=== PATIENT | female | born 1950 | race Caucasian/White ===

== ENCOUNTER → 2017-10-03 09:19 | Outpatient (CLI) | payer MEDICARE, MEDICAID, SELFPAY ==
[2017-10-03 16:25] LABS: Absolute Lymphocyte Count 1.35 X10^3/ul (0.83-4.51); Absolute Neutrophil Count 3.9 X10^3/uL (2.0-7.7); Basophil# 0.01 X10^3/uL; Basophil% 0.2 % (0-1); Eosinophil# 0.02 X10^3/uL; Eosinophils% 0.3 % (0-5); Hematocrit 43.8 % (37-47); Lymphocyte # 1.35 X10^3/ul (4.0); Lymphocyte % 23.4 % (19-41); Mean Corp Hgb Conc 34.2 g/gl (32-36); Mean Corpuscular Hgb 30.4 pg (27.0-32.0); Mean Corpuscular Volume 88.7 fL (81-99); Monocyte# 0.48 X10^3/uL; Monocyte% 8.3 % (0-10); Neutrophil # 3.89 X10^3/uL (2.7-7.7); Neutrophil % 67.6 % (47-70); Platelet Count 199 K/mm3 (150-450); RBC Distribution Width CV 12.3 % (11.6-14.6); RBC Distribution Width SD 39.6 fl (35.1-43.9); Red Blood Count 4.94 M/mm3 (4.2-5.4); White Blood Count 5.8 K/mm3 (4.4-11.0)
[2017-10-03 16:27] LABS: POSITIVE COUNT NO; POSITIVE DIFFERENTIAL NO; POSITIVE MORPHOLOGY NO
[2017-10-03 16:39] LABS: Vitamin D,25 Hydroxy 20.6 ng/mL (29.95-100.01)
[2017-10-03 16:41] LABS: ALB/GLOB Ratio 1.1 RATIO (0.9-2.4); AST(SGOT) 23 U/L (15-37); Alanine Aminotransfer ALT/SGPT 42 U/L (13-56); Albumin, Serum 3.8 g/dL (3.2-5.0); Alkaline Phosphatase 68 U/L (45-117); Anion Gap 6 (5-15); BUN 12 mg/dL (7-18); BUN/Creat Ratio 18.4 RATIO (10-20); Calcium,Total 8.7 mg/dL (8.5-10.1); Chloride 106 mmol/L (98-107); Creatinine, Serum 0.65 mg/dL (0.55-1.02); EST Glomerular Filtration Rate 96 mL/min (>60); Est Glom Filt Rate - Afr Amer 117 mL/min (>60); Globulin 3.5 g/dL (2.2-4.2); Glucose 99 mg/dL (74-106); Potassium 4.2 mmol/L (3.5-5.1); Protein, Total 7.3 g/dL (6.4-8.2); Sodium Level 143 mmol/L (136-145); Thyroid Stim Hormone (TSH) 0.49 uIU/mL (0.358-3.74)
== END ==
PROVIDERS: Family Provider Family Medicine Geriatric Medicine; PCP Family Medicine Geriatric Medicine; Visit Provider Family Medicine Geriatric Medicine
DX: E55.9 Vitamin D deficiency, unspecified (principal); R53.83 Other fatigue
CPT/HCPCS: 36415; 80053; 82306; 84443; 85025

== ENCOUNTER → 2018-04-04 15:39 | Outpatient (CLI) | payer MEDICARE, MEDICAID, SELFPAY ==
[2018-04-04 17:08] LABS: Absolute Lymphocyte Count 1.15 X10^3/ul (0.83-4.51); Absolute Neutrophil Count 4.7 X10^3/uL (2.0-7.7); Basophil# 0.02 X10^3/uL; Basophil% 0.3 % (0-1); Eosinophil# 0.01 X10^3/uL; Eosinophils% 0.2 % (0-5); Hematocrit 47.9 % (37-47); Hemoglobin 16.3 g/dl (12.0-15.0); Lymphocyte # 1.15 X10^3/ul (4.0); Lymphocyte % 17.7 % (19-41); Mean Corpuscular Hgb 30.4 pg (27.0-32.0); Mean Corpuscular Volume 89.4 fL (81-99); Mean Platelet Vol. 10.3 fl (6.2-12.0); Monocyte# 0.61 X10^3/uL; Monocyte% 9.4 % (0-10); Neutrophil # 4.69 X10^3/uL (2.7-7.7); Neutrophil % 72.4 % (47-70); Platelet Count 237 K/mm3 (150-450); RBC Distribution Width CV 12.2 % (11.6-14.6); RBC Distribution Width SD 39.6 fl (35.1-43.9); Red Blood Count 5.36 M/mm3 (4.2-5.4); White Blood Count 6.5 K/mm3 (4.4-11.0)
[2018-04-04 17:20] LABS: Vitamin D,25 Hydroxy 25.2 ng/mL (29.95-100.01)
[2018-04-04 17:21] LABS: POSITIVE COUNT NO; POSITIVE DIFFERENTIAL NO; POSITIVE MORPHOLOGY NO
[2018-04-04 17:23] LABS: ALB/GLOB Ratio 1.1 RATIO (0.9-2.4); AST(SGOT) 19 U/L (15-37); Alanine Aminotransfer ALT/SGPT 26 U/L (13-56); Albumin, Serum 3.9 g/dL (3.2-5.0); Alkaline Phosphatase 72 U/L (45-117); Anion Gap 7 (5-15); BUN 9 mg/dL (7-18); BUN/Creat Ratio 13.8 RATIO (10-20); Calcium,Total 8.7 mg/dL (8.5-10.1); Chloride 106 mmol/L (98-107); Creatinine, Serum 0.65 mg/dL (0.55-1.02); EST Glomerular Filtration Rate 96 mL/min (>60); Est Glom Filt Rate - Afr Amer 116 mL/min (>60); Globulin 3.5 g/dL (2.2-4.2); Glucose 101 mg/dL (74-106); Potassium 3.9 mmol/L (3.5-5.1); Protein, Total 7.4 g/dL (6.4-8.2); Sodium Level 140 mmol/L (136-145); Thyroid Stim Hormone (TSH) 1.29 uIU/mL (0.358-3.74)
== END ==
PROVIDERS: Family Provider Family Medicine Geriatric Medicine; PCP Family Medicine Geriatric Medicine; Visit Provider Family Medicine Geriatric Medicine
DX: E55.9 Vitamin D deficiency, unspecified (principal); R53.83 Other fatigue
CPT/HCPCS: 36415; 80053; 82306; 84443; 85025

== ENCOUNTER → 2018-04-11 15:27 | Outpatient (CLI) | payer MEDICARE, MEDICAID, SELFPAY ==
--- NOTE | 2018-04-11 15:32 | CT_ITS ---
STUDY: LOW DOSE CT LUNG CANCER SCREENING REASON FOR EXAM: Female, 67 years old. Former smoker one pack per day for 50 years, quit 6 months ago. Screening. RADIATION DOSAGE (If Supplied By Facility): CTDIvol = ( 2.01 ) mGy, DLP = ( 74.49 ) mGycm TECHNIQUE: No contrast was administered. Low dose technique was utilized (average mAS-38 and kVp 120). 1.25 mm axial source images with a slice interval of 1.25-mm were reconstructed in lung windows. Coronal and sagittal 2-D MPR Nodule measured using lung windows on PACS and/or independent workstation with automated measurement of minimum and maximum diameter. Nodule measurement reported as average diameter rounded to the nearest whole number. Growth is defined as an increase ins size of greater than 1.5 mm. COMPARISON: 04/06/[address] FINDINGS: Total lung nodules (excluding granulomas): A few very tiny pulmonary nodules are present bilaterally, less than 3 mm. No apparent change compared to prior imaging. No suspicious pulmonary nodules. Emphysema: Generalized pulmonary hyperlucency with mild features of centrilobular emphysema at the apices. Endobronchial lesion: There is a focus of nodular thickening projecting into the lumen of the left lower lobe posterior basal bronchial segment. Series 2 image 160 axials, coronal series 602 image 130. This focus measures approximately 8 mm in length, 3 mm in thickness. This feature was not apparent on prior imaging of 04/06/2017. This could represent an endobronchial lesion, or inspissated material. There is a tiny 3 mm nodular focus within the right lower lobar bronchus, axial series 2 image 142. Another tiny focus is present within the right lower lobe medial basilar segmental division axial image 183. These additional small foci in the right were not apparent on prior imaging. Aorta: Nondilated aorta, minimal arch atherosclerosis. Coronary arteries: Mild coronary cusp secretions are present at the origin of the LAD. None seen within the RCA or circumflex distributions. Heart: No significant cardiomegaly. Pulmonary artery: Nondilated. Mediastinal nodes: Normal esophagus. Lymph node subjacent to the left mainstem bronchus measuring approximately 14 x 8 mm.. Lymph node subjacent to the right mainstem bronchus measuring approximately 11.5 x 8 mm. These are not substantially changed compared to prior imaging. There is no apparent hilar lymphadenopathy. Other chest and abdominal findings: There is evidence of pancreatic atrophy. No acute upper abdominal process is visualized. Body wall soft tissues exhibit no acute process. Supraclavicular soft tissues exhibit no acute process. Osseous structures exhibit no acute process. CT/Low Dose CT Lung Screening IMPRESSION: Tiny pulmonary nodules, less than 3 mm, stable. Tiny endobronchial nodular filling defects as described in detail above in the left lower lobe and right lower lobe, not apparent on prior imaging and requiring further characterization. Bronchoscopy is suggested. ACR Lung RADS Category A4, due to the endobronchial nodules. Suspicious. 5-15% chance of malignancy. Mild features of COPD/emphysema. Minimal coronary atherosclerosis. IMPORTANT NOTES FOR USE: ACR Lung-RADS Version 1.0 Assessment Categories Release Date: August 04, 2013 Category: Coded 0-4 bases on nodule(s) with highest degree of suspicion. Negative screen is defined as categories 1 and 2; a positive screen is defined as categories 3 and 4. Category 3 and 4A nodules that are unchanged on interval CT should be coded as category 2, and individuals returned to screening in 12 months. Category 4X: Category 3 or 4 nodules with additional imaging findings that increase the suspicion of lung cancer, such as spiculation, GGN that doubles in size in 1 year, enlarged lymph notes, etc. Category Modifiers: S (significant finding unrelated to lung cancer) and C (prior history of treated lung cancer) may be added to the 0-4 Lung-RADS Electronically Signed: Crispin Abreu MD at 18:12 EST Tel , Service support ,
== END ==
PROVIDERS: Family Provider Family Medicine Geriatric Medicine; PCP Family Medicine Geriatric Medicine; Referring Provider Family Medicine Geriatric Medicine; Visit Provider Family Medicine Geriatric Medicine
DX: Z87.891 Personal history of nicotine dependence (principal); F17.200 Nicotine dependence, unspecified, uncomplicated; Z12.2 Encounter for screening for malignant neoplasm of respiratory organs
CPT/HCPCS: G0297

== ENCOUNTER → 2018-06-24 14:36 | Outpatient (CLI) | payer MEDICARE, SELFPAY ==
[2018-05-28 12:38] VITALS: BMI 18.1
--- NOTE | 2018-06-24 14:39 | CT_ITS ---
STUDY: CT CHEST WITH CONTRAST REASON FOR EXAM: Female, 67 years old. Follow-up lung nodule RADIATION DOSAGE (If Supplied By Facility): CTDIvol = ( 8.75 ) mGy, DLP = ( 172.44 ) mGycm TECHNIQUE: Transaxial 2.5 mm imaging was performed following intravenous administration of Isovue 300 100 IV. Multiplanar coronal and sagittal images were reformatted. Individualized dose optimization techniques were used for this CT. COMPARISON: CT lower dose lung screening 04/11/2018. 04/06/2017. FINDINGS: There is stable opacification in the left lower lobe posterior basal bronchial segment axial images 75-80 series 4. Previously seen small endobronchial nodular density in the right proximal inferior bronchus previously image 142 series 2 has increased in size with increased luminal opacification best seen currently image 69 series 4. There is some vague lucency which may be in inspissated mucus. The previously seen small nodular endoluminal luminal density in the right lower lobe medial basilar segment axial image 182 and 183 series 2 has resolved Minimal bilateral centrilobular emphysema without dominant bulla formation. Stable 1 cm pulmonary cyst right lower lobe. Exam point to 7 cm nodule in the left lower lobe image 94 series 4 present on previous exam. Minimal scarring in the apices. Minor pleural thickening of the inferior left major fissure. Normal heart and pericardium. Normal mediastinum. Normal hilar regions. Normal enhanced pulmonary arteries. Normal aorta arch and descending thoracic aorta. Age-appropriate osseous structures. There is demineralization of osseous structures. Stable loss of vertebral body height along the superior endplate T12 and inferior endplate L2. Atherosclerosis of the upper abdominal aorta. CT/Chest WITH Contrast IMPRESSION: Mild centrilobular emphysema. No significant pulmonary nodules or masses. Stable tiny pulmonary nodules less than 3 mm. Endobronchial filling defect as outlined above one of which has resolved in the interim, one of which is stable, one of which has increased in size and decreased in density. The later one is in the right proximal inferior bronchus. Heterogeneous attenuation suggestive off inspissated mucus. Attention on follow-up examination is recommended. Consider bronchoscopy. Other nonacute findings as outlined above. Electronically Signed: Gretta Bermudez MD at 7:52 EDT , Service support ,
[2018-06-24 15:11] LABS: CREATININE FINGERSTICK 0.8 mg/dL (0.55-1.02)
== END ==
PROVIDERS: Family Provider Family Medicine Geriatric Medicine; PCP Family Medicine Geriatric Medicine; Referring Provider Internal Medicine Critical Care Medicine; Visit Provider Internal Medicine Critical Care Medicine
DX: R93.89 Abnormal findings on diagnostic imaging of other specified body structures (principal)
CPT/HCPCS: 71260; Q9967

== ENCOUNTER → 2018-06-26 15:05 | Outpatient (CLI) | payer MEDICARE, MEDICAID, SELFPAY ==
[2018-06-26 14:28] VITALS: BMI 17.9
[2018-06-26 15:22] LABS: Platelet Count 180 K/mm3 (150-450)
[2018-06-26 15:27] LABS: Prothrombin Time (Protime)PT. 13.1 SECONDS (11.7-14.9)
[2018-06-26 15:28] LABS: Partial Thromboplast Time 30.2 Seconds (24.1-36.2)
== END ==
PROVIDERS: Family Provider Family Medicine Geriatric Medicine; PCP Family Medicine Geriatric Medicine; Visit Provider Nurse Practitioner Acute Care
DX: Z98.890 Other specified postprocedural states (principal); R91.8 Other nonspecific abnormal finding of lung field; I48.91 Unspecified atrial fibrillation
CPT/HCPCS: 36415; 85049; 85610; 85730

== ENCOUNTER 2018-07-12 11:33 | Day surgery (SDC) | payer MEDICARE, SELFPAY ==
[2018-06-26 14:28] VITALS: BMI 17.9
[2018-07-12] VITALS (10 sets, daily range): BP systolic 108–149; BP diastolic 54–83; PULSE 63–81; RESP 16–20; TEMP 36.4–37.1; O2SAT 4–100; BMI 17.7
--- NOTE | 2018-07-12 | FLU_PTH ---
PATIENT: TRACI MCCONNELL LOC: EN U#:[id number] AGE/SX: 67/F ROOM: RE07/12/[address]: Dr. Jaydon Dan DO : 1950 BED: DIS: 07/12/2018 SPEC #: [id number] RECD: 07/12/18 14:45 STATUS: SRIRAM REHarsh #: [id number] HYACINTH: 07/12/18 00:[address]: Jaydon Dan DEPT: CYTOLOGY RECD BY: Gilles Swanson ENTERED: 07/12/18 14:45 SP TYPE: Fluid OTHR DR: Dr. Matt Hess MD Tissues: Bronchus of left lower lobe Procedures: Special Stain Group II Surgery Specimen Level IV Cytospin Fluid HEADER OPERATION: Bronchoscopy (MOD) PRE-OP DIAGNOSIS: Lung mass TISSUE SUBMITTED: BAL LLL fluid for cytology DIAGNOSIS CYTOLOGY LLL fluid, BAL (cytospin and cell block): Negative for malignant cells. SJ:waylon 07/15/18 COMMENT Correlation with clinical, radiologic findings and appropriate follow up are necessary. CYTOLOGY STUDY Slides are reviewed. CYTOLOGY GROSS Received is 10 ml of white cloudy fluid labeled with the patient's name and and designated per the requisition as BAL LLL. Submitted for cytology preparation including cell block. / 07/12/18 TC:5 CPT: 98859, 83657
--- NOTE | 2018-07-12 13:47 | OP.ENDO_ITS ---
Patient Name: Laya Dick Procedure Date: 07/12/2018 7:07 AM Date of : 1950 Age: 67 Procedure: Bronchoscopy Indications: Abnormal CT scan of chest Providers: Jaydon Dan MD Referring MD: Jaydon Dan MD Medicines: Monitored Anesthesia Care Complications: Bronchospasm and transient hypoxia. Procedure: Pre-Anesthesia Assessment: - [place] Protocol: - Pre-procedure Verification: Prior to the procedure, the patient's identity was verified by full name and date of . The patient's identity was verified on all pertinent medical records, including History and Physical. Also prior to the procedure, a History and Physical was performed, and patient medications, allergies and sensitivities were reviewed. The patient's tolerance of previous anesthesia was reviewed. The risks and benefits of the procedure and the sedation options and risks were discussed with the patient. All questions were answered and informed consent was obtained. - Time-Out: Prior to the start of the procedure, the patient's identification, proposed procedure, accurate signed consent, correctly labeled images and records, and need for prophylactic antibiotics were verified by the physician and the nurse in the procedure room. After I obtained informed consent, the scope was passed under direct vision. Throughout the procedure, the patient's blood pressure, pulse, and oxygen saturations were monitored continuously. The bronchoscope was introduced through the mouth, via the endotracheal tube and advanced to the tracheobronchial tree. Findings: The patient procedure was intially attempted in the endoscopy suite. The patient was medicated with 2 mg of versed and 50 mcg of Fentanyl. A bite block was placed and the bronchosope was introduced. The vocal cords were normal in appearance and abducted appropriately. Upon entering the patient's trachea, she began to experience bronchospasm. The bronchosocpe was withdrawn for a period of time. The patient was transiently hypoxic with saturations in the mid 80's. Attempts to reintroduce the bronchoscope was unsuccessful, as each time the patient began to experience laryngospasm. Therefore, the decision was made to transfer the patient to the OR, where she could be intubated and receive MAC. After receiving induction medications by anesthesia, a #7.5 endotracheal tube was placed. The bronchoscope was then able to be reintroduced into the patient's airway via the ETT. Airway evaluation revealed the following: The endotracheal tube is in good position. The visualized portion of the trachea is of normal caliber. The [place] is sharp. The tracheobronchial tree was examined to at least the first subsegmental level. Bronchial mucosa and anatomy are normal. Thick mucoid secretions were noted throughout the tracheobronchial tree bilaterally. Airway secretions were able to be cleared with suctioning. BAL was performed in the LLL posterior basal segment (B10) of the lung and sent for cell count, bacterial culture, viral smears & culture, and fungal & AFB analysis and cytology. The return was mucoid. Mucous plugs were present in the return fluid. The areas of question on the patient's CT chest appeared to be retained mucoid secretions. No endobronchial lesions were identified on bronchosopic evaluation. Impression: - Abnormal CT scan of chest - The airway examination revealed thick, mucoid secretions B/L - Bronchoalveolar lavage was performed. - No endobronchial lesions were identified. Recommendation: - Await BAL results. - Follow up in clinic as previously scheduled. Procedure Code(s): --- Professional --- 85480, Bronchoscopy, rigid or flexible, including fluoroscopic guidance, when performed; diagnostic, with cell washing, when performed (separate procedure) Diagnosis Code(s): --- Professional --- R93.8, Abnormal findings on diagnostic imaging of other specified body structures CPT copyright 2017 [employer]. All rights reserved. The codes documented in this report are preliminary and upon dry dip worker review may be revised to meet current compliance requirements. DO Jaydon Gee MD 07/12/2018 1:47:10 PM This report has been signed electronically. Number of Addenda: 0 Note Initiated On: 07/12/2018 7:07 AM
[2018-07-12 14:00] LABS: Cytology, Body Fluid / CSF SEE PATHOLOGY REPORT
[2018-07-12 14:56] LABS: Appearance/Body Fluid SL CLDY; Color/Body Fluid COLORLESS; Source- Body Fluid BRONCHIAL LAVAGE
[2018-07-12 15:04] LABS: Red Cell Count/Body Fluid 32 /mm3; White Blood Count/Body Fluid 77 /mm3
[2018-07-12 15:26] LABS: Lymphocytes 50 %; Neutrophil (Segs) 34 %; Other Cell Type/BF 16 %
[2018-07-12 15:27] LABS: Body Fluid QC Type(s) BF1Q
[2018-07-16 12:13] LABS: Pathologist Comment/Body Fluid Reviewed
== END 2018-07-12 15:13 | disposition home or self-care (01) ==
LOC: EN 11:34 → AC 11:35
PROVIDERS: Family Provider Family Medicine Geriatric Medicine; PCP Family Medicine Geriatric Medicine; Referring Provider Internal Medicine Critical Care Medicine; Visit Provider Internal Medicine Critical Care Medicine
PROC: 0BJ08ZZ Inspection of Tracheobronchial Tree, Via Natural or Artificial Opening Endoscopic (ICD-10-PCS; CPT 31622; principal; 2018-07-12 12:15)
DX: J98.01 Acute bronchospasm (principal); R09.02 Hypoxemia; I48.2 Chronic atrial fibrillation; E78.5 Hyperlipidemia, unspecified; F13.20 Sedative, hypnotic or anxiolytic dependence, uncomplicated; E55.9 Vitamin D deficiency, unspecified; F31.9 Bipolar disorder, unspecified; F17.211 Nicotine dependence, cigarettes, in remission; Z79.899 Other long term (current) drug therapy
CPT/HCPCS: 31624; 87070; 87205; 88108; 88305; 88313; 89050; J7120

== ENCOUNTER → 2018-08-27 | Outpatient (CLI) | payer MEDICARE, MEDICAID, SELFPAY ==
[2018-07-19 13:10] VITALS: BMI 17.7
--- NOTE | 2018-08-27 15:23 | RAD_ITS ---
STUDY: X-RAY - ABDOMEN/PELVIS REASON FOR EXAM: Female, 67 years old. Fecal impaction TECHNIQUE: AP supine and upright views of the abdomen and pelvis. COMPARISON: None. FINDINGS: Normal visualized lung bases. There is an unremarkable bowel gas pattern. There is no demonstrated free abdominal air. The visualized liver, spleen and kidneys are grossly normal in size and morphology. Normal soft tissue structures. There is a thoracolumbar dextroscoliosis. RAD/Abd Inc Decub and/or Erect IMPRESSION: The bowel gas pattern is unremarkable. There is actually a paucity of colonic stool. There is a mild thoracolumbar dextroscoliosis. Electronically Signed: Mihai Parsons MD at 16:42 EDT , Service support ,
[2018-08-27 17:35] LABS: Absolute Lymphocyte Count 1.17 X10^3/ul (0.83-4.51); Absolute Neutrophil Count 5.5 X10^3/uL (2.0-7.7); Basophil# 0.02 X10^3/uL; Basophil% 0.3 % (0-1); Eosinophil# 0.03 X10^3/uL; Eosinophils% 0.4 % (0-5); Hematocrit 42.1 % (37-47); Lymphocyte # 1.17 X10^3/ul (4.0); Mean Corp Hgb Conc 33.3 g/gl (32-36); Mean Corpuscular Hgb 29.7 pg (27.0-32.0); Mean Corpuscular Volume 89.4 fL (81-99); Mean Platelet Vol. 10.7 fl (6.2-12.0); Monocyte# 0.64 X10^3/uL; Monocyte% 8.7 % (0-10); Neutrophil # 5.46 X10^3/uL (2.7-7.7); Neutrophil % 74.5 % (47-70); Platelet Count 178 K/mm3 (150-450); RBC Distribution Width CV 12.2 % (11.6-14.6); RBC Distribution Width SD 39.5 fl (35.1-43.9); Red Blood Count 4.71 M/mm3 (4.2-5.4); White Blood Count 7.3 K/mm3 (4.4-11.0)
[2018-08-27 18:00] LABS: POSITIVE COUNT NO; POSITIVE DIFFERENTIAL NO; POSITIVE MORPHOLOGY NO
[2018-08-27 18:06] LABS: Anion Gap 9 (5-15); BUN 9 mg/dL (7-18); BUN/Creat Ratio 12.5 RATIO (10-20); Calcium,Total 8.6 mg/dL (8.5-10.1); Chloride 107 mmol/L (98-107); Creatinine, Serum 0.72 mg/dL (0.55-1.02); EST Glomerular Filtration Rate 85 mL/min (>60); Est Glom Filt Rate - Afr Amer 103 mL/min (>60); Glucose 98 mg/dL (74-106); Potassium 4.1 mmol/L (3.5-5.1); Sodium Level 143 mmol/L (136-145)
== END | disposition home or self-care (01) ==
PROVIDERS: Family Provider Family Medicine Geriatric Medicine; PCP Family Medicine Geriatric Medicine; Referring Provider Family Medicine Geriatric Medicine; Visit Provider Family Medicine Geriatric Medicine
DX: K56.41 Fecal impaction (principal); N39.0 Urinary tract infection, site not specified; R10.9 Unspecified abdominal pain
CPT/HCPCS: 36415; 74019; 80048; 85025; 87086; 87088

== ENCOUNTER → 2018-09-24 | Outpatient (CLI) | payer MEDICARE, SELFPAY ==
[2018-07-19 13:10] VITALS: BMI 17.7
--- NOTE | 2018-09-24 14:16 | RAD_ITS ---
STUDY: X-RAY - ABDOMEN/PELVIS REASON FOR EXAM: Female, 67 years old. Possible fecal impaction. TECHNIQUE: AP supine and upright views of the abdomen and pelvis. COMPARISON: Comparison is made with prior study dated August 27, 2018. FINDINGS: Normal visualized lung bases. There is an abundance of fecal material throughout the colon. There is no demonstrated free abdominal air. The visualized liver, spleen and kidneys are grossly normal in size and morphology. Normal soft tissue structures. Dextroscoliosis. RAD/Abd Inc Decub and/or Erect IMPRESSION: A large amount of fecal material is seen in the colon. Electronically Signed: Wolf Meza, at 14:45 EDT , Service support ,
== END | disposition home or self-care (01) ==
PROVIDERS: Family Provider Family Medicine Geriatric Medicine; PCP Family Medicine Geriatric Medicine; Referring Provider Family Medicine Geriatric Medicine; Visit Provider Family Medicine Geriatric Medicine
DX: K56.41 Fecal impaction (principal)
CPT/HCPCS: 74019

== ENCOUNTER → 2018-10-02 | Outpatient (CLI) | payer MEDICARE, MEDICAID, SELFPAY ==
[2018-07-19 13:10] VITALS: BMI 17.7
[2018-10-02 17:33] LABS: Absolute Lymphocyte Count 0.97 X10^3/ul (0.83-4.51); Absolute Neutrophil Count 4.3 X10^3/uL (2.0-7.7); Basophil# 0.01 X10^3/uL; Basophil% 0.2 % (0-1); Eosinophil# 0.01 X10^3/uL; Eosinophils% 0.2 % (0-5); Hematocrit 42.2 % (37-47); Hemoglobin 14.1 g/dl (12.0-15.0); Lymphocyte # 0.97 X10^3/ul (4.0); Lymphocyte % 16.5 % (19-41); Mean Corp Hgb Conc 33.4 g/gl (32-36); Mean Corpuscular Hgb 29.9 pg (27.0-32.0); Mean Corpuscular Volume 89.4 fL (81-99); Mean Platelet Vol. 10.8 fl (6.2-12.0); Monocyte# 0.58 X10^3/uL; Monocyte% 9.9 % (0-10); Neutrophil # 4.29 X10^3/uL (2.7-7.7); Platelet Count 160 K/mm3 (150-450); RBC Distribution Width CV 12.3 % (11.6-14.6); RBC Distribution Width SD 39.9 fl (35.1-43.9); Red Blood Count 4.72 M/mm3 (4.2-5.4); White Blood Count 5.9 K/mm3 (4.4-11.0)
[2018-10-02 17:38] LABS: POSITIVE COUNT NO; POSITIVE DIFFERENTIAL NO; POSITIVE MORPHOLOGY NO
[2018-10-02 17:52] LABS: ALB/GLOB Ratio 1.1 RATIO (0.9-2.4); AST(SGOT) 12 U/L (15-37); Alanine Aminotransfer ALT/SGPT 25 U/L (13-56); Albumin, Serum 3.5 g/dL (3.2-5.0); Alkaline Phosphatase 62 U/L (45-117); Anion Gap 5 (5-15); BUN 12 mg/dL (7-18); BUN/Creat Ratio 17.7 RATIO (10-20); Calcium,Total 8.8 mg/dL (8.5-10.1); Chloride 107 mmol/L (98-107); Creatinine, Serum 0.68 mg/dL (0.55-1.02); EST Glomerular Filtration Rate 92 mL/min (>60); Est Glom Filt Rate - Afr Amer 111 mL/min (>60); Globulin 3.3 g/dL (2.2-4.2); Glucose 126 mg/dL (74-106); Potassium 3.8 mmol/L (3.5-5.1); Protein, Total 6.8 g/dL (6.4-8.2); Sodium Level 138 mmol/L (136-145); Thyroid Stim Hormone (TSH) 0.48 uIU/mL (0.358-3.74)
[2018-10-02 18:01] LABS: Vitamin D,25 Hydroxy 17.9 ng/mL (29.95-100.01)
== END | disposition home or self-care (01) ==
LOC: POLAB3 13:10
PROVIDERS: Family Provider Family Medicine Geriatric Medicine; PCP Family Medicine Geriatric Medicine; Visit Provider Family Medicine Geriatric Medicine
DX: E55.9 Vitamin D deficiency, unspecified (principal); R53.83 Other fatigue
CPT/HCPCS: 36415; 80053; 82306; 84443; 85025

== ENCOUNTER → 2018-10-15 | Outpatient (CLI) | payer MEDICARE, MEDICAID, SELFPAY ==
[2018-07-19 13:10] VITALS: BMI 17.7
--- NOTE | 2018-10-15 16:40 | RAD_ITS ---
STUDY: X-RAY - ABDOMEN/PELVIS REASON FOR EXAM: Female, 67 years old. Fecal impaction TECHNIQUE: AP supine and upright views of the abdomen and pelvis. COMPARISON: September 24, 2018 FINDINGS: There is trace blunting of the costophrenic angles. There is a nonspecific bowel gas pattern with minimally distended loops of small bowel within the pelvis. There is no significant visualized fecal material within the rectum. There is no demonstrated free abdominal air. The visualized liver, spleen and kidneys are grossly normal in size and morphology. Normal soft tissue structures. There is dextroscoliosis of the lumbar spine. RAD/Abd Inc Decub and/or Erect IMPRESSION: Nonspecific bowel gas pattern. Possible trace effusions. Dextroscoliosis. Electronically Signed: Mary Greer MD at 16:58 EDT Tel , Service support ,
== END | disposition home or self-care (01) ==
LOC: LABSPEC 16:18 → RAD 16:27
PROVIDERS: Family Provider Family Medicine Geriatric Medicine; PCP Family Medicine Geriatric Medicine; Referring Provider Family Medicine Geriatric Medicine; Visit Provider Family Medicine Geriatric Medicine
DX: K56.41 Fecal impaction (principal); N39.0 Urinary tract infection, site not specified
CPT/HCPCS: 74019; 87077; 87086; 87088; 87186

== ENCOUNTER → 2019-01-07 16:23 | Outpatient (CLI) | payer MEDICARE, MEDICAID, SELFPAY ==
[2018-07-19 13:10] VITALS: BMI 17.7
--- NOTE | 2019-01-07 16:30 | RAD_ITS ---
STUDY: X-RAY - UNILATERAL RIBS ( LEFT ) WITH CHEST REASON FOR EXAM: Female, 68 years old. Rib pain TECHNIQUE - RIBS: 2 view(s) of the ribs. TECHNIQUE - CHEST: Frontal view of the chest COMPARISON: CT chest June 24, 2018 FINDINGS - RIBS: There are no displaced rib fractures identified. FINDINGS - CHEST: Right lower lung zone fibrotic change is present. There is no consolidation. There are no pleural effusions. There is no pneumothorax. The heart is normal in size. RAD/Ribs Uni Min 3V w/PA Chest IMPRESSION: RIBS: No displaced rib fracture identified. CHEST: No consolidation. Right lower lung zone fibrotic change. Electronically Signed: Sudeep Valdivia, at 17:18 EDT Tel , Service support ,
== END ==
PROVIDERS: Family Provider Family Medicine Geriatric Medicine; PCP Family Medicine Geriatric Medicine; Referring Provider Family Medicine Geriatric Medicine; Visit Provider Family Medicine Geriatric Medicine
DX: R07.9 Chest pain, unspecified (principal)
CPT/HCPCS: 71101

== ENCOUNTER → 2019-01-27 07:54 | Outpatient (CLI) | payer MEDICARE, MEDICAID, SELFPAY ==
[2018-07-19 13:10] VITALS: BMI 17.7
--- NOTE | 2019-01-27 08:20 | RAD_ITS ---
STUDY: X-RAY - ESOPHAGUS (BARIUM SWALLOW) WITH FLUOROSCOPY REASON FOR EXAM: Female, 68 years old. Dysphagia. Heartburn. TECHNIQUE: 16 view(s) of the esophagus were obtained following swallowing of barium. FLUOROSCOPY TIME (if supplied): (0:24) minutes/seconds COMPARISON: None. FINDINGS: There is no demonstrated esophageal foreign body. There is no demonstrated stricture or mucosal abnormality. Normal gastroesophageal junction, without a demonstrated hiatal hernia. The patient ingested a 12 mm tablet of barium without any difficulty. There is atherosclerotic calcification of the aortic arch with tortuosity of the descending aorta. Normal visualized pulmonary parenchyma. Normal visualized osseous structures of the thorax. RAD/Esophagus Only IMPRESSION: Normal plain film x-ray examination (barium swallow) of the esophagus. Electronically Signed: Wolf Meza, at 14:48 EDT , Service support ,
== END ==
PROVIDERS: Family Provider Family Medicine Geriatric Medicine; PCP Family Medicine Geriatric Medicine; Referring Provider Family Medicine Geriatric Medicine; Visit Provider Family Medicine Geriatric Medicine
DX: R13.10 Dysphagia, unspecified (principal)
CPT/HCPCS: 74220

== ENCOUNTER → 2019-05-29 13:33 | Outpatient (CLI) | payer MEDICARE, MEDICAID, SELFPAY ==
[2018-07-19 13:10] VITALS: BMI 17.7
[2019-05-29 14:29] LABS: Absolute Lymphocyte Count 1.06 X10^3/uL (0.83-4.51); Basophil# 0.04 X10^3/uL; Basophil% 0.6 % (0-1); Eosinophil# 0.05 X10^3/uL; Eosinophils% 0.7 % (0-5); Hematocrit 43.9 % (37-47); Hemoglobin 14.1 g/dL (12.0-15.0); Lymphocyte # 1.06 X10^3/ul (4.0); Lymphocyte % 15.2 % (19-41); Mean Corp Hgb Conc 32.1 g/dL (32-36); Mean Corpuscular Hgb 28.8 pg (27.0-32.0); Mean Corpuscular Volume 89.6 fL (81-99); Mean Platelet Vol. 12.6 fl (6.2-12.0); Monocyte# 0.79 X10^3/uL; Monocyte% 11.3 % (0-10); NRBC Flagged by Analyzer 0 % (0-5); Neutrophil # 5.04 X10^3/uL (2.7-7.7); Neutrophil % 72.1 % (47-70); Platelet Count 106 K/mm3 (150-450); RBC Distribution Width CV 12.3 % (11.6-14.6); RBC Distribution Width SD 40.2 fl (35.1-43.9)
[2019-05-29 14:41] LABS: ALB/GLOB Ratio 0.9 RATIO (0.9-2.4); AST(SGOT) 20 U/L (15-37); Alanine Aminotransfer ALT/SGPT 30 U/L (13-56); Albumin, Serum 3.4 g/dL (3.2-5.0); Alkaline Phosphatase 77 U/L (45-117); Anion Gap 5 (5-15); BUN 10 mg/dL (7-18); BUN/Creat Ratio 12.8 RATIO (10-20); Calcium,Total 8.8 mg/dL (8.5-10.1); Chloride 109 mmol/L (98-107); Creatinine, Serum 0.78 mg/dL (0.55-1.02); EST Glomerular Filtration Rate 78 mL/min (>60); Est Glom Filt Rate - Afr Amer 94 mL/min (>60); Globulin 3.7 g/dL (2.2-4.2); Glucose 114 mg/dL (74-106); Potassium 4.3 mmol/L (3.5-5.1); Protein, Total 7.1 g/dL (6.4-8.2); Sodium Level 142 mmol/L (136-145); Thyroid Stim Hormone (TSH) 0.97 uIU/mL (0.358-3.74)
== END ==
PROVIDERS: PCP Family Medicine Geriatric Medicine; Visit Provider Family Medicine Geriatric Medicine
DX: R53.83 Other fatigue (principal); E55.9 Vitamin D deficiency, unspecified
CPT/HCPCS: 36415; 80053; 82306; 84443; 85025

== ENCOUNTER → 2019-08-14 13:23 | Outpatient (CLI) | payer MEDICARE, MEDICAID, SELFPAY ==
[2018-07-19 13:10] VITALS: BMI 17.7
[2019-08-14 14:10] LABS: Absolute Lymphocyte Count 1.27 X10^3/uL (0.83-4.51); Absolute Neutrophil Count 4.4 X10^3/uL (2.0-7.7); Basophil# 0.02 X10^3/uL; Basophil% 0.3 % (0-1); Eosinophil# 0.06 X10^3/uL; Eosinophils% 0.9 % (0-5); Hematocrit 44.3 % (37-47); Hemoglobin 14.4 g/dL (12.0-15.0); Lymphocyte # 1.27 X10^3/ul (4.0); Lymphocyte % 20.1 % (19-41); Mean Corp Hgb Conc 32.5 g/dL (32-36); Mean Corpuscular Hgb 29.5 pg (27.0-32.0); Mean Corpuscular Volume 90.8 fL (81-99); Mean Platelet Vol. 13.1 fl (6.2-12.0); Monocyte# 0.62 X10^3/uL; Monocyte% 9.8 % (0-10); NRBC Flagged by Analyzer 0 % (0-5); Neutrophil # 4.35 X10^3/uL (2.7-7.7); Neutrophil % 68.7 % (47-70); POSITIVE COUNT YES; Platelet Count 168 K/mm3 (150-450); RBC Distribution Width CV 11.9 % (11.6-14.6); RBC Distribution Width SD 39.5 fl (35.1-43.9); Red Blood Count 4.88 M/mm3 (4.2-5.4); White Blood Count 6.3 K/mm3 (4.4-11.0)
[2019-08-14 14:17] LABS: Differential Indicated SCAN CRITERIA MET
[2019-08-14 14:43] LABS: AST(SGOT) 14 U/L (15-37); Alanine Aminotransfer ALT/SGPT 22 U/L (13-56); Albumin, Serum 3.6 g/dL (3.2-5.0); Alkaline Phosphatase 69 U/L (45-117); Anion Gap 4 (5-15); BUN 11 mg/dL (7-18); BUN/Creat Ratio 16.8 RATIO (10-20); Calcium,Total 8.8 mg/dL (8.5-10.1); Chloride 107 mmol/L (98-107); Creatinine, Serum 0.66 mg/dL (0.55-1.02); EST Glomerular Filtration Rate 95 mL/min (>60); Est Glom Filt Rate - Afr Amer 115 mL/min (>60); Globulin 3.5 g/dL (2.2-4.2); Glucose 101 mg/dL (74-106); Protein, Total 7.1 g/dL (6.4-8.2); Sodium Level 141 mmol/L (136-145); Thyroid Stim Hormone (TSH) 0.67 uIU/mL (0.358-3.74)
[2019-08-14 15:37] LABS: Platelet Estimate ADEQUATE (ADEQ); Red Cell Morphology NORM C+C NORMAL (NORM C&C)
== END ==
PROVIDERS: PCP Family Medicine Geriatric Medicine; Referring Provider Family Medicine Geriatric Medicine; Visit Provider Family Medicine Geriatric Medicine
DX: R53.83 Other fatigue (principal)
CPT/HCPCS: 36415; 80053; 84443; 85025

== ENCOUNTER → 2019-11-27 15:02 | Outpatient (CLI) | payer MEDICARE, MEDICAID, SELFPAY ==
[2018-07-19 13:10] VITALS: BMI 17.7
[2019-11-27 16:54] LABS: Vitamin D,25 Hydroxy 44.8 ng/mL
[2019-11-27 17:02] LABS: AST(SGOT) 17 U/L (15-37); Alanine Aminotransfer ALT/SGPT 28 U/L (13-56); Albumin, Serum 3.5 g/dL (3.2-5.0); Alkaline Phosphatase 66 U/L (45-117); Anion Gap 5 (5-15); BUN 9 mg/dL (7-18); BUN/Creat Ratio 12.4 RATIO (10-20); Calcium,Total 8.5 mg/dL (8.5-10.1); Chloride 107 mmol/L (98-107); Creatinine, Serum 0.72 mg/dL (0.55-1.02); EST Glomerular Filtration Rate 85 mL/min (>60); Est Glom Filt Rate - Afr Amer 103 mL/min (>60); Globulin 3.4 g/dL (2.2-4.2); Glucose 97 mg/dL (74-106); Protein, Total 6.9 g/dL (6.4-8.2); Sodium Level 140 mmol/L (136-145); Thyroid Stim Hormone (TSH) 0.66 uIU/mL (0.358-3.74)
[2019-11-27 17:25] LABS: Absolute Lymphocyte Count 1.39 X10^3/uL (0.83-4.51); Absolute Neutrophil Count 4.3 X10^3/uL (2.0-7.7); Basophil# 0.03 X10^3/uL; Basophil% 0.5 % (0-1); Eosinophil# 0.08 X10^3/uL; Eosinophils% 1.2 % (0-5); Hematocrit 43.8 % (37-47); Hemoglobin 14.4 g/dL (12.0-15.0); Lymphocyte # 1.39 X10^3/ul (4.0); Lymphocyte % 21.3 % (19-41); Mean Corp Hgb Conc 32.9 g/dL (32-36); Mean Corpuscular Hgb 30.1 pg (27.0-32.0); Mean Corpuscular Volume 91.4 fL (81-99); Mean Platelet Vol. 10.6 fl (6.2-12.0); Monocyte# 0.69 X10^3/uL; Monocyte% 10.6 % (0-10); NRBC Flagged by Analyzer 0 % (0-5); Neutrophil # 4.33 X10^3/uL (2.7-7.7); Neutrophil % 66.2 % (47-70); Platelet Count 123 K/mm3 (150-450); RBC Distribution Width CV 11.9 % (11.6-14.6); RBC Distribution Width SD 39.9 fl (35.1-43.9); Red Blood Count 4.79 M/mm3 (4.2-5.4); White Blood Count 6.5 K/mm3 (4.4-11.0)
== END ==
PROVIDERS: PCP Family Medicine Geriatric Medicine; Visit Provider Family Medicine Geriatric Medicine
DX: R53.83 Other fatigue (principal); E55.9 Vitamin D deficiency, unspecified
CPT/HCPCS: 36415; 80053; 82306; 84443; 85025

== ENCOUNTER → 2020-02-18 15:41 | Outpatient (CLI) | payer MEDICARE, MEDICAID, SELFPAY ==
[2018-07-19 13:10] VITALS: BMI 17.7
== END ==
PROVIDERS: PCP Family Medicine Geriatric Medicine; Visit Provider Family Medicine Geriatric Medicine
DX: N39.0 Urinary tract infection, site not specified (principal)
CPT/HCPCS: 87077; 87086; 87088; 87186

== ENCOUNTER → 2020-04-15 | Outpatient (CLI) | payer MEDICARE, MEDICAID, SELFPAY ==
[2018-07-19 13:10] VITALS: BMI 17.7
== END | disposition home or self-care (01) ==
LOC: LABSPEC 11:11
PROVIDERS: PCP Family Medicine Geriatric Medicine; Visit Provider Family Medicine Geriatric Medicine
DX: N39.0 Urinary tract infection, site not specified (principal)
CPT/HCPCS: 87077; 87086; 87088; 87186

== ENCOUNTER → 2020-06-03 13:01 | Outpatient (CLI) | payer MEDICARE, MEDICAID, SELFPAY ==
[2018-07-19 13:10] VITALS: BMI 17.7
[2020-06-03 18:06] LABS: Absolute Lymphocyte Count 1.23 X10^3/uL (0.83-4.51); Absolute Neutrophil Count 6.1 X10^3/uL (2.0-7.7); Basophil# 0.03 X10^3/uL; Basophil% 0.4 % (0-1); Eosinophil# 0.05 X10^3/uL; Eosinophils% 0.6 % (0-5); Hemoglobin 14.3 g/dL (12.0-15.0); Lymphocyte # 1.23 X10^3/ul (4.0); Lymphocyte % 14.8 % (19-41); Mean Corp Hgb Conc 32.5 g/dL (32-36); Mean Corpuscular Hgb 28.9 pg (27.0-32.0); Mean Corpuscular Volume 89.1 fL (81-99); Mean Platelet Vol. 10.7 fl (6.2-12.0); Monocyte# 0.83 X10^3/uL; NRBC Flagged by Analyzer 0 % (0-5); Neutrophil # 6.11 X10^3/uL (2.7-7.7); Neutrophil % 73.7 % (47-70); POSITIVE COUNT YES; RBC Distribution Width CV 11.9 % (11.6-14.6); Red Blood Count 4.94 M/mm3 (4.2-5.4); White Blood Count 8.3 K/mm3 (4.4-11.0)
[2020-06-03 18:13] LABS: Differential Indicated SCAN CRITERIA MET
[2020-06-03 18:16] LABS: Vitamin D,25 Hydroxy 31.6 ng/mL
[2020-06-03 18:27] LABS: AST(SGOT) 14 U/L (15-37); Alanine Aminotransfer ALT/SGPT 26 U/L (13-56); Albumin, Serum 3.4 g/dL (3.2-5.0); Alkaline Phosphatase 67 U/L (45-117); Anion Gap 4 (5-15); BUN 10 mg/dL (7-18); BUN/Creat Ratio 14.6 RATIO (10-20); Calcium,Total 8.8 mg/dL (8.5-10.1); Chloride 108 mmol/L (98-107); Creatinine, Serum 0.69 mg/dL (0.55-1.02); EST Glomerular Filtration Rate 90 mL/min (>60); Est Glom Filt Rate - Afr Amer 109 mL/min (>60); Globulin 3.4 g/dL (2.2-4.2); Glucose 110 mg/dL (74-106); Potassium 4.3 mmol/L (3.5-5.1); Protein, Total 6.8 g/dL (6.4-8.2); Sodium Level 142 mmol/L (136-145); Thyroid Stim Hormone (TSH) 0.66 uIU/mL (0.358-3.74)
[2020-06-03 18:37] LABS: Anisocytosis RARE; Platelet Estimate ADEQUATE (ADEQ); Platelet Morphology CLUMPED; Red Cell Morphology N CHROM NORMAL (NORM C&C)
== END ==
PROVIDERS: PCP Family Medicine Geriatric Medicine; Visit Provider Family Medicine Geriatric Medicine
DX: E55.9 Vitamin D deficiency, unspecified (principal); R53.83 Other fatigue
CPT/HCPCS: 36415; 80053; 82306; 84443; 85025

== ENCOUNTER 2020-07-05 07:20 | Day surgery (SDC) | payer MEDICARE, MEDICAID, SELFPAY ==
[2020-06-08 13:39] VITALS: BMI 18.1
[2020-07-05] VITALS (7 sets, daily range): BP systolic 88–110; BP diastolic 60–69; PULSE 63–71; RESP 16; TEMP 36.1–36.9; O2SAT 96–100; BMI 18.2
--- NOTE | 2020-07-05 | GASB_PTH ---
PATIENT: TRACI MCCONNELL LOC: EN U#:[id number] AGE/SX: 69/F ROOM: RE07/05/[address]: Dr. Clare Carter MD : 1950 BED: DIS: 07/05/2020 SPEC #: [id number] RECD: 07/05/20 11:26 STATUS: SRIRAM ANDREIA #: [id number] HYACINTH: 07/05/20 00:[address]: Clare Carter DEPT: SURGICAL PATHOLOGY RECD BY: Gilles Swanson ENTERED: 07/05/20 11:26 SP TYPE: Gastric Bx OTHR DR: Dr. Matt Hess MD Tissues: A - Gastric mucous membrane B - Gastric mucous membrane C - Cecum, NOS D - Ascending colon Procedures: Special Stain Group II Surgery Specimen Level IV Alcian Blue/PAS (control) HEADER OPERATION: Colonoscopy[place] [place] DIAGNOSIS: GE reflux and constipation TISSUE SUBMITTED: A - Antral biopsy and H. pylori and path, B - GE junction biopsy, C - Cecum polyp, D - Ascending colon polyp MICROSCOPIC DIAGNOSIS A. Gastric antrum, biopsy: Mild chronic gastritis. See comment. B. Gastroesophageal junction, biopsy: Fragment of gastric mucosa with mild chronic inflammation. No evidence of goblet cell metaplasia. Minute fragments of benign squamous mucosa. See comment. C. Cecal polyp, biopsy: Fragments of tubular adenoma/serrated adenoma. D. Ascending colon polyp, biopsy: Tubular adenoma. AM:waylon 07/06/2020 COMMENT A. The results of immunohistochemistry for Helicobacter pylori will be reported separately ([id number]). B. Alcian blue/PAS stain with matched control supports the above diagnosis. MICROSCOPIC DESCRIPTION Slides are reviewed. GROSS DESCRIPTION A - Received in fixative is one container labeled with the patient's name and designated antral biopsy. The specimen consists of one irregular fragment of light [place] soft tissue that measures 0.3 x 0.3 x 0.1 cm. The specimen is totally submitted in one cassette. B - Received in fixative is one container labeled with the patient's name and designated GE junction biopsy. The specimen consists of one irregular fragment of light [place] soft tissue that measures 0.3 x 0.2 x 0.1 cm. The specimen is totally submitted in one cassette. C - Received in fixative is one container labeled with the patient's name and designated cecum polyp. The specimen consists of multiple irregular fragments of light [place] soft tissue that in aggregate measure 2 x 0.5 x 0.1 cm. Multiple fragments of fecal material are also noted. The specimen is totally submitted in one cassette. D - Received in fixative is one container labeled with the patient's name and designated ascending colon polyp. The specimen consists of one irregular fragment of light [place] soft tissue that measures 0.3 x 0.2 x 0.1 cm. The specimen is totally submitted in one cassette. / SJ:rg 07/05/20 TC:5 CPT: 07108 x4, 72256
--- NOTE | 2020-07-05 07:24 | PCM.HP.BLA ---
History and Physical Date of Admission: 07/05/20 Date of Service: 06/08/20 MR#: [id number] Acct: [id number] Name: TRACI MCCONNELL Rep #: [id number] : 1950 Provider: Dr. Clare Carter MD Age/Sex: 69/F Location: 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 Is patient in pain?: No Allergies bee venom protein (honey bee) Allergy (Severe, Verified 06/08/20 13:29) Anaphylaxis thiothixene Adverse Reaction (Unknown, Verified 06/08/20 13:29) Unknown Medications metoprolol tartrate 25 mg tablet 25 mg PO BID 05/27/18 [History Confirmed 06/08/20] pravastatin 40 mg tablet 40 mg PO DAILY 05/27/18 [History Confirmed 06/08/20] sertraline 100 mg tablet 200 mg PO DAILY tab 05/27/18 [History Confirmed 06/08/20] alprazolam 0.5 mg tablet 0.5 mg PO BID 06/08/20 [History Confirmed 06/08/20] pantoprazole 40 mg tablet,delayed release 40 mg PO DAILY 06/08/20 [History Confirmed 06/08/20] risperidone 1 mg tablet 1 mg PO BID 06/08/20 [History Confirmed 06/08/20] [facility] Medical History (Updated 06/08/20 @ 13:39 by Christine Velasquez) Abnormal chest CT (Chronic) HLD (hyperlipidemia) (Chronic) Depression (Chronic) Vitamin D deficiency (Chronic) A-fib (Chronic) Benzodiazepine dependence (Chronic) Bipolar disorder (Chronic) Emphysema lung (Chronic) Lung mass (Chronic) Anxiety (Acute) Constipation (Acute) Fatigue (Acute) Surgical History History of D&C (Resolved) Social History (Updated 06/08/20 @ 14:[address] Clare Carter MD) Smoking Status: Former smoker second hand exposure: No alcohol intake: never substance use type: does not use caffeine: Yes HPI HPI HPI: TRACI MCCONNELL, is a 69 F who presents to the office today for HPI HPI Surgical H&P: Yes HPI: TRACI MCCONNELL, is a 69 F who presents to the office today for constipation/colonoscopy. Patient's last colonoscopy was in [address] Aguila and had random biopsies that time for which were negative no other polyps were seen only some small nonbleeding internal hemorrhoids. Patient denies any family history of colon cancer. Patient states she does have bowel movements daily in the morning 1 or 2 but then throughout the day will feel the urge to go but is unable to go. Patient states her bowel movement morning are normal size. Patient denies any blood in her stool. Patient states she has tried everything for her constipation including Linzess, Senokot--currently she takes MiraLAX and Metamucil prune juice and increase fiber daily. Patient states she has had this issue for about a year. Patient has also been on Protonix for about 6-7 months and was still having reflux symptoms at night so last several days she has started to take it twice daily. Patient has never had an EGD. ROS General General: Yes fatigue and colon cancer; no weight change, appetite, breast cancer or weakness HEENT HEENT: No difficulty swallowing, eye injury, eye surgery, swollen glands or hoarseness Endo Endocrine: No thyroid disease, diabetes mellitus, thyroid cancer, Hair loss, heat intolerance or cold intolerance Skin Skin: No rash or changing moles Breast Breast: No left breast lump, right breast lump, nipple discharge, breast pain, abnormal mammogram, abnormal US or breast enlargement Musc Musculoskeletal: Yes arthritis; no back problems, rheumatoid arthritis, gout or joint pain Cardio Cardiovascular: Yes atrial fibrillation and high blood pressure; no murmur, pacemaker, heart disease, heart attack, heart stent, palpitations, shortness of breat with exertion or chest pain Psych Psychiatric: Yes depression and anxiety; no hearing voices Resp Respiratory: No shortness of breath, Yes sleep apnea, No cough, No COPD, No asthma, No emphysema, No wheezing Gastro Gastrointestinal: Yes abdominal pain, Yes nausea or vomiting, No diarrhea, Yes constipation, No blood in stool, Yes acid reflux, No hemorrhoids, No ulcers, No gallbladder problem, No black,tarry stools Felipe Hematologic: No blood thinners, No blood disorders, No bleeding, No anemia, No blood clots Neuro Neurologic: No system reviewed and no additional complaints, except as docu, No as per HPI, No abnormal walking, No abnormal hearing, No abnormal movements, No abnormal speech, No behavioral changes, No burning sensations, No confusion, No seizure-like activity, No unsteadiness, No dizziness, No localized weakness, No frequent falls, No headache(s), No lack of coordination, No loss of vision, No memory loss, No numbness, No other visual disturbances, No radiating pain, No restless legs, No sensory deficit, No fainting, No tingling, No tremor(s), No weakness, No other Exam Const General: cooperative, comfortable, no acute distress Chest Breast Palpation: No nipple discharge Resp Effort & Inspection: normal respiratory effort Cardio Rate: regular rate Heart Sounds: no murmurs GI Inspection: non-distended Palpation: soft, no guarding, nontender Rectal Exam: deferred Assessment & Plan Problems 1. Constipation K59.00 2. Gastroesophageal reflux disease K21.9 Plan Patient states she is starting to take Protonix about 6-7 months ago more recently and started taking it twice daily as she was having increased reflux symptoms still at night. We will plan an EGD for evaluation. I have discussed the above with the patient. I have offered the patient EGD and colonoscopy for evaluation. I have explained the risks/benefits of the procedure and described the procedure. I have discussed the risks with the patient, including but not limited to: infection, bleeding, perforation of the GI tract requiring emergency surgery, inability to complete the procedure, injury to any internal organs, complications of anesthesia, etc. - the patient understands and agrees to proceed. I have answered all the patient's questions to the patient's satisfaction and the patient has no further questions. The patient has been given instructions for the colon cleansing preparation. 1 day of clears, MiraLAX Dulcolax split prep. Clare Carter M.D. Pager: [phone] [facility] [address] [place] [address], [facility], [address] [place] [address] Office: [phone] Orders Orders: Colonoscopy Today EGD Today Plan Detail Follow Up We will schedule EGD and colonoscopy brachytherapy or 30 June Coding Level of Care Code Off vis,new,level 3 Diagnoses Constipation K59.00 Gastroesophageal reflux disease K21.9 COVID (Procedure Consent) Procedure Criteria Procedure Criteria: Yes Elective The surgeon/proceduralist and patient have discussed in detail the risk of exposure to and/or potential harm posed by the COVID-19 virus with having a surgery/procedure at this time versus the risk of? delaying the surgery/procedure. It is not possible to know either the risk of delaying the surgery or procedure or chance of getting an infection with perfect accuracy, but a joint decision was made between the patient and the surgeon/proceduralist ?to proceed at this time with the scheduled surgery/procedure as indicated on the consent form. 06/08/20 1412 <Electronically signed by Clare Carter MD> Date Clare Carter MD
[2020-07-05] MEDS: Lactated Ringers 1,000 ML 100 ML IV (08:02)
--- NOTE | 2020-07-05 08:15 | IMM_PTH ---
PATIENT: TRACI MCCONNELL LOC: EN U#:[id number] AGE/SX: 69/F ROOM: RE07/05/[address]: Dr. Clare Carter MD : 1950 BED: DIS: 07/05/2020 SPEC #: [id number] RECD: 07/05/20 13:54 STATUS: SRIRAM REQ #: [id number] HYACINTH: 07/05/20 08:[address]: Clare Carter DEPT: IMMUNOHISTOCHEMISTRY RECD BY: Alexa Irvin ENTERED: 07/05/20 13:55 SP TYPE: IMMUNO OTHR DR: Dr. Matt Hess MD Tissues: A - Stomach, NOS Procedures: H Pylori (initial) PHYSICIAN & INSTITUTION [place] [address] SPECIMEN INFORMATION: Tissue Source: A - Antral biopsy Clinical Info: GERD, constipation Specimen Number: [id number] CPT code: 24193 METHODOLOGY: Deparaffinized sections of prefer/formalin-fixed tissue or PAP/DQ stained slides are incubated with monoclonal/polyclonal antibodies/oligonucleotide probes. Localization is made via biotin free immunoperoxidase method. Appropriate controls are performed and reacted as expected. Results on target cell population are indicated in the following table: RESULTS: ANTIBODY / CLONE RESULT Block A H Pylori (polyclonal) negative These tests were developed and their performance characteristics determined by [facility]. They may not have been cleared or approved by the U.S. Food and Drug Administration. The FDA has determined that such clearance or approval is not necessary. INTERPRETATION: A. Antral biopsy: Negative for Helicobacter pylori organisms. AM:waylon 07/06/2020
--- NOTE | 2020-07-05 09:06 | OP.CCLET_ITS ---
07/05/2020 Matt eHss MD [address] [place] [address] Re : Upper GI endoscopy procedure for Laya Dick Dear Dr. Hess This procedure was performed on Sunday, July 05, 2020. My impressions and recommendations are as follows: Impressions : - Z-line irregular, 40 cm from the incisors. Biopsied. - Normal examined duodenum. - Gastritis. Biopsied. Recommendations : - Await pathology results. - Discharge patient to home. - Resume previous diet. - Use sucralfate tablets 1 gram PO QID for 1 month. - Continue present medications. My findings are described in the full procedure note, which is enclosed. If I can be of further assistance, please feel free to contact me at Doctor phone number(s): , Work: . Sincerely, MD Clare Robert MD 07/05/2020 9:06:03 AM This report has been signed electronically.
--- NOTE | 2020-07-05 09:06 | OP.EGD_ITS ---
Patient Name: Laya Dick Procedure Date: 07/05/2020 8:01 AM Date of : 1950 Age: 69 Procedure: Upper GI endoscopy Indications: Suspected gastro-esophageal reflux disease Providers: Clare Carter MD Referring MD: Matt Hess MD Medicines: Monitored Anesthesia Care Patient Profile: This is a 69 year old female. Complications: No immediate complications. Procedure: Pre-Anesthesia Assessment: - Prior to the procedure, a History and Physical was performed, and patient medications and allergies were reviewed. The patient's tolerance of previous anesthesia was also reviewed. The risks and benefits of the procedure and the sedation options and risks were discussed with the patient. All questions were answered, and informed consent was obtained. Prior Anticoagulants: The patient has taken no previous anticoagulant or antiplatelet agents. ASA Grade Assessment: Per anesthesia. After reviewing the risks and benefits, the patient was deemed in satisfactory condition to undergo the procedure. After obtaining informed consent, the endoscope was passed under direct vision. Throughout the procedure, the patient's blood pressure, pulse, and oxygen saturations were monitored continuously. The gastroscope was introduced through the mouth, and advanced to the second part of duodenum. The upper GI endoscopy was accomplished without difficulty. The patient tolerated the procedure well. Scope In: 8:11:20 AM Scope Out: 8:18:33 AM Total Procedure Duration Time 0 hours 7 minutes 13 seconds Findings: The Z-line was irregular and was found 40 cm from the incisors. Biopsies were taken with a cold forceps for histology. The examined duodenum was normal. Moderate inflammation characterized by erythema was found in the gastric antrum. Biopsies were taken with a cold forceps for histology. Biopsies were taken with a cold forceps for Helicobacter pylori cultures. The cardia and gastric fundus were normal on retroflexion. Impression: - Z-line irregular, 40 cm from the incisors. Biopsied. - Normal examined duodenum. - Gastritis. Biopsied. Recommendation: - Await pathology results. - Discharge patient to home. - Resume previous diet. - Use sucralfate tablets 1 gram PO QID for 1 month. - Continue present medications. Procedure Code(s): --- Professional --- 44755, Esophagogastroduodenoscopy, flexible, transoral; with biopsy, single or multiple Diagnosis Code(s): --- Professional --- K22.8, Other specified diseases of esophagus K29.70, Gastritis, unspecified, without bleeding CPT copyright 2017 [employer]. All rights reserved. The codes documented in this report are preliminary and upon consumer analyst review may be revised to meet current compliance requirements. MD Clare Robert MD 07/05/2020 9:06:03 AM This report has been signed electronically. Number of Addenda: 0 Note Initiated On: 07/05/2020 8:01 AM
--- NOTE | 2020-07-05 09:10 | OP.CCLET_ITS ---
07/05/2020 Matt Hess MD [address] [place] [address] Re : Colonoscopy procedure for Laya Dick Dear Dr. Hess This procedure was performed on Sunday, July 05, 2020. My impressions and recommendations are as follows: Impressions : - Two 4 to 11 mm polyps in the ascending colon and in the cecum, removed piecemeal using a hot snare. Resected and retrieved. - Diverticulosis in the sigmoid colon. - Internal hemorrhoids. - The examination was otherwise normal. Recommendations : - Discharge patient to home. - High fiber diet. - Continue present medications. - Await pathology results. - Repeat colonoscopy in 3 years for surveillance based on pathology results. My findings are described in the full procedure note, which is enclosed. If I can be of further assistance, please feel free to contact me at Doctor phone number(s): , Work: . Sincerely, MD Clare Robert MD 07/05/2020 9:10:11 AM This report has been signed electronically.
--- NOTE | 2020-07-05 09:10 | OP.COLON_ITS ---
Patient Name: Laya Dick Procedure Date: 07/05/2020 8:20 AM Date of : 1950 Age: 69 Procedure: Colonoscopy Indications: Screening for colorectal malignant neoplasm Providers: Clare Carter MD Referring MD: Matt Hess MD Medicines: Monitored Anesthesia Care Patient Profile: This is a 69 year old female. This is a 69 year old female. Last Colonoscopy: 2004. Complications: No immediate complications. Procedure: Pre-Anesthesia Assessment: - Prior to the procedure, a History and Physical was performed, and patient medications and allergies were reviewed. The patient's tolerance of previous anesthesia was also reviewed. The risks and benefits of the procedure and the sedation options and risks were discussed with the patient. All questions were answered, and informed consent was obtained. Prior Anticoagulants: The patient has taken no previous anticoagulant or antiplatelet agents. ASA Grade Assessment: Per anesthesia. After reviewing the risks and benefits, the patient was deemed in satisfactory condition to undergo the procedure. After I obtained informed consent, the scope was passed under direct vision. Throughout the procedure, the patient's blood pressure, pulse, and oxygen saturations were monitored continuously. The Colonoscope was introduced through the anus and advanced to the cecum, identified by the appendiceal orifice, ileocecal valve and palpation. The colonoscopy was technically difficult and complex due to a tortuous colon. Successful completion of the procedure was aided by applying abdominal pressure. Scope In: 8:21:47 AM Scope Withdrawal Time 0 hours 31 minutes 55 seconds Scope Out: 8:58:11 AM Total Procedure Duration Time 0 hours 36 minutes 24 seconds Findings: Two semi-pedunculated polyps were found in the ascending colon and cecum. The polyps were 4 to 11 mm in size. These polyps were removed with a piecemeal technique using a hot snare--for the cecal polyp--ascending was removed with one attempt. Resection and retrieval were complete. A single small-mouthed diverticulum was found in the sigmoid colon. Internal hemorrhoids were found during retroflexion. The hemorrhoids were Grade I (internal hemorrhoids that do not prolapse). The exam was otherwise without abnormality. Impression: - Two 4 to 11 mm polyps in the ascending colon and in the cecum, removed piecemeal using a hot snare. Resected and retrieved. - Diverticulosis in the sigmoid colon. - Internal hemorrhoids. - The examination was otherwise normal. Recommendation: - Discharge patient to home. - High fiber diet. - Continue present medications. - Await pathology results. - Repeat colonoscopy in 3 years for surveillance based on pathology results. Procedure Code(s): --- Professional --- 58178, PT, Colonoscopy, flexible; with removal of tumor(s), polyp(s), or other lesion(s) by snare technique Diagnosis Code(s): --- Professional --- Z12.11, Encounter for screening for malignant neoplasm of colon D12.2, Benign neoplasm of ascending colon D12.0, Benign neoplasm of cecum K64.0, First degree hemorrhoids K57.30, Diverticulosis of large intestine without perforation or abscess without bleeding CPT copyright 2017 [employer]. All rights reserved. The codes documented in this report are preliminary and upon pattern grader supervisor review may be revised to meet current compliance requirements. MD Clare Robert MD 07/05/2020 9:10:11 AM This report has been signed electronically. Number of Addenda: 0 Note Initiated On: 07/05/2020 8:20 AM
== END 2020-07-05 10:02 | disposition home or self-care (01) ==
LOC: EN 07:21 → AC 07:21
PROVIDERS: PCP Family Medicine Geriatric Medicine; Referring Provider Family Medicine Geriatric Medicine; Visit Provider Surgery
PROC: 0DJD8ZZ Inspection of Lower Intestinal Tract, Via Natural or Artificial Opening Endoscopic (ICD-10-PCS; CPT 45378; principal; 2020-07-05 08:10)
DX: Z12.11 Encounter for screening for malignant neoplasm of colon (principal); K29.50 Unspecified chronic gastritis without bleeding; K21.9 Gastro-esophageal reflux disease without esophagitis; D12.0 Benign neoplasm of cecum; D12.2 Benign neoplasm of ascending colon; K64.0 First degree hemorrhoids; K57.30 Diverticulosis of large intestine without perforation or abscess without bleeding; Z20.828 Contact with and (suspected) exposure to other viral communicable diseases; E78.5 Hyperlipidemia, unspecified; I48.91 Unspecified atrial fibrillation; F31.9 Bipolar disorder, unspecified; E78.00 Pure hypercholesterolemia, unspecified; Z78.0 Asymptomatic menopausal state; Z79.899 Other long term (current) drug therapy; Z87.891 Personal history of nicotine dependence
CPT/HCPCS: 43239; 45385; 87426; 88305; 88313; 88342; C9803; J7120; J1610; J2405

== ENCOUNTER → 2020-10-04 14:53 | Outpatient (CLI) | payer MEDICARE, MEDICAID, SELFPAY ==
[2020-07-05 07:50] VITALS: BMI 18.2
--- NOTE | 2020-10-04 17:05 | RAD_ITS ---
STUDY: X-RAY CHEST REASON FOR EXAM: Female, 69 years old. COUGH TECHNIQUE: PA and lateral views of the chest. COMPARISON: 01/07/2019 FINDINGS: The lungs are clear and expanded. Moderate left pleural effusion and small right pleural effusion. Normal size heart. Normal mediastinum and aiyana. Normal visualized pulmonary arteries. Normal visualized aortic arch and descending thoracic aorta. There is a dextroscoliosis of the thoracic spine. Normal visualized ribs, clavicles, and shoulders. There is no demonstrated abnormality of the visualized soft tissue structures of the upper abdomen. RAD/Chest PA and Lateral IMPRESSION: Moderate left pleural effusion and small right pleural effusion with bibasilar atelectasis per Electronically Signed: Crispin Gaviria MD at 8:44 EDT Tel , Service support ,
[2020-10-04 18:22] LABS: Absolute Lymphocyte Count 0.96 X10^3/uL (0.83-4.51); Absolute Neutrophil Count 13.1 X10^3/uL (2.0-7.7); Basophil# 0.05 X10^3/uL; Basophil% 0.3 % (0-1); Eosinophil# 0.02 X10^3/uL; Eosinophils% 0.1 % (0-5); Hematocrit 37.4 % (37-47); Hemoglobin 11.8 g/dL (12.0-15.0); Lymphocyte # 0.96 X10^3/ul (0.83-4.51); Lymphocyte % 6.1 % (19-41); Mean Corp Hgb Conc 31.6 g/dL (32-36); Mean Corpuscular Volume 88.8 fL (81-99); Mean Platelet Vol. 11.6 fl (6.2-12.0); Monocyte# 1.44 X10^3/uL; Monocyte% 9.2 % (0-10); NRBC Flagged by Analyzer 0 % (0-5); Neutrophil # 13.07 X10^3/uL (2.7-7.7); Neutrophil % 83.7 % (47-70); Platelet Count 123 K/mm3 (150-450); RBC Distribution Width SD 38.8 fl (35.1-43.9); Red Blood Count 4.21 M/mm3 (4.2-5.4); White Blood Count 15.6 K/mm3 (4.4-11.0)
[2020-10-04 18:34] LABS: Anion Gap 7 (5-15); BUN 18 mg/dL (7-18); BUN/Creat Ratio 19.6 RATIO (10-20); Calcium,Total 8.7 mg/dL (8.5-10.1); Chloride 104 mmol/L (98-107); Creatinine, Serum 0.92 mg/dL (0.55-1.02); EST Glomerular Filtration Rate 64 mL/min (>60); Est Glom Filt Rate - Afr Amer 78 mL/min (>60); Glucose 121 mg/dL (74-106); Potassium 3.6 mmol/L (3.5-5.1); Sodium Level 138 mmol/L (136-145)
== END ==
LOC: POLAB3 14:55 → RAD 16:55
PROVIDERS: PCP Family Medicine Geriatric Medicine; Referring Provider Family Medicine Geriatric Medicine; Visit Provider Family Medicine Geriatric Medicine
DX: J18.9 Pneumonia, unspecified organism (principal)
CPT/HCPCS: 36415; 71046; 80048; 85025

== ENCOUNTER → 2020-10-05 09:07 | Outpatient (CLI) | payer MEDICARE, MEDICAID, SELFPAY ==
[2020-07-05 07:50] VITALS: BMI 18.2
== END ==
PROVIDERS: PCP Family Medicine Geriatric Medicine; Referring Provider Family Medicine Geriatric Medicine; Visit Provider Family Medicine Geriatric Medicine
DX: R06.89 Other abnormalities of breathing (principal)
CPT/HCPCS: 87426; C9803

== ENCOUNTER → 2020-10-12 13:09 | Outpatient (CLI) | payer MEDICARE, MEDICAID, SELFPAY ==
[2020-07-05 07:50] VITALS: BMI 18.2
--- NOTE | 2020-10-12 13:12 | RAD_ITS ---
STUDY: X-RAY CHEST REASON FOR EXAM: Female, 69 years old. PNEUMONIA TECHNIQUE: PA and lateral views of the chest. COMPARISON: 10/04/2020 FINDINGS: Alveolar opacity in the lower left lung silhouettes left heart border consistent with lingular pneumonia. Tiny bilateral pleural effusions. Normal size heart. Normal mediastinum and aiyana. Normal visualized pulmonary arteries. Normal visualized aortic arch and descending thoracic aorta. There is a dextroscoliosis of the thoracic spine. Normal visualized ribs, clavicles, and shoulders. There is no demonstrated abnormality of the visualized soft tissue structures of the upper abdomen. RAD/Chest PA and Lateral IMPRESSION: Lingular pneumonia with tiny bilateral pleural effusions. The left pleural effusion is improved when compared with prior study. Electronically Signed: Crispin Gaviria MD at 9:26 EDT Tel , Service support ,
== END ==
PROVIDERS: PCP Family Medicine Geriatric Medicine; Referring Provider Family Medicine Geriatric Medicine; Visit Provider Family Medicine Geriatric Medicine
DX: J18.9 Pneumonia, unspecified organism (principal)
CPT/HCPCS: 71046

== ENCOUNTER → 2020-11-29 13:04 | Outpatient (CLI) | payer MEDICARE, MEDICAID, SELFPAY ==
[2020-11-29 17:10] LABS: Absolute Lymphocyte Count 1.17 X10^3/uL (0.83-4.51); Absolute Neutrophil Count 5.2 X10^3/uL (2.0-7.7); Basophil# 0.03 X10^3/uL; Basophil% 0.4 % (0-1); Eosinophil# 0.07 X10^3/uL; Hematocrit 42.8 % (37-47); Hemoglobin 13.9 g/dL (12.0-15.0); Lymphocyte # 1.17 X10^3/ul (0.83-4.51); Lymphocyte % 16.3 % (19-41); Mean Corp Hgb Conc 32.5 g/dL (32-36); Mean Corpuscular Hgb 28.6 pg (27.0-32.0); Mean Corpuscular Volume 88.1 fL (81-99); Mean Platelet Vol. 11.5 fl (6.2-12.0); Monocyte# 0.72 X10^3/uL; NRBC Flagged by Analyzer 0 % (0-5); Neutrophil # 5.16 X10^3/uL (2.7-7.7); Neutrophil % 71.9 % (47-70); Platelet Count 150 K/mm3 (150-450); RBC Distribution Width CV 13.5 % (11.6-14.6); RBC Distribution Width SD 43.5 fl (35.1-43.9); Red Blood Count 4.86 M/mm3 (4.2-5.4); White Blood Count 7.2 K/mm3 (4.4-11.0)
[2020-11-29 17:18] LABS: Vitamin D,25 Hydroxy 45.4 ng/mL
[2020-11-29 17:37] LABS: ALB/GLOB Ratio 0.9 RATIO (0.9-2.4); AST(SGOT) 16 U/L (15-37); Alanine Aminotransfer ALT/SGPT 23 U/L (13-56); Albumin, Serum 3.3 g/dL (3.2-5.0); Alkaline Phosphatase 64 U/L (45-117); Anion Gap 3 (5-15); BUN 11 mg/dL (7-18); BUN/Creat Ratio 16.9 RATIO (10-20); Calcium,Total 8.7 mg/dL (8.5-10.1); Chloride 107 mmol/L (98-107); Creatinine, Serum 0.65 mg/dL (0.55-1.02); EST Glomerular Filtration Rate 95 mL/min (>60); Est Glom Filt Rate - Afr Amer 116 mL/min (>60); Globulin 3.5 g/dL (2.2-4.2); Glucose 92 mg/dL (74-106); Potassium 4.1 mmol/L (3.5-5.1); Protein, Total 6.8 g/dL (6.4-8.2); Sodium Level 139 mmol/L (136-145); Thyroid Stim Hormone (TSH) 0.48 uIU/mL (0.358-3.74)
== END ==
PROVIDERS: PCP Family Medicine Geriatric Medicine; Visit Provider Family Medicine Geriatric Medicine
DX: E55.9 Vitamin D deficiency, unspecified (principal); R53.83 Other fatigue
CPT/HCPCS: 36415; 80053; 82306; 84443; 85025

== ENCOUNTER → 2021-01-04 13:35 | Outpatient (CLI) | payer MEDICARE, MEDICAID, SELFPAY ==
--- NOTE | 2021-01-04 13:37 | RAD_ITS ---
STUDY: X-RAY - LUMBOSACRAL SPINE REASON FOR EXAM: Female, 70 years old. LOW BACK PAIN TECHNIQUE: 6 radiographic view(s) of the lumbosacral spine were obtained. COMPARISON: 12/17/2013, 10/15/2018 FINDINGS: Normal lumbar lordosis. There is a dextroscoliosis of the lumbar spine centered on L2-3. There is normal alignment of the vertebrae. No spondylolisthesis in flexion or extension. L3 inferior endplate fracture with compression deformity is new compared to 12/17/2013, and probably present on 10/15/2018 There is diffuse demineralization with multi-level endplate spondylosis. Normal disc space heights. Normal bilateral sacral ala, sacroiliac joints, and visualized sacrum. There is atherosclerotic calcification of the abdominal aorta without a demonstrated aneurysm. RAD/L/S Spine w Bend Min 6 Vw IMPRESSION: Degenerative changes detailed above, including L3 inferior endplate fracture which is probably old. Electronically Signed: Anand Brown MD at 3:07 EDT Tel , Service support ,
== END ==
PROVIDERS: PCP Family Medicine Geriatric Medicine; Referring Provider Family Medicine Geriatric Medicine; Visit Provider Family Medicine Geriatric Medicine
DX: M54.5 Low back pain (principal)
CPT/HCPCS: 72114

== ENCOUNTER 2021-01-07 11:53 | Emergency (ER) | payer MEDICARE, MEDICAID, SELFPAY ==
[2021-01-07 12:18] VITALS: BP 115/68; PULSE 82; RESP 24; TEMP 36; O2SAT 96; BMI 17.7
--- NOTE | 2021-01-07 13:47 | EDS_ITS ---
HPI History of Present Illness Chief Complaint: Back Informant: patient Onset/Context/Timing Onset: Weeks Context: Gradual Onset Timing: Continuous Quality: Sharp Location: Lumbar and Left Leg Current Severity: Moderate Maximum Severity: Moderate Worsened by: improves with Movement Relieved by: Nothing Associated Symptoms Associated Symptoms: Radiation to Left Leg; Negative for Numbness, Tingling, Fever, Abdominal Pain, Dysuria, Unable to Ambulate, Unable to Transfer and Urinary Retention Narrative Narrative: Similar female history of back problems but no prior back surgery. States 1 to 2 weeks ago gradual onset of lumbar back pain that radiated into her left buttock and left hip but now goes down her left knee. Tried she states has been using a heating pad without any relief. She denies any bowel or bladder incontinence. She denies this. She denies any type of fall or trauma. No fever. Prior similar symptoms: Yes Recent Illness/Hospitalization: No [facility] Medical History A-fib Abnormal chest CT Anxiety Benzodiazepine dependence Bipolar disorder Constipation Depression Emphysema lung Fatigue HLD (hyperlipidemia) Lung mass Vitamin D deficiency Home Medications metoprolol tartrate 25 mg tablet 25 mg PO BID 05/27/18 [History Last Taken 07/05/20 06:00] pravastatin 40 mg tablet 40 mg PO DAILY 05/27/18 [History Last Taken Unknown] sertraline 100 mg tablet 200 mg PO DAILY tab 05/27/18 [History Last Taken 07/05/20 06:00] alprazolam 0.5 mg tablet 0.5 mg PO BID 06/08/20 [History Last Taken Unknown] pantoprazole 40 mg tablet,delayed release 40 mg PO DAILY 06/08/20 [History Last Taken 07/05/20 06:00] risperidone 1 mg tablet 1 mg PO BID 06/08/20 [History Last Taken 07/05/20 06:00] multivitamin with minerals 1 each PO DAILY 06/29/20 [History Last Taken Unknown] sucralfate 1 gm PO 4X/DAY #120 tab 07/05/20 [Rx Last Taken Unknown] hydrocodone-acetaminophen 1 tab PO Q4H PRN 5 Days #14 tab 01/07/21 [Rx Last Taken Unknown] Allergy/AdvReac Type Severity Reaction Status Date / Time bee venom protein (honey bee) Allergy Severe Anaphylaxis Verified 01/07/21 12:21 thiothixene AdvReac Unknown Unknown Verified 01/07/21 12:21 Surgical History History of D&C Social History Smoking Status: Current every day smoker tobacco type: cigarettes second hand exposure: No alcohol intake: never substance use type: does not use caffeine: Yes ROS ROS ED ROS Narrative Denies recent illness. Review of Systems ROS Unobtainable: Denies due to encephalopathy Constitutional Constitutional ED: Denies chills or fever(s) Eyes Eyes: Denies change in vision ENT ENT ED: Denies ear pain or sore throat Cardiovascular Cardiovascular: Denies chest pain Respiratory/Chest Respiratory/Chest: Denies dyspnea or sputum Gastrointestinal Gastrointestinal: Denies abdominal pain, diarrhea, nausea or vomiting Genitourinary Genitourinary ED: Denies dysuria or hematuria Musculoskeletal Musculoskeletal: Reports back pain; Denies myalgias Integumentary Denies rash Neurologic Neurologic: Denies headache(s) Psychiatric Psychiatric: Denies depression Endocrine Endocrinology: Denies polyuria Hematologic/Lymphatic Hematologic/Lymphatic: Denies easy bruising Allergic/Immunologic Allergic/Immunologic ED: Denies urticaria EXAM Physical Exam Narrative Exam Narrative: 7-year-old female sitting upright in a chair at home. Vital signs are stable afebrile. H EENT exam unremarkable. Neck nontender no lymphadenopathy. Lungs clear to auscultation. Heart regular rhythm no murmur. Abdomen soft nontender nondistended normal bowel sounds no peritoneal signs. No pulsatile mass. Moving all 4 extremities. Neurovascularly intact. Dorsi plantarflexion intact. Equal symmetrical pulp grinder. Spine nontender. Mild left SI joint tenderness. Positive straight leg raise on the left. No cauda equina. No saddle anesthesia. Neurologic exam unremarkable. Const Vital Signs: 01/07/21 12:18 Temperature 96.8 F L Temperature Source Temporal Pulse Rate 82 Respiratory Rate 24 H Blood Pressure 115/68 Blood Pressure Mean 83 Pulse Ox 96 Oxygen Delivery Method Room Air Positive well nourished and well developed; Negative for obese, cachectic, contractures or unkempt General Appearance ED: well developed and NAD; Negative for unkempt, cachectic, contractures or pallor Nutritional Appearance: Negative for cachectic or obese HEENT Reports moist mucous membranes; Denies dry mucous membranes Negative for trauma or tenderness Mouth ED: No dry mucous membranes Mouth: No dry mucous membranes Eyes PERRL and EOMs intact bilaterally Neck no lymphadenopathy, supple and no JVD General: Negative for tenderness Resp normal respiratory effort and clear to auscultation bilaterally Effort and Inspection: Negative for pain with movement or other Auscultation: Negative for rales, rhonchi or wheezes Cardio regular rate, regular rhythm, S1 normal heart sound, S2 normal heart sound and no murmurs Palpation: Negative for palpable S3 GI normal to inspection, nondistended, normoactive bowel sounds, soft to palpation, non-tender, non-distended and no masses Inspection: Negative for abdominal distention Auscultation: Negative for hyperactive bowel sounds Palpation: Negative for tender, guarding or rebound tenderness present Back/Spine normal to inspection and no thoracic nor lumbar tenderness General Back: Negative for CVA tenderness or scar(s) Cervical Spine: Negative for cervical spine tenderness and Negative for paracervical muscle tenderness Lumbar Spine / Lower Back: straight leg raise positive - left Extremity normal to inspection General Extremety ED: Negative for edema or tenderness General Extremity: Negative for edema Psych mental status grossly normal Appearance: Negative for unkempt Attitude: No agitated Mood & Affect: Negative for depressed or tearful Skin no rashes or lesions noted and no wounds General Skin Exam: Negative for jaundice or pallor MDM MDM MDM Narrative Medical decision making narrative: 7-year-old female with low back pain for 2 weeks now radiating to her left leg. Neurologically intact. Exam is consistent with sciatica. She will be treated with 2 [place] here. Discharged home on [place] and follow-up with her primary care physician. Limited Motrin for inflammation. Discharge Plan Triage Chief Complaint: Back ED Provider: Devin Mejia Dx/Rx/DC Orders Clinical Impression: Acute left-sided back pain with sciatica Instructions: ED Sciatica Prescriptions: New hydrocodone-acetaminophen 5-325 mg tablet 1 tab PO Q4H PRN (Reason: pain) 5 Days Qty: 14 RF: 0 No Action sertraline [Zoloft] 100 mg tablet 200 mg PO DAILY RF: 0 metoprolol tartrate 25 mg tablet 25 mg PO BID RF: 0 pravastatin 40 mg tablet 40 mg PO DAILY RF: 0 risperidone [Risperdal] 1 mg tablet 1 mg PO BID RF: 0 alprazolam 0.5 mg tablet 0.5 mg PO BID RF: 0 pantoprazole 40 mg tablet,delayed release (DR/EC) 40 mg PO DAILY RF: 0 multivitamin with minerals 1 EACH tablet 1 each PO DAILY RF: 0 sucralfate 1 GM tablet 1 gm PO 4X/DAY Qty: 120 RF: 0 Primary Care Provider: Matt Hess Chi Referrals: Matt Hess Chi, MD [Primary Care Provider] - 3-5 Days if not improving Activity Restrictions/Additional Instructions: [place] for more severe pain. Limited Motrin 2 pills twice a day to decrease inflammation help with pain. Ice to your left lower back. Follow-up if not improving. Return if incontinence of bowel or bladder or leg weakness. Disposition Disposition: Home, Self Care
[2021-01-07] MEDS: HYDROcodone Bitartrate/Apap 5/325 Tablet PO (14:02)
[2021-01-07 14:15] VITALS: BP 129/65; PULSE 85; RESP 16; O2SAT 97
== END 2021-01-07 14:16 | disposition home or self-care (01) ==
PROVIDERS: Emergency Provider Emergency Medicine; PCP Family Medicine Geriatric Medicine
DX: M54.42 Lumbago with sciatica, left side (principal); E78.5 Hyperlipidemia, unspecified; F31.9 Bipolar disorder, unspecified; F41.9 Anxiety disorder, unspecified; I48.91 Unspecified atrial fibrillation; Z79.899 Other long term (current) drug therapy; F17.210 Nicotine dependence, cigarettes, uncomplicated
CPT/HCPCS: 99284

== ENCOUNTER 2021-01-10 18:25 | Observation (INO) | payer MEDICARE, MEDICAID, SELFPAY ==
[2021-01-10 18:26] VITALS: BP 115/61; PULSE 64; RESP 18; TEMP 37.4; O2SAT 96; BMI 17.7
[2021-01-10 19:43] VITALS: RESP 18
--- NOTE | 2021-01-10 21:05 | CT_ITS ---
INDICATION: flank pain EXAMINATION: CT Abdomen And Pelvis W/O Contrast Injection TECHNIQUE: Helically acquired images were obtained of the abdomen and pelvis without the use of IV contrast. A radiation dose optimization technique was used for this scan. Oral contrast: None. COMPARISON: None FINDINGS: Evaluation of the solid organs and vascular structures is limited without intravenous contrast. Visualized lung bases: Unremarkable Liver: Unremarkable Gallbladder: Unremarkable Spleen: Unremarkable Pancreas: Unremarkable Adrenal Glands: Unremarkable Kidneys: Unremarkable Vasculature: Moderate aortoiliac atherosclerotic disease. GI Tract: Scattered diverticula throughout the colon without evidence of inflammation. Lymphadenopathy: None Peritoneum: No ascites. Bladder: Unremarkable Reproductive organs: Calcified uterine fibroid. Bones/Soft tissues: Mild scattered degenerative changes of the visualized spine. Chronic compression deformities of T12 and L2. CT/Abdomen/Pelvis without Cont IMPRESSION: No acute abnormalities in the abdomen or pelvis. Chronic compression deformities of T12 and L2. Electronically Signed: Dario Taveras MD at 22:29 EDT Tel , Service support ,
[2021-01-10] MEDS: Morphine 4 MG/ML Syringe IV (21:29)
[2021-01-10] MEDS: Ketorolac 15 MG/ML Vial IV (21:29)
[2021-01-10 21:36] LABS: Absolute Lymphocyte Count 0.88 X10^3/uL (0.83-4.51); Absolute Neutrophil Count 6.9 X10^3/uL (2.0-7.7); Basophil# 0.01 X10^3/uL; Basophil% 0.1 % (0-1); Eosinophil# 0.01 X10^3/uL; Eosinophils% 0.1 % (0-5); Hemoglobin 13.4 g/dL (12.0-15.0); Lymphocyte # 0.88 X10^3/ul (0.83-4.51); Lymphocyte % 10.1 % (19-41); Mean Corp Hgb Conc 33.5 g/dL (32-36); Mean Corpuscular Hgb 29.2 pg (27.0-32.0); Mean Corpuscular Volume 87.1 fL (81-99); Mean Platelet Vol. 12.3 fl (6.2-12.0); Monocyte# 0.85 X10^3/uL; Monocyte% 9.8 % (0-10); NRBC Flagged by Analyzer 0 % (0-5); Neutrophil # 6.87 X10^3/uL (2.7-7.7); Neutrophil % 79.3 % (47-70); Platelet Count 157 K/mm3 (150-450); RBC Distribution Width CV 12.7 % (11.6-14.6); RBC Distribution Width SD 40.2 fl (35.1-43.9); Red Blood Count 4.59 M/mm3 (4.2-5.4); White Blood Count 8.7 K/mm3 (4.4-11.0)
[2021-01-10 21:41] LABS: Anion Gap 6 (5-15); BUN 23 mg/dL (7-18); Calcium,Total 8.7 mg/dL (8.5-10.1); Chloride 106 mmol/L (98-107); EST Glomerular Filtration Rate 104 mL/min (>60); Est Glom Filt Rate - Afr Amer 126 mL/min (>60); Estimated Creatinine Clearance 41.23 ml/min; Glucose 110 mg/dL (74-106); Potassium 3.9 mmol/L (3.5-5.1); Sodium Level 140 mmol/L (136-145)
--- NOTE | 2021-01-10 21:59 | EDS_ITS ---
HPI History of Present Illness Chief Complaint: Back Informant: patient Narrative Narrative: Patient presents with progressive back pain over the past 2 weeks. Reports radicular pain down both legs however mostly left side. No loss of bowel or bladder control. Saw her PCP 6 days ago initially placed on naproxen. She returned 2 days later states placed on tramadol. She states outpatient x- rays were obtained. She came to the ED the following day on Sunday was given [place]. She states pain is not improving. She states has a pending physical therapy set up along with pending MRI orders awaiting insurance approval. She had similar symptoms years ago has seen Dr. Newman with injection that helped her symptoms. She states she tried make an appointment today however not able to get in until the . Prior similar symptoms: Yes PFSH PFSH Medical History A-fib Abnormal chest CT Anxiety Benzodiazepine dependence Bipolar disorder Constipation Depression Emphysema lung Fatigue HLD (hyperlipidemia) Lung mass Vitamin D deficiency Home Medications metoprolol tartrate 25 mg tablet 25 mg PO BID 05/27/18 [History Last Taken 01/10/21] pravastatin 40 mg tablet 40 mg PO QHS 05/27/18 [History Last Taken 01/09/21] sertraline 100 mg tablet 200 mg PO DAILY tab 05/27/18 [History Last Taken 01/10/21] alprazolam 0.5 mg tablet 0.5 mg PO BID 06/08/20 [History Last Taken 01/10/21] pantoprazole 40 mg tablet,delayed release 40 mg PO DAILY 06/08/20 [History Last Taken 01/09/21] risperidone 1 mg tablet 1 mg PO BID 06/08/20 [History Last Taken 01/10/21] multivitamin with minerals 1 each PO DAILY 06/29/20 [History Last Taken 01/09/21] hydrocodone-acetaminophen 1 tab PO Q4H PRN 5 Days #14 tab 01/07/21 [Rx Last Taken 01/10/21] gabapentin 300 mg PO QHS 01/11/21 [History Last Taken 01/10/21] Allergy/AdvReac Type Severity Reaction Status Date / Time bee venom protein (honey bee) Allergy Severe Anaphylaxis Verified 01/10/21 18:26 thiothixene AdvReac Unknown Unknown Verified 01/10/21 18:26 Surgical History History of D&C Social History Smoking Status: Current every day smoker tobacco type: cigarettes second hand exposure: No alcohol intake: never substance use type: does not use caffeine: Yes ROS ROS ED Constitutional Constitutional ED: Denies chills, fever(s) or sweats Eyes Eyes: Denies change in vision ENT ENT ED: Denies dysphagia or sore throat Cardiovascular Cardiovascular: Denies chest pain, leg edema, palpitations or racing heartbeat Respiratory/Chest Respiratory/Chest: Denies cough, dyspnea or dyspnea on exertion Gastrointestinal Gastrointestinal: Denies abdominal pain, diarrhea, nausea or vomiting Genitourinary Genitourinary ED: Denies dysuria, hematuria or urinary frequency Musculoskeletal Musculoskeletal: Reports back pain; Denies extremity pain or neck pain Integumentary Denies rash or wounds Neurologic Neurologic: Denies headache(s), paresthesias or weakness EXAM Physical Exam Const Vital Signs: 01/10/21 18:26 01/10/21 19:43 01/10/21 23:27 Temperature 99.3 F H 97.9 F Temperature Source Temporal Temporal Pulse Rate 64 85 Respiratory Rate 18 18 18 Blood Pressure 115/61 131/67 H Blood Pressure Mean 79 88 Pulse Ox 96 96 Oxygen Delivery Method Room Air Room Air Positive well nourished and well developed Constitutional Narrative: Uncomfortable laying on her side. General Appearance ED: well developed HEENT Reports moist mucous membranes normocephalic and atraumatic Eyes PERRL, EOMs intact bilaterally and conjunctivae normal General Eye ED: Yes normal appearance of both eyes Neck no lymphadenopathy and supple General: Negative for tenderness Chest Wall Chest: Negative for tenderness Resp normal respiratory effort and normal air movement Effort and Inspection: symmetric chest movement; Negative for respiratory distress Cardio regular rate, regular rhythm and no murmurs Peripheral Pulses: pulses 2+ throughout GI normal to inspection, nondistended, normoactive bowel sounds and non-tender Palpation: Negative for guarding or rebound tenderness present Back/Spine no CVA tenderness and no thoracic nor lumbar tenderness Back/Spine Narrative: Unable to reelicit pain, straight leg test negative, 2+ patellar reflex bilaterally. Pulses were intact distally. Extremity normal to inspection General Extremety ED: Negative for edema or tenderness General Extremity: Negative for edema Neuro oriented x3 and no sensory deficits noted Sensorium / Orientation: awake and alert Skin no rashes or lesions noted and no wounds MDM MDM MDM Narrative Medical decision making narrative: Patient presenting with persistent back pain. Work-up was initiated. Labs are stable. CT scan flank was obtained no intra- abdominal process. Noted chronic compression deformities of T12 and L2. She was given morphine, Toradol reporting there is no improvement of symptoms. She is having sciatica symptoms. There is no cauda equina symptoms. Patient is able to ambulate however with pain. This is patient's fourth healthcare visit in the past week. Due to intractable symptoms, discussed with hospitalist for admission. Lab Data Attestation: I reviewed the patient's lab results. Labs: Laboratory Results - last 24 hr 01/10/21 01/10/21 21:15 21:15 WBC 8.7 RBC 4.59 Hgb 13.4 Hct 40.0 MCV 87.1 MCH 29.2 MCHC 33.5 RDW Std Deviation 40.2 RDW Coeff of Jen 12.7 Plt Count 157 MPV 12.3 H Immature Gran % (Auto) 0.600 Neut % (Auto) 79.3 H Lymph % (Auto) 10.1 L [place] % (Auto) 9.8 Eos % (Auto) 0.1 Baso % (Auto) 0.1 Absolute Neuts (auto) 6.9 Absolute Lymphs (auto) 0.88 Nucleated RBC % 0 Sodium 140 Potassium 3.9 Chloride 106 Carbon Dioxide 28.0 Anion Gap 6 BUN 23 H Creatinine 0.60 Estim Creat Clear Calc 41.23 Est GFR (MDRD) Af Amer 126 Est GFR (MDRD) Non-Af 104 BUN/Creatinine Ratio 38.0 H Glucose 110 H Calcium 8.7 Radiography Diagnostic Testing: Radiology Impression Abdomen/Pelvis CT 01/10/21 21:05 IMPRESSION: No acute abnormalities in the abdomen or pelvis. Chronic compression deformities of T12 and L2. Electronically Signed: Dario Taveras MD at 22:29 EDT Tel , Service support , Discharge Plan Dx/Rx/DC Orders Clinical Impression: Intractable back pain Disposition Disposition: Acute Care Hospital [facility] Discharge Date/Time: 01/11/21 00:46
--- NOTE | 2021-01-10 23:19 | HP.PCM_ITS ---
HPI - General HPI Narrative TRACI MCCONNELL, is a 70 F who presents to the emergency room with acute lumbar pain. Onset of this pain began 3 weeks ago but became excruciating earlier today. The pain radiates down her left leg to her feet and down her right leg to her knee. The pain is 10/10 and sharp in nature. She states she was walking her dog about approximately 3 weeks ago when the dog caused her to get twisted suddenly and then she had back pain after that. She was started on an NSAID by her primary care physician and later tramadol was added however that did not help her. An MRI was ordered and is pending as an outpatient for approval. She will be admitted for intractable back pain and imaging studies. The patient denies chest pain shortness of breath fever or chills at this time. [facility] Medical History A-fib Abnormal chest CT Anxiety Benzodiazepine dependence Bipolar disorder Constipation Depression Emphysema lung Fatigue HLD (hyperlipidemia) Lung mass Vitamin D deficiency Home Medications metoprolol tartrate 25 mg tablet 25 mg PO BID 05/27/18 [History Last Taken 07/05/20 06:00] pravastatin 40 mg tablet 40 mg PO DAILY 05/27/18 [History Last Taken Unknown] sertraline 100 mg tablet 200 mg PO DAILY tab 05/27/18 [History Last Taken 07/05/20 06:00] alprazolam 0.5 mg tablet 0.5 mg PO BID 06/08/20 [History Last Taken Unknown] pantoprazole 40 mg tablet,delayed release 40 mg PO DAILY 06/08/20 [History Last Taken 07/05/20 06:00] risperidone 1 mg tablet 1 mg PO BID 06/08/20 [History Last Taken 07/05/20 06:00] multivitamin with minerals 1 each PO DAILY 06/29/20 [History Last Taken Unknown] sucralfate 1 gm PO 4X/DAY #120 tab 07/05/20 [Rx Last Taken Unknown] hydrocodone-acetaminophen 1 tab PO Q4H PRN 5 Days #14 tab 01/07/21 [Rx Last Taken Unknown] Allergy/AdvReac Type Severity Reaction Status Date / Time bee venom protein (honey bee) Allergy Severe Anaphylaxis Verified 01/10/21 18:26 thiothixene AdvReac Unknown Unknown Verified 01/10/21 18:26 Surgical History History of D&C Social History Smoking Status: Current every day smoker tobacco type: cigarettes second hand exposure: No alcohol intake: never substance use type: does not use caffeine: Yes ROS Constitutional Constitutional: Denies chills or fatigue Cardiovascular Cardiovascular: Denies chest pain Respiratory/Chest Respiratory/Chest: Denies shortness of breath at rest Gastrointestinal Gastrointestinal: Denies constipation Genitourinary Genitourinary: Denies dysuria Musculoskeletal Musculoskeletal: Reports back pain, extremity pain, limited range of motion and stiffness Neurologic Neurologic: Denies abnormal speech Psychiatric Psychiatric: Denies anxiety Vital Signs Vital Signs Vital Signs: 01/10/21 18:26 01/10/21 19:43 Temperature 99.3 F H Temperature Source Temporal Pulse Rate 64 Respiratory Rate 18 18 Blood Pressure 115/61 Blood Pressure Mean 79 Pulse Ox 96 Oxygen Delivery Method Room Air Weight Weight: 110 lb Body Mass Index (BMI) 17.7 Physical Exam Const oriented x3 HEENT normocephalic and head/scalp atraumatic Eyes PERRL Neck no JVD Resp normal respiratory effort and clear to auscultation bilaterally Cardio regular rate, regular rhythm, S1 normal heart sound, S2 normal heart sound and no murmurs GI normal to inspection, nondistended, normoactive bowel sounds Extremity no clubbing, cyanosis or edema Extremity Narrative: +SLR, tender lumbar spine L4-5 no deformity Skin General Skin Exam: turgor normal Neuro CN's II-XII intact bilaterally Psych Appearance: appropriate Results Lab / Micro Data Result Diagrams: 01/10/21 21:15 01/10/21 21:15 Labs: Laboratory Results - last 24 hr 01/10/21 21:15: WBC 8.7, RBC 4.59, Hgb 13.4, Hct 40.0, MCV 87.1, MCH 29.2, MCHC 33.5, RDW Std Deviation 40.2, RDW Coeff of Jen 12.7, Plt Count 157, MPV 12.3 H, Immature Gran % (Auto) 0.600, Neut % (Auto) 79.3 H, Lymph % (Auto) 10.1 L, [place] % (Auto) 9.8, Eos % (Auto) 0.1, Baso % (Auto) 0.1, Absolute Neuts (auto) 6.9, Absolute Lymphs (auto) 0.88, Nucleated RBC % 0 01/10/21 21:15: Sodium 140, Potassium 3.9, Chloride 106, Carbon Dioxide 28.0, Anion Gap 6, BUN 23 H, Creatinine 0.60, Estim Creat Clear Calc 41.23, Est GFR (MDRD) Af Amer 126, Est GFR (MDRD) Non-Af 104, BUN/Creatinine Ratio 38.0 H, Glucose 110 H, Calcium 8.7 Radiology Impression Abdomen/Pelvis CT 01/10/21 21:05 IMPRESSION: No acute abnormalities in the abdomen or pelvis. Chronic compression deformities of T12 and L2. Electronically Signed: Dario Taveras MD at 22:29 EDT Tel , Service support , Assessment & Plan Assessment/Plan (1) Acute left-sided back pain with sciatica: (2) Depression: (3) HLD (hyperlipidemia): (4) A-fib: (5) Benzodiazepine dependence: (6) Bipolar disorder: QUALIFIERS: Active/Remission status: remission status unspecified Qualified Code(s): F31.9 - Bipolar disorder, unspecified (7) Emphysema lung: (8) Lung mass: PLAN: 1 intractable back pain with sciatica?admit patient to medical surgical floor, Dilaudid 1 mg IV every 2 to 3 hours, MRI noncontrast lumbar spine in the morning, physical therapy to evaluate and treat, should MRI warrant then will get consult with back surgeon 2. History of depression?continue home medications 3. Hyperlipidemia?continue statin 4. History of atrial fibrillation?rate appears to be regular at this time 5. DVT prophylaxis?low molecular weight heparin Charges/Coding Visit Charges Inpatient E&M: 83675 Init Hosp L2
[2021-01-10 23:27] VITALS: BP 131/67; PULSE 85; RESP 18; TEMP 36.6; O2SAT 96
--- NOTE | 2021-01-10 23:32 | MRI_ITS ---
STUDY: MRI LUMBAR SPINE WITHOUT CONTRAST REASON FOR EXAM: Female, 70 years old. back pain TECHNIQUE: Standardized fat and water weighted pulse sequences were obtained in the sagittal and axial planes. COMPARISON: X-ray 01/04/2021 FINDINGS: T12-L1: Normal endplates. Normal disc height, hydration and morphology. Normal bilateral facet joints. Normal central canal and bilateral lateral recesses. Normal bilateral intervertebral neural foramina. Normal lumbar lordosis. Mild dextroscoliosis centered at L1. Normal conus medullaris that terminates at the T12/L1. Mild loss of height in concavity of the superior endplate of T12 in the inferior endplate of L2 consistent with chronic mild compression fractures. No retropulsion into the spinal canal. L1-2: Normal endplates. Normal disc height, hydration and morphology. Normal bilateral facet joints. Normal central canal and bilateral lateral recesses. Normal bilateral intervertebral neural foramina. L2-3: Mild bilobed disc protrusion produces mild spinal stenosis and mild bilateral neural foraminal stenosis. L3-4: Mild bilobed disc protrusion produces mild spinal stenosis and mild right neural foraminal stenosis. L4-5: Normal endplates. Normal disc height, hydration and morphology. Normal bilateral facet joints. Normal central canal and bilateral lateral recesses. Normal bilateral intervertebral neural foramina. L5-S1: Mild broad disc protrusion produces mild spinal stenosis and mild bilateral neural foraminal stenosis. There is linear hyperintensity of the lateral aspect of the right sacral ala which may represent an insufficiency fracture Normal visualized paraspinous soft tissue structures. MRI/Spine Lumbar (Routine) IMPRESSION: 1. Possible acute right sacral ala insufficiency fracture. 2. Chronic mild compression fractures of T12 and L2 without retropulsion into the spinal canal. 3. Mild dextroscoliosis with mild diffuse degenerative disc disease as described above. Electronically Signed: Crispin Gaviria MD at 12:21 EDT Tel , Service support ,
[2021-01-11] VITALS (11 sets, daily range): BP systolic 113–145; BP diastolic 57–81; PULSE 63–77; RESP 14–18; TEMP 36.5–36.6; O2SAT 94–99; BMI 16.5
[2021-01-11] MEDS: HYDROmorphone 1 MG/ML Syringe IV ×4 (01:09→13:28)
--- NOTE | 2021-01-11 04:20 | PCS.PANDOC ---
PANDEMIC DOCUMENTATION INITIATED: Date: 11/22/2020 Time: 1900 Emergency documentation initiated 01/11/21 0040
[2021-01-11 04:51] LABS: Bacteria 0 SEEN /hpf (None Seen); Color, Urine Yellow (Yellow); Glucose, Dipstick Normal (Normal); Ketone-Dipstick Negative (Negative); Leukocyte Esterase-Dipstick Negative /ul (Negative); Mucous, Urine 0 SEEN /hpf (<or=2+); Nitrite-Dipstick Negative (Negative); Occult Blood-Urine 25 /ul (Negative); Protein-Dipstick Negative (Negative); Squamous Epithelial Cells - UA 0 SEEN /hpf (5-10); Urine Bilirubin Dipstick Negative (Negative); Urine Clarity Sl. Cloudy (Clear); Urine Urobilinogen Normal (Normal); White Blood Cells 0 SEEN /hpf (0-5)
[2021-01-11] MEDS: 0.9% Saline Lock 10 ML Syringe IV ×4 (05:13→20:27)
[2021-01-11 05:28] LABS: Red Blood Cells-Urine 0-5 SEEN /hpf (0-5)
[2021-01-11 05:30] LABS: Calcium Oxalate Crystals Ur 1+ /hpf (<or=2+)
[2021-01-11 05:59] LABS: Anion Gap 6 (5-15); BUN 24 mg/dL (7-18); Calcium,Total 8.7 mg/dL (8.5-10.1); Chloride 106 mmol/L (98-107); Creatinine, Serum 0.62 mg/dL (0.55-1.02); EST Glomerular Filtration Rate 102 mL/min (>60); Est Glom Filt Rate - Afr Amer 123 mL/min (>60); Estimated Creatinine Clearance 38.26 ml/min; Glucose 108 mg/dL (74-106); Potassium 3.9 mmol/L (3.5-5.1); Sodium Level 139 mmol/L (136-145)
--- NOTE | 2021-01-11 07:09 | PCS.PANDOC ---
PANDEMIC DOCUMENTATION INITIATED: Date: 11/22/2020 Time: 190
[2021-01-11] MEDS: Metoprolol Tartrate 25 MG Tablet PO ×2 (08:17→21:45)
[2021-01-11] MEDS: RisperiDONE 1 MG Tablet PO ×2 (08:18→21:43)
[2021-01-11] MEDS: Sertraline 100 MG Tablet 200 MG PO (08:18)
[2021-01-11] MEDS: Enoxaparin 40 MG/0.4 ML Syringe SC (08:18)
[2021-01-11] MEDS: Multivitamins,Ther W-Minerals Tablet 1 TABLET PO (08:19)
[2021-01-11] MEDS: Pantoprazole Sodium 40 MG Tablet PO (08:19)
[2021-01-11] MEDS: ALPRAZolam 0.5 MG Tablet PO ×2 (09:38→21:42)
--- NOTE | 2021-01-11 12:04 | CHAPLAIN ---
Type of Pastoral Visit _x__ Initial Visit ___ Follow-up Visit ___ On-call Visit ___ General Patient Visit ___ Spiritual Assessment ___ Family Conference ___ Bereavement ___ Rapid Response ___ Code Blue ___ Other (describe below) Pastoral Care Referral From _x__ Patient ___ Family ___ Nurse ___ Physician ___ Assignment Agent ___ Jigger Machine Operator ___ Other (describe below) Sacrament/Intervention _x__ Active listening ___ Anointing ___ Restorationism ___ Bereavement ___ Communion ___ Janet exploration ___ ___ Life review _x__ Prayer ___ Reconciliation ___ Sacrament of Sick _x__ Supportive presence ___ Wedding ___ Other (describe below) Pastoral Comments
--- NOTE | 2021-01-11 13:20 | CASEMGMT ---
QUOC CHAVIS Assessment: Face to Face with pt for initial transition planning/care coordination assessment. QUOC CHAVIS introduced self and role at [facility], pt voices understanding and consents to assessment. Pt is A/O x4 and answers all questions appropriately at this time. Pt sitting up in bed in no distress. Care providers, pharmacy, and demographics verified/updated. Admitting Dx: intractable back pain PCP:Deshawn Specialists:Trent for pain mgmt but pt has not seen yet. Preferred Pharmacy: [facility] Insurance: [place] [employer]CR [employer] Prescription Benefit: yes LW/HPOA: Pt denies having a LW/DPOA and denies the need for info regarding AD. LNOK: Leon Dick, brother; Britany Sharp, dtr Living Arrangements: Pt lives alone in a two story house with one step to enter in the back and two steps to enter in the front with a rail. Pt reports being I in ADL's prior to this illness. Pt denies concerns at home. Transportation: Pt states she sold her car. She uses a taxi or transportation through her insurance to get to medical appts. DME/HHC/SNF: Pt has a cane that she uses at all times, bp monitor and pulse ox. Pt denies previous HHC or SNF stays. Pt is retired. She denies use of alcohol, street drugs or illegal drugs. Pt smokes a half of a pack of cigarettes per day. Pt states she received an order from this past for oupt therapy at [facility]. She has not started this but would like to upon dc. She also received a referral for for pain mgmt but she has not yet made an appt for this. Pt states no concerns with going home at time of dc. Pt states no further concerns/needs. CM to follow. Advised pt to ask CM if any further question/concerns/needs arise, voices understanding. Pt Goal: Home with outpt therapy Plan: Home with outpt therapy
--- NOTE | 2021-01-11 13:38 | PN.HOSP_ITS ---
Subjective Subjective Back pain began suddenly with radiation down right leg. Objective Data Objective Data Vital Signs: Vital Signs Temp Pulse Resp BP Pulse Ox 36.5 C L 68 14 113/61 94 01/11/21 08:05 01/11/21 10:49 01/11/21 10:19 01/11/21 10:49 01/11/21 10:49 Oxygen Delivery Method Room Air Weight: 46.3 kg Body Mass Index (BMI) 16.5 Intake & Output: Intake and Output for Last 24 Hours 01/09/21 01/10/21 01/11/21 23:59 23:59 23:59 Intake Total 220 / 220 Output Total 300 / 300 Balance -80 / -80 Medical Nutrition Assessment Dietitian: Malnutrition Criteria Met Start: 01/11/21 12:21 Freq: Status: Active Protocol: Document 01/11/21 12:21 AG (Rec: 01/11/21 12:21 [id number]) Nutrition Malnutrition Evidence of Malnutrition Exists Yes Malnutrition (severe): Acute Illness/Injury Evidenced By Suboptimal Energy Intake ( Severe),Weight Loss (Severe) Clinical Problem Acute Disease or Injury Related Malnutrition Etiology severe, acute malnutrition r/t decreased appetite d/t severe back pain Signs/Symptoms as evidenced by unintentional wt loss of 7.9#/7.2% wt loss x 3 weeks; estimated PO intake meeting <50% of estimated nutritional needs >1 weeks; BMI 16.5 Status Active Problem Recommendation Dietitian Recommendations/Changes continue regular diet; will add 4oz ensure compact 4x/day for additional calories/ protein if consumed. Lab / Micro Data Result Diagrams: 01/10/21 21:15 01/11/21 04:58 Labs: Laboratory Results - last 24 hr 01/10/21 21:15: WBC 8.7, RBC 4.59, Hgb 13.4, Hct 40.0, MCV 87.1, MCH 29.2, MCHC 33.5, RDW Std Deviation 40.2, RDW Coeff of Jen 12.7, Plt Count 157, MPV 12.3 H, Immature Gran % (Auto) 0.600, Neut % (Auto) 79.3 H, Lymph % (Auto) 10.1 L, [place] % (Auto) 9.8, Eos % (Auto) 0.1, Baso % (Auto) 0.1, Absolute Neuts (auto) 6.9, Absolute Lymphs (auto) 0.88, Nucleated RBC % 0 01/10/21 21:15: Sodium 140, Potassium 3.9, Chloride 106, Carbon Dioxide 28.0, Anion Gap 6, BUN 23 H, Creatinine 0.60, Estim Creat Clear Calc 41.23, Est GFR (MDRD) Af Amer 126, Est GFR (MDRD) Non-Af 104, BUN/Creatinine Ratio 38.0 H, Glucose 110 H, Calcium 8.7 01/11/21 04:40: Urine Color Yellow, Urine Clarity Sl. Cloudy, Urine pH 7.0, Ur Specific [place] 1.010, Urine Protein Negative, Urine Glucose (UA) Normal, Urine Ketones Negative, Urine Occult Blood 25 H, Urine Nitrite Negative, Urine Bilirubin Negative, Urine Urobilinogen Normal, Ur Leukocyte Esterase Negative, Urine RBC 0-5 SEEN, Urine WBC 0 SEEN, Ur Squamous Epith Cells 0 SEEN, Calcium Oxalate Crystal 1+, Urine Bacteria 0 SEEN, Urine Mucus 0 SEEN 01/11/21 04:58: Sodium 139, Potassium 3.9, Chloride 106, Carbon Dioxide 27.0, Anion Gap 6, BUN 24 H, Creatinine 0.62, Estim Creat Clear Calc 38.26, Est GFR (MDRD) Af Amer 123, Est GFR (MDRD) Non-Af 102, BUN/Creatinine Ratio 39.0 H, Glucose 108 H, Calcium 8.7 Radiography Diagnostic Testing: Radiology Impression Abdomen/Pelvis CT 01/10/21 21:05 IMPRESSION: No acute abnormalities in the abdomen or pelvis. Chronic compression deformities of T12 and L2. Electronically Signed: Dario Taveras MD at 22:29 EDT Tel , Service support , Lumbar Spine MRI 01/10/21 23:32 IMPRESSION: 1. Possible acute right sacral ala insufficiency fracture. 2. Chronic mild compression fractures of T12 and L2 without retropulsion into the spinal canal. 3. Mild dextroscoliosis with mild diffuse degenerative disc disease as described above. Electronically Signed: Crispin Gaviria MD at 12:21 EDT Tel , Service support , Physical Exam Const alert Constitutional Narrative: uncomfortable. afebrile. HEENT head/scalp atraumatic Head and Scalp: normocephalic Neuro moves all extremities, no focal motor deficits and no sensory deficits noted Sensorium / Orientation: awake and alert Motor Exam: strength 5/5 throughout Psych affect normal Assessment & Plan Assessment/Plan (1) Intractable back pain: PLAN: 1. Intractable back pain * MRI performed * no cord or nerve root compression noted on MRI * does have possible acute right sacral ala insuffiency fxr and chronic mild compression fracture of T12 and L2 * consult pain mgmt to see if she would be candidate for epidural injection * add oxycodone and lidoderm 2. Sacral ala, T12 and L2 fractures * check 25 OH level, replace if less than 50 * pt denies any recent falls (last fall was about 6 months ago) 3. Debility * 2/2 pain * plan is for home with outpt therapy 4. VTE prophylaxis * Enoxaparin Charges/Coding Visit Charges Inpatient E&M: 25104 Subs Hosp L2
[2021-01-11 15:15] LABS: Vitamin D,25 Hydroxy 38.9 ng/mL
[2021-01-11] MEDS: oxyCODONE 5 MG Tablet 10 MG PO (16:55)
[2021-01-11] MEDS: HYDROmorphone 0.5 MG/0.5 ML SYRINGE IV (20:27)
[2021-01-11] MEDS: Pravastatin 40 MG Tablet PO (21:42)
[2021-01-11] MEDS: Sucralfate 1 GM Tablet PO (21:42)
[2021-01-11] MEDS: Gabapentin 300 MG Capsule PO (21:43)
[2021-01-12] VITALS (12 sets, daily range): BP systolic 107–137; BP diastolic 60–84; PULSE 57–75; RESP 16–18; TEMP 36.4–37; O2SAT 96–99; BMI 16.5
[2021-01-12] MEDS: oxyCODONE 5 MG Tablet 10 MG PO (04:18)
--- NOTE | 2021-01-12 06:00 | EKG12_ITS ---
Test Reason : AM Blood Pressure : / mmHG Vent. Rate : 069 BPM Atrial Rate : 069 BPM P-R Int : 098 ms QRS Dur : 082 ms QT Int : 408 ms P-R-T Axes : 029 057 062 degrees QTc Int : 437 ms Sinus rhythm with short PA Otherwise normal ECG When compared with ECG of 14-SEP-2009 05:23, Premature atrial complexes are no longer Present Confirmed by SISSY OLVERA, FLIP ([id number]), restaurant expeditor SRINIVAS ISRAEL ([id number]) on 01/18/2021 10:09:55 AM Referred By: CAROLE Confirmed By:FLIP SHEEHAN MD
[2021-01-12] MEDS: HYDROmorphone 0.5 MG/0.5 ML SYRINGE IV ×3 (06:58→16:01)
[2021-01-12] MEDS: 0.9% Saline Lock 10 ML Syringe IV ×2 (06:58→16:01)
[2021-01-12] MEDS: Lidocaine 5% Patch 1 PATCH TOPICAL (09:18)
[2021-01-12] MEDS: Enoxaparin 40 MG/0.4 ML Syringe SC (09:19)
--- NOTE | 2021-01-12 11:16 | PN.HOSP_ITS ---
Documented by User: Salvador JENKINS 01/12/21 11:32 Subjective Subjective Patient is a 70-year-old female lying in bed, alert and orient x3. Patient is still with significant amount of lower back pain and distress. Patient reports no resolution of symptoms with current pain regimen. Patient is expecting epid ural injection from Dr. Anguiano later on this afternoon, and is hoping that this will resolve some of her pain. Denies chest pain, shortness of breath, palpitations, hemoptysis, sputum production, fever, chills, N/V/D. Objective Data Objective Data Vital Signs: Vital Signs Temp Pulse Resp BP Pulse Ox 98.2 F 64 18 137/82 H 98 01/12/21 08:30 01/12/21 08:30 01/12/21 08:30 01/12/21 08:30 01/12/21 08:30 Oxygen Delivery Method Room Air Weight: 102 lb 1.184 oz Body Mass Index (BMI) 16.5 Intake & Output: Intake and Output for Last 24 Hours 01/10/21 01/11/21 01/12/21 23:59 23:59 23:59 Intake Total 220 / 220 Output Total 300 / 300 Balance -80 / -80 Medical Nutrition Assessment Dietitian: Malnutrition Criteria Met Start: 01/11/21 12:21 Freq: Status: Active Protocol: Document 01/11/21 12:21 (Rec: 01/11/21 12:21 [id number]) Nutrition Malnutrition Evidence of Malnutrition Exists Yes Malnutrition (severe): Acute Illness/Injury Evidenced By Suboptimal Energy Intake ( Severe),Weight Loss (Severe) Clinical Problem Acute Disease or Injury Related Malnutrition Etiology severe, acute malnutrition r/t decreased appetite d/t severe back pain Signs/Symptoms as evidenced by unintentional wt loss of 7.9#/7.2% wt loss x 3 weeks; estimated PO intake meeting <50% of estimated nutritional needs >1 weeks; BMI 16.5 Status Active Problem Recommendation Dietitian Recommendations/Changes continue regular diet; will add 4oz ensure compact 4x/day for additional calories/ protein if consumed. Lab / Micro Data Result Diagrams: 01/10/21 21:15 01/11/21 04:58 Labs: Laboratory Results - last 24 hr 01/11/21 14:10: Vitamin D 25-Hydroxy 38.9 Radiography Diagnostic Testing: Radiology Impression Lumbar Spine MRI 01/10/21 23:32 IMPRESSION: 1. Possible acute right sacral ala insufficiency fracture. 2. Chronic mild compression fractures of T12 and L2 without retropulsion into the spinal canal. 3. Mild dextroscoliosis with mild diffuse degenerative disc disease as described above. Electronically Signed: Crispin Gaviria MD at 12:21 EDT Tel , Service support , Physical Exam Const alert and oriented x3 HEENT head/scalp atraumatic and moist oral mucous membranes Head and Scalp: normocephalic Eyes PERRL, EOMs intact bilaterally and conjunctivae normal Neck no lymphadenopathy, supple and no JVD Resp normal respiratory effort, no retractions, no use of accessory muscles and clear to auscultation bilaterally Cardio regular rate, regular rhythm, no murmurs and no JVD GI normal to inspection, nondistended, normoactive bowel sounds, soft to palpation and non-tender Extremity normal to inspection and no clubbing, cyanosis or edema Skin no rashes or lesions noted, no wounds, skin turgor normal and no jaundice Neuro Neuro Narrative: Patient still with significant amount of lower back pain that is radiating down to both legs. Also endorses not being able to urinate for the past couple days. Psych affect normal Assessment & Plan Assessment/Plan (1) Intractable back pain: PLAN: Day 2 Discharge planning: Current plan is for patient to discharge home, case manag ement following. 1) intractable back pain Patient still with significant amount of back pain and distress, patient reports current pain regimen is not alleviating her symptoms. Patient was assessed by Dr. Anguiano yesterday who is planning to move forward with an epidural spine injection. Lumbar spine MRI demonstrated possible acute right sacral ala fracture, chronic mild compression fractures of T12 and L2 without retropulsion and diffuse degenerative disc disease. Continue as needed oxycodone and hydromorphone. 2) sacral ala, T12 and L2 fractures Vitamin D-25 level 38.9, vitamin D level and calcium within normal limits. No concern for deficiency. 3) debility Current plan is for patient to discharge home with outpatient therapy. DVT prophylaxis - Lovenox Patient seen by Salvador Partida PA-C, under the supervision of Dr. Acevedo. Documented by User: Dr. Noble Acevedo MD 01/12/21 15:03 Subjective Subjective Patient heart rate in 50s. Complain of severe back pain 01/16 at sacrum with radiation to bilateral gluteal and lower extremity up to heal. She has no nausea or vomiting. Denies any tingling numbness. MRI negative for any cord or nerve impingement. Seen by pain management Dr. Anguiano Objective Data Lab / Micro Data Result Diagrams: 01/10/21 21:15 01/11/21 04:58 Physical Exam Narrative General: Alert, Oriented x3, Cooperative in distress due to severe pain HEENT: Atraumatic, PERRLA, EOMI, Normocephalic Oral: No Gingival or Mucosal Lesions/ Ulcerations Neck: Supple, No JVD, Negative Carotid Bruits Lungs: Air entry diminished in bilateral lung bases. No crepitation/rhonchi Cardiovascular: Regular rate, Regular Rhythm, Normal S1, Normal S2, No murmurs Abdomen: Bowel Sounds Present, Soft, Non Tender, Non-Distended : No new bladder symptoms including retention or perineal paresthesia. No renal angle tenderness. No suprapubic tenderness. Extremities: No edema, Capillary Refill Less than 3 Seconds Skin: No rashes, No breakdown Musculoskeletal/spine: Point tenderness present over lower sacrum. Paraspinal muscles tender and tensed. Neurological: Cranial nerves II-XII grossly intact, DTR 2+/4. Mild weakness of lower extremities seems chronic or reactive due to pain. Psych/Mental Status: In distress due to pain. Assessment & Plan Assessment/Plan (1) Intractable back pain: PLAN: This patient was seen in conjunction with GREGORY Bell. I have independently interviewed and examined the patient and reviewed pertinent history, examination findings, laboratory and plan of management. I have reviewed the note and agree with the documented findings with the few additional points. In brief, patient is admitted for severe lower back pain with radiation to both buttocks and shooting pain to the heel. MRI reported possible acute right sacral ala insufficiency fracture. Chronic mild compression fracture of T12 and L2 without retropulsion into the spinal canal. Pain management Dr. Mccollum is consulted and patient is scheduled for repeat analgesia. On pain control. PT and OT ordered. VT prophylaxis Lovenox. I have discussed my assessment with GREGORY Bell and orders have been reviewed. MRI spine 1. Possible acute right sacral ala insufficiency fracture. 2. Chronic mild compression fractures of T12 and L2 without retropulsion into the spinal canal. 3. Mild dextroscoliosis with mild diffuse degenerative disc disease as described above. Charges/Coding Visit Charges Inpatient E&M: 05730 Subs Hosp L2
[2021-01-12] MEDS: Metoprolol Tartrate 25 MG Tablet PO (13:04)
--- NOTE | 2021-01-12 14:25 | RAD_ITS ---
PROCEDURE: PROCEDURE: CAUDAL BLOCK INDICATION: CAUDAL BLOCK EXAMINATION/TECHNIQUE: X-RAY - IR Fluoro Guide Injection Spine Total Fluoroscopic Time: 2.2 seconds Fluoroscopic Images: 1 image Fluoroscopy Dose: 0.36 mGy COMPARISON: CT scan obtained 01/10/2021.. FINDINGS: A single spot fluoroscopic image was obtained intra-operatively demonstrating a needle superimposed over the caudal hiatus with contrast injection. No radiologist was present for the procedure, please refer to operative report for details. RAD/Fluor Guidance for Spine Inj IMPRESSION: Please refer to operative report for details. Electronically Signed: Cody Lopez MD at 8:03 EDT Tel , Service support ,
[2021-01-12] MEDS: Lidocaine 0.5% (50 ml) 50 ML Vial (14:38)
[2021-01-12] MEDS: Triamcinolone Acetonide 40 MG/ML Vial (14:38)
[2021-01-12] MEDS: Sucralfate 1 GM Tablet PO (15:59)
--- NOTE | 2021-01-12 17:30 | NURSING ---
Pt had gotten up and got herself dressed. Pt states she can be in pain at home and just wants to leave. Pt does not appear to be in any discomfort at this time. pt sitting at edge of bed. SL removed and pt signed AMA forms. Dr Acevedo notified of patient leaving and is aware that patient has been able to ambulate now.
--- NOTE | 2021-01-12 18:34 | PCM.DC.SUM ---
Providers Date of Admission: 01/10/21 Primary Care Physician: Dr. Matt Hess MD Consultations 01/11/21 13:37 Consult: Pain Management Routine Consulting Provider: Penny Anguiano Reason for Consult: back pain EMERGENT Consult: No MD Notified: Yes Date Notified: 01/11/21 Time Notified: 16:31 Method of Notification: spoke with office Reason For Visit: INTRACTABLE BACK PAIN Diagnosis Discharge Diagnosis (1) Intractable back pain: Status: Acute Code(s): M54.9 - Dorsalgia, unspecified Medications at Discharge Home Medications metoprolol tartrate 25 mg tablet 25 mg PO BID 05/27/18 pravastatin 40 mg tablet 40 mg PO QHS 05/27/18 sertraline 100 mg tablet 200 mg PO DAILY tab 05/27/18 alprazolam 0.5 mg tablet 0.5 mg PO BID 06/08/20 pantoprazole 40 mg tablet,delayed release 40 mg PO DAILY 06/08/20 risperidone 1 mg tablet 1 mg PO BID 06/08/20 multivitamin with minerals 1 each PO DAILY 06/29/20 hydrocodone-acetaminophen 1 tab PO Q4H PRN 5 Days #14 tab 01/07/21 gabapentin 300 mg PO QHS 01/11/21 Hospital Course Summary of Care Provided Hospital Course: This is a 70-year-old female was admitted for severe lower back pain with radiation to both buttocks and shooting pain to the heel. MRI reported possible acute right sacral ala insufficiency fracture. Chronic mild compression fracture of T12 and L2 without retropulsion into the spinal canal. Pain management Dr. Anguiano was consulted and patient had epidural caudal analgesia with the steroid. Patient signed AMA. PT and OT was ordered. VT prophylaxis Lovenox. Advised to follow-up PCP in 1 week. MRI spine 1. Possible acute right sacral ala insufficiency fracture. 2. Chronic mild compression fractures of T12 and L2 without retropulsion into the spinal canal. 3. Mild dextroscoliosis with mild diffuse degenerative disc disease as described above. Physical Exam Narrative Patient signed AMA on 01/12/2021. Physical exam as per progress note of 01/12. Patient states she cannot take care of herself at home. She had caudal epidural steroid injection by Dr. Anguiano on 01/12. Weight / BMI Weight Weight: 102 lb 1.184 oz Body Mass Index (BMI) 16.5 ABG / Lab / Microbiology Data Result Diagrams: 01/10/21 21:15 01/11/21 04:58 Radiography Diagnostic Testing: Radiology Impression Abdomen/Pelvis CT 01/10/21 21:05 IMPRESSION: No acute abnormalities in the abdomen or pelvis. Chronic compression deformities of T12 and L2. Electronically Signed: Dario Taveras MD at 22:29 EDT Tel , Service support , Lumbar Spine MRI 01/10/21 23:32 IMPRESSION: 1. Possible acute right sacral ala insufficiency fracture. 2. Chronic mild compression fractures of T12 and L2 without retropulsion into the spinal canal. 3. Mild dextroscoliosis with mild diffuse degenerative disc disease as described above. Electronically Signed: Crispin Gaviria MD at 12:21 EDT Tel , Service support , Guidance Fluoroscopy 01/12/21 14:25 IMPRESSION: Please refer to operative report for details. Electronically Signed: Cody Lopez MD at 8:03 EDT Tel , Service support , Meaningful Use Info Meaningful Use Diagnoses (Choose all that apply): None applicable Discharge Plan Admission Admit Date/Time: 01/10/21 23:28 Attending Provider: Noble Acevedo Primary Care Provider: Matt Hess Chi Consulting Providers: Penny Anguiano Discharge Orders/Prescriptions Prescriptions: No Action sertraline [Zoloft] 100 mg tablet 200 mg PO DAILY RF: 0 metoprolol tartrate 25 mg tablet 25 mg PO BID RF: 0 pravastatin 40 mg tablet 40 mg PO QHS RF: 0 risperidone [Risperdal] 1 mg tablet 1 mg PO BID RF: 0 alprazolam 0.5 mg tablet 0.5 mg PO BID RF: 0 pantoprazole 40 mg tablet,delayed release (DR/EC) 40 mg PO DAILY RF: 0 multivitamin with minerals 1 EACH tablet 1 each PO DAILY RF: 0 hydrocodone-acetaminophen 5-325 mg tablet 1 tab PO Q4H PRN (Reason: pain) 5 Days Qty: 14 RF: 0 gabapentin 300 mg capsule 300 mg PO QHS RF: 0 Referrals / Follow Up: Matt Hess Chi, MD [Primary Care Provider] - Disposition Discharge Orders: Discharge Patient (Routine); Ordered 01/12/21 Ordered By: Dr. Noble Acevedo Charges/Coding Visit Charges Inpatient E&M: 23999 Disch Hosp
== END 2021-01-12 17:28 | disposition home or self-care (01) | DRG 542 ==
LOC: ED 21:11 → MS3 01-11 00:13
PROVIDERS: Anesthesiology Pain Medicine; Admitting Provider Family Medicine; Emergency Provider Emergency Medicine; PCP Family Medicine Geriatric Medicine; Visit Provider Internal Medicine
PROC: 3E0S3BZ Introduction of Anesthetic Agent into Epidural Space, Percutaneous Approach (ICD-10-PCS; CPT 62282; principal; 2021-01-12 13:55)
DX: M48.54XA Collapsed vertebra, not elsewhere classified, thoracic region, initial encounter for fracture (principal); M48.56XA Collapsed vertebra, not elsewhere classified, lumbar region, initial encounter for fracture; E43 Unspecified severe protein-calorie malnutrition; J43.9 Emphysema, unspecified; F13.20 Sedative, hypnotic or anxiolytic dependence, uncomplicated; F31.9 Bipolar disorder, unspecified; I48.91 Unspecified atrial fibrillation; M48.48XA Fatigue fracture of vertebra, sacral and sacrococcygeal region, initial encounter for fracture; M51.16 Intervertebral disc disorders with radiculopathy, lumbar region; Z68.1 Body mass index [BMI] 19.9 or less, adult; E78.5 Hyperlipidemia, unspecified; F41.9 Anxiety disorder, unspecified; R53.81 Other malaise; K59.00 Constipation, unspecified; F17.210 Nicotine dependence, cigarettes, uncomplicated; Z79.899 Other long term (current) drug therapy; G89.29 Other chronic pain
CPT/HCPCS: 62323; 01992; 36415; 64483; 72148; 74176; 77003; 80048; 81001; 82306; 85025; 93005; 96372; 96374; 96375; 96376; 97162; 99218; 99284; 99406; A4216; G0378

== ENCOUNTER 2021-01-14 09:24 | Emergency (ER) | payer MEDICARE, SELFPAY ==
[2021-01-14 09:25] VITALS: BP 129/74; PULSE 61; RESP 18; TEMP 36.6; O2SAT 99; BMI 16.4
--- NOTE | 2021-01-14 09:49 | EDS_ITS ---
HPI History of Present Illness Chief Complaint: Back Informant: patient Narrative Narrative: Patient represents with back pain. She states it has been hurting for about 3 weeks. She has been doing a lot of cleaning and lifting around her house for the last 2 or so months. However there was no specific injury. There was no fall or trauma. She did get pulled quickly when walking her dog that seemed to initiate this to some degree but there was no impact or falling trauma. She has pain very low in the back at the lower lumbar and sacral area. It started more on the left but it seems a little bit more prominent on the right. Pain does radiate to both hips and all the way down both legs. She states she gets pain and tingling in both feet but more on the left. This is not new or different at this visit. This has been there for 2 weeks. The distribution is the entire foot. There is no dysuria or frequency. No change in urination. She does have some mild constipation on pain meds but no incontinence. There have been no recent fevers or chills. She denies history of cancer. She has a history of atrial fibrillation but is not on anticoagulation as she has not been in A. fib for a long time. Her pain tends to be worse in the morning. Nothing specifically makes it worse. Pain meds do help but she is out. She does live alone at home. She is trying to live on the first floor of her house. She is having difficulties. [facility] Medical History A-fib Abnormal chest CT Anxiety Benzodiazepine dependence Bipolar disorder Constipation Depression Emphysema lung Fatigue HLD (hyperlipidemia) Lung mass Vitamin D deficiency Home Medications metoprolol tartrate 25 mg tablet 25 mg PO BID 05/27/18 [History Last Taken 01/10/21] pravastatin 40 mg tablet 40 mg PO QHS 05/27/18 [History Last Taken 01/09/21] sertraline 100 mg tablet 200 mg PO DAILY tab 05/27/18 [History Last Taken 01/10/21] alprazolam 0.5 mg tablet 0.5 mg PO BID 06/08/20 [History Last Taken 01/10/21] pantoprazole 40 mg tablet,delayed release 40 mg PO DAILY 06/08/20 [History Last Taken 01/09/21] risperidone 1 mg tablet 1 mg PO BID 06/08/20 [History Last Taken 01/10/21] multivitamin with minerals 1 each PO DAILY 06/29/20 [History Last Taken 01/09/21] hydrocodone-acetaminophen 1 tab PO Q4H PRN 5 Days #14 tab 01/07/21 [Rx Last Taken 01/10/21] gabapentin 300 mg PO QHS 01/11/21 [History Last Taken 01/10/21] hydrocodone-acetaminophen 1 tab PO Q6H PRN 3 Days #12 tab 01/14/21 [Rx Last Jose Carlos en Unknown] Allergy/AdvReac Type Severity Reaction Status Date / Time bee venom protein (honey bee) Allergy Severe Anaphylaxis Verified 01/14/21 09:25 thiothixene AdvReac Unknown Unknown Verified 01/14/21 09:25 Surgical History History of D&C Social History Smoking Status: Current every day smoker tobacco type: cigarettes second hand exposure: No alcohol intake: never substance use type: does not use caffeine: Yes ROS ROS ED Constitutional Constitutional ED: Denies chills, fever(s) or weight loss Eyes Eyes: Denies blurry vision ENT ENT ED: Denies rhinorrhea or sore throat Cardiovascular Cardiovascular: Denies chest pain or palpitations Respiratory/Chest Respiratory/Chest: Denies dyspnea Gastrointestinal Gastrointestinal: Reports constipation; Denies abdominal pain, diarrhea, melena, nausea or vomiting Genitourinary Genitourinary ED: Denies dysuria, hematuria or urinary frequency Musculoskeletal Musculoskeletal: Reports back pain; Denies neck pain Integumentary Denies rash Neurologic Neurologic: Reports paresthesias; Denies headache(s) or weakness Psychiatric Psychiatric: Reports anxiety Endocrine Endocrinology: Denies polydipsia or polyuria Hematologic/Lymphatic Hematologic/Lymphatic: Denies easy bleeding or easy bruising Allergic/Immunologic Allergic/Immunologic ED: Denies urticaria EXAM Physical Exam Const Vital Signs: 01/14/21 09:25 Temperature 97.8 F Temperature Source Oral Pulse Rate 61 Respiratory Rate 18 Blood Pressure 129/74 H Blood Pressure Mean 92 Pulse Ox 99 Oxygen Delivery Method Room Air Positive well nourished and well developed General Appearance ED: well developed HEENT Reports moist mucous membranes Negative for trauma Eyes General Eye ED: Negative for scleral icterus Neck no JVD Resp normal respiratory effort and clear to auscultation bilaterally Cardio regular rate and regular rhythm Cardio Narrative: Patient has a history of atrial fibrillation but sounds to be in a very regular rhythm at this time. GI normal to inspection, nondistended, normoactive bowel sounds, soft to palpation and non-tender Back/Spine normal to inspection Back/Spine Narrative: I see no external changes on her back. Her pain seems to be of the lowest lumbar or mostly sacroiliac area. She does have some sciatic notch tenderness. No swelling. No rashes. Extremity normal to inspection General Extremety ED: Negative for edema or tenderness General Extremity: Negative for edema Neuro oriented x3 Sensorium / Orientation: alert Psych mental status grossly normal Skin no rashes or lesions noted and no wounds MDM MDM MDM Narrative Medical decision making narrative: We did do basic blood work and electrolytes with CBC. CBC is normal. Electrolytes show no marked abnormalities. Urinalysis is negative. I rechecked the patient. She is feeling better but still having a fair amount of pain. But she is much better than this morning when she woke up and when she came in here. We discussed options. She would like to go home. She does have a neighbor and her son that comes over and walks her dog and lets the dog out. She states when she can get up in the morning she is somewhat mobile. She is concerned living at home now because it is tough for her. At this moment she would like to see if we can get the pain a little bit better here. We will then reassess to see if she is okay going home, getting up, moving safely. Patient's recheck. She is much more mobile. She feels better. She would like to go home. I explained that she did get injections the other day. She got excellent relief from these initially but then the pain kind of increase. This is a typical pattern. This normally takes 3 to 5 days to calm down. She has an appointment with her pain management physician who she saw in the hospital. This appointment is on Sunday. I will write for some more hydrocodone because that seemed to help her the best. I think she generally has pain. I do not think she is seeking narcotics. I did do an online prescribing report search. We discussed reasons to return. She feels she has enough help at home and is doing well enough that she can function at this time. Lab Data Attestation: I reviewed the patient's lab results. Labs: Laboratory Results - last 24 hr 01/14/21 01/14/21 01/14/21 09:20 09:20 10:30 WBC 10.5 RBC 5.11 Hgb 15.0 Hct 43.9 MCV 85.9 MCH 29.4 MCHC 34.2 RDW Std Deviation 38.9 RDW Coeff of Jen 12.4 Plt Count 177 MPV 12.6 H Immature Gran % (Auto) 0.900 Neut % (Auto) 80.2 H Lymph % (Auto) 9.2 L [place] % (Auto) 9.5 Eos % (Auto) 0.0 Baso % (Auto) 0.2 Absolute Neuts (auto) 8.5 H Absolute Lymphs (auto) 0.97 Nucleated RBC % 0 Sodium 138 Potassium 4.1 Chloride 106 Carbon Dioxide 24.0 Anion Gap 8 BUN 33 H Creatinine 0.79 Estim Creat Clear Calc 38.10 Est GFR (MDRD) Af Amer 93 Est GFR (MDRD) Non-Af 77 BUN/Creatinine Ratio 41.9 H Glucose 119 H Calcium 9.4 Urine Color Yellow Urine Clarity Sl. Cloudy Urine pH 6.0 Ur Specific [place] 1.015 Urine Protein Negative Urine Glucose (UA) Normal Urine Ketones Negative Urine Occult Blood 10 H Urine Nitrite Negative Urine Bilirubin Negative Urine Urobilinogen Normal Ur Leukocyte Esterase Negative Urine RBC 0-5 SEEN Urine WBC 0 SEEN Ur Squamous Epith Cells 0 SEEN Urine Bacteria 0 SEEN Urine Mucus 0 SEEN Discharge Plan Triage Chief Complaint: Back ED Provider: Jayy Cherry Dx/Rx/DC Orders Clinical Impression: Acute lumbar back pain Instructions: ED Back Sprain/Strain Prescriptions: New hydrocodone-acetaminophen 5-325 mg tablet 1 tab PO Q6H PRN (Reason: pain) 3 Days Qty: 12 RF: 0 No Action sertraline [Zoloft] 100 mg tablet 200 mg PO DAILY RF: 0 metoprolol tartrate 25 mg tablet 25 mg PO BID RF: 0 pravastatin 40 mg tablet 40 mg PO QHS RF: 0 risperidone [Risperdal] 1 mg tablet 1 mg PO BID RF: 0 alprazolam 0.5 mg tablet 0.5 mg PO BID RF: 0 pantoprazole 40 mg tablet,delayed release (DR/EC) 40 mg PO DAILY RF: 0 multivitamin with minerals 1 EACH tablet 1 each PO DAILY RF: 0 hydrocodone-acetaminophen 5-325 mg tablet 1 tab PO Q4H PRN (Reason: pain) 5 Days Qty: 14 RF: 0 gabapentin 300 mg capsule 300 mg PO QHS RF: 0 Primary Care Provider: Matt Hess Chi Referrals: Matt Hess Chi, MD [Primary Care Provider] - As soon as possible Disposition Disposition: Home, Self Care
[2021-01-14 09:54] LABS: Absolute Lymphocyte Count 0.97 X10^3/uL (0.83-4.51); Absolute Neutrophil Count 8.5 X10^3/uL (2.0-7.7); Basophil# 0.02 X10^3/uL; Basophil% 0.2 % (0-1); Hematocrit 43.9 % (37-47); Lymphocyte # 0.97 X10^3/ul (0.83-4.51); Lymphocyte % 9.2 % (19-41); Mean Corp Hgb Conc 34.2 g/dL (32-36); Mean Corpuscular Hgb 29.4 pg (27.0-32.0); Mean Corpuscular Volume 85.9 fL (81-99); Mean Platelet Vol. 12.6 fl (6.2-12.0); Monocyte% 9.5 % (0-10); NRBC Flagged by Analyzer 0 % (0-5); Neutrophil # 8.46 X10^3/uL (2.7-7.7); Neutrophil % 80.2 % (47-70); Platelet Count 177 K/mm3 (150-450); RBC Distribution Width CV 12.4 % (11.6-14.6); RBC Distribution Width SD 38.9 fl (35.1-43.9); Red Blood Count 5.11 M/mm3 (4.2-5.4); White Blood Count 10.5 K/mm3 (4.4-11.0)
[2021-01-14] MEDS: HYDROmorphone 1 MG/ML Syringe 0.5 MG IV (10:01)
[2021-01-14 10:06] LABS: Anion Gap 8 (5-15); BUN 33 mg/dL (7-18); BUN/Creat Ratio 41.9 RATIO (10-20); Calcium,Total 9.4 mg/dL (8.5-10.1); Chloride 106 mmol/L (98-107); Creatinine, Serum 0.79 mg/dL (0.55-1.02); EST Glomerular Filtration Rate 77 mL/min (>60); Est Glom Filt Rate - Afr Amer 93 mL/min (>60); Glucose 119 mg/dL (74-106); Potassium 4.1 mmol/L (3.5-5.1); Sodium Level 138 mmol/L (136-145)
[2021-01-14 10:35] LABS: Bacteria 0 SEEN /hpf (None Seen); Mucous, Urine 0 SEEN /hpf (<or=2+); Squamous Epithelial Cells - UA 0 SEEN /hpf (5-10); White Blood Cells 0 SEEN /hpf (0-5)
[2021-01-14 10:38] LABS: Color, Urine Yellow (Yellow); Glucose, Dipstick Normal (Normal); Ketone-Dipstick Negative (Negative); Leukocyte Esterase-Dipstick Negative /ul (Negative); Nitrite-Dipstick Negative (Negative); Occult Blood-Urine 10 /ul (Negative); Protein-Dipstick Negative (Negative); Specific Gravity, Urine 1.015 (1.002-1.030); Urine Bilirubin Dipstick Negative (Negative); Urine Clarity Sl. Cloudy (Clear); Urine Urobilinogen Normal (Normal)
[2021-01-14 10:45] LABS: Red Blood Cells-Urine 0-5 SEEN /hpf (0-5)
[2021-01-14] MEDS: HYDROmorphone 0.5 MG/0.5 ML SYRINGE IV (11:38)
[2021-01-14 12:37] VITALS: BP 149/84; PULSE 72; RESP 16; O2SAT 97
== END 2021-01-14 12:38 | disposition home or self-care (01) ==
PROVIDERS: Emergency Provider Emergency Medicine; PCP Family Medicine Geriatric Medicine
DX: M54.50 Low back pain, unspecified (principal); R20.2 Paresthesia of skin; K59.00 Constipation, unspecified; E78.5 Hyperlipidemia, unspecified; F31.9 Bipolar disorder, unspecified; F41.9 Anxiety disorder, unspecified; I48.91 Unspecified atrial fibrillation; Z79.899 Other long term (current) drug therapy; F17.210 Nicotine dependence, cigarettes, uncomplicated
CPT/HCPCS: 80048; 81001; 85025; 96374; 96376; 99284; A4216

== ENCOUNTER 2021-01-19 08:02 | Emergency (ER) | payer MEDICARE, SELFPAY ==
[2021-01-19 08:04] VITALS: BP 119/70; PULSE 76; RESP 15; TEMP 36.4; O2SAT 98; BMI 30.7
[2021-01-19] MEDS: oxyCODONE 5 MG Tablet PO (09:34)
--- NOTE | 2021-01-19 09:35 | ED.RN ---
rectal exam performed by dr tan. pt has pressure wounds starting on her right lower buttock from sitting too much. explained to pt how to care for this. dr offered patient the help with getting placed in a facility to help with pain management and care and pt refused.
--- NOTE | 2021-01-19 10:33 | ED.VIS.BACK ---
HPI History of Present Illness Chief Complaint: Back Informant: patient Narrative Narrative: Patient is a 70 year-old female with history of chronic back pain presenting with acute exacerbation of her back pain. States in her lower back and radiates to her hips, knees and feet. This is been going on for some time injection MRI it began this month, has seen her pain management doctor twice and also been to the ER twice. She denies any acute change in her pain. She notes it is just more severe. She was recently prescribed Canby and last had a dose last night. She states she was able to sleep through the night. She denies any bowel or bladder incontinence does report some mild numbness in her perineal region however states is been going on for some time. She also has burning of her feet which is also chronic and unchanged. She denies any new trauma or injury. She notes about a month ago she was cleaning her house and thinks she overdid it which causes flare. She is already been on a course of steroids as well with no relief. She had a caudal block last week as well with no relief. She not take any for pain this morning. [facility] Medical History A-fib Abnormal chest CT Anxiety Benzodiazepine dependence Bipolar disorder Constipation Depression Emphysema lung Fatigue HLD (hyperlipidemia) Lung mass Vitamin D deficiency Home Medications metoprolol tartrate 25 mg tablet 25 mg PO BID 05/27/18 [History Last Taken 01/10/21] pravastatin 40 mg tablet 40 mg PO QHS 05/27/18 [History Last Taken 01/09/21] sertraline 100 mg tablet 200 mg PO DAILY tab 05/27/18 [History Last Taken 01/10/21] alprazolam 0.5 mg tablet 0.5 mg PO BID 06/08/20 [History Last Taken 01/10/21] pantoprazole 40 mg tablet,delayed release 40 mg PO DAILY 06/08/20 [History Last Taken 01/09/21] risperidone 1 mg tablet 1 mg PO BID 06/08/20 [History Last Taken 01/10/21] multivitamin with minerals 1 each PO DAILY 06/29/20 [History Last Taken 01/09/21] hydrocodone-acetaminophen 1 tab PO Q4H PRN 5 Days #14 tab 01/07/21 [Rx Last Taken 01/10/21] gabapentin 300 mg PO QHS 01/11/21 [History Last Taken 01/10/21] hydrocodone-acetaminophen 1 tab PO Q6H PRN 3 Days #12 tab 01/14/21 [Rx Last Taken Unknown] buprenorphine [Butrans] 1 patch TRANSDERMAL Q7D #4 ea 01/19/21 [Rx Last Taken Unknown] Allergy/AdvReac Type Severity Reaction Status Date / Time bee venom protein (honey bee) Allergy Severe Anaphylaxis Verified 01/14/21 09:25 thiothixene AdvReac Unknown Unknown Verified 01/14/21 09:25 Surgical History History of D&C Social History Smoking Status: Current every day smoker tobacco type: cigarettes second hand exposure: No alcohol intake: never substance use type: does not use caffeine: Yes ROS ROS ED Constitutional Constitutional ED: Denies chills, fever(s) or malaise Eyes Eyes: Denies blurry vision or loss of vision ENT ENT ED: Denies rhinorrhea or sore throat Cardiovascular Cardiovascular: Denies chest pain or dizziness Respiratory/Chest Respiratory/Chest: Denies cough or dyspnea Gastrointestinal Gastrointestinal: Denies nausea or vomiting Genitourinary Genitourinary ED: Denies dysuria or hematuria Musculoskeletal Musculoskeletal: Reports arthralgias, back pain and myalgias; Denies neck pain Integumentary Denies rash or wounds Neurologic Neurologic: Denies focal weakness or headache(s) Psychiatric Psychiatric: Denies anxiety or behavioral changes EXAM Physical Exam Const Vital Signs: 01/19/21 08:04 Temperature 97.6 F L Temperature Source Oral Pulse Rate 76 Respiratory Rate 15 Blood Pressure 119/70 Blood Pressure Mean 86 Pulse Ox 98 Oxygen Delivery Method Room Air Positive well developed and cachectic General Appearance ED: well developed and cachectic Nutritional Appearance: cachectic HEENT Reports moist mucous membranes Negative for tenderness Eyes PERRL and EOMs intact bilaterally Neck no lymphadenopathy and supple Resp normal respiratory effort and clear to auscultation bilaterally Cardio regular rate, regular rhythm and no murmurs GI normal to inspection, nondistended, normoactive bowel sounds Inspection: abdominal distention Back/Spine normal to inspection Back/Spine Narrative: No midline tenderness. No step-off sign. Patient points to her lower paraspinal lumbar region as area of her pain. Normal range of motion. Normal rectal tone on exam. Patient is sensation during the exam. Extremity normal to inspection Extremity Narrative: No clonus. Strength and sensation intact, patient has 4 out of 5 strength with plantar dorsiflexion bilaterally. General Extremety ED: Negative for edema or tenderness General Extremity: Negative for edema Neuro oriented x3 and no sensory deficits noted Sensorium / Orientation: alert Skin Skin Narrative: Patient has pressure wound, grade 2 to her right buttocks, 3 cm in diameter MDM MDM MDM Narrative Medical decision making narrative: Patient evaluated for acute exacerbation of her chronic back pain. She is able to get out of bed and ambulate to the bathroom. She was seen a couple days ago for the same complaint. She is requesting Dilaudid however I do not think IV pain medication is beneficial especially as she keeps coming back for more pain medication. She does not want to be placed for pain control/rehab. She is given oxycodone in the ER. She is already on Canby. I did discuss with her pain management doctor, Dr. Anguiano, who recommend starting her on a Butrans patch. I will give her 1 month supply per his request. She will continue take Canby as needed. She will call the office with further pain exacerbations. She is counseled on return precautions. At this time I do not think she has cauda equina syndrome or other more serious causes of her pain. Discharge Plan Triage Chief Complaint: Back ED Provider: Rosa Yo Dx/Rx/DC Orders Clinical Impression: Acute lumbar back pain, Right ischial pressure sore, stage 2 Instructions: ED Back Pain (Acute or Chronic), ED Pressure Injury, Simple Prescriptions: New buprenorphine [Butrans] 5 mcg/hour patch weekly 1 patch transdermal Q7D Qty: 4 RF: 0 No Action sertraline [Zoloft] 100 mg tablet 200 mg PO DAILY RF: 0 metoprolol tartrate 25 mg tablet 25 mg PO BID RF: 0 pravastatin 40 mg tablet 40 mg PO QHS RF: 0 risperidone [Risperdal] 1 mg tablet 1 mg PO BID RF: 0 alprazolam 0.5 mg tablet 0.5 mg PO BID RF: 0 pantoprazole 40 mg tablet,delayed release (DR/EC) 40 mg PO DAILY RF: 0 multivitamin with minerals 1 EACH tablet 1 each PO DAILY RF: 0 hydrocodone-acetaminophen 5-325 mg tablet 1 tab PO Q4H PRN (Reason: pain) 5 Days Qty: 14 RF: 0 gabapentin 300 mg capsule 300 mg PO QHS RF: 0 hydrocodone-acetaminophen 5-325 mg tablet 1 tab PO Q6H PRN (Reason: pain) 3 Days Qty: 12 RF: 0 Primary Care Provider: Matt Hess Chi Referrals: Matt Hess Chi, MD [Primary Care Provider] - Disposition Disposition: Home, Self Care
[2021-01-19 10:45] VITALS: BP 134/77; PULSE 62; RESP 16; O2SAT 95
== END 2021-01-19 10:51 | disposition home or self-care (01) ==
PROVIDERS: Emergency Provider Emergency Medicine; PCP Family Medicine Geriatric Medicine
DX: L89.312 Pressure ulcer of right buttock, stage 2 (principal); M54.50 Low back pain, unspecified; E78.5 Hyperlipidemia, unspecified; F31.9 Bipolar disorder, unspecified; F41.9 Anxiety disorder, unspecified; I48.91 Unspecified atrial fibrillation; J43.9 Emphysema, unspecified; Z79.899 Other long term (current) drug therapy; F17.210 Nicotine dependence, cigarettes, uncomplicated
CPT/HCPCS: 99284

== ENCOUNTER 2021-01-21 19:13 | Observation (INO) | payer MEDICARE, SELFPAY ==
--- NOTE | 2021-01-21 10:53 | MRI_ITS ---
STUDY: MRI LUMBAR SPINE WITH AND WITHOUT CONTRAST REASON FOR EXAM: Female, 70 years old. Intractable back pain TECHNIQUE: Standardized fat and water weighted pulse sequences were obtained in the sagittal and axial planes. IV 8ML DOTAREM was administered for the contrast portion of the examination. COMPARISON: 11 January 2021 FINDINGS: Appearance is stable since immediate prior. T12-L1: Normal endplates. Normal disc height, hydration and morphology. Normal bilateral facet joints. Normal central canal and bilateral lateral recesses. Normal bilateral intervertebral neural foramina. Normal lumbar lordosis. Mild dextroscoliosis centered at L1. Normal conus medullaris that terminates at the T12/L1. Mild loss of height in concavity of the superior endplate of T12 in the inferior endplate of L2 due to chronic mild compression fractures. No retropulsion into the spinal canal. L1-2: Normal endplates. Normal disc height, hydration and morphology. Normal bilateral facet joints. Normal central canal and bilateral lateral recesses. Normal bilateral intervertebral neural foramina. L2-3: Mild bilobed disc protrusion produces mild spinal stenosis and mild bilateral neural foraminal stenosis. L3-4: Mild bilobed disc protrusion produces mild spinal stenosis and mild right neural foraminal stenosis. L4-5: Normal endplates. Normal disc height, hydration and morphology. Normal bilateral facet joints. Normal central canal and bilateral lateral recesses. Normal bilateral intervertebral neural foramina. L5-S1: Mild broad disc protrusion produces mild spinal stenosis and mild bilateral neural foraminal stenosis. There is presumed sacral fracture, acute or subacute. This is not optimally evaluated on a lumbar exam, not dedicated sacral exam but is diagnostically assessed. Normal visualized paraspinous soft tissue structures. MRI/Spine Lumbar W/WO Contrast IMPRESSION: 1. Patent canal, no high-grade neurocompression. 2. Normal spinal enhancement without lesions. 3. Acute/subacute sacral insufficiency fracture. 4. Chronic T12, L2 compression fractures. Electronically Signed: Sierra Gutierres MD at 20:00 EDT Tel , Service support ,
[2021-01-21 19:13] VITALS: BP 113/70; PULSE 99; RESP 20; TEMP 36.2; O2SAT 100; BMI 17.7
--- NOTE | 2021-01-21 20:45 | EDS_ITS ---
HPI History of Present Illness Chief Complaint: Back Detail of Chief Complaint: Back pain that started about 2 weeks ago Narrative Narrative: Patient presents to the emergency department complaint of back pain is her about 2 weeks ago. She denies any injury or trauma to her back. She is had a least 4 visits to the ER apparently for this back pain. Patient apparently had an MRI of her back that was done without contrast on January 10 that showed possible acute right sacral ala fracture as well as mild compression fractures at T12 and L2 without retropulsion of the spinal canal otherwise she was also noted to have some mild diffuse degenerative disc disease. Patient's been seeing pain management and has had a sacral block without any relief. Her buprenorphine patch and hydrocodone are not helping her pain. She describes sharp stabbing pains in her low back with pain rating down both legs with numbness and tingling. She denies any loss of bowel or bladder function. She denies significant weakness of the extremities. Patient states that she has been sitting more and laying more than usual. Certain movements do make the pain worse. Patient states that 10 years ago she had similar pain that resolved after she had a sacral block by pain management. This time the sacral block has not helped her pain. Prior similar symptoms: Yes PFSH PFSH Medical History (Updated 01/21/21 @ 21:[address] Jorge Mai, ) A-fib Abnormal chest CT Anxiety Back pain Benzodiazepine dependence Bipolar disorder Constipation Depression Emphysema lung Fatigue HLD (hyperlipidemia) Lung mass Vitamin D deficiency Home Medications metoprolol tartrate 25 mg tablet 25 - 50 mg PO BID 05/27/18 [History Last Taken 01/10/21] pravastatin 40 mg tablet 40 mg PO QHS 05/27/18 [History Last Taken 01/09/21] sertraline 100 mg tablet 200 mg PO DAILY tab 05/27/18 [History Last Taken 01/10/21] alprazolam 0.5 mg tablet 0.5 mg PO TID 06/08/20 [History Last Taken 01/10/21] pantoprazole 40 mg tablet,delayed release 40 mg PO DAILY 06/08/20 [History Last Taken 01/09/21] risperidone 1 mg tablet 1 mg PO BID 06/08/20 [History Last Taken 01/10/21] multivitamin with minerals 1 each PO DAILY 06/29/20 [History Last Taken 01/09/21] buprenorphine [Butrans] 1 patch TRANSDERMAL Q7D #4 ea 01/19/21 [Rx Last Taken Unknown] hydrocodone-acetaminophen 1 tab PO TID PRN 01/21/21 [History Last Taken Unknown] Allergy/AdvReac Type Severity Reaction Status Date / Time bee venom protein (honey bee) Allergy Severe Anaphylaxis Verified 01/14/21 09:25 thiothixene AdvReac Unknown Unknown Verified 01/14/21 09:25 Surgical History History of D&C Social History Smoking Status: Current every day smoker tobacco type: cigarettes second hand exposure: No alcohol intake: never substance use type: does not use caffeine: Yes ROS ROS ED Constitutional Constitutional ED: Reports systems reviewed and no addt'l complaints, except as documented; Denies body ache(s), change in weight or chills Eyes Eyes: Denies acute decrease in peripheral vision, change in vision, double vision or loss of vision ENT ENT ED: Reports none; Denies ear pain, lip swelling, loss taste/smell, neck pain, otalgia or sore throat Cardiovascular Cardiovascular: Reports none; Denies abdominal pain, chest pain with activity, leg edema, lightheadedness, palpitations, rapid heart rate or syncope Respiratory/Chest Respiratory/Chest: Reports none; Denies change in mental status, dry cough, dyspnea, hemoptysis, shortness of breath at rest or shortness of breath with exertion Gastrointestinal Gastrointestinal: Reports none; Denies abdominal pain, change in stool character, diarrhea, hematemesis, hematochezia, melena, rectal bleeding or vomiting Genitourinary Genitourinary ED: Reports none; Denies abdominal discomfort, anuria, dysuria, genital pain or polyuria Musculoskeletal Musculoskeletal: Reports none and back pain; Denies arthralgias, difficulty walking, extremity pain, muscle weakness or myalgias Integumentary Reports none; Denies abscess or rash Neurologic Neurologic: Reports none; Denies abnormal gait, confusion, focal weakness, frequent falls, headache(s), loss of vision, numbness, paresthesias, radicular pain, vertigo or weakness Psychiatric Psychiatric: Reports systems reviewed and no addt'l complaints, except as documented and none; Denies behavioral changes, confusion, difficulty concentrating, hallucinations, suicidal ideation, tactile hallucinations or v isual hallucinations Endocrine Endocrinology: Denies none, cold intolerance, excessive sweating, fatigue or heat intolerance Hematologic/Lymphatic Hematologic/Lymphatic: Reports none; Denies anemia, easy bleeding or easy bruising Allergic/Immunologic Allergic/Immunologic ED: Denies as per HPI, none, lip swelling, mouth swelling, throat swelling, tongue swelling or hives EXAM Physical Exam Const Vital Signs: 01/21/21 19:13 Temperature 97.1 F L Temperature Source Temporal Pulse Rate 99 Respiratory Rate 20 H Blood Pressure 113/70 Blood Pressure Mean 84 Pulse Ox 100 Positive well nourished and well developed General Appearance ED: well developed and NAD HEENT Reports TM's clear and moist mucous membranes normocephalic and atraumatic; Negative for trauma or tenderness Tympanic Membrane ED: Yes TM's clear Eyes PERRL and EOMs intact bilaterally General Eye ED: Negative for pale conjunctiva or scleral icterus Neck no lymphadenopathy, supple and no JVD General: Negative for tenderness Chest Wall inspection of chest normal and palpation of chest normal Chest: Negative for tenderness Resp normal respiratory effort and clear to auscultation bilaterally Effort and Inspection: Negative for respiratory distress or pain with movement Auscultation: Negative for rhonchi, wheezes or diminished lung sounds Cardio regular rate, regular rhythm, S1 normal heart sound, S2 normal heart sound and no murmurs Peripheral Pulses: pulses 2+ throughout GI normal to inspection, nondistended, normoactive bowel sounds, soft to palpation, non-tender, non-distended and no masses Back/Spine no CVA tenderness and no thoracic nor lumbar tenderness Back/Spine Narrative: I am unable to reproduce patient's pain with palpation of her back. Patient has pain with straight leg raising at about 45 degrees bilaterally. Deep tendon reflexes are plus 2 out of 4 bilaterally at the patella Achilles. Patient has normal 5 extension bilaterally. Patient has normal sensation to light touch. Extremity normal to inspection General Extremety ED: Negative for edema General Extremity: Negative for edema Neuro oriented x3, CN's II-XII intact bilaterally, no sensory deficits noted and gait normal Sensorium / Orientation: awake, alert, oriented to person, oriented to place and oriented to time Motor Exam: strength 5/5 throughout and strength abnormal Psych mental status grossly normal Skin no rashes or lesions noted and no wounds MDM MDM MDM Narrative Medical decision making narrative: IV line was established on arrival. Patient was medicated with Dilaudid and Zofran. Case will be discussed with hospitalist to evaluate patient for admission for intractable back pain. MRIs not available at this hour and she had noncontrast MRI on January 10. MRI will be available in the morning at the request of her physician she is to have an MRI with IV contrast to evaluate further. At this point there are no significant red flags for cauda equina. I do not feel an MRI needs to be done emergently tonight. Lab Data Attestation: I reviewed the patient's lab results. Labs: Laboratory Results - last 24 hr 01/21/21 21:00 Sodium 138 Potassium 3.6 Chloride 107 Carbon Dioxide 23.0 Anion Gap 8 BUN 38 H Creatinine 0.74 Estim Creat Clear Calc 41.23 Est GFR (MDRD) Af Amer 99 Est GFR (MDRD) Non-Af 82 BUN/Creatinine Ratio 51.1 H Glucose 137 H Calcium 9.0 Discharge Plan Dx/Rx/DC Orders Clinical Impression: Intractable back pain Disposition Disposition: Acute Care Hospital [facility]
[2021-01-21] MEDS: Ondansetron 4 MG/2 ML Vial IV (21:05)
[2021-01-21] MEDS: HYDROmorphone 1 MG/ML Syringe IV (21:06)
--- NOTE | 2021-01-21 21:13 | CM.ED ---
Social Work Assessment Referral Source: Nursing Reason for Referral: Resources, discharge planning, support PCP: Dr. Hess Specialists: Pain Management Preferred Pharmacy: [facility] Insurance: [employer] Medicare, Medicaid Living Will/HPOA: No, would like to complete while in hospital. LNOK: Britany Sharp [phone], Susie Brown (present in ER with patient) [phone]. Living Arrangements: Home alone Prior Level of Functioning: Limited, daughter reports she does not do anything. Assessment: Met with patient and daughter in room. Introduced role and reason for referral. DaughterSusie requested to speak with SW alone. Per daughter, she resides 45 minutes away from patient and reports patient has been declining. Daughter states patient does not do much for self and is normally sitting in her computer chair. (Nursing reports patient with pressure sore to buttocks.) Daughter believes patient would benefit from rehab. Daughter states patent with history of alcoholism and has been sober for 15 years and smokes marijuana regularly. Patient with history of anxiety and depression. Daughter believes patient may be overmedicated. Daughter provided with resources for SNF, Home Health, [employer], etc. Patient reports would like Nain olmedo updated on status and plan of care. Patient in agreement with [facility] placement at this time and will review list with family. Plan: Admit, anticipate SNF at discharge, SW to follow Singh Cuevas MSW, PHYSICIAN VICE PRESIDENT
[2021-01-21 21:21] LABS: Absolute Lymphocyte Count 0.71 X10^3/uL (0.83-4.51); Absolute Neutrophil Count 13.6 X10^3/uL (2.0-7.7); Basophil# 0.02 X10^3/uL; Basophil% 0.1 % (0-1); Eosinophil# 0.01 X10^3/uL; Eosinophils% 0.1 % (0-5); Hematocrit 39.5 % (37-47); Hemoglobin 13.5 g/dL (12.0-15.0); Lymphocyte # 0.71 X10^3/ul (0.83-4.51); Lymphocyte % 4.6 % (19-41); Mean Corp Hgb Conc 34.2 g/dL (32-36); Mean Corpuscular Hgb 29.3 pg (27.0-32.0); Mean Corpuscular Volume 85.7 fL (81-99); Mean Platelet Vol. 11.9 fl (6.2-12.0); Monocyte# 0.85 X10^3/uL; Monocyte% 5.6 % (0-10); NRBC Flagged by Analyzer 0 % (0-5); Neutrophil # 13.61 X10^3/uL (2.7-7.7); POSITIVE COUNT YES; Red Blood Count 4.61 M/mm3 (4.2-5.4); White Blood Count 15.3 K/mm3 (4.4-11.0)
[2021-01-21 21:30] LABS: Anion Gap 8 (5-15); BUN 38 mg/dL (7-18); BUN/Creat Ratio 51.1 RATIO (10-20); Chloride 107 mmol/L (98-107); Creatinine, Serum 0.74 mg/dL (0.55-1.02); EST Glomerular Filtration Rate 82 mL/min (>60); Est Glom Filt Rate - Afr Amer 99 mL/min (>60); Estimated Creatinine Clearance 41.23 ml/min; Glucose 137 mg/dL (74-106); Potassium 3.6 mmol/L (3.5-5.1); Sodium Level 138 mmol/L (136-145)
--- NOTE | 2021-01-21 22:03 | PCM.HP.STD ---
HPI - General General Date of Admission: 01/21/21 HPI Narrative TRACI MCCONNELL, is a 70 F with with a significant history of depression; bipolar and atrial fibrillation who presents to the emergency department with 2-week history of progressively worsening lower back pain. She described her pain as sharp stabbing and like a needles pinching her. The pain radiates to her bilateral hips and legs. She reports that about 10 to 11 years ago she had a caudal block with Dr. Newman which gave her relief.. However about a week ago he had had a caudal block with Dr. Anguiano. She does not think that her last caudal block helped her. On the day of presentation she went to the pain management office and was referred to come to the emergency department for an MRI with contrast. She had an MRI with contrast on 01/10/2021. [facility] Medical History (Updated 01/22/21 @ 00:00 by Background Daemon) A-fib Abnormal chest CT Anxiety Back pain Benzodiazepine dependence Bipolar disorder Chronic pain Constipation Depression Emphysema lung Fatigue HLD (hyperlipidemia) Lung mass Smoker Vitamin D deficiency Home Medications metoprolol tartrate 25 mg tablet 25 - 50 mg PO BID 05/27/18 [History Last Taken 01/10/21] pravastatin 40 mg tablet 40 mg PO QHS 05/27/18 [History Last Taken 01/09/21] sertraline 100 mg tablet 200 mg PO DAILY tab 05/27/18 [History Last Taken 01/10/21] alprazolam 0.5 mg tablet 0.5 mg PO TID 06/08/20 [History Last Taken 01/10/21] pantoprazole 40 mg tablet,delayed release 40 mg PO DAILY 06/08/20 [History Last Taken 01/09/21] risperidone 1 mg tablet 1 mg PO BID 06/08/20 [History Last Taken 01/10/21] multivitamin with minerals 1 each PO DAILY 06/29/20 [History Last Taken 01/09/21] buprenorphine [Butrans] 1 patch TRANSDERMAL Q7D #4 ea 01/19/21 [Rx Last Taken Unknown] hydrocodone-acetaminophen 1 tab PO TID PRN 01/21/21 [History Last Taken Unknown] Allergy/AdvReac Type Severity Reaction Status Date / Time bee venom protein (honey bee) Allergy Severe Anaphylaxis Verified 01/14/21 09:25 thiothixene AdvReac Unknown Unknown Verified 01/14/21 09:25 Family History Other CVA (cerebral vascular accident) Dementia Surgical History History of D&C History of tonsillectomy Social History Smoking Status: Current every day smoker tobacco type: cigarettes second hand exposure: No alcohol intake: never substance use type: does not use caffeine: Yes ROS ROS Narrative Constitutional: Denies fever, chills, fatigue, anorexia and change in weight Eyes: Denies blurry vision, change in eye color, change in vision, discharge from eye(s), double vision, erythema, eye pain, loss of vision or other HEENT: Denies abnormal hearing, dysphagia, ear pain, epistaxis, headache(s), hearing loss, nasal congestion, nasal discharge, post nasal drip, sinus pressure, sore throat or other Cardiovascular: Denies chest pain or palpitations. Denies dyspnea on exertion, orthopnea and paroxysmal nocturnal dyspnea Respiratory/Chest: Denies cough, excessive phlegm production, shortness of breath with exertion and wheezing Gastrointestinal: Denies abdominal pain, coffee ground emesis, constipation, diarrhea, dyspepsia, hematemesis, hematochezia, loose stools, melena, nausea, vomiting or other Genitourinary: Denies burning urination, difficulty urinating, dysuria, hematuria, nocturia, urinary frequency, urinary hesitancy, urinary incontinence, urinary urgency or other Musculoskeletal: Reports back pain and bilateral lower extremity pain. Denies myalgia or joint swelling. Neurologic: Denies abnormal gait, abnormal speech, confusion, disequilibrium, dizziness, focal weakness, headache(s), numbness, paresthesias, seizure-like activity, seizures, syncope, tingling, tremor(s) or other Psychiatric: Reports anxiety and depression. Denies homicidal ideation, suicidal ideation or other Endocrinology: Denies change in body appearance, cold intolerance, excessive sweating, heat intolerance, polydipsia, polyuria or other Hematologic/Lymphatic: Denies anemia, easy bleeding, easy bruising, lymphadenopathy or other Integumentary: Denies rashes Allergic/Immunologic: Denies rhinitis, hives, eczema, asthma or other Vital Signs Vital Signs Vital Signs: 01/21/21 19:13 Temperature 97.1 F L Temperature Source Temporal Pulse Rate 99 Respiratory Rate 20 H Blood Pressure 113/70 Blood Pressure Mean 84 Pulse Ox 100 Weight Weight: 49.895 kg Body Mass Index (BMI) 17.7 Physical Exam Narrative Physical exam: General: Well-nourished, well-developed. Head: Normocephalic, atraumatic, no tenderness Eyes: PERRLA, EOMI ENT, no trauma, moist mucous membranes, no rhinorrhea Neck: Nontender, full range of motion, no spinal tenderness, deformities, step-off CVS: Regular rate and rhythm. S1-S2 present. No murmur, gallop or rub. Respiratory : clear to auscultation bilaterally, chest wall nontender, no wheezing Abdomen: Soft, nontender, nondistended, normal bowel sounds, no masses : Deferred Back: Nontender, no CVA tenderness, no midline spinal tenderness, deformities. Straight leg raise positive on the left. Extremities: Nontender full range of motion, no trauma Skin: Normal color, no trauma, abrasions Neuro: Alert, oriented, cranial nerves II through XII grossly intact. Psychiatry: Moaning and groaning in bed. Results Lab / Micro Data Result Diagrams: 01/21/21 21:00 01/21/21 21:00 Labs: Laboratory Results - last 24 hr 01/21/21 21:00: Sodium 138, Potassium 3.6, Chloride 107, Carbon Dioxide 23.0, Anion Gap 8, BUN 38 H, Creatinine 0.74, Estim Creat Clear Calc 41.23, Est GFR (MDRD) Af Amer 99, Est GFR (MDRD) Non-Af 82, BUN/Creatinine Ratio 51.1 H, Glucose 137 H, Calcium 9.0 Assessment & Plan Assessment/Plan (1) Intractable back pain: PLAN: Intractable back pain Patient with moaning and groaning at the emergency department. Radiologist impression of lumbar spine on 01/10/2021 was reviewed and findings is as below.: 1. Possible acute right sacral ala insufficiency fracture. 2. Chronic mild compression fractures of T12 and L2 without retropulsion into the spinal canal. 3. Mild dextroscoliosis with mild diffuse degenerative disc disease as described above Per recommendation from pain management related by emergency department doctor lumbar spine MRI with contrast to be ordered. On home buprenorphine patch to be continued. On home [place] 3 times daily as needed. Will change [place] from 3 times daily as needed to every 4 hours. K pad ordered. Patient was asking for Dilaudid but will hold of Dilaudid at this time. Atrial fibrillation Stable Reportedly she takes metoprolol ER 25 mg of 50 mg at home depending upon the heart rate. Metoprolol 25 mg ordered inpatient. Tobacco abuse: Nicotine patch ordered. Severe protein calorie malnutrition: Patient with a BMI of 15.1. Ensure Enlive ordered. Nutrition consult. Bipolar/anxiety disorder/depression: Xanax continued. Risperidone continued. Zoloft continued. DVT prophylaxis: SCD ordered Charges/Coding Visit Charges OBSV E&M: 79425 Initial observation care L2
[2021-01-21 22:09] LABS: Differential Indicated SCAN CRITERIA MET
[2021-01-21 22:11] LABS: Platelet Estimate ADEQUATE (ADEQ); Red Cell Morphology NORM C+C NORMAL (NORM C&C)
[2021-01-21 22:19] VITALS: BP 107/74; PULSE 95; RESP 18; TEMP 36.7; O2SAT 96
[2021-01-21 23:06] VITALS: BP 91/63; PULSE 82; RESP 18; TEMP 36.8; O2SAT 96
[2021-01-21 23:10] VITALS: BMI 15.1
[2021-01-21 23:49] VITALS: BP 91/63; PULSE 82
[2021-01-21] MEDS: Pravastatin 40 MG Tablet PO (23:51)
[2021-01-21] MEDS: RisperiDONE 1 MG Tablet PO (23:51)
[2021-01-21] MEDS: ALPRAZolam 0.5 MG Tablet PO (23:56)
[2021-01-22] VITALS (7 sets, daily range): BP systolic 100–126; BP diastolic 69–80; PULSE 77–100; RESP 16–18; TEMP 36.3–36.7; O2SAT 96–100
[2021-01-22] MEDS: Menthol/Lanolin/Calamine/Znox 113 GM Tube 1 APPLIC TOPICAL ×3 (01:04→20:55)
[2021-01-22] MEDS: HYDROcodone Bitartrate/Apap 5/325 Tablet PO ×6 (01:04→22:37)
[2021-01-22] MEDS: ALPRAZolam 0.5 MG Tablet PO ×3 (05:22→20:53)
[2021-01-22] MEDS: RisperiDONE 1 MG Tablet PO ×2 (08:41→20:53)
[2021-01-22] MEDS: Multivitamins,Ther W-Minerals Tablet 1 TABLET PO (08:41)
[2021-01-22] MEDS: Pantoprazole Sodium 40 MG Tablet PO (08:42)
[2021-01-22] MEDS: Metoprolol Tartrate 25 MG Tablet PO ×2 (08:42→20:54)
[2021-01-22] MEDS: Senna/Docusate Sodium 1 Tablet 2 TABLET PO ×2 (08:52→20:54)
--- NOTE | 2021-01-22 09:24 | PN.HOSP_ITS ---
Subjective Subjective Follow up on acute intractable low back pain: Patient was seen and examined. She complains of intractable back pain. MRI of the back is pending. Denied any fever or chills or incontinence of stool or urine. Objective Data Objective Data Vital Signs: Vital Signs Temp Pulse Resp BP Pulse Ox 97.3 F L 100 18 123/69 H 97 01/22/21 08:25 01/22/21 08:42 01/22/21 08:25 01/22/21 08:25 01/22/21 08:25 Oxygen Delivery Method Room Air Weight: 42.7 kg Body Mass Index (BMI) 15.1 Intake & Output: Intake and Output for Last 24 Hours 01/20/21 01/21/21 01/22/21 23:59 23:59 23:59 Intake Total 400 / 400 Output Total 200 / 200 Balance 200 / 200 Lab / Micro Data Result Diagrams: 01/21/21 21:00 01/21/21 21:00 Labs: Laboratory Results - last 24 hr 01/21/21 21:00: WBC 15.3 H, RBC 4.61, Hgb 13.5, Hct 39.5, MCV 85.7, MCH 29.3, MCHC 34.2, RDW Std Deviation 37.0, RDW Coeff of Jen 12.0, Plt Count TNP, MPV 11.9, Immature Gran % (Auto) 0.600, Neut % (Auto) 89.0 H, Lymph % (Auto) 4.6 L, Hill % (Auto) 5.6, Eos % (Auto) 0.1, Baso % (Auto) 0.1, Absolute Neuts (auto) 13.6 H, Absolute Lymphs (auto) 0.71 L, Nucleated RBC % 0, Platelet Estimate ADEQUATE, RBC Morphology NORM C+C 01/21/21 21:00: Sodium 138, Potassium 3.6, Chloride 107, Carbon Dioxide 23.0, Anion Gap 8, BUN 38 H, Creatinine 0.74, Estim Creat Clear Calc 41.23, Est GFR (MDRD) Af Amer 99, Est GFR (MDRD) Non-Af 82, BUN/Creatinine Ratio 51.1 H, Glucose 137 H, Calcium 9.0 Physical Exam Narrative Physical exam: General: Alert, Oriented x3, Cooperative, appears anxious, cachectic HEENT: Atraumatic Oral: Moist Mucosa Neck: Supple Lungs: Clear to auscultation Cardiovascular: HS I+II, regular, no murmurs Abdomen: Bowel Sounds Present, Soft, Non Tender Extremities: No edema Assessment & Plan Assessment/Plan (1) Intractable back pain: PLAN: 1. Acute Intractable back pain, history of acute right sacral ala fracture as well as T12/L2 compression fractures Status post recent caudal epidural injection on 01/13/21. Patient is currently on Jackman 1 tablet every 4?we will increase to 2 tablets every 4h, continue on buprenorphine patches Will add Lidoderm patches, follow-up on MRI of the lumbar spine 2. Leukocytosis, likely reactive, no signs of acute infection 3.Paroxysmal atrial fibrillation, last EKG done on 01/18/21 showed normal sinus rhythm We will continue on metoprolol, not on anticoagulation 4. Nicotine dependence, on replacement 5. Severe protein calorie malnutrition, BMI of 15.1, rehabilitation physician consulted, continue supplements 6. Rest of chronic medical conditions including bipolar/anxiety disorder/depression, stable Continue Xanax, Zoloft, risperidone Charges/Coding Visit Charges OBSV E&M: 81320 Subsequent observation care L3
[2021-01-22] MEDS: Lidocaine 5% Patch 2 PATCH TOPICAL (11:16)
[2021-01-22] MEDS: Sertraline 100 MG Tablet 200 MG PO (11:17)
[2021-01-22 12:24] LABS: Absolute Lymphocyte Count 0.67 X10^3/uL (0.83-4.51); Absolute Neutrophil Count 10.9 X10^3/uL (2.0-7.7); Basophil# 0.01 X10^3/uL; Basophil% 0.1 % (0-1); Eosinophil# 0.03 X10^3/uL; Eosinophils% 0.2 % (0-5); Hematocrit 38.5 % (37-47); Hemoglobin 12.8 g/dL (12.0-15.0); Lymphocyte # 0.67 X10^3/ul (0.83-4.51); Lymphocyte % 5.4 % (19-41); Mean Corp Hgb Conc 33.2 g/dL (32-36); Mean Corpuscular Hgb 28.9 pg (27.0-32.0); Mean Corpuscular Volume 86.9 fL (81-99); Mean Platelet Vol. 12.5 fl (6.2-12.0); Monocyte# 0.69 X10^3/uL; Monocyte% 5.6 % (0-10); NRBC Flagged by Analyzer 0 % (0-5); Neutrophil # 10.89 X10^3/uL (2.7-7.7); Neutrophil % 88.3 % (47-70); Platelet Count 123 K/mm3 (150-450); RBC Distribution Width SD 38.7 fl (35.1-43.9); Red Blood Count 4.43 M/mm3 (4.2-5.4); White Blood Count 12.3 K/mm3 (4.4-11.0)
[2021-01-22 12:52] LABS: ALB/GLOB Ratio 0.7 RATIO (0.9-2.4); AST(SGOT) 13 U/L (15-37); Alanine Aminotransfer ALT/SGPT 17 U/L (13-56); Albumin, Serum 2.6 g/dL (3.2-5.0); Alkaline Phosphatase 88 U/L (45-117); Anion Gap 7 (5-15); BUN 31 mg/dL (7-18); Calcium,Total 8.8 mg/dL (8.5-10.1); Chloride 105 mmol/L (98-107); Creatinine, Serum 0.52 mg/dL (0.55-1.02); EST Glomerular Filtration Rate 125 mL/min (>60); Est Glom Filt Rate - Afr Amer 151 mL/min (>60); Estimated Creatinine Clearance 35.29 ml/min; Globulin 3.8 g/dL (2.2-4.2); Glucose 139 mg/dL (74-106); Potassium 4.2 mmol/L (3.5-5.1); Protein, Total 6.4 g/dL (6.4-8.2); Sodium Level 135 mmol/L (136-145)
--- NOTE | 2021-01-22 14:14 | CM.ED ---
Addendum entered by Silvia Farrell 01/22/21 18:15: CLAUDE made referral to Tegan at TCU[facility] regarding patient. CC'd to [facility] CLAUDE reviewed [employer] HMO, which was listed on her face sheet, and was given names of [facility] providers. This include Debra, CHARISSE and Yossi. SW highlighted in network providers and gave list to patient. Patient said that she continues to not have a plan B but wants to review the information. Plan: To be determined. Original Note: CLAUDE Note SW met with patient and completed the Health Care Power of Br[employer] Trimmer (HCPOA). Patient declined Living Will. SW made copy of HCPOA for the chart and gave original and copy to patient. Patient said that her first choice at discharge is TCU. SW asked for a second choice regarding SNF and patient said that she had no 2nd choice. Patient's daughter said if discussing second choice the best option is to talk to patient's daughter, Britany, who works in healthcare and in billing in [place]. CLAUDE will leave note for the assigned social welfare administrator in the daily report. Silvia ALVAREZ
[2021-01-22] MEDS: HYDROmorphone 1 MG/ML Syringe 2 MG IV ×2 (14:26→20:55)
--- NOTE | 2021-01-22 17:45 | CASEMGMT ---
QUOC CM in to discuss PHILLIPS form with patient. RN CM explained PHILLIPS form, patient voiced understanding. Pt signed form and filed in chart. Pt provided with a copy of signed PHILLIPS form. Patient had no further questions or concerns at this time.
[2021-01-22] MEDS: Pravastatin 40 MG Tablet PO (20:53)
[2021-01-22] MEDS: 0.9% Saline Lock 10 ML Syringe IV (20:55)
[2021-01-23] VITALS (9 sets, daily range): BP systolic 82–129; BP diastolic 54–80; PULSE 51–82; RESP 12–22; TEMP 36.6–37.2; O2SAT 95–97
[2021-01-23] MEDS: HYDROcodone Bitartrate/Apap 5/325 Tablet PO ×5 (02:23→21:26)
[2021-01-23] MEDS: ALPRAZolam 0.5 MG Tablet PO ×2 (06:25→13:47)
[2021-01-23] MEDS: Menthol/Lanolin/Calamine/Znox 113 GM Tube 1 APPLIC TOPICAL ×2 (09:54→19:39)
[2021-01-23] MEDS: Multivitamins,Ther W-Minerals Tablet 1 TABLET PO (09:55)
[2021-01-23] MEDS: Lidocaine 5% Patch 2 PATCH TOPICAL (09:56)
[2021-01-23] MEDS: Metoprolol Tartrate 25 MG Tablet PO ×2 (09:56→21:26)
[2021-01-23] MEDS: Senna/Docusate Sodium 1 Tablet 2 TABLET PO ×2 (10:02→19:37)
[2021-01-23] MEDS: RisperiDONE 1 MG Tablet PO ×2 (10:06→21:26)
[2021-01-23] MEDS: Pantoprazole Sodium 40 MG Tablet PO (10:06)
[2021-01-23] MEDS: HYDROmorphone 1 MG/ML Syringe 2 MG IV ×3 (10:08→19:37)
[2021-01-23] MEDS: 0.9% Saline Lock 10 ML Syringe IV ×2 (10:08→19:38)
[2021-01-23] MEDS: Sertraline 100 MG Tablet 200 MG PO (13:47)
--- NOTE | 2021-01-23 15:52 | PCM.PN.HOSP ---
Subjective Subjective Follow-up on acute on chronic back pain: Patient seen and examined. Her pain is fairly controlled. MRI of the back showed acute/subacute sacral fracture, chronic T12, L2 compression fracture. Objective Data Objective Data Vital Signs: Vital Signs Temp Pulse Resp BP Pulse Ox 99.0 F 73 12 98/65 95 01/23/21 15:23 01/23/21 15:23 01/23/21 15:23 01/23/21 15:23 01/23/21 15:23 Oxygen Delivery Method Room Air Weight: 42.7 kg Body Mass Index (BMI) 15.1 Intake & Output: Intake and Output for Last 24 Hours 01/21/21 01/22/21 01/23/21 23:59 23:59 23:59 Intake Total 400 / 400 Output Total 200 / 200 500 / 500 Balance 200 / 200 -500 / -500 Medical Nutrition Assessment Dietitian: Malnutrition Criteria Met Start: 01/22/21 14:42 Freq: Status: Active Protocol: Document 01/22/21 14:43 RMA (Rec: 01/22/21 14:43 RMA [id number]) Nutrition Malnutrition Evidence of Malnutrition Exists Yes Malnutrition (severe): Chronic Evidenced By Suboptimal Energy Intake ( Severe),Weight Loss (Severe), Physical Changes (Severe) Clinical Problem Chronic Disease or Condition Related Malnutrition Etiology Severe protein-calorie malnutrition in the context of chronic disease related to inadequate oral intake/poor appetite Signs/Symptoms as evidenced by ~15% wt loss x past 2-4 weeks, BMI 15.1, PO meeting less than 50% estimated nutrition needs, obvious physical signs of muscle and fat wasting in the face, orbitals and clavicle Status Active Problem Recommendation Dietitian Recommendations/Changes Will liberalize diet to regular in an effort to optimize oral intake at meals. Will continue 120ml ensure enlive 4 times per day w/ medpass (700 kcal, 40 gm pro). Will add magic cup BID w/ lunch and dinner (580 kcal, 18 gm pro). Will add 240ml ensure enlive w / breakfast (350 kcal, 20gm protein). Lab / Micro Data Result Diagrams: 01/22/21 11:46 01/22/21 11:46 Radiography Diagnostic Testing: Radiology Impression Lumbar Spine MRI 01/21/21 10:53 IMPRESSION: 1. Patent canal, no high-grade neurocompression. 2. Normal spinal enhancement without lesions. 3. Acute/subacute sacral insufficiency fracture. 4. Chronic T12, L2 compression fractures. Electronically Signed: Sierra Gutierres MD at 20:00 EDT Tel , Service support , Physical Exam Narrative Physical exam: General: Alert, Oriented x3, Cooperative, appears anxious, cachectic HEENT: Atraumatic Oral: Moist Mucosa Neck: Supple Lungs: Clear to auscultation Cardiovascular: HS I+II, regular, no murmurs Abdomen: Bowel Sounds Present, Soft, Non Tender Extremities: No edema Assessment & Plan Assessment/Plan (1) Intractable back pain: PLAN: 1. Acute Intractable back pain, history of acute right sacral ala fracture as well as T12/L2 compression fractures Status post recent caudal epidural injection on 01/13/21. Patient is currently on [place], continue on buprenorphine patches, Lidoderm patches, MRI of the lumbar spine does not show any acute cord compression shows her old acute/subacute sacral fracture, chronic T12, L2 compression fracture Will consult Dr. Newman as Dr. Anguiano 2. Leukocytosis, likely reactive, no signs of acute infection 3.Paroxysmal atrial fibrillation, last EKG done on 01/18/21 showed normal sinus rhythm Will continue on metoprolol, not on anticoagulation 4. Nicotine dependence, on replacement 5. Severe protein calorie malnutrition, BMI of 15.1, broomcorn press feeder consulted, continue supplements 6. Rest of chronic medical conditions including bipolar/anxiety disorder/depression, stable Will increase to Xanax 1mg TID, continue Zoloft, risperidone Charges/Coding Visit Charges Inpatient E&M: 80967 Subs Hosp L2
[2021-01-23] MEDS: ALPRAZolam 0.5 MG Tablet 1 MG PO (21:26)
[2021-01-23] MEDS: Pravastatin 40 MG Tablet PO (21:26)
[2021-01-24] VITALS (8 sets, daily range): BP systolic 96–123; BP diastolic 61–80; PULSE 66–87; RESP 16–18; TEMP 36.6–36.8; O2SAT 96–98
[2021-01-24] MEDS: HYDROcodone Bitartrate/Apap 5/325 Tablet PO ×4 (02:36→20:13)
[2021-01-24] MEDS: ALPRAZolam 0.5 MG Tablet 1 MG PO ×3 (06:19→21:34)
[2021-01-24] MEDS: Multivitamins,Ther W-Minerals Tablet 1 TABLET PO (08:53)
--- NOTE | 2021-01-24 10:17 | CASEMGMT ---
Addendum entered by Oralia Bacon 01/24/21 14:59: SW back in to speak with pt. Pt states her next choices in SNF are [facility] or [facility], with no preference. SW placed a call to Halina in admissions at [facility] and left message regarding referral. SW faxed referral to [facility]. Plan: SNF pending acceptance and pre-cert Original Note: Social Work Note A referral was made over the weekend to [facility] for pt. CLAUDE placed a call to Tegan with TCU and inquired about referral. Tegan states due to pt's insurance they are not able to accept pt. SW in to speak with pt. SW introduced self and role at [facility]. SW updated pt that TCU is not able to accept pt, asked pt about other options. Pt states she wanted TCU because her family doctor runs it over there. SW explained that due to her insurance, TCU is not able to accept. SW explained that if pt feels she needs SNF level of Care then she will need to pick another SNF. Patient was provided a list of SNF providers including quality and resource use data and consistent with the patient?s preferred geographic region, medical needs, and insurance network. Pt states she will need to review list. SW informed pt that this worker will follow up with her later today for SNF choices. Pt states understanding. SW to check back in with pt later this afternoon for SNF choices. Plan: Likely SNF Oralia Bacon FOREST BOTANY INSTRUCTOR, SILK CONDITIONER
[2021-01-24] MEDS: Menthol/Lanolin/Calamine/Znox 113 GM Tube 1 APPLIC TOPICAL ×2 (11:04→20:15)
[2021-01-24] MEDS: HYDROmorphone 1 MG/ML Syringe 2 MG IV ×2 (11:05→17:44)
[2021-01-24] MEDS: Lidocaine 5% Patch 2 PATCH TOPICAL (11:09)
[2021-01-24] MEDS: Metoprolol Tartrate 25 MG Tablet PO ×2 (11:33→21:34)
[2021-01-24] MEDS: Senna/Docusate Sodium 1 Tablet 2 TABLET PO ×2 (11:33→21:35)
[2021-01-24] MEDS: Pantoprazole Sodium 40 MG Tablet PO (11:33)
[2021-01-24] MEDS: RisperiDONE 1 MG Tablet PO ×2 (11:33→21:35)
--- NOTE | 2021-01-24 12:45 | PCM.PN.HOSP ---
Subjective Subjective Patient is a 70-year-old lady with history of chronic back pain with recent epidural steroid injection on 01/13/2021 who presented with worsening symptoms Objective Data Objective Data Vital Signs: Vital Signs Temp Pulse Resp BP Pulse Ox 98.1 F 80 18 114/74 98 01/24/21 08:46 01/24/21 11:33 01/24/21 11:03 01/24/21 11:33 01/24/21 11:03 Oxygen Delivery Method Room Air Weight: 42.7 kg Body Mass Index (BMI) 15.1 Intake & Output: Intake and Output for Last 24 Hours 01/22/21 01/23/21 01/24/21 23:59 23:59 23:59 Intake Total 400 / 400 Output Total 200 / 200 650 / 650 Balance 200 / 200 -650 / -650 Medical Nutrition Assessment Dietitian: Malnutrition Criteria Met Start: 01/22/21 14:42 Freq: Status: Active Protocol: Document 01/22/21 14:43 RMA (Rec: 01/22/21 14:43 RMA [id number]) Nutrition Malnutrition Evidence of Malnutrition Exists Yes Malnutrition (severe): Chronic Evidenced By Suboptimal Energy Intake ( Severe),Weight Loss (Severe), Physical Changes (Severe) Clinical Problem Chronic Disease or Condition Related Malnutrition Etiology Severe protein-calorie malnutrition in the context of chronic disease related to inadequate oral intake/poor appetite Signs/Symptoms as evidenced by ~15% wt loss x past 2-4 weeks, BMI 15.1, PO meeting less than 50% estimated nutrition needs, obvious physical signs of muscle and fat wasting in the face, orbitals and clavicle Status Active Problem Recommendation Dietitian Recommendations/Changes Will liberalize diet to regular in an effort to optimize oral intake at meals. Will continue 120ml ensure enlive 4 times per day w/ medpass (700 kcal, 40 gm pro). Will add magic cup BID w/ lunch and dinner (580 kcal, 18 gm pro). Will add 240ml ensure enlive w / breakfast (350 kcal, 20gm protein). Lab / Micro Data Result Diagrams: 01/22/21 11:46 01/22/21 11:46 Physical Exam Narrative GENERAL: cooperative HEENT: Atraumatic; EYES; Anicteric, Normal Conjunctiva NECK; supple, normal thyroid, RESPIRATORY: Diminished to auscultation CARDIOVASCULAR: Regular S1 S2, GI: soft, normoactive bowel sounds, : No Renal angle tenderness; EXTREMITIES: No edema, no clubbing, MUSCULOSKELETAL: no muscle waisting NEURO: Awake; no lateralizing signs. SKIN: No Rash PSYCH; Flat affect Assessment & Plan Assessment/Plan (1) Intractable back pain: PLAN: Patient is a 70-year-old lady with history of chronic back pain with recent epidural steroid injection on 01/13/2021 who presented with worsening symptoms 1. Acute back ache ?Patient has history of history of acute right sacral ala fracture as well as T12/L2 compression fractures. She apparently underwent epidural steroid injection on 01/13 presented with worsening symptoms. Currently managed with Lidoderm patches in addition to [place]. Consult placed to pain management. MRI of the lumbosacral spine ordered for subsequent evaluation 2. Physical deconditioning - Requested for PT OT eval and older adult social work specialist to assist with discharge planning 3. Paroxysmal A. fib ?Rate controlled on metoprolol. Not on systemic anticoagulation 4. Severe protein calorie malnutrition ?As a result of multiple medical comorbidities. Evidences by patient low BMI of 15, decreased muscle weight, decreased appetite. Plan; consultation placed to dietitian for recommendations 5. Tobacco dependence - Counseled on cessation, offered nicotine patch for tobacco cravings 6. GERD ?On PPI 7. Depression with anxiety ?Patient is on respite and at bedtime as well as sertraline daily did continue 8. Dyslipidemia ?Patient is on pravastatin did continue 9. Hypertension - Blood pressure controlled, home medications continued with dose adjustment as needed 10. DVT prophylaxis ?Lovenox Charges/Coding Visit Charges OBSV E&M: 92664 Subsequent observation care L3
[2021-01-24] MEDS: Sertraline 100 MG Tablet 200 MG PO (13:40)
--- NOTE | 2021-01-24 17:26 | CASEMGMT ---
Addendum entered by Oralia Bacon 01/24/21 17:51: CLAUDE updated pt and Susie that [facility] is able to accept pt pending pre-cert. Susie asked if another referral could be sent to [facility] too and she and her sister Britany will decide which facility is best fit for pt. CLAUDE informed Susie that this worker can send a referral today still but they will need to decide by tomorrow which SNF they would like to to discharge to. Susie states understanding. CLAUDE faxed referral to Isabela at [facility]. CLAUDE placed a call to Isabela at [facility] and left message regarding referral. CLAUDE placed a call to Halina at [facility] and left message to put a hold on pt's pre-cert as family is confirming which SNF they want pt to discharge to. CLAUDE will follow up with [facility], pt and pt's family tomorrow. Plan: SNF pending acceptance and pre-cert Original Note: Social Work Note CLAUDE received call from Halina at [facility] stating she is able to accept pt and will submit for pre-cert. CLAUDE updated that pt's daughter Susie is at [facility] and pt's other daughter Britany is on [facility]'s cell phone requesting to speak to this worker. SW in to speak with pt. Susie and Britany on [facility]'s phone. CLAUDE introduced self and role at [facility]. Britany asked if pt will have copay on day 21 under [place] by pt going to SNF. CLAUDE informed Britany that this worker is not sure, SNF usually don't tell SW that. Britany asked which referrals have been sent to SNF. CLAUDE informed Britany that pt gave this worker permission to send referral to either [facility] or [facility] and pt didn't have a preference so this worker sent referral to [facility]. Britany states she will call [facility] and ask for them to review pt's copays with her. Britany asked if pt will have a bill while for this hospital stay. This worker informed Britany that this worker is not sure, billing goes through billing department and if pt gets a bill it will be sent through the mail. Britany states she will call [facility] billing department. Britany, pt and Susie denied additional needs or concerns at this time. Plan: [facility] pending pre-cert Oralia Bacon CUSTOMS BROKERAGE AGENT, TUNNELING MACHINE OPERATOR
[2021-01-24] MEDS: 0.9% Saline Lock 10 ML Syringe IV ×3 (17:44→21:35)
[2021-01-24] MEDS: Ondansetron 4 MG/2 ML Vial IV (17:51)
[2021-01-24] MEDS: Pravastatin 40 MG Tablet PO (21:34)
[2021-01-25] MEDS: HYDROcodone Bitartrate/Apap 5/325 Tablet PO ×4 (02:11→22:17)
[2021-01-25 02:15] VITALS: BP 117/76; PULSE 67; RESP 16; TEMP 36.6; O2SAT 95
[2021-01-25 05:38] LABS: Hematocrit 36.6 % (37-47); Mean Corp Hgb Conc 32.8 g/dL (32-36); Mean Corpuscular Hgb 29.1 pg (27.0-32.0); Mean Corpuscular Volume 88.6 fL (81-99); Mean Platelet Vol. 12.4 fl (6.2-12.0); Platelet Count 106 K/mm3 (150-450); RBC Distribution Width CV 11.9 % (11.6-14.6); RBC Distribution Width SD 38.2 fl (35.1-43.9); Red Blood Count 4.13 M/mm3 (4.2-5.4); White Blood Count 8.6 K/mm3 (4.4-11.0)
[2021-01-25 05:53] LABS: Anion Gap 6 (5-15); BUN 25 mg/dL (7-18); BUN/Creat Ratio 54.7 RATIO (10-20); Calcium,Total 8.6 mg/dL (8.5-10.1); Chloride 103 mmol/L (98-107); Creatinine, Serum 0.46 mg/dL (0.55-1.02); EST Glomerular Filtration Rate 144 mL/min (>60); Est Glom Filt Rate - Afr Amer 174 mL/min (>60); Estimated Creatinine Clearance 35.29 ml/min; Glucose 130 mg/dL (74-106); Potassium 4.3 mmol/L (3.5-5.1); Sodium Level 139 mmol/L (136-145)
[2021-01-25] MEDS: ALPRAZolam 0.5 MG Tablet 1 MG PO ×3 (06:08→22:17)
--- NOTE | 2021-01-25 07:33 | PCM.PN.HOSP ---
Subjective Subjective Patient seen pain is somewhat controlled. MRI obtained the day prior demonstrated 1. Patent canal, no high-grade neurocompression. 2. Normal spinal enhancement without lesions. 3. Acute/subacute sacral insufficiency fracture. 4. Chronic T12, L2 compression fractures. Objective Data Objective Data Vital Signs: Vital Signs Temp Pulse Resp BP Pulse Ox 97.8 F 67 16 117/76 95 01/25/21 02:15 01/25/21 02:15 01/25/21 02:15 01/25/21 02:15 01/25/21 02:15 Oxygen Delivery Method Room Air Weight: 42.7 kg Body Mass Index (BMI) 15.1 Intake & Output: Intake and Output for Last 24 Hours 01/23/21 01/24/21 01/25/21 23:59 23:59 23:59 Intake Total 1000 / 1000 Output Total 650 / 650 250 / 250 Balance -650 / -650 1000 / 750 -250 / -250 Medical Nutrition Assessment Dietitian: Malnutrition Criteria Met Start: 01/22/21 14:42 Freq: Status: Active Protocol: Document 01/22/21 14:43 RMA (Rec: 01/22/21 14:43 RMA [id number]) Nutrition Malnutrition Evidence of Malnutrition Exists Yes Malnutrition (severe): Chronic Evidenced By Suboptimal Energy Intake ( Severe),Weight Loss (Severe), Physical Changes (Severe) Clinical Problem Chronic Disease or Condition Related Malnutrition Etiology Severe protein-calorie malnutrition in the context of chronic disease related to inadequate oral intake/poor appetite Signs/Symptoms as evidenced by ~15% wt loss x past 2-4 weeks, BMI 15.1, PO meeting less than 50% estimated nutrition needs, obvious physical signs of muscle and fat wasting in the face, orbitals and clavicle Status Active Problem Recommendation Dietitian Recommendations/Changes Will liberalize diet to regular in an effort to optimize oral intake at meals. Will continue 120ml ensure enlive 4 times per day w/ medpass (700 kcal, 40 gm pro). Will add magic cup BID w/ lunch and dinner (580 kcal, 18 gm pro). Will add 240ml ensure enlive w / breakfast (350 kcal, 20gm protein). Lab / Micro Data Result Diagrams: 01/25/21 05:06 01/25/21 05:06 Labs: Laboratory Results - last 24 hr 01/25/21 05:06: WBC 8.6, RBC 4.13 L, Hgb 12.0, Hct 36.6 L, MCV 88.6, MCH 29.1, MCHC 32.8, RDW Std Deviation 38.2, RDW Coeff of Jen 11.9, Plt Count 106 L, MPV 12.4 H 01/25/21 05:06: Sodium 139, Potassium 4.3, Chloride 103, Carbon Dioxide 30.0, Anion Gap 6, BUN 25 H, Creatinine 0.46 L, Estim Creat Clear Calc 35.29, Est GFR (MDRD) Af Amer 174, Est GFR (MDRD) Non-Af 144, BUN/Creatinine Ratio 54.7 H, Glucose 130 H, Calcium 8.6, Magnesium 2.0 Physical Exam Narrative GENERAL: cooperative HEENT: Atraumatic; EYES; Anicteric, Normal Conjunctiva NECK; supple, normal thyroid, RESPIRATORY: Diminished to auscultation CARDIOVASCULAR: Regular S1 S2, GI: soft, normoactive bowel sounds, : No Renal angle tenderness; EXTREMITIES: No edema, no clubbing, MUSCULOSKELETAL: no muscle waisting NEURO: Awake; no lateralizing signs. SKIN: No Rash PSYCH; Flat affect Assessment & Plan Assessment/Plan (1) Intractable back pain: PLAN: Patient is a 70-year-old lady with history of chronic back pain with recent epidural steroid injection on 01/13/2021 who presented with worsening symptoms 1. Acute back ache ?Patient has history of history of acute right sacral ala fracture as well as T12/L2 compression fractures. She apparently underwent epidural steroid injection on 01/13 presented with worsening symptoms. Currently managed with Lidoderm patches in addition to [place]. Consult placed to pain management. MRI of the lumbosacral spine ordered for subsequent evaluation -; Patient seen pain is somewhat controlled. MRI obtained the day prior demonstrated 1. Patent canal, no high-grade neurocompression. 2. Normal spinal enhancement without lesions. 3. Acute/subacute sacral insufficiency fracture. 4. Chronic T12, L2 compression fractures. 2. Physical deconditioning - Requested for PT OT eval and high school social studies tutor to assist with discharge planning 3. Paroxysmal A. fib ?Rate controlled on metoprolol. Not on systemic anticoagulation 4. Severe protein calorie malnutrition ?As a result of multiple medical comorbidities. Evidences by patient low BMI of 15, decreased muscle weight, decreased appetite. Plan; consultation placed to dietitian for recommendations 5. Tobacco dependence - Counseled on cessation, offered nicotine patch for tobacco cravings 6. GERD ?On PPI 7. Depression with anxiety ?Patient is on respite and at bedtime as well as sertraline daily did continue 8. Dyslipidemia ?Patient is on pravastatin did continue 9. Hypertension - Blood pressure controlled, home medications continued with dose adjustment as needed 10. DVT prophylaxis ?Lovenox Charges/Coding Visit Charges OBSV E&M: 29660 Subsequent observation care L2
[2021-01-25] MEDS: Multivitamins,Ther W-Minerals Tablet 1 TABLET PO (09:02)
[2021-01-25 09:10] VITALS: BP 118/60; PULSE 61; RESP 16; TEMP 36.6; O2SAT 97
[2021-01-25] MEDS: HYDROmorphone 1 MG/ML Syringe 2 MG IV ×3 (09:19→20:43)
[2021-01-25] MEDS: 0.9% Saline Lock 10 ML Syringe IV ×2 (09:19→13:51)
[2021-01-25] MEDS: Menthol/Lanolin/Calamine/Znox 113 GM Tube 1 APPLIC TOPICAL ×2 (09:21→20:36)
[2021-01-25] MEDS: Lidocaine 5% Patch 2 PATCH TOPICAL (09:21)
[2021-01-25 09:22] VITALS: BP 118/60; PULSE 61
[2021-01-25] MEDS: Metoprolol Tartrate 25 MG Tablet PO (09:22)
[2021-01-25] MEDS: Sertraline 100 MG Tablet 200 MG PO (09:23)
[2021-01-25] MEDS: RisperiDONE 1 MG Tablet PO ×2 (09:24→20:35)
[2021-01-25] MEDS: Pantoprazole Sodium 40 MG Tablet PO (09:24)
--- NOTE | 2021-01-25 10:37 | CASEMGMT ---
Addendum entered by Oralia Bacon 01/25/21 15:32: SW received call from Isabela at [facility] stating they are not able to accept pt. SW in to speak with pt. SW updated pt that [facility] is not able to accept pt. Pt states that she is ok with [facility] then. SW asked pt about Mental Health Hx. Pt states she has been diagnosed with Depression, Bipolar, Anxiety. Pt states the last time she was in counseling was 5-6 years ago. 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 SW asked pt about any other substance abuse, specially about Marijuana. Pt denied any substance abuse/use, denied any Marijuana use. CLAUDE placed a call to Halina at [facility] and asked her to submit for pre-cert. Halina states she just got off the phone with pt's daughter. Plan: [facility] pending pre-cert Addendum entered by Oralia Bacon 01/25/21 12:59: SW placed a call to Isabela at [facility] to inquire about referral. Isabela states she will check with the team to get definite answer if they can accept pt or not. CLAUDE still waiting for answer from [facility]. Original Note: Social Work Note SW received call from Isabela at [facility] confirming she received referral and [facility] is reviewing the referral. Isabela to call this worker back once determination is made regarding referral. Plan: [facility] pending acceptance and pre-cert Oralia Bacon CLINIC PHYSICIAN, WHARF OPERATOR
[2021-01-25 13:43] VITALS: BP 124/79; PULSE 68; RESP 18; TEMP 36.6; O2SAT 96
[2021-01-25] MEDS: Senna/Docusate Sodium 1 Tablet 2 TABLET PO ×2 (14:06→20:36)
[2021-01-25] MEDS: Ondansetron 4 MG/2 ML Vial IV (20:35)
[2021-01-25] MEDS: Pravastatin 40 MG Tablet PO (20:36)
[2021-01-25 20:37] VITALS: PULSE 88
[2021-01-25 20:51] VITALS: BP 101/79; PULSE 88; RESP 16; TEMP 37.1; O2SAT 98
[2021-01-26] MEDS: ALPRAZolam 0.5 MG Tablet 1 MG PO ×3 (05:47→21:20)
[2021-01-26] MEDS: HYDROcodone Bitartrate/Apap 5/325 Tablet PO ×5 (05:47→21:20)
[2021-01-26 05:54] VITALS: BP 122/70; PULSE 80; RESP 16; TEMP 36.8; O2SAT 96
[2021-01-26 06:43] LABS: Hematocrit 38.6 % (37-47); Hemoglobin 12.5 g/dL (12.0-15.0); Mean Corp Hgb Conc 32.4 g/dL (32-36); Mean Corpuscular Hgb 29.3 pg (27.0-32.0); Mean Corpuscular Volume 90.4 fL (81-99); Mean Platelet Vol. 10.5 fl (6.2-12.0); Platelet Count 137 K/mm3 (150-450); RBC Distribution Width CV 11.9 % (11.6-14.6); RBC Distribution Width SD 39.8 fl (35.1-43.9); Red Blood Count 4.27 M/mm3 (4.2-5.4); White Blood Count 8.7 K/mm3 (4.4-11.0)
--- NOTE | 2021-01-26 07:05 | PN.HOSP_ITS ---
Subjective Subjective Patient seen resting Comfortably plan is for patient to be discharged to retirement facility pending insurance approval Objective Data Objective Data Vital Signs: Vital Signs Temp Pulse Resp BP Pulse Ox 98.2 F 80 16 122/70 H 96 01/26/21 05:54 01/26/21 05:54 01/26/21 05:54 01/26/21 05:54 01/26/21 05:54 Oxygen Delivery Method Room Air Weight: 42.7 kg Body Mass Index (BMI) 15.1 Intake & Output: Intake and Output for Last 24 Hours 01/24/21 01/25/21 01/26/21 23:59 23:59 23:59 Intake Total 1000 / 1000 750 / 750 Output Total 400 / 400 Balance 1000 / 750 350 / 350 Medical Nutrition Assessment Dietitian: Malnutrition Criteria Met Start: 01/22/21 14:42 Freq: Status: Active Protocol: Document 01/25/21 14:33 RMA (Rec: 01/25/21 14:33 RMA [id number]) Nutrition Malnutrition Evidence of Malnutrition Exists Yes Malnutrition (severe): Chronic Evidenced By Suboptimal Energy Intake ( Severe),Weight Loss (Severe), Physical Changes (Severe) Clinical Problem Chronic Disease or Condition Related Malnutrition Etiology Severe protein-calorie malnutrition in the context of chronic disease related to inadequate oral intake/poor appetite Signs/Symptoms as evidenced by ~15% wt loss x past 2-4 weeks, BMI 15.1, PO meeting less than 50% estimated nutrition needs, obvious physical signs of muscle and fat wasting in the face, orbitals and clavicle Status Active Problem Recommendation Dietitian Recommendations/Changes Current weight as able. Continue regular diet w/ ONS at meals. Continue 120ml ensure enlive 4 times per day w/ medpass (700 kcal, 40 gm pro). Continue magic cup BID w/ lunch and dinner (580 kcal, 18 gm pro) and 240ml ensure enlive w/ breakfast (350 kcal, 20gm protein). Lab / Micro Data Result Diagrams: 01/26/21 06:20 01/26/21 06:20 Labs: Laboratory Results - last 24 hr 01/26/21 06:20: WBC 8.7, RBC 4.27, Hgb 12.5, Hct 38.6, MCV 90.4, MCH 29.3, MCHC 32.4, RDW Std Deviation 39.8, RDW Coeff of Jen 11.9, Plt Count 137 L, MPV 10.5 Physical Exam Narrative GENERAL: cooperative HEENT: Atraumatic; EYES; Anicteric, Normal Conjunctiva NECK; supple, normal thyroid, RESPIRATORY: Diminished to auscultation CARDIOVASCULAR: Regular S1 S2, GI: soft, normoactive bowel sounds, : No Renal angle tenderness; EXTREMITIES: No edema, no clubbing, MUSCULOSKELETAL: no muscle waisting NEURO: Awake; no lateralizing signs. SKIN: No Rash PSYCH; Flat affect Assessment & Plan Assessment/Plan (1) Intractable back pain: PLAN: Patient is a 70-year-old lady with history of chronic back pain with recent epidural steroid injection on 01/13/2021 who presented with worsening symptoms 1. Acute back ache ?Patient has history of history of acute right sacral ala fracture as well as T12/L2 compression fractures. She apparently underwent epidural steroid injection on 01/13 presented with worsening symptoms. Currently managed with Lidoderm patches in addition to [place]. Consult placed to pain management. MRI of the lumbosacral spine ordered for subsequent evaluation -; Patient seen pain is somewhat controlled. MRI obtained the day prior demonstrated 1. Patent canal, no high-grade neurocompression. 2. Normal spinal enhancement without lesions. 3. Acute/subacute sacral insufficiency fracture. 4. Chronic T12, L2 compression fractures. -01/26/2021; patient pain appears to be relatively well controlled 2. Physical deconditioning - Requested for PT OT eval and social science manager to assist with discharge planning - 01/26/2021; Patient seen resting Comfortably plan is for patient to be discharged to retirement facility pending insurance approval 3. Paroxysmal A. fib ?Rate controlled on metoprolol. Not on systemic anticoagulation 4. Severe protein calorie malnutrition ?As a result of multiple medical comorbidities. Evidences by patient low BMI of 15, decreased muscle weight, decreased appetite. Plan; consultation placed to dietitian for recommendations 5. Tobacco dependence - Counseled on cessation, offered nicotine patch for tobacco cravings 6. GERD ?On PPI 7. Depression with anxiety ?Patient is on respite and at bedtime as well as sertraline daily did continue 8. Dyslipidemia ?Patient is on pravastatin did continue 9. Hypertension - Blood pressure controlled, home medications continued with dose adjustment as needed 10. DVT prophylaxis ?Lovenox Charges/Coding Visit Charges OBSV E&M: 43963 Subsequent observation care L2
[2021-01-26 07:19] LABS: Anion Gap 5 (5-15); BUN 22 mg/dL (7-18); BUN/Creat Ratio 50.9 RATIO (10-20); Calcium,Total 8.6 mg/dL (8.5-10.1); Chloride 103 mmol/L (98-107); Creatinine, Serum 0.43 mg/dL (0.55-1.02); EST Glomerular Filtration Rate 153 mL/min (>60); Est Glom Filt Rate - Afr Amer 186 mL/min (>60); Estimated Creatinine Clearance 35.29 ml/min; Glucose 112 mg/dL (74-106); Potassium 4.7 mmol/L (3.5-5.1); Sodium Level 137 mmol/L (136-145)
[2021-01-26] MEDS: 0.9% Saline Lock 10 ML Syringe IV ×2 (09:31→19:42)
[2021-01-26] MEDS: HYDROmorphone 1 MG/ML Syringe 2 MG IV (09:31)
[2021-01-26] MEDS: Ondansetron 4 MG/2 ML Vial IV ×2 (09:39→19:43)
[2021-01-26 09:46] VITALS: BP 123/86; PULSE 78; RESP 16; TEMP 36.6; O2SAT 97
--- NOTE | 2021-01-26 10:04 | CASEMGMT ---
Addendum entered by Oralia Bacon 01/26/21 12:27: CLAUDE spoke kika Meade at [facility], pre-cert is still pending. Original Note: Social Work Note SW faxed updates to Halina at [facility]. CLAUDE placed a call to Halina and informed her that pt is medically ready for discharge once pre-cert is obtained. Plan: [facility] pending pre-cert Oralia Bacon MEDICAL DATA ANALYST, COMMUNITY RESOURCE CONSULTANT
[2021-01-26] MEDS: Lidocaine 5% Patch 2 PATCH TOPICAL (10:48)
[2021-01-26 10:49] VITALS: PULSE 78
[2021-01-26] MEDS: Metoprolol Tartrate 25 MG Tablet PO ×2 (10:49→21:20)
[2021-01-26] MEDS: Multivitamins,Ther W-Minerals Tablet 1 TABLET PO (10:49)
[2021-01-26] MEDS: Sertraline 100 MG Tablet 200 MG PO (10:50)
[2021-01-26] MEDS: RisperiDONE 1 MG Tablet PO ×2 (10:50→21:20)
[2021-01-26] MEDS: Pantoprazole Sodium 40 MG Tablet PO (10:51)
[2021-01-26] MEDS: Menthol/Lanolin/Calamine/Znox 113 GM Tube 1 APPLIC TOPICAL ×2 (10:58→21:23)
[2021-01-26] MEDS: Polyethylene Glycol 3350 17 GM PACKET PO (10:58)
[2021-01-26 14:24] VITALS: BP 113/68; PULSE 74; RESP 16; TEMP 36.8; O2SAT 96
--- NOTE | 2021-01-26 15:33 | CASEMGMT ---
Addendum entered by Oralia Bacon 01/26/21 15:54: SW spoke with Halina at [facility], pre-cert is still pending. Original Note: Social Work Note SW in to speak with pt. SW updated pt that pre-cert is still pending for [facility]. SW asked pt if this worker could call one of her daughters to give an update. Pt gave this worker permission to call her daughter Sonali. SW placed a call to pt's daughter Sonali, no answer, SW left message for Sonali to call this worker back. SW received call from Sonali. SW updated Sonali that this worker did send referrals to both [facility] and [facility]. [facility] is not able to accept pt but [facility] is and pre-cert is pending. Sonali states understanding. Plan: [facility] pending pre-cert Oralia Bacon ADVERTISING SALES ASSISTANT, STUDENT COUNSELLOR
[2021-01-26] MEDS: Senna/Docusate Sodium 1 Tablet 2 TABLET PO (18:46)
[2021-01-26 19:52] VITALS: BP 111/68; PULSE 70; RESP 16; TEMP 36.8; O2SAT 97
--- NOTE | 2021-01-26 19:57 | NURSING ---
spoke to dtdelphine Lyon at pt request who is staying at her house, dtr will bring in pain patch for pt tonight.
--- NOTE | 2021-01-26 20:29 | NURSING ---
Pt's daughter brought in 2 [place]rans patches for pt. I dropped them off to the optical fabrication technician in pharmacy to verify for use on the floor. They will verify and send them up via secure tube.
[2021-01-26 21:20] VITALS: PULSE 70
[2021-01-26] MEDS: Pravastatin 40 MG Tablet PO (21:20)
[2021-01-27 04:45] VITALS: BP 103/58; PULSE 58; RESP 16; TEMP 36.3; O2SAT 98
[2021-01-27] MEDS: HYDROcodone Bitartrate/Apap 5/325 Tablet PO ×5 (04:47→21:37)
[2021-01-27] MEDS: ALPRAZolam 0.5 MG Tablet 1 MG PO ×3 (04:47→21:38)
[2021-01-27 07:25] LABS: Hematocrit 36.2 % (37-47); Hemoglobin 11.8 g/dL (12.0-15.0); Mean Corp Hgb Conc 32.6 g/dL (32-36); Mean Corpuscular Hgb 29.1 pg (27.0-32.0); Mean Corpuscular Volume 89.2 fL (81-99); Mean Platelet Vol. 11.3 fl (6.2-12.0); POSITIVE COUNT YES; RBC Distribution Width SD 38.5 fl (35.1-43.9); Red Blood Count 4.06 M/mm3 (4.2-5.4); White Blood Count 7.7 K/mm3 (4.4-11.0)
[2021-01-27 07:28] LABS: Scan Indicated on CBC? Y/N YES- FLAGS NOTED
[2021-01-27 07:42] LABS: Anion Gap 2 (5-15); BUN 24 mg/dL (7-18); BUN/Creat Ratio 58.1 RATIO (10-20); Calcium,Total 8.3 mg/dL (8.5-10.1); Chloride 106 mmol/L (98-107); Creatinine, Serum 0.41 mg/dL (0.55-1.02); EST Glomerular Filtration Rate 162 mL/min (>60); Est Glom Filt Rate - Afr Amer 196 mL/min (>60); Estimated Creatinine Clearance 35.29 ml/min; Glucose 151 mg/dL (74-106); Potassium 4.2 mmol/L (3.5-5.1); Sodium Level 140 mmol/L (136-145)
[2021-01-27] MEDS: Lidocaine 5% Patch 2 PATCH TOPICAL (09:25)
[2021-01-27 09:26] VITALS: PULSE 81
[2021-01-27] MEDS: Multivitamins,Ther W-Minerals Tablet 1 TABLET PO (09:26)
[2021-01-27] MEDS: Metoprolol Tartrate 25 MG Tablet PO (09:26)
[2021-01-27] MEDS: Polyethylene Glycol 3350 17 GM PACKET PO (09:28)
[2021-01-27] MEDS: Pantoprazole Sodium 40 MG Tablet PO (09:29)
[2021-01-27] MEDS: RisperiDONE 1 MG Tablet PO ×2 (09:29→21:37)
[2021-01-27] MEDS: Sertraline 100 MG Tablet 200 MG PO (09:29)
[2021-01-27] MEDS: Menthol/Lanolin/Calamine/Znox 113 GM Tube 1 APPLIC TOPICAL ×2 (09:30→21:43)
[2021-01-27 09:42] VITALS: BP 130/67; PULSE 81; RESP 18; TEMP 36.2; O2SAT 96
--- NOTE | 2021-01-27 09:43 | CASEMGMT ---
Social Work Note SW placed a call to Halina at [facility] and left message stating pt is medically ready once pre-cert is obtained. Plan: [facility] pending pre-cert Oralia Bacon STEAMBOAT INSPECTOR, [employer]
--- NOTE | 2021-01-27 13:25 | CASEMGMT ---
Social Work Note Pt reported to this worker that she see's Dr. Albrecht, psychiatrist 2x a year. Pt states she cannot remember the last time she saw him for this year but states her next appointment is coming up soon. Oralia Bacon LITERACY EDUCATION PROFESSOR, SLOTTER OPERATOR
[2021-01-27] MEDS: Senna/Docusate Sodium 1 Tablet 2 TABLET PO ×2 (13:43→21:39)
[2021-01-27 14:18] VITALS: BP 111/64; PULSE 71; RESP 18; TEMP 36.6; O2SAT 95
--- NOTE | 2021-01-27 14:37 | PCM.PN.HOSP ---
Subjective Subjective Continues to have back pain that she states currently it is a little bit controlled. Dr. Anguiano has been seeing her here in the hospital Objective Data Objective Data Vital Signs: Vital Signs Temp Pulse Resp BP Pulse Ox 97.9 F 71 18 111/64 95 01/27/21 14:18 01/27/21 14:18 01/27/21 14:18 01/27/21 14:18 01/27/21 14:18 Oxygen Delivery Method Room Air Weight: 94 lb 2.198 oz Body Mass Index (BMI) 15.1 Intake & Output: Intake and Output for Last 24 Hours 01/26/21 01/27/21 01/28/21 03:59 03:59 03:59 Intake Total 750 / 750 300 / 300 Output Total 150 / 150 Balance 600 / 600 300 / 300 Medical Nutrition Assessment Dietitian: Malnutrition Criteria Met Start: 01/22/21 14:42 Freq: Status: Active Protocol: Document 01/25/21 14:33 RMA (Rec: 01/25/21 14:33 RMA [id number]) Nutrition Malnutrition Evidence of Malnutrition Exists Yes Malnutrition (severe): Chronic Evidenced By Suboptimal Energy Intake ( Severe),Weight Loss (Severe), Physical Changes (Severe) Clinical Problem Chronic Disease or Condition Related Malnutrition Etiology Severe protein-calorie malnutrition in the context of chronic disease related to inadequate oral intake/poor appetite Signs/Symptoms as evidenced by ~15% wt loss x past 2-4 weeks, BMI 15.1, PO meeting less than 50% estimated nutrition needs, obvious physical signs of muscle and fat wasting in the face, orbitals and clavicle Status Active Problem Recommendation Dietitian Recommendations/Changes Current weight as able. Continue regular diet w/ ONS at meals. Continue 120ml ensure enlive 4 times per day w/ medpass (700 kcal, 40 gm pro). Continue magic cup BID w/ lunch and dinner (580 kcal, 18 gm pro) and 240ml ensure enlive w/ breakfast (350 kcal, 20gm protein). Lab / Micro Data Result Diagrams: 01/27/21 07:04 01/27/21 07:04 Labs: Laboratory Results - last 24 hr 01/27/21 07:04: WBC 7.7, RBC 4.06 L, Hgb 11.8 L, Hct 36.2 L, MCV 89.2, MCH 29.1, MCHC 32.6, RDW Std Deviation 38.5, RDW Coeff of Jen 12.0, Plt Count , MPV 11.3 01/27/21 07:04: Sodium 140, Potassium 4.2, Chloride 106, Carbon Dioxide 32.0, Anion Gap 2 L, BUN 24 H, Creatinine 0.41 L, Estim Creat Clear Calc 35.29, Est GFR (MDRD) Af Amer 196, Est GFR (MDRD) Non-Af 162, BUN/Creatinine Ratio 58.1 H, Glucose 151 H, Calcium 8.3 L Physical Exam Const alert, oriented x3 and no apparent distress General Appearance: cooperative HEENT normocephalic and moist oral mucous membranes Eyes PERRL, EOMs intact bilaterally and conjunctivae normal Neck supple and no JVD Resp normal respiratory effort, no retractions, no use of accessory muscles and clear to auscultation bilaterally Auscultation: Negative for crackles, rales, rhonchi or wheezes Cardio regular rate, regular rhythm, S1 normal heart sound, S2 normal heart sound and no murmurs GI soft to palpation, non-tender and non-distended; Negative for hepatosplenomegaly Extremity no clubbing, cyanosis or edema Skin no rashes or lesions noted Neuro no focal motor deficits and no sensory deficits noted Psych affect normal Appearance: appropriate Assessment & Plan Assessment/Plan (1) Intractable back pain: PLAN: 1. Acute back ache ?Patient has history of history of acute right sacral ala fracture as well as T12/L2 compression fractures. She apparently underwent epidural steroid injection on 01/13 presented with worsening symptoms. Currently managed with Lidoderm patches in addition to [place]. Consult placed to pain management. MRI of the lumbosacral spine ordered for subsequent evaluation -; Patient seen pain is somewhat controlled. MRI obtained the day prior demonstrated 1. Patent canal, no high-grade neurocompression. 2. Normal spinal enhancement without lesions. 3. Acute/subacute sacral insufficiency fracture. 4. Chronic T12, L2 compression fractures. -01/26/2021; patient pain appears to be relatively well controlled -01/27/2021: Pain is fairly well-controlled at this time. We will need to obtain consent through the state given her mental history prior to discharge to a SNF 2. Physical deconditioning - Requested for PT OT eval and sexual assault social worker to assist with discharge planning - 01/26/2021; Patient seen resting Comfortably plan is for patient to be discharged to senior living facility pending insurance approval 3. Paroxysmal A. fib/HTN/HLD ?Rate controlled on metoprolol. Not on systemic anticoagulation -Blood pressures controlled, continue with her home medications -Continue with statin 4. Severe protein calorie malnutrition ?As a result of multiple medical comorbidities. Evidences by patient low BMI of 15, decreased muscle weight, decreased appetite. Plan; consultation placed to dietitian for recommendations 5. Tobacco dependence - Counseled on cessation, offered nicotine patch for tobacco cravings 6. GERD ?On PPI 7. Depression with anxiety ?Patient is on respite and at bedtime as well as sertraline daily did continue DVT: Lovenox Charges/Coding Visit Charges OBSV E&M: 14478 Subsequent observation care L2
--- NOTE | 2021-01-27 14:46 | CASEMGMT ---
Social Work Note CLAUDE received call from Rox, pt's friend, who lives in [place] who is [place], stating she is concerned that pt is depressed and overwhelmed. Rox states pt was really independent up until her back injury. Rox asked if a Job Setter could speak with pt. SW informed Rox that this worker will write down her concerns and a SW will meet with pt. Rox states understanding, thanked this worker. SW in to speak with pt. SW updated pt that pt's friend luzmaria Gramajo from [place] called in requesting this worker speak to her. Pt confirms that she knows Rox. SW spoke with pt about her depression. Pt states that she is really depressed. Pt confirms that she used to be really independent up until her back injury. Pt states that her family doctor is aware of her depression and states she currently takes medication for depression. Pt states she takes Zoloft and Sertraline. Pt states she was in counseling 5-6 years ago. Pt states that she still see's her Psychiatrist Dr. Albrecht 2x a year. Pt states she doesn't know the last time she saw him but states she has an upcoming appointment. Pt states that Dr. Albrecht manages her depression medication. SW asked pt if she thinks she needs to get back in to individual counseling and pt denied, states didn't think it helped. SW asked pt about any history of suicidal thoughts/plans/ideations. Pt states that a long time ago she had thoughts about suicide but denied any plans. Pt denied any history of suicidal attempts. Currently, pt denied any current suicidal thoughts/plans/ideations. Pt states I wouldn't do that to my children. SW asked pt about her support system. Pt states that her children are good support for her, states she has good relationships with her children. SW spoke with pt about coping skills. Pt states that she likes to take her dog for walks, but states she hasn't been able to do those lately due to her back. SW asked pt what coping skills she can do since she hurt her back, pt states she likes to be on the internet and is involved in a few forums where she can talk to people about different things. Pt states that she feels defeated right now. Pt states her pain has overcome everything. Pt states that she gave four times and her back pain is worse than any of that. SW asked pt what she did to hurt her back. Pt states she was cleaning her house and doing a lot of twisting, turning, heavy lifting and she thinks that may have caused it. Pt states the only thing that helps is the pain medication but states she is still having pain. SW offered much support to pt during conversation. At this time, pt denied any current suicidal thoughts/plans/ideations. Pt is active with a psychiatrist that she see's 2x a year and has an upcoming appointment. Pt denied wanting any counseling resources. Since pt does see a psychiatrist 2x a year, pt will trip the screen for the PAS/RR. SW completed PAS/RR, pt tripped the screen. Pt will need to remain at [facility] until [facility] can make a determination. CLAUDE placed a call to Halina at [facility] and updated her that pt will trip the screen, will need to remain at [facility] until approval from [facility] is received. Plan: [facility] pending pre-cert and approval from [facility] Bacon ESL INSTRUCTIONAL ASSISTANT, DAY HABILITATION SPECIALIST
[2021-01-27] MEDS: Ondansetron 4 MG/2 ML Vial IV (21:29)
[2021-01-27] MEDS: Pravastatin 40 MG Tablet PO (21:38)
[2021-01-27] MEDS: 0.9% Saline Lock 10 ML Syringe IV (21:39)
[2021-01-27 21:42] VITALS: BP 99/57; PULSE 71
[2021-01-27 21:46] VITALS: BP 99/57; PULSE 76; RESP 20; TEMP 36.7; O2SAT 97
[2021-01-28] MEDS: HYDROcodone Bitartrate/Apap 5/325 Tablet PO ×6 (01:36→22:06)
[2021-01-28 05:29] VITALS: BP 120/78; PULSE 74; RESP 18; TEMP 36.6; O2SAT 98
[2021-01-28] MEDS: ALPRAZolam 0.5 MG Tablet 1 MG PO ×3 (05:39→22:08)
--- NOTE | 2021-01-28 05:47 | NURSING ---
Patient requests all four side rails to be up. I want them up. I am afraid of falling.
[2021-01-28] MEDS: Senna/Docusate Sodium 1 Tablet 2 TABLET PO ×2 (09:06→21:20)
[2021-01-28] MEDS: Polyethylene Glycol 3350 17 GM PACKET PO (09:06)
[2021-01-28] MEDS: RisperiDONE 1 MG Tablet PO ×2 (09:07→22:09)
[2021-01-28] MEDS: Sertraline 100 MG Tablet 200 MG PO (09:07)
[2021-01-28 09:08] VITALS: PULSE 74
[2021-01-28] MEDS: Pantoprazole Sodium 40 MG Tablet PO (09:08)
[2021-01-28] MEDS: Multivitamins,Ther W-Minerals Tablet 1 TABLET PO (09:08)
[2021-01-28] MEDS: Metoprolol Tartrate 25 MG Tablet PO (09:08)
[2021-01-28] MEDS: Lidocaine 5% Patch 2 PATCH TOPICAL (09:09)
[2021-01-28] MEDS: Menthol/Lanolin/Calamine/Znox 113 GM Tube 1 APPLIC TOPICAL ×2 (09:11→22:12)
[2021-01-28 10:30] VITALS: BP 122/79; PULSE 71; RESP 18; TEMP 36.4; O2SAT 98
--- NOTE | 2021-01-28 10:40 | PCM.PN.HOSP ---
Subjective Subjective No issues overnight, continues to have low back pain. Objective Data Objective Data Vital Signs: Vital Signs Temp Pulse Resp BP Pulse Ox 97.9 F 74 18 120/78 98 01/28/21 05:29 01/28/21 09:08 01/28/21 05:29 01/28/21 05:29 01/28/21 05:29 Oxygen Delivery Method Room Air Weight: 94 lb 2.198 oz Body Mass Index (BMI) 15.1 Intake & Output: Intake and Output for Last 24 Hours 01/27/21 01/28/21 01/29/21 03:59 03:59 03:59 Intake Total 300 / 300 Balance 300 / 300 Medical Nutrition Assessment Dietitian: Malnutrition Criteria Met Start: 01/22/21 14:42 Freq: Status: Active Protocol: Document 01/25/21 14:33 RMA (Rec: 01/25/21 14:33 RMA [id number]) Nutrition Malnutrition Evidence of Malnutrition Exists Yes Malnutrition (severe): Chronic Evidenced By Suboptimal Energy Intake ( Severe),Weight Loss (Severe), Physical Changes (Severe) Clinical Problem Chronic Disease or Condition Related Malnutrition Etiology Severe protein-calorie malnutrition in the context of chronic disease related to inadequate oral intake/poor appetite Signs/Symptoms as evidenced by ~15% wt loss x past 2-4 weeks, BMI 15.1, PO meeting less than 50% estimated nutrition needs, obvious physical signs of muscle and fat wasting in the face, orbitals and clavicle Status Active Problem Recommendation Dietitian Recommendations/Changes Current weight as able. Continue regular diet w/ ONS at meals. Continue 120ml ensure enlive 4 times per day w/ medpass (700 kcal, 40 gm pro). Continue magic cup BID w/ lunch and dinner (580 kcal, 18 gm pro) and 240ml ensure enlive w/ breakfast (350 kcal, 20gm protein). Lab / Micro Data Result Diagrams: 01/27/21 07:04 01/27/21 07:04 Physical Exam Const alert, oriented x3 and no apparent distress General Appearance: cooperative HEENT normocephalic and moist oral mucous membranes Eyes PERRL, EOMs intact bilaterally and conjunctivae normal Neck supple and no JVD Resp normal respiratory effort, no retractions, no use of accessory muscles and clear to auscultation bilaterally Auscultation: Negative for crackles, rales, rhonchi or wheezes Cardio regular rate, regular rhythm, S1 normal heart sound, S2 normal heart sound and no murmurs GI soft to palpation, non-tender and non-distended; Negative for hepatosplenomegaly Extremity no clubbing, cyanosis or edema Skin no rashes or lesions noted Neuro no focal motor deficits and no sensory deficits noted Psych affect normal Appearance: appropriate Assessment & Plan Assessment/Plan (1) Intractable back pain: PLAN: 1. Acute back ache ?Patient has history of history of acute right sacral ala fracture as well as T12/L2 compression fractures. She apparently underwent epidural steroid injection on 01/13 presented with worsening symptoms. Currently managed with Lidoderm patches in addition to [place]. Consult placed to pain management. MRI of the lumbosacral spine ordered for subsequent evaluation -; Patient seen pain is somewhat controlled. MRI obtained the day prior demonstrated 1. Patent canal, no high-grade neurocompression. 2. Normal spinal enhancement without lesions. 3. Acute/subacute sacral insufficiency fracture. 4. Chronic T12, L2 compression fractures. -01/26/2021; patient pain appears to be relatively well controlled -01/27/2021: Pain is fairly well-controlled at this time. We will need to obtain consent through the state given her mental history prior to discharge to a SNF -01/28/2021: Awaiting pre-CERT for discharge to SNF for physical therapy 2. Physical deconditioning - Requested for PT OT eval and certified social workers in health care to assist with discharge planning - 01/26/2021; Patient seen resting Comfortably plan is for patient to be discharged to assisted facility pending insurance approval 3. Paroxysmal A. fib/HTN/HLD ?Rate controlled on metoprolol. Not on systemic anticoagulation -Blood pressures controlled, continue with her home medications -Continue with statin 4. Severe protein calorie malnutrition ?As a result of multiple medical comorbidities. Evidences by patient low BMI of 15, decreased muscle weight, decreased appetite. Plan; consultation placed to dietitian for recommendations 5. Tobacco dependence - Counseled on cessation, offered nicotine patch for tobacco cravings 6. GERD ?On PPI 7. Depression with anxiety ?Patient is on respite and at bedtime as well as sertraline daily did continue DVT: Lovenox Charges/Coding Visit Charges OBSV E&M: 77455 Subsequent observation care L2
[2021-01-28] MEDS: 0.9% Saline Lock 10 ML Syringe IV ×2 (12:47→21:21)
[2021-01-28] MEDS: Ondansetron 4 MG/2 ML Vial IV ×2 (12:47→21:18)
--- NOTE | 2021-01-28 15:29 | CASEMGMT ---
Social Work Note CLAUDE spoke with Halina at [facility] and asked about pre-cert. Halina states pre-cert is still pending. CLAUDE updated Halina that this worker is also waiting for approval from [facility]. Plan: [facility] pending pre-cert and [facility] determination Oralia Bacon SOCIAL WORK MANAGER, FITNESS MANAGER
[2021-01-28 16:00] VITALS: BP 100/65; PULSE 75; RESP 19; TEMP 36.7; O2SAT 96
[2021-01-28 22:00] VITALS: BP 101/65; PULSE 74; RESP 18; TEMP 36.6; O2SAT 97
[2021-01-28] MEDS: Pravastatin 40 MG Tablet PO (22:08)
[2021-01-28 22:09] VITALS: BP 101/65; PULSE 74
[2021-01-29] VITALS (7 sets, daily range): BP systolic 106–126; BP diastolic 68–86; PULSE 74–81; RESP 16–18; TEMP 36.6–37.1; O2SAT 95–97
[2021-01-29] MEDS: HYDROcodone Bitartrate/Apap 5/325 Tablet PO ×6 (03:00→22:57)
[2021-01-29] MEDS: ALPRAZolam 0.5 MG Tablet 1 MG PO ×3 (06:21→22:58)
--- NOTE | 2021-01-29 09:00 | PCS.PANDOC ---
PANDEMIC DOCUMENTATION INITIATED: Date: 11/22/2020 Time: 190
--- NOTE | 2021-01-29 09:05 | PN.HOSP_ITS ---
Subjective Subjective Continues to have some back pain. Awaiting pre-CERT. No issues overnight. Objective Data Objective Data Vital Signs: Vital Signs Temp Pulse Resp BP Pulse Ox 98.1 F 81 18 126/86 H 97 01/29/21 03:03 01/29/21 03:03 01/29/21 03:03 01/29/21 03:03 01/29/21 03:03 Oxygen Delivery Method Room Air Weight: 94 lb 2.198 oz Body Mass Index (BMI) 15.1 Medical Nutrition Assessment Dietitian: Malnutrition Criteria Met Start: 01/22/21 14:42 Freq: Status: Active Protocol: Document 01/25/21 14:33 RMA (Rec: 01/25/21 14:33 RMA [id number]) Nutrition Malnutrition Evidence of Malnutrition Exists Yes Malnutrition (severe): Chronic Evidenced By Suboptimal Energy Intake ( Severe),Weight Loss (Severe), Physical Changes (Severe) Clinical Problem Chronic Disease or Condition Related Malnutrition Etiology Severe protein-calorie malnutrition in the context of chronic disease related to inadequate oral intake/poor appetite Signs/Symptoms as evidenced by ~15% wt loss x past 2-4 weeks, BMI 15.1, PO meeting less than 50% estimated nutrition needs, obvious physical signs of muscle and fat wasting in the face, orbitals and clavicle Status Active Problem Recommendation Dietitian Recommendations/Changes Current weight as able. Continue regular diet w/ ONS at meals. Continue 120ml ensure enlive 4 times per day w/ medpass (700 kcal, 40 gm pro). Continue magic cup BID w/ lunch and dinner (580 kcal, 18 gm pro) and 240ml ensure enlive w/ breakfast (350 kcal, 20gm protein). Lab / Micro Data Result Diagrams: 01/27/21 07:04 01/27/21 07:04 Physical Exam Const alert, oriented x3 and no apparent distress General Appearance: cooperative HEENT normocephalic and moist oral mucous membranes Eyes PERRL, EOMs intact bilaterally and conjunctivae normal Neck supple and no JVD Resp normal respiratory effort, no retractions, no use of accessory muscles and clear to auscultation bilaterally Auscultation: Negative for crackles, rales, rhonchi or wheezes Cardio regular rate, regular rhythm, S1 normal heart sound, S2 normal heart sound and no murmurs GI soft to palpation, non-tender and non-distended; Negative for hepatosplenomegaly Extremity no clubbing, cyanosis or edema Skin no rashes or lesions noted Neuro no focal motor deficits and no sensory deficits noted Psych affect normal Appearance: appropriate Assessment & Plan Assessment/Plan (1) Intractable back pain: PLAN: 1. Acute back ache ?Patient has history of history of acute right sacral ala fracture as well as T12/L2 compression fractures. She apparently underwent epidural steroid injection on 01/13 presented with worsening symptoms. Currently managed with Lidoderm patches in addition to [place]. Consult placed to pain management. MRI of the lumbosacral spine ordered for subsequent evaluation -; Patient seen pain is somewhat controlled. MRI obtained the day prior demonstrated 1. Patent canal, no high-grade neurocompression. 2. Normal spinal enhancement without lesions. 3. Acute/subacute sacral insufficiency fracture. 4. Chronic T12, L2 compression fractures. -01/26/2021; patient pain appears to be relatively well controlled -01/27/2021: Pain is fairly well-controlled at this time. We will need to obta in consent through the state given her mental history prior to discharge to a SNF -01/28/2021: Awaiting pre-CERT for discharge to SNF for physical therapy -01/29/2021: Awaiting pre-CERT 2. Physical deconditioning - Requested for PT OT eval and social work case manager to assist with discharge planning - 01/26/2021; Patient seen resting Comfortably plan is for patient to be discharged to long term facility pending insurance approval -01/29/2021: Needs therapy at a SNF, awaiting placement 3. Paroxysmal A. fib/HTN/HLD ?Rate controlled on metoprolol. Not on systemic anticoagulation -Blood pressures controlled, continue with her home medications -Continue with statin 4. Severe protein calorie malnutrition ?As a result of multiple medical comorbidities. Evidences by patient low BMI of 15, decreased muscle weight, decreased appetite. Plan; consultation placed to dietitian for recommendations 5. Tobacco dependence - Counseled on cessation, offered nicotine patch for tobacco cravings 6. GERD ?On PPI 7. Depression with anxiety ?Patient is on respite and at bedtime as well as sertraline daily did continue DVT: Lovenox Charges/Coding Visit Charges OBSV E&M: 63322 Subsequent observation care L2
[2021-01-29] MEDS: Senna/Docusate Sodium 1 Tablet 2 TABLET PO ×2 (10:29→22:58)
[2021-01-29] MEDS: 0.9% Saline Lock 10 ML Syringe IV (10:35)
[2021-01-29] MEDS: Ondansetron 4 MG/2 ML Vial IV ×2 (10:36→22:59)
[2021-01-29] MEDS: Menthol/Lanolin/Calamine/Znox 113 GM Tube 1 APPLIC TOPICAL ×2 (10:38→23:01)
[2021-01-29] MEDS: Multivitamins,Ther W-Minerals Tablet 1 TABLET PO (10:38)
[2021-01-29] MEDS: Lidocaine 5% Patch 2 PATCH TOPICAL (10:39)
[2021-01-29] MEDS: Polyethylene Glycol 3350 17 GM PACKET PO (10:41)
[2021-01-29] MEDS: RisperiDONE 1 MG Tablet PO ×2 (10:41→22:59)
[2021-01-29] MEDS: Pantoprazole Sodium 40 MG Tablet PO (10:41)
[2021-01-29] MEDS: Sertraline 100 MG Tablet 200 MG PO (10:42)
[2021-01-29] MEDS: Pravastatin 40 MG Tablet PO (23:00)
[2021-01-30] VITALS (7 sets, daily range): BP systolic 100–123; BP diastolic 62–86; PULSE 67–82; RESP 16; TEMP 36.9–37.3; O2SAT 96–98
[2021-01-30] MEDS: HYDROcodone Bitartrate/Apap 5/325 Tablet PO ×6 (03:00→22:22)
[2021-01-30] MEDS: ALPRAZolam 0.5 MG Tablet 1 MG PO ×3 (06:27→22:22)
[2021-01-30 06:55] LABS: Absolute Lymphocyte Count 0.77 X10^3/uL (0.83-4.51); Basophil# 0.01 X10^3/uL; Basophil% 0.2 % (0-1); Eosinophil# 0.05 X10^3/uL; Eosinophils% 0.8 % (0-5); Hematocrit 35.5 % (37-47); Hemoglobin 11.6 g/dL (12.0-15.0); Lymphocyte # 0.77 X10^3/ul (0.83-4.51); Lymphocyte % 11.8 % (19-41); Mean Corp Hgb Conc 32.7 g/dL (32-36); Mean Corpuscular Hgb 29.5 pg (27.0-32.0); Mean Corpuscular Volume 90.3 fL (81-99); Monocyte# 0.57 X10^3/uL; Monocyte% 8.8 % (0-10); NRBC Flagged by Analyzer 0 % (0-5); Neutrophil # 5.03 X10^3/uL (2.7-7.7); Neutrophil % 77.2 % (47-70); POSITIVE COUNT YES; Platelet Count 164 K/mm3 (150-450); RBC Distribution Width CV 12.5 % (11.6-14.6); RBC Distribution Width SD 41.1 fl (35.1-43.9); Red Blood Count 3.93 M/mm3 (4.2-5.4); White Blood Count 6.5 K/mm3 (4.4-11.0)
[2021-01-30 07:00] LABS: Differential Indicated SCAN CRITERIA MET
[2021-01-30 07:09] LABS: Anion Gap 3 (5-15); BUN 21 mg/dL (7-18); BUN/Creat Ratio 43.4 RATIO (10-20); Calcium,Total 8.5 mg/dL (8.5-10.1); Chloride 104 mmol/L (98-107); Creatinine, Serum 0.48 mg/dL (0.55-1.02); EST Glomerular Filtration Rate 135 mL/min (>60); Est Glom Filt Rate - Afr Amer 163 mL/min (>60); Estimated Creatinine Clearance 35.29 ml/min; Glucose 115 mg/dL (74-106); Potassium 4.1 mmol/L (3.5-5.1); Sodium Level 140 mmol/L (136-145)
[2021-01-30] MEDS: Senna/Docusate Sodium 1 Tablet 2 TABLET PO (08:33)
[2021-01-30] MEDS: Polyethylene Glycol 3350 17 GM PACKET PO ×2 (08:33→15:39)
[2021-01-30] MEDS: Metoprolol Tartrate 25 MG Tablet PO (08:34)
[2021-01-30] MEDS: Pantoprazole Sodium 40 MG Tablet PO (08:35)
[2021-01-30] MEDS: Multivitamins,Ther W-Minerals Tablet 1 TABLET PO (08:35)
[2021-01-30] MEDS: Lidocaine 5% Patch 2 PATCH TOPICAL (08:35)
[2021-01-30] MEDS: Sertraline 100 MG Tablet 200 MG PO (08:36)
[2021-01-30] MEDS: RisperiDONE 1 MG Tablet PO ×2 (08:36→22:24)
[2021-01-30] MEDS: Menthol/Lanolin/Calamine/Znox 113 GM Tube 1 APPLIC TOPICAL ×2 (08:43→22:20)
[2021-01-30 09:06] LABS: Differential Comment SCANNED
[2021-01-30] MEDS: Ondansetron 4 MG/2 ML Vial IV ×2 (09:27→18:25)
[2021-01-30] MEDS: 0.9% Saline Lock 10 ML Syringe IV ×2 (09:28→18:25)
--- NOTE | 2021-01-30 10:06 | PN.HOSP_ITS ---
Subjective Subjective Continues to have some mild back pain. She is supposed to have an appoint with next . Objective Data Objective Data Vital Signs: Vital Signs Temp Pulse Resp BP Pulse Ox 98.5 F 67 16 115/86 H 98 01/30/21 08:35 01/30/21 08:35 01/30/21 08:35 01/30/21 08:35 01/30/21 08:35 Oxygen Delivery Method Room Air Weight: 94 lb 2.198 oz Body Mass Index (BMI) 15.1 Intake & Output: Intake and Output for Last 24 Hours 01/29/21 01/30/21 01/31/21 03:59 03:59 03:59 Intake Total 950 / 950 Balance 950 / 950 Medical Nutrition Assessment Dietitian: Malnutrition Criteria Met Start: 01/22/21 14:42 Freq: Status: Active Protocol: Document 01/25/21 14:33 RMA (Rec: 01/25/21 14:33 RMA [id number]) Nutrition Malnutrition Evidence of Malnutrition Exists Yes Malnutrition (severe): Chronic Evidenced By Suboptimal Energy Intake ( Severe),Weight Loss (Severe), Physical Changes (Severe) Clinical Problem Chronic Disease or Condition Related Malnutrition Etiology Severe protein-calorie malnutrition in the context of chronic disease related to inadequate oral intake/poor appetite Signs/Symptoms as evidenced by ~15% wt loss x past 2-4 weeks, BMI 15.1, PO meeting less than 50% estimated nutrition needs, obvious physical signs of muscle and fat wasting in the face, orbitals and clavicle Status Active Problem Recommendation Dietitian Recommendations/Changes Current weight as able. Continue regular diet w/ ONS at meals. Continue 120ml ensure enlive 4 times per day w/ medpass (700 kcal, 40 gm pro). Continue magic cup BID w/ lunch and dinner (580 kcal, 18 gm pro) and 240ml ensure enlive w/ breakfast (350 kcal, 20gm protein). Lab / Micro Data Result Diagrams: 01/30/21 05:59 01/30/21 05:59 Labs: Laboratory Results - last 24 hr 01/30/21 05:59: WBC 6.5, RBC 3.93 L, Hgb 11.6 L, Hct 35.5 L, MCV 90.3, MCH 29.5, MCHC 32.7, RDW Std Deviation 41.1, RDW Coeff of Jen 12.5, Plt Count 164, MPV 11.0, Immature Gran % (Auto) 1.200 H, Neut % (Auto) 77.2 H, Lymph % (Auto) 11.8 L, [place] % (Auto) 8.8, Eos % (Auto) 0.8, Baso % (Auto) 0.2, Absolute Neuts (auto) 5.0, Absolute Lymphs (auto) 0.77 L, Nucleated RBC % 0, Differential Comment SCANNED 01/30/21 05:59: Sodium 140, Potassium 4.1, Chloride 104, Carbon Dioxide 33.0 H, Anion Gap 3 L, BUN 21 H, Creatinine 0.48 L, Estim Creat Clear Calc 35.29, Est GFR (MDRD) Af Amer 163, Est GFR (MDRD) Non-Af 135, BUN/Creatinine Ratio 43.4 H, Glucose 115 H, Calcium 8.5 Physical Exam Const alert, oriented x3 and no apparent distress General Appearance: cooperative HEENT normocephalic and moist oral mucous membranes Eyes PERRL, EOMs intact bilaterally and conjunctivae normal Neck supple and no JVD Resp normal respiratory effort, no retractions, no use of accessory muscles and clear to auscultation bilaterally Auscultation: Negative for crackles, rales, rhonchi or wheezes Cardio regular rate, regular rhythm, S1 normal heart sound, S2 normal heart sound and no murmurs GI soft to palpation, non-tender and non-distended; Negative for hepatosplenomegaly Extremity no clubbing, cyanosis or edema Skin no rashes or lesions noted Neuro no focal motor deficits and no sensory deficits noted Psych affect normal Appearance: appropriate Assessment & Plan Assessment/Plan (1) Intractable back pain: PLAN: 1. Acute back ache ?Patient has history of history of acute right sacral ala fracture as well as T12/L2 compression fractures. She apparently underwent epidural steroid inject ion on 01/13 presented with worsening symptoms. Currently managed with Lidoderm patches in addition to [place]. Consult placed to pain management. MRI of the lumbosacral spine ordered for subsequent evaluation -; Patient seen pain is somewhat controlled. MRI obtained the day prior demonstrated 1. Patent canal, no high-grade neurocompression. 2. Normal spinal enhancement without lesions. 3. Acute/subacute sacral insufficiency fracture. 4. Chronic T12, L2 compression fractures. -01/26/2021; patient pain appears to be relatively well controlled -01/27/2021: Pain is fairly well-controlled at this time. We will need to obtain consent through the state given her mental history prior to discharge to a SNF -01/28/2021: Awaiting pre-CERT for discharge to SNF for physical therapy -01/29/2021: Awaiting pre-CERT -01/30/2021: Awaiting pre-CERT 2. Physical deconditioning - Requested for PT OT eval and social service agency director to assist with discharge planning - 01/26/2021; Patient seen resting Comfortably plan is for patient to be discharged to nursing home facility pending insurance approval -01/29/2021: Needs therapy at a SNF, awaiting placement 3. Paroxysmal A. fib/HTN/HLD ?Rate controlled on metoprolol. Not on systemic anticoagulation -Blood pressures controlled, continue with her home medications -Continue with statin 4. Severe protein calorie malnutrition ?As a result of multiple medical comorbidities. Evidences by patient low BMI of 15, decreased muscle weight, decreased appetite. Plan; consultation placed to dietitian for recommendations 5. Tobacco dependence - Counseled on cessation, offered nicotine patch for tobacco cravings 6. GERD ?On PPI 7. Depression with anxiety ?Patient is on respite and at bedtime as well as sertraline daily did continue DVT: Lovenox Charges/Coding Visit Charges OBSV E&M: 35006 Subsequent observation care L2
[2021-01-30] MEDS: Pravastatin 40 MG Tablet PO (22:23)
[2021-01-31] MEDS: HYDROcodone Bitartrate/Apap 5/325 Tablet PO ×6 (03:11→21:43)
[2021-01-31 03:12] VITALS: BP 116/67; PULSE 64; RESP 18; TEMP 36.6; O2SAT 98
[2021-01-31] MEDS: ALPRAZolam 0.5 MG Tablet 1 MG PO ×3 (06:03→21:43)
--- NOTE | 2021-01-31 09:05 | PN.HOSP_ITS ---
Subjective Subjective No issues overnight, remains unchanged. Objective Data Objective Data Vital Signs: Vital Signs Temp Pulse Resp BP Pulse Ox 97.9 F 64 18 116/67 98 01/31/21 03:12 01/31/21 03:12 01/31/21 03:12 01/31/21 03:12 01/31/21 03:12 Oxygen Delivery Method Room Air Weight: 94 lb 2.198 oz Body Mass Index (BMI) 15.1 Intake & Output: Intake and Output for Last 24 Hours 01/30/21 01/31/21 02/01/21 03:59 03:59 03:59 Intake Total 950 / 950 400 / 400 400 / 400 Balance 950 / 950 400 / 400 400 / 400 Medical Nutrition Assessment Dietitian: Malnutrition Criteria Met Start: 01/22/21 14:42 Freq: Status: Active Protocol: Document 01/25/21 14:33 RMA (Rec: 01/25/21 14:33 RMA [id number]) Nutrition Malnutrition Evidence of Malnutrition Exists Yes Malnutrition (severe): Chronic Evidenced By Suboptimal Energy Intake ( Severe),Weight Loss (Severe), Physical Changes (Severe) Clinical Problem Chronic Disease or Condition Related Malnutrition Etiology Severe protein-calorie malnutrition in the context of chronic disease related to inadequate oral intake/poor appetite Signs/Symptoms as evidenced by ~15% wt loss x past 2-4 weeks, BMI 15.1, PO meeting less than 50% estimated nutrition needs, obvious physical signs of muscle and fat wasting in the face, orbitals and clavicle Status Active Problem Recommendation Dietitian Recommendations/Changes Current weight as able. Continue regular diet w/ ONS at meals. Continue 120ml ensure enlive 4 times per day w/ medpass (700 kcal, 40 gm pro). Continue magic cup BID w/ lunch and dinner (580 kcal, 18 gm pro) and 240ml ensure enlive w/ breakfast (350 kcal, 20gm protein). Lab / Micro Data Result Diagrams: 01/30/21 05:59 01/30/21 05:59 Labs: Laboratory Results - last 24 hr 01/30/21 05:59: Differential Comment SCANNED Physical Exam Const alert, oriented x3 and no apparent distress General Appearance: cooperative HEENT normocephalic and moist oral mucous membranes Eyes PERRL, EOMs intact bilaterally and conjunctivae normal Neck supple and no JVD Resp normal respiratory effort, no retractions, no use of accessory muscles and clear to auscultation bilaterally Auscultation: Negative for crackles, rales, rhonchi or wheezes Cardio regular rate, regular rhythm, S1 normal heart sound, S2 normal heart sound and no murmurs GI soft to palpation, non-tender and non-distended; Negative for hepatosplenomegaly Extremity no clubbing, cyanosis or edema Skin no rashes or lesions noted Neuro no focal motor deficits and no sensory deficits noted Psych affect normal Appearance: appropriate Assessment & Plan Assessment/Plan (1) Intractable back pain: PLAN: 1. Acute back ache ?Patient has history of history of acute right sacral ala fracture as well as T12/L2 compression fractures. She apparently underwent epidural steroid injection on 01/13 presented with worsening symptoms. Currently managed with Lidoderm patches in addition to [place]. Consult placed to pain management. MRI of the lumbosacral spine ordered for subsequent evaluation -; Patient seen pain is somewhat controlled. MRI obtained the day prior demonstrated 1. Patent canal, no high-grade neurocompression. 2. Normal spinal enhancement without lesions. 3. Acute/subacute sacral insufficiency fracture. 4. Chronic T12, L2 compression fractures. -01/26/2021; patient pain appears to be relatively well controlled -01/27/2021: Pain is fairly well-controlled at this time. We will need to obtain consent through the state given her mental history prior to discharge to a SNF -01/28/2021: Awaiting pre-CERT for discharge to SNF for physical therapy -01/29/2021: Awaiting pre-CERT -01/30/2021: Awaiting pre-CERT -Awaiting pre-CERT 2. Physical deconditioning - Requested for PT OT eval and geriatric social work professor to assist with discharge planning - 01/26/2021; Patient seen resting Comfortably plan is for patient to be dis[facility] arged to [facility] facility pending insurance approval -01/29/2021: Needs therapy at a SNF, awaiting placement 3. Paroxysmal A. fib/HTN/HLD ?Rate controlled on metoprolol. Not on systemic anticoagulation -Blood pressures controlled, continue with her home medications -Continue with statin 4. Severe protein calorie malnutrition ?As a result of multiple medical comorbidities. Evidences by patient low BMI of 15, decreased muscle weight, decreased appetite. Plan; consultation placed to dietitian for recommendations 5. Tobacco dependence - Counseled on cessation, offered nicotine patch for tobacco cravings 6. GERD ?On PPI 7. Depression with anxiety ?Patient is on respite and at bedtime as well as sertraline daily did continue DVT: Lovenox Charges/Coding Visit Charges OBSV E&M: 91934 Subsequent observation care L2
--- NOTE | 2021-01-31 09:27 | CASEMGMT ---
Addendum entered by Oralia Bacon 01/31/21 17:23: SW placed a call to [facility] and left message asking for update. SW in to speak with pt. SW updated pt that both pre-cert and determination from [facility] (state) are both pending at this time. Pt states understanding. Plan: [facility] pending pre-cert and determination from [facility] Original Note: Social Work Note SW received message from [facility] asking if pt is still at [facility] ([phone]). SW placed a call back to [facility] and left message that pt is still at [facility], SW is waiting for results from [facility]. SW placed a call to Halina at [facility] and left message updating her that [facility] is working on referral. SW faxed updated clinicals to [facility]. Plan: [facility] pending pre-cert and determination from [facility] Oralia Bacon CUSTODIAL OFFICER, COMMUNITY ASSOCIATE
[2021-01-31] MEDS: Multivitamins,Ther W-Minerals Tablet 1 TABLET PO (09:29)
[2021-01-31 09:30] VITALS: BP 112/66; PULSE 96; RESP 16; TEMP 36.7; O2SAT 96
[2021-01-31] MEDS: Sertraline 100 MG Tablet 200 MG PO (09:31)
[2021-01-31] MEDS: RisperiDONE 1 MG Tablet PO ×2 (09:31→21:40)
[2021-01-31] MEDS: Pantoprazole Sodium 40 MG Tablet PO (09:31)
[2021-01-31] MEDS: Lidocaine 5% Patch 2 PATCH TOPICAL (09:32)
[2021-01-31] MEDS: Menthol/Lanolin/Calamine/Znox 113 GM Tube 1 APPLIC TOPICAL ×2 (09:33→21:49)
[2021-01-31 09:34] VITALS: BP 112/66; PULSE 87
[2021-01-31] MEDS: Metoprolol Tartrate 25 MG Tablet PO ×2 (09:34→21:40)
[2021-01-31 14:30] VITALS: BP 107/74; PULSE 71; RESP 16; TEMP 36.8; O2SAT 96
[2021-01-31] MEDS: Ondansetron 4 MG/2 ML Vial IV (14:31)
[2021-01-31] MEDS: 0.9% Saline Lock 10 ML Syringe IV (14:31)
[2021-01-31 21:40] VITALS: BP 111/67; PULSE 76; RESP 16; TEMP 36.8; O2SAT 96
[2021-01-31] MEDS: Senna/Docusate Sodium 1 Tablet 2 TABLET PO (21:40)
[2021-01-31] MEDS: Pravastatin 40 MG Tablet PO (21:40)
[2021-02-01] MEDS: HYDROcodone Bitartrate/Apap 5/325 Tablet PO ×4 (02:22→14:25)
[2021-02-01 02:24] VITALS: BP 103/59; PULSE 61; RESP 18; TEMP 36.6; O2SAT 97
[2021-02-01] MEDS: ALPRAZolam 0.5 MG Tablet 1 MG PO ×2 (06:34→14:25)
[2021-02-01 08:51] VITALS: O2SAT 98
[2021-02-01] MEDS: Multivitamins,Ther W-Minerals Tablet 1 TABLET PO (08:58)
--- NOTE | 2021-02-01 09:05 | CASEMGMT ---
Addendum entered by Oralia Bacon 02/01/21 12:50: SW received call from Halina at [facility] stating she spoke with business office and pre-cert is still pending but states [facility] is continuing to waive pre-certs so they could admit pt today under [place] waiving pre-certs. CLAUDE informed Kyesouleymane that Pt is now stating she may want to return home as she is walking 300ft supervision but this worker will update pt and let Halina know then. SW back in to speak with pt. SW updated pt that she could admit to [facility] now under [place] waiving pre-certs today or pt could discharge home with [facility]. Pt stating she is going home with HHC now. CLAUDE updated RN. SW updated physician. Plan: Home with [facility]HC Addendum entered by Oralia Bacon 02/01/21 12:40: SW back in to speak with pt. SW spoke with pt about if she still feels she needs to go to a fpc or not as pt is walking 300ft supervision with therapy. Pt states no she wants to go home now. SW informed pt that [facility] could be arranged for home PT/OT if pt wants and pt is agreeable to [facility] for PT/OT. Pt states anything to get me home. SW spoke with pt about how well she is doing and pt would likely get denied anyway for SNF. Pt agrees, again states she wants to go home with C. SW informed pt that she will be discharged home today then. CLAUDE updated RN CM on request for [facility] for PT/OT. Plan: Home with HHC Addendum entered by Oralia Bacon 02/01/21 12:09: CLAUDE placed a call to Halina at [facility] and asked if the business office can push on their end to get answer from [facility] regarding pre-cert. Original Note: Social Work Note SW received approval from [facility] for pt to admit to SNF. CLAUDE placed a call to Halina at [facility] and left message that approval has been obtained from [facility], just now waiting for pre-cert from [place]. SW asked for update regarding pre-cert. Plan: [facility] pending pre-cert. Determination from [facility] has been obtained. Oralia Bacon FEATHER CURLING MACHINE OPERATOR, RESEARCH WORKER KITCHEN
[2021-02-01] MEDS: Pantoprazole Sodium 40 MG Tablet PO (10:10)
[2021-02-01] MEDS: Lidocaine 5% Patch 2 PATCH TOPICAL (10:10)
[2021-02-01] MEDS: Sertraline 100 MG Tablet 200 MG PO (10:10)
[2021-02-01 10:14] VITALS: BP 109/69; PULSE 73
[2021-02-01] MEDS: Menthol/Lanolin/Calamine/Znox 113 GM Tube 1 APPLIC TOPICAL (10:14)
[2021-02-01] MEDS: Metoprolol Tartrate 25 MG Tablet PO (10:14)
[2021-02-01 10:16] VITALS: BP 109/69; PULSE 73; RESP 18; TEMP 36.8; O2SAT 98
[2021-02-01] MEDS: Ondansetron 4 MG/2 ML Vial IV (11:29)
[2021-02-01] MEDS: RisperiDONE 1 MG Tablet PO (11:29)
[2021-02-01] MEDS: 0.9% Saline Lock 10 ML Syringe IV (11:29)
--- NOTE | 2021-02-01 12:04 | PCM.PN.HOSP ---
Subjective Subjective Doing well, no issues overnight. Continues to have pain but she did get approval by the [facility] to go to a detention for rehab. Objective Data Objective Data Vital Signs: Vital Signs Temp Pulse Resp BP Pulse Ox 98.3 F 73 18 109/69 98 02/01/21 10:16 02/01/21 10:16 02/01/21 10:16 02/01/21 10:16 02/01/21 10:16 Oxygen Delivery Method Room Air Weight: 94 lb 2.198 oz Body Mass Index (BMI) 15.1 Intake & Output: Intake and Output for Last 24 Hours 01/31/21 02/01/21 02/02/21 03:59 03:59 03:59 Intake Total 400 / 400 1600 / 1600 150 / 150 Balance 400 / 400 1600 / 1600 150 / 150 Medical Nutrition Assessment Dietitian: Malnutrition Criteria Met Start: 01/22/21 14:42 Freq: Status: Active Protocol: Document 01/25/21 14:33 RMA (Rec: 01/25/21 14:33 RMA [id number]) Nutrition Malnutrition Evidence of Malnutrition Exists Yes Malnutrition (severe): Chronic Evidenced By Suboptimal Energy Intake ( Severe),Weight Loss (Severe), Physical Changes (Severe) Clinical Problem Chronic Disease or Condition Related Malnutrition Etiology Severe protein-calorie malnutrition in the context of chronic disease related to inadequate oral intake/poor appetite Signs/Symptoms as evidenced by ~15% wt loss x past 2-4 weeks, BMI 15.1, PO meeting less than 50% estimated nutrition needs, obvious physical signs of muscle and fat wasting in the face, orbitals and clavicle Status Active Problem Recommendation Dietitian Recommendations/Changes Current weight as able. Continue regular diet w/ ONS at meals. Continue 120ml ensure enlive 4 times per day w/ medpass (700 kcal, 40 gm pro). Continue magic cup BID w/ lunch and dinner (580 kcal, 18 gm pro) and 240ml ensure enlive w/ breakfast (350 kcal, 20gm protein). Lab / Micro Data Result Diagrams: 01/30/21 05:59 01/30/21 05:59 Physical Exam Const alert, oriented x3 and no apparent distress General Appearance: cooperative HEENT normocephalic and moist oral mucous membranes Eyes PERRL, EOMs intact bilaterally and conjunctivae normal Neck supple and no JVD Resp normal respiratory effort, no retractions, no use of accessory muscles and clear to auscultation bilaterally Auscultation: Negative for crackles, rales, rhonchi or wheezes Cardio regular rate, regular rhythm, S1 normal heart sound, S2 normal heart sound and no murmurs GI soft to palpation, non-tender and non-distended; Negative for hepatosplenomegaly Extremity no clubbing, cyanosis or edema Skin no rashes or lesions noted Neuro no focal motor deficits and no sensory deficits noted Psych affect normal Appearance: appropriate Assessment & Plan Assessment/Plan (1) Intractable back pain: PLAN: 1. Acute back ache ?Patient has history of history of acute right sacral ala fracture as well as T12/L2 compression fractures. She apparently underwent epidural steroid injection on 01/13 presented with worsening symptoms. Currently managed with Lidoderm patches in addition to [place]. Consult placed to pain management. MRI of the lumbosacral spine ordered for subsequent evaluation -; Patient seen pain is somewhat controlled. MRI obtained the day prior demonstrated 1. Patent canal, no high-grade neurocompression. 2. Normal spinal enhancement without lesions. 3. Acute/subacute sacral insufficiency fracture. 4. Chronic T12, L2 compression fractures. -01/26/2021; patient pain appears to be relatively well controlled -01/27/2021: Pain is fairly well-controlled at this time. We will need to obtain consent through the state given her mental history prior to discharge to a SNF -01/28/2021: Awaiting pre-CERT for discharge to SNF for physical therapy -01/29/2021: Awaiting pre-CERT -01/30/2021: Awaiting pre-CERT -Awaiting pre-CERT -02/01/2021: Still awaiting pre-CERT from insurance however we did get approval from the [facility] to transfer to a detention for rehab 2. Physical deconditioning - Requested for PT OT eval and social problems specialist to assist with discharge planning - 01/26/2021; Patient seen resting Comfortably plan is for patient to be discharged to custodial facility pending insurance approval -01/29/2021: Needs therapy at a SNF, awaiting placement 3. Paroxysmal A. fib/HTN/HLD ?Rate controlled on metoprolol. Not on systemic anticoagulation -Blood pressures controlled, continue with her home medications -Continue with statin 4. Severe protein calorie malnutrition ?As a result of multiple medical comorbidities. Evidences by patient low BMI of 15, decreased muscle weight, decreased appetite. Plan; consultation placed to dietitian for recommendations 5. Tobacco dependence - Counseled on cessation, offered nicotine patch for tobacco cravings 6. GERD ?On PPI 7. Depression with anxiety ?Patient is on respite and at bedtime as well as sertraline daily did continue DVT: Lovenox Charges/Coding Visit Charges Inpatient E&M: 95958 Subs Hosp L2
[2021-02-01 13:02] LABS: Absolute Lymphocyte Count 0.74 X10^3/uL (0.83-4.51); Absolute Neutrophil Count 6.5 X10^3/uL (2.0-7.7); Basophil# 0.02 X10^3/uL; Basophil% 0.2 % (0-1); Eosinophil# 0.07 X10^3/uL; Eosinophils% 0.9 % (0-5); Hematocrit 39.5 % (37-47); Hemoglobin 12.9 g/dL (12.0-15.0); Lymphocyte # 0.74 X10^3/ul (0.83-4.51); Lymphocyte % 9.1 % (19-41); Mean Corp Hgb Conc 32.7 g/dL (32-36); Mean Corpuscular Hgb 29.5 pg (27.0-32.0); Mean Corpuscular Volume 90.2 fL (81-99); Mean Platelet Vol. 11.9 fl (6.2-12.0); Monocyte# 0.67 X10^3/uL; Monocyte% 8.3 % (0-10); NRBC Flagged by Analyzer 0 % (0-5); Neutrophil # 6.53 X10^3/uL (2.7-7.7); Neutrophil % 80.8 % (47-70); Platelet Count 206 K/mm3 (150-450); RBC Distribution Width CV 13.1 % (11.6-14.6); RBC Distribution Width SD 42.4 fl (35.1-43.9); Red Blood Count 4.38 M/mm3 (4.2-5.4); White Blood Count 8.1 K/mm3 (4.4-11.0)
[2021-02-01 13:29] LABS: Anion Gap 6 (5-15); BUN 24 mg/dL (7-18); BUN/Creat Ratio 34.6 RATIO (10-20); Calcium,Total 8.8 mg/dL (8.5-10.1); Chloride 102 mmol/L (98-107); Creatinine, Serum 0.69 mg/dL (0.55-1.02); EST Glomerular Filtration Rate 89 mL/min (>60); Est Glom Filt Rate - Afr Amer 108 mL/min (>60); Estimated Creatinine Clearance 35.29 ml/min; Glucose 112 mg/dL (74-106); Sodium Level 139 mmol/L (136-145)
--- NOTE | 2021-02-01 13:36 | CASEMGMT ---
Addendum entered by Oralia Caldwell 02/01/21 15:57: Called [facility], s/w [facility] and confirmed received the fax. Aware patient should be there shortly as she is at Dr Hess's office for appointment. States they close at 4pm now and will call patient and/or dtr to let them know and see if they can come now to scrap picker walker. VENKATESH Skinner Addendum entered by Oralia Caldwell 02/01/21 15:33: Faxed walker order to [facility] so patient/dtr can scrap picker from office after going to Dr Hess's office. VENKATESH Mata Original Note: RNPARTHA Progress Note: Patient ambulating 300ft with SBA. Patient agreed to go home with PT/OT. In network list provided to patient with medicare star ratings. Patient preference [facility]. Called Lucas at [facility] and aware. Post f/u call- states that patient PCP Dr Hess requires a DC f/u prior to signing off on orders and per lucas will fax over information to sign- cannot give official acceptance as unknown if can get appointment same day of DC today but if so- could SOC Sunday. S/w patient at bedside and states that dtr is on her way now to visit and will tell her the change of plans. States dtr able to take her to Dr Hess's office prior to going home. 1329- Called Dr Hess's office, s/w Gabrielle and states today appointment at 1520 but can arrive whenever she gets here. This keno writer along with Oralia Thomson went to bedside and updated both patient and dtr- both acknowledged and agreeable. 1336- S/w Lucas at [facility]- aware of above and accepts patient with SOC Sunday with VENKATESH Bill
--- NOTE | 2021-02-01 13:49 | PCM.DC ---
Discharge Instructions Diet Discharge Diet: Low fat / Low cholesterol Activity Discharge Activity: Return to Normal Activity Dressing / Incision Call your doctor if you observe: Fever of 101 or Higher, Shortness of breath, Dizziness, Fainting spells, Swelling in the ankles, Chest pain and Increased palpitations (irregular heartbeat) Follow Up Care Test Results: Test results from this visit will be discussed in further detail at your follow-up appointment, if applicable. Discharge Plan Admission Admit Date/Time: 01/21/21 21:56 Attending Provider: Kevyn Luna Primary Care Provider: Matt Hess Chi Consulting Providers: Penny Anguiano Discharge Orders/Prescriptions Prescriptions: Continued sertraline [Zoloft] 100 mg tablet 200 mg PO DAILY RF: 0 metoprolol tartrate 25 mg tablet 25 - 50 mg PO BID RF: 0 pravastatin 40 mg tablet 40 mg PO QHS RF: 0 risperidone [Risperdal] 1 mg tablet 1 mg PO BID RF: 0 alprazolam 0.5 mg tablet 0.5 mg PO TID RF: 0 pantoprazole 40 mg tablet,delayed release (DR/EC) 40 mg PO DAILY RF: 0 multivitamin with minerals 1 EACH tablet 1 each PO DAILY RF: 0 buprenorphine [Butrans] 5 mcg/hour patch weekly 1 patch transdermal Q7D Qty: 4 RF: 0 hydrocodone-acetaminophen 5-325 mg tablet 1 tab PO TID PRN (Reason: Pain) RF: 0 Referrals / Follow Up: Matt Hess Chi, MD [Primary Care Provider] - Within 1 Week Disposition Disposition (needs filled in before D/C Order can be placed): Home Health Service
[2021-02-01 13:51] VITALS: BP 118/64; PULSE 98; RESP 18; TEMP 37.2
--- NOTE | 2021-02-01 13:52 | DS.PCM_ITS ---
Providers Date of Admission: 01/21/21 Primary Care Physician: Dr. Matt Hess MD Consultations 01/23/21 16:05 Consult: Pain Management Routine Consulting Provider: Penny Anguiano Reason for Consult: Acute on chronic back pain EMERGENT Consult: No MD Notified: Yes Date Notified: 01/24/21 Time Notified: 08:51 Method of Notification: office Reason For Visit: INTRACTABLE BACK PAIN Diagnosis Discharge Diagnosis (1) Intractable back pain: Status: Acute Code(s): M54.9 - Dorsalgia, unspecified Medications at Discharge Home Medications metoprolol tartrate 25 mg tablet 25 - 50 mg PO BID 05/27/18 pravastatin 40 mg tablet 40 mg PO QHS 05/27/18 sertraline 100 mg tablet 200 mg PO DAILY tab 05/27/18 alprazolam 0.5 mg tablet 0.5 mg PO TID 06/08/20 pantoprazole 40 mg tablet,delayed release 40 mg PO DAILY 06/08/20 risperidone 1 mg tablet 1 mg PO BID 06/08/20 multivitamin with minerals 1 each PO DAILY 06/29/20 buprenorphine [Butrans] 1 patch TRANSDERMAL Q7D #4 ea 01/19/21 hydrocodone-acetaminophen 1 tab PO TID PRN 01/21/21 Hospital Course Operations None Procedures None Summary of Care Provided Minutes Spent on Discharge: 35 Hospital Course: Per HPI: TRAIC MCCONNELL, is a 70 F with with a significant history of depression; bipolar and atrial fibrillation who presents to the emergency department with 2-week history of progressively worsening lower back pain. She described her pain as sharp stabbing and like a needles pinching her. The pain radiates to her bilateral hips and legs. She reports that about 10 to 11 years ago she had a caudal block with Dr. Newman which gave her relief.. However about a week ago he had had a caudal block with Dr. Anguiano. She does not think that her last caudal block helped her. On the day of presentation she went to the pain management office and was referred to come to the emergency department for an MRI with contrast. She had an MRI with contrast on 01/10/2021 Hospital Course: 1. Acute back ache ?Patient has history of history of acute right sacral ala fracture as well as T12/L2 compression fractures. She apparently underwent epidural steroid injection on 10/07 /2021 presented with worsening symptoms. Currently managed with Lidoderm patches in addition to [place]. Consult placed to pain management. MRI of the lumbosacral spine ordered for subsequent evaluation -; Patient seen pain is somewhat controlled. MRI obtained the day prior demonstrated 1. Patent canal, no high-grade neurocompression. 2. Normal spinal enhancement without lesions. 3. Acute/subacute sacral insufficiency fracture. 4. Chronic T12, L2 compression fractures. -01/26/2021; patient pain appears to be relatively well controlled -01/27/2021: Pain is fairly well-controlled at this time. We will need to obtain consent through the state given her mental history prior to discharge to a SNF -01/28/2021: Awaiting pre-CERT for discharge to SNF for physical therapy -01/29/2021: Awaiting pre-CERT -01/30/2021: Awaiting pre-CERT -Awaiting pre-CERT -02/01/2021: She did receive approval from the [facility] to transfer to a long term for rehab however she has been here for 11 days and has had some improvement with physical therapy. Given her improvement, she and her daughter would like to go home with home health. She will follow up with her PCP in 3 to 5 days for further evaluation as well as follow-up as an outpatient with her pain management physician to help with her chronic back pain. I discussed with her the plan for discharge and she expressed understanding of the risk and benefits of going home and would like to go home. 2. Physical deconditioning - Requested for PT OT eval and social services counselor to assist with discharge planning - 01/26/2021; Patient seen resting Comfortably plan is for patient to be discharged to nursing home facility pending insurance approval -01/29/2021: Needs therapy at a SNF, awaiting placement 3. Paroxysmal A. fib/HTN/HLD ?Rate controlled on metoprolol. Not on systemic anticoagulation -Blood pressures controlled, continue with her home medications -Continue with statin 4. Severe protein calorie malnutrition ?As a result of multiple medical comorbidities. Evidences by patient low BMI of 15, decreased muscle weight, decreased appetite. Plan; consultation placed to dietitian for recommendations 5. Tobacco dependence - Counseled on cessation, offered nicotine patch for tobacco cravings 6. GERD ?On PPI 7. Depression with anxiety ?Patient is on respite and at bedtime as well as sertraline daily did continue Medical Records Data Medical Nutrition Assessment Dietitian: Malnutrition Criteria Met Start: 01/22/21 14:42 Freq: Status: Active Protocol: Document 02/01/21 12:48 RMA (Rec: 02/01/21 12:48 RMA [id number]) Nutrition Malnutrition Evidence of Malnutrition Exists Yes Malnutrition (severe): Chronic Evidenced By Suboptimal Energy Intake ( Severe),Weight Loss (Severe), Physical Changes (Severe) Clinical Problem Chronic Disease or Condition Related Malnutrition Etiology Severe protein-calorie malnutrition in the context of chronic disease related to inadequate oral intake/poor appetite Signs/Symptoms as evidenced by ~15% wt loss x past 2-4 weeks, BMI 15.1, PO meeting less than 50% estimated nutrition needs, obvious physical signs of muscle and fat wasting in the face, orbitals and clavicle Status Active Problem Recommendation Dietitian Recommendations/Changes Current weight as able. Continue Regular diet w/ ONS at meals. Continue 120ml ensure compact 4 times per day w/ medpass. Continue 240ml ensure enlive w / breakfast and magic cup BID w/ lunch and dinner as ordered . Weight / BMI Weight Weight: 94 lb 2.198 oz Body Mass Index (BMI) 15.1 ABG / Lab / Microbiology Data Result Diagrams: 02/01/21 12:48 02/01/21 12:48 Laboratory: Laboratory Results - last 24 hr 02/01/21 12:48: WBC 8.1, RBC 4.38, Hgb 12.9, Hct 39.5, MCV 90.2, MCH 29.5, MCHC 32.7, RDW Std Deviation 42.4, RDW Coeff of Jen 13.1, Plt Count 206, MPV 11.9, Immature Gran % (Auto) 0.700, Neut % (Auto) 80.8 H, Lymph % (Auto) 9.1 L, Randall % (Auto) 8.3, Eos % (Auto) 0.9, Baso % (Auto) 0.2, Absolute Neuts (auto) 6.5, Absolute Lymphs (auto) 0.74 L, Nucleated RBC % 0 02/01/21 12:48: Sodium 139, Potassium 4.0, Chloride 102, Carbon Dioxide 31.0, Anion Gap 6, BUN 24 H, Creatinine 0.69, Estim Creat Clear Calc 35.29, Est GFR (MDRD) Af Amer 108, Est GFR (MDRD) Non-Af 89, BUN/Creatinine Ratio 34.6 H, Glucose 112 H, Calcium 8.8 D/C Instructions Discharge Diet: Low fat / Low cholesterol Call your doctor if you observe: Fever of 101 or Higher, Shortness of breath, Dizziness, Fainting spells, Swelling in the ankles, Chest pain and Increased palpitations (irregular heartbeat) Meaningful Use Info Meaningful Use Diagnoses (Choose all that apply): None applicable Discharge Plan Admission Admit Date/Time: 01/21/21 21:56 Attending Provider: Kevyn Luna Primary Care Provider: Matt Hess Chi Consulting Providers: Penny Anguiano Discharge Orders/Prescriptions Prescriptions: Continued sertraline [Zoloft] 100 mg tablet 200 mg PO DAILY RF: 0 metoprolol tartrate 25 mg tablet 25 - 50 mg PO BID RF: 0 pravastatin 40 mg tablet 40 mg PO QHS RF: 0 risperidone [Risperdal] 1 mg tablet 1 mg PO BID RF: 0 alprazolam 0.5 mg tablet 0.5 mg PO TID RF: 0 pantoprazole 40 mg tablet,delayed release (DR/EC) 40 mg PO DAILY RF: 0 multivitamin with minerals 1 EACH tablet 1 each PO DAILY RF: 0 buprenorphine [Butrans] 5 mcg/hour patch weekly 1 patch transdermal Q7D Qty: 4 RF: 0 hydrocodone-acetaminophen 5-325 mg tablet 1 tab PO TID PRN (Reason: Pain) RF: 0 Referrals / Follow Up: Matt Hess Chi, MD [Primary Care Provider] - Within 1 Week Disposition Disposition (needs filled in before D/C Order can be placed): Home Health Serv ice Charges/Coding Visit Charges OBSV E&M: 73827 Observation care discharge
--- NOTE | 2021-02-01 15:06 | CASEMGMT ---
Addendum entered by Oralia Bacon 02/01/21 15:29: SW did offer to provide pt with private duty list and pt's family denied. Original Note: Social Work Note SW received update that pt and pt's family would like to speak to SW. SW in to speak with pt, pt's daughter Susie and pt's daughter Britany on the phone. Britany had many questions/concerns regarding pt discharging home and questioning why pt is no longer going to SNF. SW explained that physically pt is doing well and pt now wants to discharge home with [facility]. CLAUDE explained that pre-cert is still pending, which is unusual that it is taking a week to hear back from insurance. SW explained that typically pre-cert is obtained within 3 or less days. CLAUDE explained that [facility] was willing to accept pt today under [place] Waiving pre-certs, but cannot guarantee [place] will pay for SNF so [facility] is taking the risk of not getting payment if pt can't pay for SNF. Britany asked what the PT/OT at [facility] is recommending, if they are recommending 5 days worth of therapy or not. CLAUDE informed Britany that this worker can see if PT is available to discuss PT/OT recommendations with pt. Susie states she will be moving in with pt and asked about getting reimbursed through Medicaid to provide assistance to pt through the program [facility]. CLAUDE informed Susie that this worker is not aware of that program, encouraged Susie to call [facility] as that is who approves Medicaid to ask about that program through Medicaid. Susie states they will probably ask for a letter of recommendation for the program. CLAUDE encouraged Susie to speak with pt's PCP Dr. Hess regarding letter of recommendation for the program. Britany and Siobhan with many questions, SW answered questions. CLAUDE asked pt what she wanted to do and Britany interrupts stating well it just depends on what therapy states. CLAUDE found PT, asked PT to speak with pt, Susie and Britany. SW and PT in to pt's room. Pt answered pt and pt's family questions, recommend 2x a week of therapy. PT spoke with pt and pt's family about DME. SW informed pt and pt's family that walker script can be sent to [facility] but shower chair will be private pay and [facility] shower chair. CLAUDE spoke with pt and pt's family about [facility] as they are close to the hospital and they can picking machine operator walker when they are done with pt's PCP appointment. Pt and pt's family agreeable to [facility]. After much discussion, pt to discharge home with [facility] and Susie murdocking with pt. CLAUDE updated RN CM on request for walker through [employer]. CLAUDE placed a call to Halina at [facility] stating pt went home. CLAUDE placed a call to [facility] and left message that pt went home instead of SNF, approval for SNF is not needed at this time. Plan: Home with [facility] Oralia Bacon MARKETING COMPLIANCE MANAGER, ENDOSCOPY SUPPORT SPECIALIST
== END 2021-02-01 15:15 | disposition home health service (06) ==
LOC: ED 21:32 → MS3 22:10
PROVIDERS: Internal Medicine; Admitting Provider Hospitalist; Emergency Provider Emergency Medicine; PCP Family Medicine Geriatric Medicine; Visit Provider Family Medicine
DX: M48.55XA Collapsed vertebra, not elsewhere classified, thoracolumbar region, initial encounter for fracture (principal); G89.29 Other chronic pain; M51.36 Other intervertebral disc degeneration, lumbar region; F31.9 Bipolar disorder, unspecified; F13.20 Sedative, hypnotic or anxiolytic dependence, uncomplicated; J43.9 Emphysema, unspecified; F17.210 Nicotine dependence, cigarettes, uncomplicated; I48.0 Paroxysmal atrial fibrillation; E78.5 Hyperlipidemia, unspecified; D72.829 Elevated white blood cell count, unspecified; F41.9 Anxiety disorder, unspecified; E43 Unspecified severe protein-calorie malnutrition; Z79.899 Other long term (current) drug therapy; Z68.1 Body mass index [BMI] 19.9 or less, adult; K21.9 Gastro-esophageal reflux disease without esophagitis; I10 Essential (primary) hypertension
CPT/HCPCS: 36415; 72158; 80048; 80053; 83735; 85025; 85027; 96374; 96375; 96376; 97110; 97116; 97162; 97166; 97530; 97535; 97802; 97803; 99218; 99284; 99406; A9575; A4216; G0378; J2405

== ENCOUNTER → 2021-03-24 | Outpatient (CLI) | payer MEDICARE, MEDICAID, SELFPAY | END | disposition home or self-care (01) | LOC: LABSPEC 16:45 | PROVIDERS: PCP Family Medicine Geriatric Medicine; Visit Provider Family Medicine Geriatric Medicine | DX: N39.0 Urinary tract infection, site not specified (principal) | CPT/HCPCS: 87077; 87086; 87088; 87186 ==

== ENCOUNTER 2021-04-26 12:04 | Outpatient (CLI) | payer MEDICARE, MEDICAID, SELFPAY | END 2021-04-26 23:59 | disposition short-term general hospital (02) | PROVIDERS: PCP Family Medicine Geriatric Medicine; Referring Provider Family Medicine Geriatric Medicine; Visit Provider Family Medicine Geriatric Medicine | DX: R68.83 Chills (without fever) (principal) | CPT/HCPCS: 87635; C9803; U0003; U0005 ==

== ENCOUNTER 2021-05-25 15:34 | Outpatient (CLI) | payer MEDICARE, MEDICAID, SELFPAY ==
[2021-05-25 17:22] LABS: Absolute Lymphocyte Count 1.31 X10^3/uL (0.83-4.51); Absolute Neutrophil Count 4.2 X10^3/uL (2.0-7.7); Basophil# 0.03 X10^3/uL; Basophil% 0.5 % (0-1); Eosinophil# 0.06 X10^3/uL; Hematocrit 42.4 % (37-47); Hemoglobin 14.1 g/dL (12.0-15.0); Lymphocyte # 1.31 X10^3/ul (0.83-4.51); Lymphocyte % 20.8 % (19-41); Mean Corp Hgb Conc 33.3 g/dL (32-36); Mean Corpuscular Hgb 30.5 pg (27.0-32.0); Mean Corpuscular Volume 91.6 fL (81-99); Monocyte# 0.68 X10^3/uL; Monocyte% 10.8 % (0-10); NRBC Flagged by Analyzer 0 % (0-5); Neutrophil # 4.18 X10^3/uL (2.7-7.7); Neutrophil % 66.1 % (47-70); POSITIVE COUNT YES; Platelet Count 149 K/mm3 (150-450); RBC Distribution Width CV 12.3 % (11.6-14.6); RBC Distribution Width SD 42.1 fl (35.1-43.9); Red Blood Count 4.63 M/mm3 (4.2-5.4); White Blood Count 6.3 K/mm3 (4.4-11.0)
[2021-05-25 17:25] LABS: Anion Gap 3 (5-15); BUN 11 mg/dL (7-18); BUN/Creat Ratio 18.6 RATIO (10-20); Calcium,Total 8.6 mg/dL (8.5-10.1); Chloride 107 mmol/L (98-107); Creatinine, Serum 0.59 mg/dL (0.55-1.02); EST Glomerular Filtration Rate 107 mL/min (>60); Est Glom Filt Rate - Afr Amer 129 mL/min (>60); Glucose 93 mg/dL (74-106); Potassium 4.2 mmol/L (3.5-5.1); Sodium Level 140 mmol/L (136-145)
[2021-05-25 17:47] LABS: D-Dimer Quantitative (DVT/PE) 1.54 FEU/ug/m (0.27-0.49)
[2021-05-25 17:50] LABS: Differential Comment SCANNED; Differential Indicated SCAN CRITERIA MET
== END 2021-05-25 23:59 | disposition home or self-care (01) ==
LOC: POLAB3 15:36
PROVIDERS: PCP Family Medicine Geriatric Medicine; Visit Provider Family Medicine Geriatric Medicine
DX: I82.401 Acute embolism and thrombosis of unspecified deep veins of right lower extremity (principal)
CPT/HCPCS: 36415; 80048; 85025; 85379

== ENCOUNTER 2021-05-25 15:35 | Outpatient (CLI) | payer MEDICARE, MEDICAID, SELFPAY ==
--- NOTE | 2021-05-25 15:38 | VDLE_ITS ---
Reason For Study: EDSEMA RIGHT GSV is normal. RT SFJ is DILATED and PARTIALLY noncompressible with echoes consistent with acute DVT. RT PROF V is DILATED and NONCOMPRESSIBE throughout with echoes consistent with acute DVT. RT PTV is DILATED and NONCOMPRESSIBLE distally with the reaminder of the vein compressing normally. RT PEROV is DILATED and NONCOMPRESSIBLE throughout. RT FV is compressible throughout. Procedure Exam performed in department. A preliminary report was called and/or faxed to DR HESS. VL/Venous Duplex US, Unilateral Interpretation Summary Acute deep venous thrombosis right common femoral, profundofemoral, posterior t ibial, and peroneal veins Patent and compressible right great saphenous vein Ordering Physician: Matt Hess Referring Physician: Matt Hess Chi Performed By: Yelena Lazo, JIMMY, RVT
== END 2021-05-25 23:59 | disposition home or self-care (01) ==
PROVIDERS: PCP Family Medicine Geriatric Medicine; Referring Provider Family Medicine Geriatric Medicine; Visit Provider Family Medicine Geriatric Medicine
DX: R60.9 Edema, unspecified (principal); I82.411 Acute embolism and thrombosis of right femoral vein; I82.441 Acute embolism and thrombosis of right tibial vein; I82.451 Acute embolism and thrombosis of right peroneal vein
CPT/HCPCS: 36415; 80048; 85025; 85379; 93971

== ENCOUNTER 2021-06-06 12:51 | Outpatient (CLI) | payer MEDICARE, MEDICAID, SELFPAY ==
[2021-06-06 17:49] LABS: ALB/GLOB Ratio 0.9 RATIO (0.9-2.4); AST(SGOT) 12 U/L (15-37); Alanine Aminotransfer ALT/SGPT 18 U/L (13-56); Alkaline Phosphatase 73 U/L (45-117); Anion Gap 2 (5-15); BUN 14 mg/dL (7-18); BUN/Creat Ratio 20.1 RATIO (10-20); Chloride 111 mmol/L (98-107); EST Glomerular Filtration Rate 88 mL/min (>60); Est Glom Filt Rate - Afr Amer 107 mL/min (>60); Globulin 3.4 g/dL (2.2-4.2); Glucose 120 mg/dL (74-106); Potassium 4.1 mmol/L (3.5-5.1); Protein, Total 6.4 g/dL (6.4-8.2); Sodium Level 141 mmol/L (136-145); Thyroid Stim Hormone (TSH) 0.71 uIU/mL (0.358-3.74)
[2021-06-06 18:12] LABS: Absolute Lymphocyte Count 1.18 X10^3/uL (0.83-4.51); Absolute Neutrophil Count 6.1 X10^3/uL (2.0-7.7); Basophil# 0.04 X10^3/uL; Basophil% 0.5 % (0-1); Eosinophil# 0.05 X10^3/uL; Eosinophils% 0.6 % (0-5); Hematocrit 45.9 % (37-47); Hemoglobin 15.4 g/dL (12.0-15.0); Lymphocyte # 1.18 X10^3/ul (0.83-4.51); Lymphocyte % 14.3 % (19-41); Mean Corp Hgb Conc 33.6 g/dL (32-36); Mean Corpuscular Hgb 30.7 pg (27.0-32.0); Mean Corpuscular Volume 91.4 fL (81-99); Mean Platelet Vol. 10.7 fl (6.2-12.0); Monocyte# 0.79 X10^3/uL; Monocyte% 9.6 % (0-10); NRBC Flagged by Analyzer 0 % (0-5); Neutrophil # 6.13 X10^3/uL (2.7-7.7); Neutrophil % 74.3 % (47-70); POSITIVE COUNT YES; RBC Distribution Width CV 12.6 % (11.6-14.6); RBC Distribution Width SD 42.4 fl (35.1-43.9); Red Blood Count 5.02 M/mm3 (4.2-5.4); White Blood Count 8.3 K/mm3 (4.4-11.0)
[2021-06-06 18:15] LABS: Vitamin D,25 Hydroxy 31.5 ng/mL
[2021-06-06 18:45] LABS: Differential Indicated SCAN CRITERIA MET
[2021-06-06 18:46] LABS: Differential Comment SCANNED
== END 2021-06-06 23:59 | disposition home or self-care (01) ==
LOC: POLAB3 12:52
PROVIDERS: PCP Family Medicine Geriatric Medicine; Visit Provider Family Medicine Geriatric Medicine
DX: R53.83 Other fatigue (principal); E55.9 Vitamin D deficiency, unspecified
CPT/HCPCS: 36415; 80053; 82306; 84443; 85025

== ENCOUNTER 2021-06-15 16:00 | Inpatient (IN) | payer MEDICARE, MEDICAID, SELFPAY ==
[2021-06-15] VITALS (8 sets, daily range): BP systolic 79–106; BP diastolic 53–61; PULSE 72–78; RESP 16–18; TEMP 36.7–36.8; O2SAT 96–98; BMI 19.2; BMI 19.5
--- NOTE | 2021-06-15 16:20 | EX.ED.DYSGE1 ---
HPI History of Present Illness Chief Complaint: Wound Narrative Narrative: The patient complains of an injury to her right calf that happened Sunday when a car door slammed shut on it, she developed a large contused area that area begun to use bruise sloughed skin today she has a DVT in that leg was on Xarelto saw her primary care physician today and he sent her right to the emergency department for admission. She has no history of diabetes or wound infections or MRSA. She has hypertension other health conditions are stable, she does not know how she got the DVT she also reports she has a history of chronic lumbar spine compression fractures that are stable. No numbness weakness paresthesias no nausea or vomiting her only complaint is the pain and bleeding from the right calf swelling contused area [facility] Medical History (Updated 06/10/21 @ 17:[address] Riley Friend, DO) A-fib Abnormal chest CT Anxiety Back pain Benzodiazepine dependence Bipolar disorder Chronic pain Constipation Depression Emphysema lung Fatigue HLD (hyperlipidemia) Lung mass Smoker Vitamin D deficiency Home Medications metoprolol tartrate 25 mg tablet 25 - 50 mg PO BID 05/27/18 [History Last Taken 01/10/21] pravastatin 40 mg tablet 40 mg PO QHS 05/27/18 [History Last Taken 01/09/21] sertraline 100 mg tablet 200 mg PO DAILY tab 05/27/18 [History Last Taken 01/10/21] alprazolam 0.5 mg tablet 0.5 mg PO TID 06/08/20 [History Last Taken 01/10/21] pantoprazole 40 mg tablet,delayed release 40 mg PO DAILY 06/08/20 [History Last Taken 01/09/21] risperidone 1 mg tablet 1 mg PO BID 06/08/20 [History Last Taken 01/10/21] multivitamin with minerals 1 each PO DAILY 06/29/20 [History Last Taken 01/09/21] buprenorphine [Butrans] 1 patch TRANSDERMAL Q7D #4 ea 01/19/21 [Rx Last Taken Unknown] hydrocodone-acetaminophen 1 tab PO TID PRN 01/21/21 [History Last Taken Unknown] Allergy/AdvReac Type Severity Reaction Status Date / Time bee venom protein (honey bee) Allergy Severe Anaphylaxis Verified 06/15/21 16:01 thiothixene AdvReac Unknown Unknown Verified 03/09/22 16:01 Family History Other CVA (cerebral vascular accident) Dementia Surgical History History of D&C History of tonsillectomy Social History Smoking Status: Current every day smoker tobacco type: cigarettes second hand exposure: No alcohol intake: never substance use type: does not use caffeine: Yes ROS ROS ED Musculoskeletal Musculoskeletal: Reports other Details: She has an extensive contusion to the right calf see the H&P EXAM Physical Exam Narrative Exam Narrative: Head neck chest abdomen unremarkable awake alert, the lower extremities right she has an extensive contused area involving the right calf muscle is entire posterior calf, there is been some skin sloughing black eschar is covering the skin that has sloughed, neurovascular function of the feet appear unremarkable she has intact sensation she can move her ankle and her toes, there is no signs of crepitance or subcu air Const Vital Signs: 06/15/21 16:01 Temperature 98.2 F Temperature Source Oral Pulse Rate 72 Respiratory Rate 18 Blood Pressure 79/57 L Blood Pressure Mean 64 Pulse Ox 97 Oxygen Delivery Method Room Air MDM MDM MDM Narrative Medical decision making narrative: She has extensive contusion with likely surrounding cellulitis quite a bit of pain ED evaluation screening labs IV antibiotics x-ray will discuss with hospitalist for admission Discharge Plan Triage Chief Complaint: Wound ED Provider: Louisa Watkins Dx/Rx/DC Orders Prescriptions: No Action sertraline [Zoloft] 100 mg tablet 200 mg PO DAILY RF: 0 metoprolol tartrate 25 mg tablet 25 - 50 mg PO BID RF: 0 pravastatin 40 mg tablet 40 mg PO QHS RF: 0 risperidone [Risperdal] 1 mg tablet 1 mg PO BID RF: 0 alprazolam 0.5 mg tablet 0.5 mg PO TID RF: 0 pantoprazole 40 mg tablet,delayed release (DR/EC) 40 mg PO DAILY RF: 0 multivitamin with minerals 1 EACH tablet 1 each PO DAILY RF: 0 buprenorphine [Butrans] 5 mcg/hour patch weekly 1 patch transdermal Q7D Qty: 4 RF: 0 hydrocodone-acetaminophen 5-325 mg tablet 1 tab PO TID PRN (Reason: Pain) RF: 0 Primary Care Provider: Matt Hess Chi
[2021-06-15] MEDS: Ondansetron 4 MG/2 ML Vial IV (16:33)
[2021-06-15] MEDS: Morphine 4 MG/ML Syringe IV (16:33)
--- NOTE | 2021-06-15 16:38 | RAD_ITS ---
STUDY: X-RAY - RIGHT TIBIA AND FIBULA REASON FOR EXAM: Female, 70 years old. trauma TECHNIQUE: 2 view(s) of the tibia and fibula were obtained. COMPARISON: None. FINDINGS: Normal visualized tibia. Normal visualized fibula. Posterior soft tissue swelling. RAD/Tibia & Fibula 2 Views IMPRESSION: No acute fracture or dislocation. Posterior soft tissue swelling. Electronically Signed: Crispin Gaviria MD at 16:57 EST ,
[2021-06-15 16:49] LABS: Absolute Neutrophil Count 5.9 X10^3/uL (2.0-7.7); Basophil# 0.03 X10^3/uL; Basophil% 0.3 % (0-1); Eosinophil# 0.03 X10^3/uL; Eosinophils% 0.3 % (0-5); Hematocrit 31.8 % (37-47); Hemoglobin 10.6 g/dL (12.0-15.0); Lymphocyte % 15.1 % (19-41); Mean Corp Hgb Conc 33.3 g/dL (32-36); Mean Corpuscular Hgb 30.7 pg (27.0-32.0); Mean Corpuscular Volume 92.2 fL (81-99); Mean Platelet Vol. 12.8 fl (6.2-12.0); Monocyte# 1.28 X10^3/uL; Monocyte% 14.9 % (0-10); NRBC Flagged by Analyzer 0 % (0-5); Neutrophil % 68.7 % (47-70); Platelet Count 191 K/mm3 (150-450); RBC Distribution Width CV 12.7 % (11.6-14.6); RBC Distribution Width SD 42.8 fl (35.1-43.9); Red Blood Count 3.45 M/mm3 (4.2-5.4); White Blood Count 8.6 K/mm3 (4.4-11.0)
[2021-06-15 17:21] LABS: Anion Gap 5 (5-15); BUN 13 mg/dL (7-18); BUN/Creat Ratio 22.3 RATIO (10-20); Calcium,Total 8.4 mg/dL (8.5-10.1); Chloride 105 mmol/L (98-107); Creatinine, Serum 0.58 mg/dL (0.55-1.02); EST Glomerular Filtration Rate 108 mL/min (>60); Est Glom Filt Rate - Afr Amer 131 mL/min (>60); Estimated Creatinine Clearance 41.98 ml/min; Glucose 117 mg/dL (74-106); Potassium 3.7 mmol/L (3.5-5.1); Sodium Level 139 mmol/L (136-145)
[2021-06-15 17:29] LABS: Lactic Acid 1.1 mmol/L (0.4-1.9)
[2021-06-15 17:33] LABS: CPK Total, Creatine Kinase 117 U/L (26-192)
--- NOTE | 2021-06-15 17:50 | HP.PCM.HOS_ITS ---
HPI - General General Date of Admission: 06/15/21 HPI Narrative TRACI MCCONNELL, is a 70 F with a PMH as outlined who presents via the ED on 06/15/2021 with a complaint of a wound on her right calf as a result of a car door slamming on her RLE a few days prior to admissin. She developed a large painful area of contusion on her right calf. THe skin started sloughing off on that area. She went to see her PCP today. She was diagnosed with a DVT in the RLE 2 weeks ago and has been on xarelto. She denied any fever, chills, shortness of breath, or any other symptoms. Review of systems was otherwise negative. She went to see her PCp today and she was sent to the ED due to concerns about infection and the hematoma of the RLE Vitals in the ED were BP of 106/61, MN of 72, RR of 18 and temp of 98.2F. She was saturating at 97% on room air. CBC showed Hb of 10.6 with wbc of 8.6, platelets of 191. BMP was essentially unremarkable. Xray of the RLE tibia and fibula showed no acute fracture or dislocation and showed posterior soft tissue swelling. SHe is being admitted to be managed for traumatic hematoma of RLE. [facility] Medical History (Updated 06/15/21 @ 19:56 by Salvador Aviles) A-fib Abnormal chest CT Anxiety Back pain Benzodiazepine dependence Bipolar disorder Chronic pain Constipation Depression DVT (deep venous thrombosis) Emphysema lung Fatigue Former smoker History of stress test HLD (hyperlipidemia) Lung mass Osteoarthritis Vitamin D deficiency Home Medications metoprolol tartrate 25 mg tablet 25 - 50 mg PO BID 05/27/18 [History Last Taken 06/15/21] sertraline 100 mg tablet 200 mg PO DAILY tab 05/27/18 [History Last Taken 06/15/21] alprazolam 0.5 mg tablet 0.25 mg PO TID 06/08/20 [History Last Taken 06/15/21] pantoprazole 40 mg tablet,delayed release 40 mg PO DAILY 06/08/20 [History Last Taken 06/15/21] risperidone 1 mg tablet 1 mg PO BID 06/08/20 [History Last Taken 06/15/21] multivitamin with minerals 1 each PO DAILY 06/29/20 [History Last Taken 06/15/21] pregabalin 75 mg PO BID 06/15/21 [History Last Taken 06/15/21] rivaroxaban [Xarelto] 20 mg PO BID 06/15/21 [History Last Taken 06/15/21] rosuvastatin 10 mg PO QHS 06/15/21 [History Last Taken 06/14/21] sennosides-docusate sodium [Stimulant Laxative Plus] 2 tab PO BID PRN PRN 06/15/21 [History Last Taken 06/15/21] Allergy/AdvReac Type Severity Reaction Status Date / Time bee venom protein (honey bee) Allergy Severe Anaphylaxis Verified 06/15/21 16:01 thiothixene AdvReac Unknown Unknown Verified 06/15/21 16:01 Family History Other CVA (cerebral vascular accident) Dementia Surgical History (Updated 06/15/21 @ 19:56 by Salvador Aviles) History of back surgery History of D&C History of tonsillectomy Social History Smoking Status: Former smoker second hand exposure: No alcohol intake: never substance use type: does not use caffeine: Yes ROS Constitutional Constitutional: Denies anorexia, chills, fatigue, fever(s) or weakness Eyes Eyes: Denies change in vision ENT HEENT: Denies abnormal hearing, headache(s) or nasal congestion Cardiovascular Cardiovascular: Denies chest pain, dyspnea on exertion, edema, lightheadedness, orthopnea, palpitations, paroxysmal nocturnal dyspnea, rapid heart rate or syncope Respiratory/Chest Respiratory/Chest: Denies cough or dyspnea Gastrointestinal Gastrointestinal: Denies abdominal pain, constipation, diarrhea, melena, nausea or vomiting Genitourinary Genitourinary: Denies burning urination, dysuria, hematuria or nocturia Musculoskeletal Musculoskeletal: Reports other Details: RLE pain and swelling ; Denies back pain, joint pain or joint swelling Neurologic Neurologic: Denies confusion, dizziness, focal weakness, headache(s), numbness, seizures or syncope Psychiatric Psychiatric: Denies anxiety or depression Endocrine Endocrinology: Denies change in body appearance Vital Signs Vital Signs Vital Signs: 06/15/21 16:01 06/15/21 16:40 06/15/21 17:23 Temperature 98.2 F 98.2 F Temperature Source Oral Oral Pulse Rate 72 72 Respiratory Rate 18 18 Blood Pressure 79/57 L 106/61 106/61 Blood Pressure Mean 64 76 76 Pulse Ox 97 97 Oxygen Delivery Method Room Air Room Air Weight Weight: 112 lb Body Mass Index (BMI) 19.2 Physical Exam Const alert, oriented x3 and healthy appearing General Appearance: cooperative HEENT normocephalic, head/scalp atraumatic, hearing grossly normal bilaterally and moist oral mucous membranes Eyes PERRL, EOMs intact bilaterally and conjunctivae normal Neck no lymphadenopathy, supple and no JVD Resp normal respiratory effort, no retractions, no use of accessory muscles and clear to auscultation bilaterally Cardio regular rate, regular rhythm, S1 normal heart sound, S2 normal heart sound and no murmurs GI normal to inspection, nondistended, normoactive bowel sounds, soft to palpation, non-tender and non-distended Extremity Extremity Narrative: RLE has large hematoma at calf; no obvious bleeding. Mild erythema of RLE, tender to touch. DP and PT pulses palpable Peripheral Pulses: Yes pulses 2+ throughout Skin Skin Narrative: as under extremity Neuro oriented x3, CN's II-XII intact bilaterally and moves all extremities Sensorium / Orientation: awake and alert Psych affect normal Results Lab / Micro Data Result Diagrams: 06/16/21 05:34 06/16/21 05:34 Labs: Laboratory Results - last 24 hr 06/15/21 16:35: WBC 8.6, RBC 3.45 L, Hgb 10.6 L, Hct 31.8 L, MCV 92.2, MCH 30.7, MCHC 33.3, RDW Std Deviation 42.8, RDW Coeff of Jen 12.7, Plt Count 191, MPV 12.8 H, Immature Gran % (Auto) 0.700, Neut % (Auto) 68.7, Lymph % (Auto) 15.1 L, [place] % (Auto) 14.9 H, Eos % (Auto) 0.3, Baso % (Auto) 0.3, Absolute Neuts (auto) 5.9, Absolute Lymphs (auto) 1.30, Nucleated RBC % 0 06/15/21 16:35: Sodium 139, Potassium 3.7, Chloride 105, Carbon Dioxide 29.0, Anion Gap 5, BUN 13, Creatinine 0.58, Estim Creat Clear Calc 41.98, Est GFR (MDRD) Af Amer 131, Est GFR (MDRD) Non-Af 108, BUN/Creatinine Ratio 22.3 H, Glucose 117 H, Calcium 8.4 L 06/15/21 16:35: Lactic Acid 1.1 06/15/21 16:35: Total Creatine Kinase 117 Radiology Impression Tibia/Fibula X-Ray 06/15/21 16:38 IMPRESSION: No acute fracture or dislocation. Posterior soft tissue swelling. Electronically Signed: Crispin Gaviria MD at 16:57 EST , Assessment & Plan Assessment/Plan (1) Cellulitis: PLAN: #Hematoma of the RLE * due to a traumatic injury with car door slamming on her leg and patient being on xarelto * I do not think the patient has overt cellulitis and think her RLE swelling and redness is all due to hematoma * xray showed RLE posterior soft tissue swelling * Hb is 10.6, was 15.4 on 05/17/2021, and i THink this is likely due to the hematoma * will consult plastic surgery- Dr Gaviria informed verbally by phone * hold xarelto * PT/OT consult. Fall precautions * will cover with IV zosyn for now due to concern about infection of the hematoma and as she will likely be going for surgery tomorrow * #Hypertension: on metoprolol #History of DVT in RLE * recently diagnosed with DVT of RLE in May 2021 * hold xarelto due to the hematoma * #Hyperlipidemia: on statin. #Depression and Bipolar disorder: on sertraline and xanax as well as risperdal DVT prophylaxis: SCDs Code status: full code * Patient counseled extensively about different types of CODE STATUS including full code, DNR CCA and DNR CCA. Patient elects to be full code. * Total mtnf-oa-lbdn time 16 minutes. Charges/Coding Visit Charges Inpatient E&M: 48366 Init Hosp L3 Procedures Hospitalists Procedures: 79628 Advncd Care Plan 30 Min
--- NOTE | 2021-06-15 17:58 | NURSING ---
DR JORDYN DAMIAN
--- NOTE | 2021-06-15 18:09 | NURSING ---
MED SURG KORAM CELLULITIS INCOMPETENT CONTUSION RT LOWER LEG
--- NOTE | 2021-06-15 18:30 | CASEMGMT ---
QUOC CHAVIS Assessment: RN CM to room to meet with patient for initial transition planning/care coordination assessment. QUOC CHAVIS introduced self and role at [facility]. Patient voices understanding and consents to assessment at this time. No visitors present at bedside. Patient is alert and oriented and answers all questions appropriately, sitting up on ER cart drinking coffee. Care providers, pharmacy, and demographics verified/updated at this time. Admitting Dx: traumatic hematoma of RLE PCP: Deshawn Specialists: psychiatrist Dr. Douglas Albrecht Preferred Pharmacy: [facility] Insurance: [employer] [facility] [employer] Prescription Benefit: yes Living Will/HPOA: Patient states she does not have a living will. HPOA is daughter Britany Sharp. LNOK: Daughter Britany Sharp and brother Leon Dick Living Arrangements: Patient lives alone in two story house with one step to enter the home. Patient states bed and bathroom available on first floor of home. Patient states needs assistance with bathing/dressing and currently working with [facility] at [facility] on [employer] to obtain services/resources. Patient is active with [facility] for transportation and [id number]. Patient's brother assists with grocery shopping. Patient typically ambulates with the use of a cane. Smoking/ETOH: Former smoker (quit 6 months ago), denies ETOH use Transportation: Patient does not drive. Transportation provided through [facility] and patient's brother. Patient denies transportation concerns. DME/HHC/SNF: Patient has a cane, walker, shower chair, and medical alert available in the home. Previous HHC through [facility] in January 2021. Denies previous SNF stays. Patient diagnosed with DVT approximately 2 weeks prior to admission and Rx Xarelto. Patient has no concerns with going home at time of discharge and is interested in HHC. CM to follow for any discharge planning/needs. Patient voices no concerns/needs at this time. Advised patient to ask for CM if any questions/concerns/needs arise. Voices understanding. Plan: home with HHC
[2021-06-15] MEDS: oxyCODONE 5 MG Tablet 10 MG PO (19:59)
[2021-06-15] MEDS: 0.9% Saline Lock 10 ML Syringe IV (19:59)
[2021-06-15] MEDS: 0.9% Normal Saline 1,000 ML 125 ML IV (19:59)
[2021-06-15] MEDS: RisperiDONE 1 MG Tablet PO (21:02)
[2021-06-15] MEDS: Piperacil/Tazobactam 3.375 GM/50 ML ML IV (21:02)
[2021-06-15] MEDS: Metoprolol Tartrate 25 MG Tablet PO (21:02)
[2021-06-15] MEDS: ALPRAZolam 0.5 MG Tablet PO (21:06)
[2021-06-15] MEDS: Pregabalin 75 MG Capsule PO (23:22)
[2021-06-16] VITALS (22 sets, daily range): BP systolic 77–147; BP diastolic 40–83; PULSE 72–117; RESP 16–18; TEMP 36.6–38.7; O2SAT 90–100; BMI 19.5
--- NOTE | 2021-06-16 | THRO_PTH ---
PATIENT: TRACI MCCONNELL LOC: MS3 U#:[id number] AGE/SX: 70/F ROOM: [facility] RE06/15/[address]: Dr. Noble Acevedo MD : 1950 BED: 1 DIS: 06/17/2021 SPEC #: [id number] RECD: 06/17/21 07:01 STATUS: SRIRAM BOSWELL #: [id number] HYACINTH: 06/16/21 00:[address]: Dada Gaviria DEPT: SURGICAL PATHOLOGY RECD BY: Gilles Swanson ENTERED: 06/17/21 10:07 SP TYPE: THROMBUS OTHR DR: MD Dr. Gem Hensley MD Dr. Prakash Chand, MD Dr. Tai Chi Kwok, MD Tissues: BLOOD CLOT, NOS Procedures: Surgery Specimen Level III Comments: @ Ordering doctor for SUIII edited from to @ by GEE at 06/17/21 1357 @ Submitting doctor edited from to @ by LUISOD at 06/17/21 1357 HEADER OPERATION: Incision, drainage hematoma, right posterior leg PRE-OP DIAGNOSIS: Hematoma right posterior lower extremity TISSUE SUBMITTED: Soft tissue right lower extremity MICROSCOPIC DIAGNOSIS Right lower extremity soft tissue: Pieces of skin with underlying tissue with reactive changes and hemorrhage and blood clots, clinically hematoma right posterior lower extremity. ANJU:waylon 06/20/2021 MICROSCOPIC DESCRIPTION Slides are reviewed. GROSS DESCRIPTION Received in fixative is one container labeled with the patient's name and designated soft tissue right lower extremity. The specimen consists of three variable sized pieces of billingsley-brown skin measuring in aggregate 17 x 8 x 2 cm. Also present are multiple blood clots measuring in aggregate 12 x 9 x 3 cm. The skin surface is congested. The portion of skin also shows hemorrhagic surfaces. No skin lesion is identified. Field Service Rep sections are submitted in one cassette. / ANJU:waylon 06/17/2021 TC:5 CPT: 44413
[2021-06-16] MEDS: 0.9% Normal Saline 1,000 ML 125 ML IV (03:42)
[2021-06-16 03:58] LABS: Hematocrit 26.3 % (37-47); Hemoglobin 8.6 g/dL (12.0-15.0)
--- NOTE | 2021-06-16 05:19 | PCM.HOSP.N ---
Hospitalist Note Patient with lowered BP. Repeat Hgb obtained and decreased further. Will administer NS bolus and will request PRBC administration given symptomatic anemia. Planned OR potentially this AM per discussion with nursing.
[2021-06-16] MEDS: Piperacil/Tazobactam 3.375 GM/50 ML ML IV ×3 (05:30→22:25)
--- NOTE | 2021-06-16 06:00 | EKG12_ITS ---
Test Reason : PRE-OP Blood Pressure : / mmHG Vent. Rate : 072 BPM Atrial Rate : 072 BPM P-R Int : 096 ms QRS Dur : 080 ms QT Int : 392 ms P-R-T Axes : 000 036 023 degrees QTc Int : 429 ms Sinus rhythm with short AL with Premature atrial complexes Otherwise normal ECG When compared with ECG of 12-JAN-2021 03:54, Premature atrial complexes are now Present Nonspecific T wave abnormality now evident in Inferior leads Confirmed by SISSY OLVERA, FLIP ([id number]), newspaper editor SRINIVAS ISRAEL ([id number]) on 06/17/2021 7:52:54 AM Referred By: SAMINA Confirmed By:FLIP SHEEHAN MD
[2021-06-16 06:19] LABS: Absolute Neutrophil Count 4.6 X10^3/uL (2.0-7.7); Basophil# 0.03 X10^3/uL; Basophil% 0.5 % (0-1); Eosinophil# 0.03 X10^3/uL; Eosinophils% 0.5 % (0-5); Hematocrit 25.2 % (37-47); Hemoglobin 8.1 g/dL (12.0-15.0); Mean Corp Hgb Conc 32.1 g/dL (32-36); Mean Corpuscular Hgb 30.5 pg (27.0-32.0); Mean Corpuscular Volume 94.7 fL (81-99); Mean Platelet Vol. 11.8 fl (6.2-12.0); Monocyte# 0.83 X10^3/uL; Monocyte% 12.9 % (0-10); NRBC Flagged by Analyzer 0 % (0-5); Neutrophil # 4.59 X10^3/uL (2.7-7.7); Neutrophil % 71.6 % (47-70); POSITIVE COUNT YES; Platelet Count 125 K/mm3 (150-450); RBC Distribution Width CV 12.9 % (11.6-14.6); RBC Distribution Width SD 44.1 fl (35.1-43.9); Red Blood Count 2.66 M/mm3 (4.2-5.4); White Blood Count 6.4 K/mm3 (4.4-11.0)
[2021-06-16 06:20] LABS: Differential Indicated SCAN CRITERIA MET
[2021-06-16 06:30] LABS: Platelet Estimate SLT DEC (ADEQ)
[2021-06-16 06:31] LABS: Platelet Morphology CLUMPED
[2021-06-16 06:45] LABS: Anion Gap 4 (5-15); BUN 12 mg/dL (7-18); BUN/Creat Ratio 21.2 RATIO (10-20); Calcium,Total 7.6 mg/dL (8.5-10.1); Chloride 110 mmol/L (98-107); Creatinine, Serum 0.57 mg/dL (0.55-1.02); EST Glomerular Filtration Rate 112 mL/min (>60); Est Glom Filt Rate - Afr Amer 136 mL/min (>60); Estimated Creatinine Clearance 42.66 ml/min; Glucose 110 mg/dL (74-106); Potassium 3.5 mmol/L (3.5-5.1); Sodium Level 141 mmol/L (136-145)
--- NOTE | 2021-06-16 07:11 | PN.HOSP_ITS ---
Objective Data Objective Data Vital Signs: Vital Signs Temp Pulse Resp BP Pulse Ox 97.8 F 74 18 92/46 L 95 06/16/21 06:03 06/16/21 06:03 06/16/21 06:03 06/16/21 06:03 06/16/21 06:03 Oxygen Flow Rate (L/min) 2 Oxygen Delivery Method Nasal Cannula Weight: 113 lb 12.8 oz Body Mass Index (BMI) 19.5 Intake & Output: Intake and Output for Last 24 Hours 06/14/21 06/15/21 06/16/21 23:59 23:59 23:59 Intake Total 865 / 1165 2735.41 / 2735.41 Output Total Balance 865 / 1165 2710.41 / 2710.41 Lab / Micro Data Result Diagrams: 06/16/21 05:34 06/16/21 05:34 Labs: Laboratory Results - last 24 hr 06/15/21 16:35: WBC 8.6, RBC 3.45 L, Hgb 10.6 L, Hct 31.8 L, MCV 92.2, MCH 30.7, MCHC 33.3, RDW Std Deviation 42.8, RDW Coeff of Jen 12.7, Plt Count 191, MPV 12.8 H, Immature Gran % (Auto) 0.700, Neut % (Auto) 68.7, Lymph % (Auto) 15.1 L, [place] % (Auto) 14.9 H, Eos % (Auto) 0.3, Baso % (Auto) 0.3, Absolute Neuts (auto) 5.9, Absolute Lymphs (auto) 1.30, Nucleated RBC % 0 06/15/21 16:35: Sodium 139, Potassium 3.7, Chloride 105, Carbon Dioxide 29.0, Anion Gap 5, BUN 13, Creatinine 0.58, Estim Creat Clear Calc 41.98, Est GFR (MDRD) Af Amer 131, Est GFR (MDRD) Non-Af 108, BUN/Creatinine Ratio 22.3 H, Glucose 117 H, Calcium 8.4 L 06/15/21 16:35: Lactic Acid 1.1 06/15/21 16:35: Total Creatine Kinase 117 06/16/21 03:45: Hgb 8.6 L, Hct 26.3 L 06/16/21 03:45: Blood Type B POSITIVE, Antibody Screen NEGATIVE, Crossmatch See Detail 06/16/21 05:34: WBC 6.4, RBC 2.66 L, Hgb 8.1 L, Hct 25.2 L, MCV 94.7, MCH 30.5, MCHC 32.1, RDW Std Deviation 44.1 H, RDW Coeff of Jen 12.9, Plt Count 125 L, MPV 11.8, Immature Gran % (Auto) 0.500, Neut % (Auto) 71.6 H, Lymph % (Auto) 14.0 L, [place] % (Auto) 12.9 H, Eos % (Auto) 0.5, Baso % (Auto) 0.5, Absolute Neuts (auto) 4.6, Absolute Lymphs (auto) 0.90, Nucleated RBC % 0, Platelet Estimate SLT DEC, Plt Morphology Comment CLUMPED 06/16/21 05:34: Sodium 141, Potassium 3.5, Chloride 110 H, Carbon Dioxide 27.0, Anion Gap 4 L, BUN 12, Creatinine 0.57, Estim Creat Clear Calc 42.66, Est GFR (MDRD) Af Amer 136, Est GFR (MDRD) Non-Af 112, BUN/Creatinine Ratio 21.2 H, Glucose 110 H, Calcium 7.6 L Radiography Diagnostic Testing: Radiology Impression Tibia/Fibula X-Ray 06/15/21 16:38 IMPRESSION: No acute fracture or dislocation. Posterior soft tissue swelling. Electronically Signed: Crispin Gaviria MD at 16:57 EST Reading Location ID and State: [address] [place] [address] Tel , Service support , Physical Exam Narrative General: Alert, Oriented x3, Cooperative HEENT: Atraumatic, PERRLA, EOMI, Normocephalic Oral: No Gingival or Mucosal Lesions/ Ulcerations Neck: Supple, No JVD, Negative Carotid Bruits Lungs: Air entry diminished in bilateral lung bases. No crepitation/rhonchi Cardiovascular: Regular rate, Regular Rhythm, Normal S1, Normal S2, No murmurs Abdomen: Bowel Sounds Present, Soft, Non Tender, Non-Distended : No renal angle tenderness. No suprapubic tenderness. Extremities: No edema, Capillary Refill Less than 3 Seconds Skin: No rashes, No breakdown Musculoskeletal: No Tenderness to Palpation of Joints or Extremities Neurological: Cranial nerves II-XII grossly intact, DTR 2+/4 and Symmetrical, Neuro grossly intact Psych/Mental Status: Normal Affect, Appropriate RLE has large hematoma at calf; no obvious bleeding. Mild erythema of RLE, tender to touch. DP and PT pulses palpable Assessment & Plan Assessment/Plan (1) Cellulitis: PLAN: #Hematoma of the RLE * due to a traumatic injury with car door slamming on her leg and patient being on xarelto * I do not think the patient has overt cellulitis and think her RLE swelling and redness is all due to hematoma * xray showed RLE posterior soft tissue swelling * Hb is 10.6, was 15.4 on 05/17/2021, and i THink this is likely due to the hematoma * will consult plastic surgery- Dr Gaviria informed verbally by phone * hold xarelto * PT/OT consult. Fall precautions * will cover with IV zosyn for now due to concern about infection of the hematoma and as she will likely be going for surgery tomorrow * #Hypertension: on metoprolol #History of DVT in RLE * recently diagnosed with DVT of RLE in May 2021 * hold xarelto due to the hematoma * #Hyperlipidemia: on statin. #Depression and Bipolar disorder: on sertraline and xanax as well as risperdal DVT prophylaxis: SCDs Code status: full code * Patient counseled extensively about different types of CODE STATUS including full code, DNR CCA and DNR CCA. Patient elects to be full code. * Total urdh-qr-udpv time 16 minutes.
--- NOTE | 2021-06-16 07:59 | WOUNDNOTE ---
wound photo: right posterior lower leg
--- NOTE | 2021-06-16 07:59 | WOUNDNOTE ---
wound photo: right posterior lower leg
--- NOTE | 2021-06-16 08:50 | PN.HOSP_ITS ---
Subjective Subjective Patient admitted with traumatic hematoma of right lower extremity mainly in the calf region. She slammed her right calf on car door few days prior to admission. History of DVT in the right lower extremity 2 weeks ago. On Xarelto. Objective Data Objective Data Vital Signs: Vital Signs Temp Pulse Resp BP Pulse Ox 97.8 F 74 18 92/46 L 95 06/16/21 06:03 06/16/21 06:03 06/16/21 06:03 06/16/21 06:03 06/16/21 06:03 Oxygen Flow Rate (L/min) 2 Oxygen Delivery Method Nasal Cannula Weight: 113 lb 12.8 oz Body Mass Index (BMI) 19.5 Intake & Output: Intake and Output for Last 24 Hours 06/14/21 06/15/21 06/16/21 23:59 23:59 23:59 Intake Total 865 / 1165 2735.41 / 2735.41 Output Total / Balance 865 / 1165 2710.41 / 2710.41 Lab / Micro Data Result Diagrams: 06/16/21 05:34 06/16/21 05:34 Labs: Laboratory Results - last 24 hr 06/15/21 16:35: WBC 8.6, RBC 3.45 L, Hgb 10.6 L, Hct 31.8 L, MCV 92.2, MCH 30.7, MCHC 33.3, RDW Std Deviation 42.8, RDW Coeff of Jen 12.7, Plt Count 191, MPV 12.8 H, Immature Gran % (Auto) 0.700, Neut % (Auto) 68.7, Lymph % (Auto) 15.1 L, [place] % (Auto) 14.9 H, Eos % (Auto) 0.3, Baso % (Auto) 0.3, Absolute Neuts (auto) 5.9, Absolute Lymphs (auto) 1.30, Nucleated RBC % 0 06/15/21 16:35: Sodium 139, Potassium 3.7, Chloride 105, Carbon Dioxide 29.0, Anion Gap 5, BUN 13, Creatinine 0.58, Estim Creat Clear Calc 41.98, Est GFR (MDRD) Af Amer 131, Est GFR (MDRD) Non-Af 108, BUN/Creatinine Ratio 22.3 H, Glucose 117 H, Calcium 8.4 L 06/15/21 16:35: Lactic Acid 1.1 06/15/21 16:35: Total Creatine Kinase 117 06/16/21 03:45: Hgb 8.6 L, Hct 26.3 L 06/16/21 03:45: Blood Type B POSITIVE, Antibody Screen NEGATIVE, Crossmatch See Detail 06/16/21 05:34: WBC 6.4, RBC 2.66 L, Hgb 8.1 L, Hct 25.2 L, MCV 94.7, MCH 30.5, MCHC 32.1, RDW Std Deviation 44.1 H, RDW Coeff of Jen 12.9, Plt Count 125 L, MPV 11.8, Immature Gran % (Auto) 0.500, Neut % (Auto) 71.6 H, Lymph % (Auto) 14.0 L, [place] % (Auto) 12.9 H, Eos % (Auto) 0.5, Baso % (Auto) 0.5, Absolute Neuts (auto) 4.6, Absolute Lymphs (auto) 0.90, Nucleated RBC % 0, Platelet Estimate SLT DEC, Plt Morphology Comment CLUMPED 06/16/21 05:34: Sodium 141, Potassium 3.5, Chloride 110 H, Carbon Dioxide 27.0, Anion Gap 4 L, BUN 12, Creatinine 0.57, Estim Creat Clear Calc 42.66, Est GFR (MDRD) Af Amer 136, Est GFR (MDRD) Non-Af 112, BUN/Creatinine Ratio 21.2 H, Glucose 110 H, Calcium 7.6 L Radiography Diagnostic Testing: Radiology Impression Tibia/Fibula X-Ray 06/15/21 16:38 IMPRESSION: No acute fracture or dislocation. Posterior soft tissue swelling. Electronically Signed: Crispin Gaviria MD at 16:57 EST , Physical Exam Narrative General: Alert, Oriented x3, Cooperative HEENT: Atraumatic, PERRLA, EOMI, Normocephalic Oral: No Gingival or Mucosal Lesions/ Ulcerations Neck: Supple, No JVD, Negative Carotid Bruits Lungs: Air entry diminished in bilateral lung bases. No crepitation/rhonchi Cardiovascular: Regular rate, Regular Rhythm, Normal S1, Normal S2, No murmurs Abdomen: Bowel Sounds Present, Soft, Non Tender, Non-Distended : No renal angle tenderness. No suprapubic tenderness. Extremities: No edema, Capillary Refill Less than 3 Seconds Skin: Erythema, swelling of right calf, cellulitis Musculoskeletal: Right calf has large hematoma. No obvious bleeding. Mild erythema, tender. Right DPA and ALLERGIST/PEDIATRIC PULMONOLOGIST are palpable Neurological: Cranial nerves II-XII grossly intact, DTR 2+/4 and Symmetrical, Neuro grossly intact Psych/Mental Status: Normal Affect, Appropriate Assessment & Plan Assessment/Plan (1) Cellulitis: PLAN: #Hematoma of the RLE with high concern of converting into infection of hematoma. Patient is admitted on MedSur floor. X-ray individually reviewed shows right lower extremity posterior soft tissue swelling. Plastic surgery Dr. Gaviria is consulted. Xarelto on hold. Patient is on IV Zosyn for concern of infection of hematoma. #Hypertension: on metoprolol #History of DVT in RLE * recently diagnosed with DVT of RLE in May 2021 * hold xarelto due to the hematoma #Hyperlipidemia: on statin. #Depression and Bipolar disorder: on sertraline and xanax as well as risperdal DVT prophylaxis: SCDs Code status: full code Charges/Coding Visit Charges Inpatient E&M: 91215 Subs Hosp L2
[2021-06-16] MEDS: Sertraline 100 MG Tablet 200 MG PO (09:14)
[2021-06-16] MEDS: Pantoprazole Sodium 40 MG Tablet PO (09:14)
--- NOTE | 2021-06-16 12:16 | CON.PCM_ITS ---
HPI Consult Data Date of Consult: 06/16/21 PCP / Referring MD: Dr. Matt Hess MD, Dr. Greer Neely MD Attending Care Provider: Dr. Gem Billings MD, Dr. Noble Acevedo MD HPI Narrative Reason for Consultation: traumatic hematoma right posterior leg with skin necrosis HPI Narrative: TRACI MCCONNELL, is a 70 F with a PMH as outlined who presents via the ED on 06/15/2021 with a complaint of a wound on her right calf as a result of a car door slamming on her RLE a few days prior to admission. She developed a large painful area of contusion on her right calf. THe skin started sloughing off on that area. She was diagnosed with a DVT in the RLE 2 weeks ago and has been on Xarelto. She denied any fever, chills, shortness of breath. She went to see her PCP who recommended that she go to the ED for evaluation because of concerns about infection from this traumatic hematoma right posterior leg. CBC showed Hgb of 10.6 and WBC of 8.6. Xray of the RLE tibia and fibula showed no acute fracture or dislocation and showed posterior soft tissue swelling. She was placed on IV antibiotics with Zosyn. I was asked to evaluate this patient for surgical options for treatment. 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 Lung mass Osteoarthritis Skin necrosis Traumatic hematoma of right lower leg with infection Vitamin D deficiency Home Medications sertraline 100 mg tablet 200 mg PO DAILY tab 05/27/18 [History Last Taken 06/15/21] alprazolam 0.5 mg tablet 0.25 mg PO TID 06/08/20 [History Last Taken 06/15/21] pantoprazole 40 mg tablet,delayed release 40 mg PO DAILY 06/08/20 [History Last Taken 06/15/21] risperidone 1 mg tablet 1 mg PO BID 06/08/20 [History Last Taken 06/15/21] multivitamin with minerals 1 each PO DAILY 06/29/20 [History Last Taken 06/15/21] pregabalin 75 mg PO BID 06/15/21 [History Last Taken 06/15/21] rosuvastatin 10 mg PO QHS 06/15/21 [History Last Taken 06/14/21] sennosides-docusate sodium [Stimulant Laxative Plus] 2 tab PO BID PRN PRN 06/15/21 [History Last Taken 06/15/21] Xarelto 20 mg PO DAILY #0 tab 06/17/21 [Rx Last Taken 06/15/21] cephalexin 500 mg PO TID #15 tab 06/17/21 [Rx Last Taken Unknown] diazepam [Valium] 5 mg PO BID PRN 7 Days #14 tab 06/17/21 [Rx Last Taken Unknown] metoprolol tartrate 25 mg PO BID #0 tab 06/17/21 [Rx Last Taken 06/15/21] oxycodone-acetaminophen [Percocet] 1 tab PO Q4H PRN 7 Days #40 tab 06/17/21 [Rx Last Taken Unknown] Allergy/AdvReac Type Severity Reaction Status Date / Time bee venom protein (honey bee) Allergy Severe Anaphylaxis Verified 06/15/21 16:01 thiothixene AdvReac Unknown Unknown Verified 06/15/21 16:01 Family History Other CVA (cerebral vascular accident) Dementia Surgical History History of back surgery History of D&C History of tonsillectomy Social History Smoking Status: Former smoker second hand exposure: No alcohol intake: never substance use type: does not use caffeine: Yes ROS ROS Narrative Constitutional: Denies anorexia, chills, fatigue, fever(s) or weakness Eyes: Denies change in vision HEENT: Denies abnormal hearing, headache(s) or nasal congestion Cardiovascular: Denies chest pain, dyspnea on exertion, edema, lightheadedness, orthopnea, palpitations, paroxysmal nocturnal dyspnea, rapid heart rate or syncope Respiratory/Chest: Denies cough or dyspnea Gastrointestinal: Denies abdominal pain, constipation, diarrhea, melena, nausea or vomiting Genitourinary: Denies burning urination, dysuria, hematuria or nocturia Musculoskeletal: Reports other Details: RLE pain and swelling ; Denies back pain, joint pain or joint swelling Neurologic: Denies confusion, dizziness, focal weakness, headache(s), numbness, seizures or syncope Psychiatric: Denies anxiety or depression Endocrinology: Denies change in body appearance Physical Exam Narrative General - Alert and Oriented HEENT - PERRL. EOMI. Throat is clear. Neck - Supple and nontender. No cervical adenopathy. Lungs - Clear to auscultation. Heart - Regular rate and rhythm. Abdomen - Soft and nondistended. Extremities - FROM. No axillary adenopathy. Radial pulses are palpable. No inguinal adenopathy. Dorsalis pedis pulses are palpable. On the right posterior leg is a large hematoma with overlying skin necrosis. There is some warmth to the injury site. The periwound area shows some redness and cellulitis. No purulent drainage noted. Size of the hematoma and overlying skin necrosis is 15 x 21 cm or 315 cm2. Neuro - CN II-XII grossly intact. Psych - Normal mood and affect. Lab / Micro Data Attestation: I reviewed the patient's lab results. Result Diagrams: 06/17/21 05:49 06/17/21 05:49 Labs: Laboratory Results - last 24 hr 06/15/21 16:35: WBC 8.6, RBC 3.45 L, Hgb 10.6 L, Hct 31.8 L, MCV 92.2, MCH 30.7, MCHC 33.3, RDW Std Deviation 42.8, RDW Coeff of Jen 12.7, Plt Count 191, MPV 12. 8 H, Immature Gran % (Auto) 0.700, Neut % (Auto) 68.7, Lymph % (Auto) 15.1 L, [place] % (Auto) 14.9 H, Eos % (Auto) 0.3, Baso % (Auto) 0.3, Absolute Neuts (auto) 5.9, Absolute Lymphs (auto) 1.30, Nucleated RBC % 0 06/15/21 16:35: Sodium 139, Potassium 3.7, Chloride 105, Carbon Dioxide 29.0, Anion Gap 5, BUN 13, Creatinine 0.58, Estim Creat Clear Calc 41.98, Est GFR (MDRD) Af Amer 131, Est GFR (MDRD) Non-Af 108, BUN/Creatinine Ratio 22.3 H, Glucose 117 H, Calcium 8.4 L 06/15/21 16:35: Lactic Acid 1.1 06/15/21 16:35: Total Creatine Kinase 117 06/16/21 03:45: Hgb 8.6 L, Hct 26.3 L 06/16/21 03:45: Blood Type B POSITIVE, Antibody Screen NEGATIVE, Crossmatch See Detail 06/16/21 05:34: WBC 6.4, RBC 2.66 L, Hgb 8.1 L, Hct 25.2 L, MCV 94.7, MCH 30.5, MCHC 32.1, RDW Std Deviation 44.1 H, RDW Coeff of Jen 12.9, Plt Count 125 L, MPV 11.8, Immature Gran % (Auto) 0.500, Neut % (Auto) 71.6 H, Lymph % (Auto) 14.0 L, [place] % (Auto) 12.9 H, Eos % (Auto) 0.5, Baso % (Auto) 0.5, Absolute Neuts (auto) 4.6, Absolute Lymphs (auto) 0.90, Nucleated RBC % 0, Platelet Estimate SLT DEC, Plt Morphology Comment CLUMPED 06/16/21 05:34: Sodium 141, Potassium 3.5, Chloride 110 H, Carbon Dioxide 27.0, Anion Gap 4 L, BUN 12, Creatinine 0.57, Estim Creat Clear Calc 42.66, Est GFR (MDRD) Af Amer 136, Est GFR (MDRD) Non-Af 112, BUN/Creatinine Ratio 21.2 H, Glucose 110 H, Calcium 7.6 L Radiology Impression Tibia/Fibula X-Ray 06/15/21 16:38 IMPRESSION: No acute fracture or dislocation. Posterior soft tissue swelling. Electronically Signed: Crispin Gaviria MD at 16:57 EST , ASSESSMENT 1. Traumatic painful infected hematoma right posterior leg with overlying skin necrosis and cellulitis. 2. Skin necrosis. 3. Cellulitis right leg. 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 5. Former smoker. PLAN X-rays reviewed. The medical records have been reviewed. Patient has a large painful hematoma right posterior leg that she sustained when the car door smacked into her leg. With the large amount of skin necrosis present, the hematoma is too large to absorb on its own, especially with risk factors such as age of the patient and overlying skin necrosis with cellulitis. Patient is currently on Zosyn IV. Recommend urgent surgery today to minimize the risk of a necrotizing infection which can be life threatening. She will undergo surgical preparation right posterior leg with incision and drainage and excisional debridement of a painful infected hematoma with overlying skin necrosis. Will send tissue to Pathology for analysis to rule out carcinoma and to Microbiology for culture. A positive culture will necessitate antibiotic therapy. Will begin postop wound care with the VAC set at 150 mmHg continuous suction. This will make the wound bed more superficial in preparation for further surgery with a skin graft. Surgery will be later today and will be under general anesthesia. Patient was informed of the risks and complications of the procedure including alternatives to surgery. These were discussed with the patient personally. Patient voices understanding and wishes to proceed. Patient understands that the wound will be left open initially. Once the wound is stabilized with the VAC, then we can proceed with delayed closure with skin grafting. Anticipate increased metabolic demands from the surgery and the infection. Will check a Prealbumin and encourage nutritional supplementation with protein to help the healing process. Procedure Criteria Type of Procedure Procedure Type: Elective Elective Risks - COVID COVID Risk Discussion: The surgeon/proceduralist and patient have discussed in detail the risk of exposure to and/or potential harm posed by the COVID-19 virus with having a surgery/procedure at this time versus the risk of delaying the surgery/procedure. It is not possible to know either the risk of delaying the surgery or procedure or chance of getting an infection with perfect accuracy, but a joint decision was made between the patient and the surgeon/proceduralist to proceed at this time with the scheduled surgery/procedure as indicated on the consent form. Charges/Coding Visit Charges Inpatient E&M: 49542 Init Hosp L3 (57 Modifier ICD-10 - S80.11xA, I96, L03.115, Z79.01, Z87.891)
[2021-06-16] MEDS: Lidocaine 1% /Epi 1:100 (50ml) 50 ML VIAL (15:15)
--- NOTE | 2021-06-16 15:27 | OP.PCM_ITS ---
Problems Associated Problem List Diagnoses (1) Cellulitis of right leg: (2) Skin necrosis: (3) Traumatic hematoma of right lower leg with infection: (4) Former smoker: Report of Operation Date of Procedure: 06/16/21 Pre-Operative Diagnosis: 1. Traumatic painful infected hematoma right posterior leg with overlying skin necrosis and cellulitis. 2. Skin necrosis. 3. Cellulitis right leg. 4. long-term use of anticoagulation - Xarelto. 5. Former smoker. Post-Operative Diagnosis: Same. Surgery/Procedure Performed:: Surgical preparation right posterior leg with incision and drainage and excisional debridement infected hematoma with overlying skin necrosis (315 cm2). Description of Surgical Findings:: TRACI MCCONNELL, is a 70 F with a PMH as outlined who presents via the ED on 06/15/2021 with a complaint of a wound on her right calf as a result of a car door slamming on her RLE a few days prior to admission. She developed a large painful area of contusion on her right calf. THe skin started sloughing off on that area. She was diagnosed with a DVT in the RLE 2 weeks ago and has been on Xarelto. She denied any fever, chills, shortness of breath. She went to see her PCP who recommended that she go to the ED for evaluation because of concerns about infection from this traumatic hematoma right posterior leg. CBC showed Hgb of 10.6 and WBC of 8.6. Xray of the RLE tibia and fibula showed no acute fracture or dislocation and showed posterior soft tissue swelling. She was placed on IV antibiotics with Zosyn. I was asked to evaluate this patient for surgical options for treatment. Patient was informed of the risks and complications of the procedure including alternatives to surgery. These were discussed with the patient personally. Patient voices understanding and wishes to proceed. Size of hematoma wound right posterior leg - 21 x 15 cm. Surgeon: Dada Gaviria substation supervisor: None Type of Anesthesia: General Specimen's removed: infected necrotic hematoma right posterior leg to Pathology and Microbiology. Drains: None. Estimated Blood Loss (mL): 850 ml. Description of Procedure: Patient was taken to OR in supine position and was placed under general anesthesia. She was then placed in the prone position. The right leg was prepped and draped in the usual fashion. SCD was placed on the left leg for DVT prophylaxis. She was just recently started on Xarelto for a DVT. Perioperative antibiotics were given intravenously. There was fluctuance and drainage in the central aspect of her right posterior leg. I made a longitudinal elliptical incision over her left posterior leg down into the subcutaneous tissue. No pus was seen. A lot of fat necrosis was seen. There was an odor associated with the fat necrosis. Dissecting down to the gastrocnemius muscle inferiorly to its combining with the soleus, there was inflamed fascia. The underlying muscle looked pink and viable and there extensive inflammatory exudate involving the fascia. I did blunt dissection deep to the muscle and no pus was seen. Some inflammatory exudate was noted and irrigated out with saline. A lot of hematoma was seen and debrided. Some active bleeding was seen and cauterized. It was quite oozy during the procedure. Estimated blood loss from the hematoma and associated bleeding was about 850 ml. Some of the soft tissue was sent to Pathology for analysis to rule out carcinoma and to Microbiology for culture. A positive culture may necessitate antibiotic modification. . The size of the defect right posterior leg is 21 x 15 x 2 cm or 315 cm2. Hemostasis was obtained with electrocautery. The wounds were irrigated with saline. I then dressed the wounds with Mepitel nonadherent dressing followed by Kerlix gauze and Betadine. This is followed by another dry Kerlix gauze and followed by a compression shirlene wrap. Patient tolerated the procedure well and was sent to PACU in satisfactory condition. Patient will be sent upstairs for continued postop care. Will check a Hgb after surgery. I anticipate she will need PRBC. She will keep his right leg elevated during the initial postoperative period. Continue present antibiotics (Zosyn). A positive operative culture may necessitate antibiotic modification. Will proceed with postoperative wound care with the VAC, once any oozing is stable. Grafts/Implants Used: None. Complications None. Admit VTE Documentation VTE Present on Admission: No (Patient is on Xarelto for atrial fibrillation.) VTE Mechan Device Prophylaxis: SCD's VTE Pharm Prophylaxis ordered?: No Addendum Addendum: Surgery Charges CPT - 01344 ICD-10 - S80.11xA, I96, L03.115, Z79.01, Z87.891 87872 S80.11xA, I96, L03.115, Z79.01, Z87.891 25825 S80.11xA, I96, L03.115, Z79.01, Z87.891 24782 S80.11xA, I96, L03.115, Z79.01, Z87.89 68553 S80.11xA, I96, L03.115, Z79.01, Z87.891
--- NOTE | 2021-06-16 15:59 | NURSING ---
PRBC FINISHED IN OR
[2021-06-16 16:22] LABS: Hematocrit 30.9 % (37-47); Hemoglobin 10.5 g/dL (12.0-15.0); Mean Corpuscular Hgb 30.9 pg (27.0-32.0); Mean Corpuscular Volume 90.9 fL (81-99); Mean Platelet Vol. 12.2 fl (6.2-12.0); Platelet Count 146 K/mm3 (150-450); RBC Distribution Width CV 13.7 % (11.6-14.6); RBC Distribution Width SD 45.3 fl (35.1-43.9); White Blood Count 7.6 K/mm3 (4.4-11.0)
[2021-06-16] MEDS: Atorvastatin Calcium 20 MG Tablet PO (22:25)
[2021-06-16] MEDS: RisperiDONE 1 MG Tablet PO (22:25)
[2021-06-16] MEDS: Pregabalin 75 MG Capsule PO (22:25)
[2021-06-17] VITALS (10 sets, daily range): BP systolic 94–120; BP diastolic 47–66; PULSE 78–108; RESP 16–18; TEMP 36.8–37.5; O2SAT 94–98; BMI 19.5
[2021-06-17] MEDS: Metoprolol Tartrate 25 MG Tablet 12.5 MG PO (01:24)
[2021-06-17] MEDS: Acetaminophen 325 MG Tablet 650 MG PO (05:08)
[2021-06-17] MEDS: Piperacil/Tazobactam 3.375 GM/50 ML ML IV ×2 (05:08→14:05)
[2021-06-17] MEDS: ALPRAZolam 0.5 MG Tablet PO ×2 (05:08→14:05)
[2021-06-17 06:26] LABS: Absolute Neutrophil Count 6.4 X10^3/uL (2.0-7.7); Basophil# 0.02 X10^3/uL; Basophil% 0.2 % (0-1); Hematocrit 27.2 % (37-47); Hemoglobin 9.1 g/dL (12.0-15.0); Lymphocyte % 7.3 % (19-41); Mean Corp Hgb Conc 33.5 g/dL (32-36); Mean Corpuscular Hgb 30.3 pg (27.0-32.0); Mean Corpuscular Volume 90.7 fL (81-99); Mean Platelet Vol. 11.6 fl (6.2-12.0); Monocyte# 1.05 X10^3/uL; Monocyte% 12.9 % (0-10); NRBC Flagged by Analyzer 0 % (0-5); Neutrophil # 6.44 X10^3/uL (2.7-7.7); Neutrophil % 78.9 % (47-70); POSITIVE COUNT YES; POSITIVE DIFFERENTIAL YES; RBC Distribution Width CV 13.7 % (11.6-14.6); RBC Distribution Width SD 44.5 fl (35.1-43.9); White Blood Count 8.2 K/mm3 (4.4-11.0)
[2021-06-17 06:30] LABS: Differential Indicated SCAN CRITERIA MET
[2021-06-17 06:56] LABS: Anion Gap 5 (5-15); BUN 7 mg/dL (7-18); BUN/Creat Ratio 18.5 RATIO (10-20); Calcium,Total 7.7 mg/dL (8.5-10.1); Chloride 110 mmol/L (98-107); Creatinine, Serum 0.38 mg/dL (0.55-1.02); EST Glomerular Filtration Rate 179 mL/min (>60); Est Glom Filt Rate - Afr Amer 216 mL/min (>60); Estimated Creatinine Clearance 42.64 ml/min; Glucose 99 mg/dL (74-106); Potassium 3.3 mmol/L (3.5-5.1); Prealbumin 6.6 mg/dL (20.0-40.0); Sodium Level 140 mmol/L (136-145)
[2021-06-17 07:14] LABS: Platelet Count 139 K/mm3 (150-450)
[2021-06-17 07:15] LABS: Differential Comment SCANNED; Platelet Estimate ADEQUATE (ADEQ)
--- NOTE | 2021-06-17 07:31 | PCM.PN.HOSP ---
Subjective Subjective Follow-up for infection of traumatic hematoma. Size of the hematoma found was 21 x 15 cm. Patient pain is 3-5/10 intensity. Objective Data Objective Data Vital Signs: Vital Signs Temp Pulse Resp BP Pulse Ox 99.5 F H 88 16 106/47 L 94 06/17/21 05:06 06/17/21 05:06 06/17/21 05:06 06/17/21 05:06 06/17/21 05:06 Oxygen Flow Rate (L/min) 1 Oxygen Delivery Method Nasal Cannula Weight: 113 lb 12 oz Body Mass Index (BMI) 19.5 Intake & Output: Intake and Output for Last 24 Hours 06/15/21 06/16/21 06/17/21 23:59 23:59 23:59 Intake Total 865 / 1165 4414.58 / 4614.58 650 / 650 Output Total 25 / 125 350 / 350 Balance 865 / 1165 4389.58 / 4489.58 300 / 300 Lab / Micro Data Result Diagrams: 06/17/21 05:49 06/17/21 05:49 Labs: Laboratory Results - last 24 hr 06/16/21 03:45: Blood Type B POSITIVE, Antibody Screen NEGATIVE, Crossmatch See Detail 06/16/21 16:15: WBC 7.6, RBC 3.40 L, Hgb 10.5 L, Hct 30.9 L, MCV 90.9, MCH 30.9, MCHC 34.0 D, RDW Std Deviation 45.3 H, RDW Coeff of Jen 13.7, Plt Count 146 L, MPV 12.2 H 06/17/21 05:49: WBC 8.2, RBC 3.00 L, Hgb 9.1 L, Hct 27.2 L, MCV 90.7, MCH 30.3, MCHC 33.5, RDW Std Deviation 44.5 H, RDW Coeff of Jen 13.7, Plt Count 139 L, MPV 11.6, Immature Gran % (Auto) 0.700, Neut % (Auto) 78.9 H, Lymph % (Auto) 7.3 L, [place] % (Auto) 12.9 H, Eos % (Auto) 0.0, Baso % (Auto) 0.2, Absolute Neuts (auto) 6.4, Absolute Lymphs (auto) 0.60 L, Nucleated RBC % 0, Differential Comment SCANNED, Platelet Estimate ADEQUATE 06/17/21 05:49: Sodium 140, Potassium 3.3 L, Chloride 110 H, Carbon Dioxide 25.0, Anion Gap 5, BUN 7, Creatinine 0.38 L, Estim Creat Clear Calc 42.64, Est GFR (MDRD) Af Amer 216, Est GFR (MDRD) Non-Af 179, BUN/Creatinine Ratio 18.5, Glucose 99, Calcium 7.7 L, Prealbumin 6.6 L Physical Exam Narrative General: Alert, Oriented x3, Cooperative HEENT: Atraumatic, PERRLA, EOMI, Normocephalic Oral: No Gingival or Mucosal Lesions/ Ulcerations Neck: Supple, No JVD, Negative Carotid Bruits Lungs: Air entry diminished in bilateral lung bases. No crepitation/rhonchi Cardiovascular: Regular rate, Regular Rhythm, Normal S1, Normal S2, No murmurs Abdomen: Bowel Sounds Present, Soft, Non Tender, Non-Distended : No renal angle tenderness. No suprapubic tenderness. Extremities: No edema, Capillary Refill Less than 3 Seconds Skin: Right leg below knee Blayne wrap bandage. Dressing is dry. Musculoskeletal: No Tenderness to Palpation of Joints or Extremities Neurological: Cranial nerves II-XII grossly intact, DTR 2+/4 and Symmetrical, Neuro grossly intact Psych/Mental Status: Normal Affect, Appropriate Assessment & Plan Assessment/Plan (1) Cellulitis: PLAN: #Infected hematoma of the RLE . Patient is admitted on [facility] floor. X-ray individually reviewed shows right lower extremity posterior soft tissue swelling. Plastic surgery Dr. Gaviria is consulted. Xarelto on hold. Patient is on IV Zosyn for concern of infection of hematoma. 06/17: Patient had incision and drainage and excisional debridement infected hematoma with overlying skin necrosis of right posterior leg on 06/16. Infected necrotic hematoma was removed and sent for pathology. Estimated blood loss about 850 mill. Patient had 2 units of PRBC transfusion yesterday. Posttransfusion hemoglobin 9.1 g%. Operative dressing was changed by surgeon and no active bleeding. Discussed with the wound nurse and plan for wound VAC. Follow-up wound center on 06/27/2021. Mild hypokalemia, potassium replaced. #Hypertension: on metoprolol #History of DVT in RLE recently diagnosed with DVT of RLE in May 2021 hold xarelto due to the hematoma. #Hyperlipidemia: on statin. #Depression and Bipolar disorder: on sertraline and xanax as well as risperdal DVT prophylaxis: SCDs Code status: full code Charges/Coding Visit Charges Inpatient E&M: 50335 Subs Hosp L2
--- NOTE | 2021-06-17 09:30 | WOUNDNOTE ---
Waiting to assess wound to the right lower leg with Dr Gaviria per request. Pt hoping to be discharged home today. home VAC form initiated. will need to assess for bleeding before the wound VAC can be applied.
[2021-06-17] MEDS: RisperiDONE 1 MG Tablet PO (09:50)
[2021-06-17] MEDS: Pregabalin 75 MG Capsule PO (09:50)
[2021-06-17] MEDS: Potassium Chloride Oral Tablet 20 MEQ 40 MEQ PO ×2 (09:50→11:49)
[2021-06-17] MEDS: Multivitamins,Ther W-Minerals Tablet 1 TABLET PO (09:50)
[2021-06-17] MEDS: Pantoprazole Sodium 40 MG Tablet PO (09:50)
[2021-06-17] MEDS: Sertraline 100 MG Tablet 200 MG PO (09:52)
[2021-06-17] MEDS: Acetaminophen 500 MG Tablet 1000 MG PO (11:48)
[2021-06-17] MEDS: oxyCODONE 5 MG Tablet 10 MG PO (11:49)
--- NOTE | 2021-06-17 12:33 | PN.SURG_ITS ---
Subjective Subjective Postop #1 Patient resting in bed. She states her pain is controlled with po pain meds. Objective Data Objective Data Vital Signs: Vital Signs Temp Pulse Resp BP Pulse Ox 98.2 F 92 18 107/64 95 06/17/21 11:47 06/17/21 11:47 06/17/21 11:47 06/17/21 11:47 06/17/21 11:47 Oxygen Flow Rate (L/min) 1 Oxygen Delivery Method Room Air Weight: 113 lb 12 oz Body Mass Index (BMI) 19.5 Intake & Output: Intake and Output for Last 24 Hours 06/15/21 06/16/21 06/17/21 23:59 23:59 23:59 Intake Total 865 / 1165 4414.58 / 4614.58 700 / 700 Output Total 25 / 125 350 / 350 Balance 865 / 1165 4389.58 / 4489.58 350 / 350 Lab / Micro Data Result Diagrams: 06/17/21 05:49 06/17/21 05:49 Labs: Laboratory Results - last 24 hr 06/16/21 03:45: Crossmatch See Detail 06/16/21 16:15: WBC 7.6, RBC 3.40 L, Hgb 10.5 L, Hct 30.9 L, MCV 90.9, MCH 30.9, MCHC 34.0 D, RDW Std Deviation 45.3 H, RDW Coeff of Jen 13.7, Plt Count 146 L, MPV 12.2 H 06/17/21 05:49: WBC 8.2, RBC 3.00 L, Hgb 9.1 L, Hct 27.2 L, MCV 90.7, MCH 30.3, MCHC 33.5, RDW Std Deviation 44.5 H, RDW Coeff of Jen 13.7, Plt Count 139 L, MPV 11.6, Immature Gran % (Auto) 0.700, Neut % (Auto) 78.9 H, Lymph % (Auto) 7.3 L, [place] % (Auto) 12.9 H, Eos % (Auto) 0.0, Baso % (Auto) 0.2, Absolute Neuts (auto) 6.4, Absolute Lymphs (auto) 0.60 L, Nucleated RBC % 0, Differential Comment SCANNED, Platelet Estimate ADEQUATE 06/17/21 05:49: Sodium 140, Potassium 3.3 L, Chloride 110 H, Carbon Dioxide 25.0, Anion Gap 5, BUN 7, Creatinine 0.38 L, Estim Creat Clear Calc 42.64, Est GFR (MDRD) Af Amer 216, Est GFR (MDRD) Non-Af 179, BUN/Creatinine Ratio 18.5, Glucose 99, Calcium 7.7 L, Prealbumin 6.6 L Micro: Microbiology 06/16/21 Unknown Tissue - Leg, Right Gram Stain - Final 06/16/21 Unknown Tissue - Leg, Right Wound Culture - Preliminary No growth-Final to follow Assessment & Plan Assessment/Plan (1) Traumatic hematoma of right lower leg with infection: QUALIFIERS: Encounter type: initial encounter Qualified Code(s): S80.11XA - Contusion of right lower leg, initial encounter; L08.9 - Local infection of the skin and subcutaneous tissue, unspecified (2) A-fib: (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 Hgb 9.1, Medicine following. She had 2 uPRBCs yesterday. Blood loss from OR 850 ml. K+ 3.3, Receiving KCl 40 mEq every 3 hours. Pre Albumin 6.6. Encourage increase protein intake. Operative wound culture results pending. She is currently on Zosyn. Operative dressing removed today. No active bleeding present. Will start the wound VAC at 150 mmHg. The dressing will be changed 3 times per week. Wound and surjit wound should be washed with soap and water at the time of the dressing changes. She may shower before wound VAC dressing changes. Adaptic may be used in the base of the wound for the first week using the wound VAC. She will have home health to assist with the dressing changes. She will follow up at the wound center to see me on Sunday06/27/21. I will have them call her to make he appointment and to arrange for a ride for her to get there. I will prescribe Diazepam for muscle spasms and Percocet for pain for discharge. She was instructed how to take these medications and to NOT take them together at the same time. From our standpoint she is able to be discharged home after home health is established and the wound VAC are approved. Charges/Coding Procedures Integumentary [id number]: [id number] Global Visit
[2021-06-17 13:08] LABS: Creatine Kinase MB 0 % (0-3); Creatine Kinase MM 100 % (97-100); Creatine Kinase,Total,Serum 143 U/L (32-182); Macro I 0 % (Not Observed); Macro II 0 % (Not Observed)
--- NOTE | 2021-06-17 13:12 | CASEMGMT ---
Addendum entered by Licha Whitlock 06/17/21 15:13: QUOC CHAVIS in to pt room to provide pt with [facility] transportation information. Original Note: Spoke with William pt to be dc'd on wound vac. Pt has previously selected [facility] to see her. TC dexter Bland at [facility], referral made for [facility] on Sunday for vac. Pt accepted. QUOC CHAVIS in to pt room to make aware. Pt denies any other homegoing needs at this time.
--- NOTE | 2021-06-17 13:29 | WOUNDNOTE ---
Pt tolerated wound VAC application very well with po pain medication. pt states was not bad at all. awaiting home VAC approval.
--- NOTE | 2021-06-17 13:34 | WOUNDNOTE ---
wound photo: right posterior lower leg
--- NOTE | 2021-06-17 13:35 | WOUNDNOTE ---
wound photo: right posterior lower leg
--- NOTE | 2021-06-17 13:56 | PCM.DC ---
Discharge Instructions Diet Discharge Diet: No restrictions (High protein diet) Activity Discharge Activity: May Shower (May shower before wound VAC dressing changes) May resume sexual activity in: 10-14 days Weight Bearing Status: Weight bearing as tolerated Additional Activity Instructions:: May walk as much as needed. Avoid standing for long periods of time due to this will increase swelling. When seated, make sure to elevate her right leg to help prevent swelling. Dressing / Incision Call your doctor if your incision/area has: Continuous Slow Oozing, Sudden Increased Bleeding, Increased Pain/ Swelling, Increased Redness, Foul Smelling Discharge and Swelling at the incision site Call your doctor if you observe: Fever of 101 or Higher, Coldness, Increased Pain, Inability to have a bowel movement, Shortness of breath, Chest pain, Calf discomfort and Uncontrolled pain Additional Dressing/Incision Instructions:: When wound VAC is changed, the wound and surjit wound should be washed with soap and water. Wound VAC is to be changed 3 times per week. VAC is to be at 150 mmHg. Adaptic to the wound bed for only the first week. Please call Lanie at [phone] if you have any questions or concerns about the dressing changes. Follow Up Care Please Follow Up With: Lanie Manley When: At the wound center [phone] on Sunday06/27/21. They will call you for an appointment and to schedule you a ride to get there and to get home. Test Results: Test results from this visit will be discussed in further detail at your follow-up appointment, if applicable. Pending Tests Upon Discharge: Operative wound culture results Discharge Plan Admission Admit Date/Time: 06/15/21 18:20 Primary Reason for Your Visit: Infected right calf hematoma Attending Provider: Noble Acevedo Primary Care Provider: Matt Hess Chi Consulting Providers: Dada Gaviria Discharge Orders/Prescriptions Prescriptions: New cephalexin 500 mg tablet 500 mg PO TID Qty: 15 RF: 0 oxycodone-acetaminophen [Percocet] 5-325 mg tablet 1 tab PO Q4H PRN (Reason: pain (scale score 7-10)) 7 Days Qty: 40 RF: 0 diazepam [Valium] 5 mg tablet 5 mg PO BID PRN (Reason: muscle spasm) 7 Days Qty: 14 RF: 0 Continued sertraline [Zoloft] 100 mg tablet 200 mg PO DAILY RF: 0 risperidone [Risperdal] 1 mg tablet 1 mg PO BID RF: 0 alprazolam 0.5 mg tablet 0.25 mg PO TID RF: 0 pantoprazole 40 mg tablet,delayed release (DR/EC) 40 mg PO DAILY RF: 0 multivitamin with minerals 1 EACH tablet 1 each PO DAILY RF: 0 rosuvastatin 10 mg tablet 10 mg PO QHS RF: 0 sennosides-docusate sodium [Stimulant Laxative Plus] 8.6-50 mg tablet 2 tab PO BID PRN PRN (Reason: Constipation) RF: 0 pregabalin 75 mg capsule 75 mg PO BID RF: 0 Changed metoprolol tartrate 25 mg tablet 25 mg PO BID Qty: 0 RF: 0 Xarelto 20 mg tablet 20 mg PO DAILY Qty: 0 RF: 0 Referrals / Follow Up: Matt Hess Chi, MD [Primary Care Provider] - Disposition Disposition (needs filled in before D/C Order can be placed): Home Health Service
--- NOTE | 2021-06-17 14:54 | PCM.DC ---
Discharge Instructions Diet Discharge Diet: No restrictions (High protein diet) Activity May resume sexual activity in: 10-14 days Weight Bearing Status: Weight bearing as tolerated Additional Activity Instructions:: May walk as much as needed. Avoid standing for long periods of time due to this will increase swelling. When seated, make sure to elevate her right leg to help prevent swelling. Dressing / Incision Call your doctor if your incision/area has: Continuous Slow Oozing, Sudden Increased Bleeding, Increased Pain/ Swelling, Increased Redness, Foul Smelling Discharge and Swelling at the incision site Call your doctor if you observe: Fever of 101 or Higher, Coldness, Increased Pain, Inability to have a bowel movement, Shortness of breath, Chest pain, Calf discomfort and Uncontrolled pain Additional Dressing/Incision Instructions:: When wound VAC is changed, the wound and surjit wound should be washed with soap and water. Wound VAC is to be changed 3 times per week. VAC is to be at 150 mmHg. Adaptic to the wound bed for only the first week. Please call Lanie at [phone] if you have any questions or concerns about the dressing changes. Follow Up Care Please Follow Up With: Lanie Manley Test Results: Test results from this visit will be discussed in further detail at your follow-up appointment, if applicable. Discharge Plan Admission Admit Date/Time: 06/15/21 18:20 Primary Reason for Your Visit: Infected right calf hematoma Attending Provider: Noble Acevedo Primary Care Provider: Matt Hess Chi Consulting Providers: Dada Gaviria Discharge Orders/Prescriptions Prescriptions: New cephalexin 500 mg tablet 500 mg PO TID Qty: 15 RF: 0 Continued sertraline [Zoloft] 100 mg tablet 200 mg PO DAILY RF: 0 risperidone [Risperdal] 1 mg tablet 1 mg PO BID RF: 0 alprazolam 0.5 mg tablet 0.25 mg PO TID RF: 0 pantoprazole 40 mg tablet,delayed release (DR/EC) 40 mg PO DAILY RF: 0 multivitamin with minerals 1 EACH tablet 1 each PO DAILY RF: 0 rosuvastatin 10 mg tablet 10 mg PO QHS RF: 0 sennosides-docusate sodium [Stimulant Laxative Plus] 8.6-50 mg tablet 2 tab PO BID PRN PRN (Reason: Constipation) RF: 0 pregabalin 75 mg capsule 75 mg PO BID RF: 0 Changed metoprolol tartrate 25 mg tablet 25 mg PO BID Qty: 0 RF: 0 Xarelto 20 mg tablet 20 mg PO DAILY Qty: 0 RF: 0 Referrals / Follow Up: Matt Hess Chi, MD [Primary Care Provider] - Disposition Disposition (needs filled in before D/C Order can be placed): Home Health Service
--- NOTE | 2021-06-17 15:09 | DS.PCM_ITS ---
Providers Date of Admission: 06/15/21 Date of Discharge: 06/17/21 Primary Care Physician: Dr. Matt Hess MD Consultations 06/15/21 19:31 Consult: Onc/Wound/bit setter Routine Comment: Consult: Plastic Surgery Routine Consulting Provider: Dada Gaviria Reason for Consult: infected traumatic hematoma of RLE EMERGENT Consult: No MD Notified: Yes Date Notified: 06/15/21 Time Notified: 18:24 Method of Notification: Verbal Reason For Visit: TRAUMATIC HEMATOMA OF RLE Diagnosis Discharge Diagnosis (1) Cellulitis: Status: Acute Code(s): L03.90 - Cellulitis, unspecified Medications at Discharge Home Medications sertraline 100 mg tablet 200 mg PO DAILY tab 05/27/18 alprazolam 0.5 mg tablet 0.25 mg PO TID 06/08/20 pantoprazole 40 mg tablet,delayed release 40 mg PO DAILY 06/08/20 risperidone 1 mg tablet 1 mg PO BID 06/08/20 multivitamin with minerals 1 each PO DAILY 06/29/20 pregabalin 75 mg PO BID 06/15/21 rosuvastatin 10 mg PO QHS 06/15/21 sennosides-docusate sodium [Stimulant Laxative Plus] 2 tab PO BID PRN PRN 06/15/21 Xarelto 20 mg PO DAILY #0 tab 06/17/21 cephalexin 500 mg PO TID #15 tab 06/17/21 metoprolol tartrate 25 mg PO BID #0 tab 06/17/21 Hospital Course Summary of Care Provided Hospital Course: The patient is 70-year-old female with recent diagnosis of right lower extremity DVT in May 2021 on Xarelto was admitted with infected right calf traumatic hematoma after she slammed door few days prior to admission. Patient had large area of painful contusion on her right cough and the skin sloughed off from that area. Denies any fever chills or shortness of breath. #Infected hematoma of the RLE . [facility] X-ray individually reviewed shows right lower extremity posterior soft tissue swelling. Plastic surgery Dr. Gaviria is consulted. Xarelto on hold. Patient is on IV Zosyn for concern of infection of hematoma. 06/17: Patient had incision and drainage and excisional debridement infected hematoma with overlying skin necrosis of right posterior leg on 06/16. Infected necrotic hematoma was removed and sent for pathology. Estimated blood loss about 850 mill. Patient had 2 units of PRBC transfusion yesterday. Posttransfusion hemoglobin 9.1 g%. Operative dressing was changed by surgeon and no active bleeding. Discussed with the wound nurse and plan for wound VAC. Follow-up wound center on 06/27/2021. Mild hypokalemia, potassium replaced. Patient is discharged on Keflex to complete a total of 7 days of antibiotics. #Hypertension: on metoprolol #History of DVT in RLE recently diagnosed with DVT of RLE in [id number] her home meds state Xarelto 20 mg p.o. twice daily which is at home dose. Anyhow, Xarelto was held and resume 72 hours after surgery as patient had large amount of blood loss along with 2 months of PRBC transfusion as mentioned above. Resume Xarelto on 06/21/2019 2 AM. #Hyperlipidemia: on statin. #Depression and Bipolar disorder: on sertraline and xanax as well as risperdal DVT prophylaxis: SCDs Code status: full code Discharge medication reconciliation done. Discharge follow-up instructions completed. Discharge process discussed with the patient and all questions were answered to patient's satisfaction. Total time spent, exact 35 minutes on discharge meds reconciliation, examination, coordination of care with nurses and ancillary staff, review of imaging and blood test and discussion with the patient on follow-up instructions. Physical Exam Narrative Patient was seen and examined today. Please see the progress note of the same. Right calf surgery is dry. Patient had wound VAC. Wound VAC for home is improved. Okay for discharge from surgical point of view. Weight / BMI Weight Weight: 113 lb 12 oz Body Mass Index (BMI) 19.5 ABG / Lab / Microbiology Data Result Diagrams: 06/17/21 05:49 06/17/21 05:49 Laboratory: Laboratory Results - last 24 hr 06/16/21 03:45: Crossmatch See Detail 06/16/21 16:15: WBC 7.6, RBC 3.40 L, Hgb 10.5 L, Hct 30.9 L, MCV 90.9, MCH 30.9, MCHC 34.0 D, RDW Std Deviation 45.3 H, RDW Coeff of Jen 13.7, Plt Count 146 L, MPV 12.2 H 06/17/21 05:49: WBC 8.2, RBC 3.00 L, Hgb 9.1 L, Hct 27.2 L, MCV 90.7, MCH 30.3, MCHC 33.5, RDW Std Deviation 44.5 H, RDW Coeff of Jen 13.7, Plt Count 139 L, MPV 11.6, Immature Gran % (Auto) 0.700, Neut % (Auto) 78.9 H, Lymph % (Auto) 7.3 L, [place] % (Auto) 12.9 H, Eos % (Auto) 0.0, Baso % (Auto) 0.2, Absolute Neuts (auto) 6.4, Absolute Lymphs (auto) 0.60 L, Nucleated RBC % 0, Differential Comment SCANNED, Platelet Estimate ADEQUATE 06/17/21 05:49: Sodium 140, Potassium 3.3 L, Chloride 110 H, Carbon Dioxide 25.0, Anion Gap 5, BUN 7, Creatinine 0.38 L, Estim Creat Clear Calc 42.64, Est GFR (MDRD) Af Amer 216, Est GFR (MDRD) Non-Af 179, BUN/Creatinine Ratio 18.5, Glucose 99, Calcium 7.7 L, Prealbumin 6.6 L Microbiology: Microbiology 06/16/21 Unknown Tissue - Leg, Right Gram Stain - Final 06/16/21 Unknown Tissue - Leg, Right Wound Culture - Preliminary No growth-Final to follow D/C Instructions Discharge Diet: No restrictions (High protein diet) May resume sexual activity in: 10-14 days Weight Bearing Status: Weight bearing as tolerated Additional Activity Instructions: May walk as much as needed. Avoid standing for long periods of time due to this will increase swelling. When seated, make sure to elevate her right leg to help prevent swelling. Call your doctor if your incision/area has: Continuous Slow Oozing, Sudden Increased Bleeding, Increased Pain/ Swelling, Increased Redness, Foul Smelling Discharge and Swelling at the incision site Call your doctor if you observe: Fever of 101 or Higher, Coldness, Increased P ain, Inability to have a bowel movement, Shortness of breath, Chest pain, Calf discomfort and Uncontrolled pain Additional Dressing/Incision Instructions: When wound VAC is changed, the wound and surjit wound should be washed with soap and water. Wound VAC is to be changed 3 times per week. VAC is to be at 150 mmHg. Adaptic to the wound bed for only the first week. Please call Lanie at [phone] if you have any questions or concerns about the dressing changes. Pending Tests Upon Discharge: Operative wound culture results Please Follow Up With: Lanie Manley When: At the wound center [phone] on Sunday06/27/21. They will call you for an appointment and to schedule you a ride to get there and to get home. Meaningful Use Info Meaningful Use Diagnoses (Choose all that apply): None applicable Discharge Plan Admission Admit Date/Time: 06/15/21 18:20 Primary Reason for Your Visit: Infected right calf hematoma Attending Provider: Noble Acevedo Primary Care Provider: Matt Hess Chi Consulting Providers: Dada Gaviria Discharge Orders/Prescriptions Prescriptions: New cephalexin 500 mg tablet 500 mg PO TID Qty: 15 RF: 0 Continued sertraline [Zoloft] 100 mg tablet 200 mg PO DAILY RF: 0 risperidone [Risperdal] 1 mg tablet 1 mg PO BID RF: 0 alprazolam 0.5 mg tablet 0.25 mg PO TID RF: 0 pantoprazole 40 mg tablet,delayed release (DR/EC) 40 mg PO DAILY RF: 0 multivitamin with minerals 1 EACH tablet 1 each PO DAILY RF: 0 rosuvastatin 10 mg tablet 10 mg PO QHS RF: 0 sennosides-docusate sodium [Stimulant Laxative Plus] 8.6-50 mg tablet 2 tab PO BID PRN PRN (Reason: Constipation) RF: 0 pregabalin 75 mg capsule 75 mg PO BID RF: 0 Changed metoprolol tartrate 25 mg tablet 25 mg PO BID Qty: 0 RF: 0 Xarelto 20 mg tablet 20 mg PO DAILY Qty: 0 RF: 0 Referrals / Follow Up: Matt Hess Chi, MD [Primary Care Provider] - Disposition Disposition (needs filled in before D/C Order can be placed): Home Health Service Charges/Coding Addendum Addendum: Cancel the billing charge of progress note on the same day Visit Charges Inpatient E&M: [id number] Disch Hosp
[2021-06-17 22:12] LABS: Creatine Kinase BB 0 % (0)
--- NOTE | 2021-06-18 23:59 | PCM.CONS.GEN ---
HPI Consult Data Date of Consult: 06/18/21 HPI Narrative Reason for Consultation: Painful infected hematoma right posterior leg with overlying skin necrosis HPI Narrative: TRACI MCCONNELL, is a 70 F who presents [facility] Medical History (Updated 06/18/21 @ 23:[address] Dada Gaviria MD) A-fib Abnormal chest CT Anxiety Back pain Benzodiazepine dependence Bipolar disorder Cellulitis of right leg Chronic pain Constipation Depression DVT (deep venous thrombosis) Emphysema lung Fatigue Former smoker History of stress test HLD (hyperlipidemia) residential current use of anticoagulant Lung mass Osteoarthritis Skin necrosis Traumatic hematoma of right lower leg with infection Vitamin D deficiency Home Medications sertraline 100 mg tablet 200 mg PO DAILY tab 05/27/18 [History Last Taken 06/15/21] alprazolam 0.5 mg tablet 0.25 mg PO TID 06/08/20 [History Last Taken 06/15/21] pantoprazole 40 mg tablet,delayed release 40 mg PO DAILY 06/08/20 [History Last Taken 06/15/21] risperidone 1 mg tablet 1 mg PO BID 06/08/20 [History Last Taken 06/15/21] multivitamin with minerals 1 each PO DAILY 06/29/20 [History Last Taken 06/15/21] pregabalin 75 mg PO BID 06/15/21 [History Last Taken 06/15/21] rosuvastatin 10 mg PO QHS 06/15/21 [History Last Taken 06/14/21] sennosides-docusate sodium [Stimulant Laxative Plus] 2 tab PO BID PRN PRN 06/15/21 [History Last Taken 06/15/21] Xarelto 20 mg PO DAILY #0 tab 06/17/21 [Rx Last Taken 06/15/21] cephalexin 500 mg PO TID #15 tab 06/17/21 [Rx Last Taken Unknown] diazepam [Valium] 5 mg PO BID PRN 7 Days #14 tab 06/17/21 [Rx Last Taken Unknown] metoprolol tartrate 25 mg PO BID #0 tab 06/17/21 [Rx Last Taken 06/15/21] oxycodone-acetaminophen [Percocet] 1 tab PO Q4H PRN 7 Days #40 tab 06/17/21 [Rx Last Taken Unknown] Allergy/AdvReac Type Severity Reaction Status Date / Time bee venom protein (honey bee) Allergy Severe Anaphylaxis Verified 06/15/21 16:01 thiothixene AdvReac Unknown Unknown Verified 06/15/21 16:01 Family History Other CVA (cerebral vascular accident) Dementia Surgical History (Updated 06/15/21 @ 19:56 by Salvador Aviles) History of back surgery History of D&C History of tonsillectomy Social History Smoking Status: Former smoker second hand exposure: No alcohol intake: never substance use type: does not use caffeine: Yes Lab / Micro Data Result Diagrams: 06/17/21 05:49 06/17/21 05:49 Micro: Microbiology 06/16/21 Unknown Tissue - Leg, Right Gram Stain - Final 06/16/21 Unknown Tissue - Leg, Right Wound Culture - Preliminary No growth-Final to follow 06/16/21 Unknown Tissue - Leg, Right Anaerobic Culture - Preliminary No growth in 48 hours.
== END 2021-06-17 17:47 | disposition home health service (06) | DRG 571 ==
LOC: ED 18:12 → MS3 18:49
PROVIDERS: Family Medicine; Surgery; Admitting Provider Student in an Organized Health Care Education/Training Program; Emergency Provider Emergency Medicine; PCP Family Medicine Geriatric Medicine; Visit Provider Internal Medicine
PROC: 0JBN0ZZ Excision of Right Lower Leg Subcutaneous Tissue and Fascia, Open Approach (ICD-10-PCS; principal; 2021-06-16 13:20)
DX: L03.115 Cellulitis of right lower limb (principal); D62 Acute posthemorrhagic anemia; I96 Gangrene, not elsewhere classified; S80.11XA Contusion of right lower leg, initial encounter; D64.9 Anemia, unspecified; E55.9 Vitamin D deficiency, unspecified; F31.9 Bipolar disorder, unspecified; J43.9 Emphysema, unspecified; I48.91 Unspecified atrial fibrillation; E78.5 Hyperlipidemia, unspecified; E87.6 Hypokalemia; I10 Essential (primary) hypertension; F41.9 Anxiety disorder, unspecified; Z87.891 Personal history of nicotine dependence; Z79.01 Long term (current) use of anticoagulants; W23.0XXA Caught, crushed, jammed, or pinched between moving objects, initial encounter; Y93.9 Activity, unspecified; Y92.9 Unspecified place or not applicable; Z86.718 Personal history of other venous thrombosis and embolism; G89.29 Other chronic pain; Z79.899 Other long term (current) drug therapy
CPT/HCPCS: 36415; 73590; 80048; 82550; 82552; 83605; 84134; 85014; 85018; 85025; 85027; 86850; 86900; 86901; 86920; 86922; 87070; 87075; 87102; 87176; 87205; 87206; 88304; 93005; 97162; 97166; 97802; 99283; J7030; J7040; J7050; P9016; A4216; J2405

== ENCOUNTER 2021-06-22 13:07 | Emergency (ER) | payer MEDICARE, MEDICAID, SELFPAY ==
[2021-06-22 13:08] VITALS: BP 96/81; PULSE 100; RESP 16; TEMP 36.9; O2SAT 95; BMI 20.9
--- NOTE | 2021-06-22 14:24 | RAD_ITS ---
STUDY: X-RAY - RIGHT TIBIA AND FIBULA REASON FOR EXAM: Female, 70 years old. pain, trauma TECHNIQUE: 2 view(s) of the tibia and fibula were obtained. COMPARISON: None. FINDINGS: Normal visualized tibia. Normal visualized fibula. Large amount of subcutaneous emphysema in the posterior aspect of the leg consistent with a known wound which has been debridement. RAD/Tibia & Fibula 2 Views IMPRESSION: Large wound to the posterior leg. No osteomyelitis. Electronically Signed: Crispin Gaviria MD at 15:10 EDT ,
[2021-06-22 14:26] LABS: Absolute Lymphocyte Count 0.69 X10^3/uL (0.83-4.51); Absolute Neutrophil Count 5.5 X10^3/uL (2.0-7.7); Basophil# 0.01 X10^3/uL; Basophil% 0.1 % (0-1); Eosinophil# 0.01 X10^3/uL; Eosinophils% 0.1 % (0-5); Hematocrit 29.3 % (37-47); Lymphocyte # 0.69 X10^3/ul (0.83-4.51); Lymphocyte % 9.5 % (19-41); Mean Corp Hgb Conc 34.1 g/dL (32-36); Mean Corpuscular Hgb 30.7 pg (27.0-32.0); Mean Corpuscular Volume 89.9 fL (81-99); Mean Platelet Vol. 12.8 fl (6.2-12.0); Monocyte# 0.96 X10^3/uL; Monocyte% 13.3 % (0-10); NRBC Flagged by Analyzer 0 % (0-5); Neutrophil # 5.52 X10^3/uL (2.7-7.7); Neutrophil % 76.4 % (47-70); Platelet Count 148 K/mm3 (150-450); RBC Distribution Width CV 13.2 % (11.6-14.6); RBC Distribution Width SD 43.8 fl (35.1-43.9); Red Blood Count 3.26 M/mm3 (4.2-5.4); White Blood Count 7.2 K/mm3 (4.4-11.0)
[2021-06-22 14:46] LABS: ALB/GLOB Ratio 0.5 RATIO (0.9-2.4); AST(SGOT) 80 U/L (15-37); Alanine Aminotransfer ALT/SGPT 49 U/L (13-56); Alkaline Phosphatase 76 U/L (45-117); Anion Gap 3 (5-15); BUN 10 mg/dL (7-18); BUN/Creat Ratio 20.5 RATIO (10-20); Calcium,Total 8.1 mg/dL (8.5-10.1); Chloride 108 mmol/L (98-107); Creatinine, Serum 0.49 mg/dL (0.55-1.02); EST Glomerular Filtration Rate 133 mL/min (>60); Est Glom Filt Rate - Afr Amer 161 mL/min (>60); Globulin 3.7 g/dL (2.2-4.2); Glucose 129 mg/dL (74-106); Potassium 3.9 mmol/L (3.5-5.1); Protein, Total 5.7 g/dL (6.4-8.2); Sodium Level 142 mmol/L (136-145)
--- NOTE | 2021-06-22 15:23 | CM.ED ---
Social Work Consult: retirement placement. Referral source: Dr. Henao Met with patient in room. Introduced self and social work administrator role. Patient agreeable to speak with this social work administrator. Patient reports to live at home alone with 2 cats and a dog. Patient states to typically walk about with a walker and to have a medical alert button. Patient states to have home health services through [facility] for wound care. Patient currently has a wound vac. Per nursing, concerned for patient compliance with medications and wound care. Patient stated to have fallen several times in the past few weeks. This social work administrator broached topic of [facility] placement for patient. Patient stated I am not going to a chcf. This social work administrator inquired why patient is not open to chcf placement. Patient states my animals. This social work administrator attempted to problem solve with patient on options for care of patient animals while patient would be in a chcf. Patient stated to have a brother that helps patient with grocery shopping but I don't want him to have to help more. Patient stated to have neighbors that are helpful but they have helped too much already. Patient is not open to this social work administrator reaching out to patient brother or neighbors to inquire about care of patient animals. Patient states to be aware of risk of patient returning to home and I just want to go home. Patient stated that patient brother would be able to provide transportation to home for patient. Patient plans to call patient brother when patient is cleared for discharge. Patient declined any further community services/supports. This social work administrator updated nursing staff and Dr. Henao on above information. PLAN: Discharge to the community. Cherrie HERNANDEZ, AMY
--- NOTE | 2021-06-22 15:34 | EDS_ITS ---
HPI History of Present Illness Chief Complaint: Lower Extremity Injury Narrative Narrative: Patient presents with pain in her right lower extremity. She states that she had a blood clot in her lower leg, and she had a car door hit it. She was hospitalized and had to have skin grafting performed by Dr. Gaviria. She states that she fell again and is having pain in her right lower extremity. She denies hitting her head or loss of consciousness. She is mildly evasive in answering questions regarding her history, and frequently states I cannot remember. She states that she lives at home with her daughter and does get home health care. She has a wound VAC which she states she does not attached her wound to because she wants to save electricity. She denies any fevers or chills. No nausea or vomiting. No other symptoms. [facility] Medical History A-fib Abnormal chest CT Anxiety Back pain Benzodiazepine dependence Bipolar disorder Cellulitis of right leg Chronic pain Constipation Depression DVT (deep venous thrombosis) Emphysema lung Fatigue Former smoker History of stress test HLD (hyperlipidemia) group home current use of anticoagulant Lung mass Osteoarthritis Skin necrosis Traumatic hematoma of right lower leg with infection Vitamin D deficiency Home Medications sertraline 100 mg tablet 200 mg PO DAILY tab 05/27/18 [History Last Taken 06/15/21] alprazolam 0.5 mg tablet 0.25 mg PO TID 06/08/20 [History Last Taken 06/15/21] pantoprazole 40 mg tablet,delayed release 40 mg PO DAILY 06/08/20 [History Last Taken 06/15/21] risperidone 1 mg tablet 1 mg PO BID 06/08/20 [History Last Taken 06/15/21] multivitamin with minerals 1 each PO DAILY 06/29/20 [History Last Taken 06/15/21] pregabalin 75 mg PO BID 06/15/21 [History Last Taken 06/15/21] rosuvastatin 10 mg PO QHS 06/15/21 [History Last Taken 06/14/21] sennosides-docusate sodium [Stimulant Laxative Plus] 2 tab PO BID PRN PRN 12/29 [History Last Taken 06/15/21] cephalexin 500 mg PO TID #15 tab 06/17/21 [Rx Last Taken Unknown] diazepam [Valium] 5 mg PO BID PRN 7 Days #14 tab 06/17/21 [Rx Last Taken Unknown] metoprolol tartrate 25 mg PO BID #0 tab 06/17/21 [Rx Last Taken 06/15/21] oxycodone-acetaminophen [Percocet] 1 tab PO Q4H PRN 7 Days #40 tab 06/17/21 [Rx Last Taken Unknown] Allergy/AdvReac Type Severity Reaction Status Date / Time bee venom protein (honey bee) Allergy Severe Anaphylaxis Verified 06/22/21 13:11 thiothixene AdvReac Unknown Unknown Verified 06/22/21 13:11 Family History Other CVA (cerebral vascular accident) Dementia Surgical History History of back surgery History of D&C History of tonsillectomy Social History Smoking Status: Former smoker second hand exposure: No alcohol intake: never substance use type: does not use caffeine: Yes ROS ROS ED ROS Narrative Constitutional: No fever, no chills. HEENT: No sore throat. No neck pain. No loss of vision. No rhinorrhea. Cardiovascular: No chest pain. No palpitations. No pedal edema. Respiratory: No cough, no shortness of breath. Abdominal: No abdominal pain. No nausea. No vomiting. Genitourinary: No dysuria. No hematuria. Musculoskeletal: Right lower extremity pain where wound VAC is placed. Neurologic: No headaches. No dizziness. No lightheadedness. Skin: No rash. No change in color. Psychiatric: No depression. No anxiety. EXAM Physical Exam Narrative Exam Narrative: Afebrile. Vital signs noted. HEENT: Normocephalic. Atraumatic. PERRL, EOMI. Neck soft and supple. No point tenderness or step off. Cardiovascular: Regular rate and rhythm. No murmurs, rubs, or gallops appreciated. Respiratory: No tachypnea. Lungs clear to auscultation bilaterally. Gastrointestinal: Abdomen soft, nontender, with normoactive bowel sounds. No rebound or guarding. Neurological: Awake. Alert. Nonfocal, nonlateralizing. Skin: No rash. Positive erythema right lower extremity no pallor. Musculoskeletal: No pedal edema. Positive wound VAC on right lower extremity mainly in calf area. Positive erythema. Soiled Blayne bandage removed and discarded. Const Vital Signs: 06/22/21 13:08 Temperature 98.5 F Temperature Source Temporal Pulse Rate 100 Respiratory Rate 16 Blood Pressure 96/81 H Blood Pressure Mean 86 Pulse Ox 95 Oxygen Delivery Method Room Air MDM MDM MDM Narrative Medical decision making narrative: X-rays were obtained of the right tibia/fibula. My interpretation shows large wound in the posterior leg but no evidence of fracture. Radiology confirms this. She has normal white count of 7.2 with a hemoglobin stable at 10.0. Electrolyte panel shows chloride elevated at 108, glucose appropriately elevated at 129 with a anion gap of 3. AST is slightly elevated at 80 which I think is nonspecific, she has a normal ALT at 49 and alk phos normal at 76. RN reports concern by home health care that she is not treating her wound appropriately and not hooking up her wound VAC. I am unsure as to how often she changes her Blayne bandage and rewraps it. Case management is currently discussing with the patient possible placement in a [place] [facility] [place] as respite to care for her right lower extremity. It was reported that she will require admission should she choose to be placed in a halfway facility. Currently, patient is in stable condition. According to case management, she does not want to be placed in [place] [facility] [place]. She was told that she needs to continue her wound VAC and follow-up with Dr. Gaviria. I feel that she has the decision making capacity to say that she does not want placement. I feel she be discharged safely home with follow-up. Blayne bandage will be replaced. Return instructions reviewed. Disposition is discharged home in stable condition. Lab Data Labs: Laboratory Results - last 24 hr 06/22/21 06/22/21 14:10 14:10 WBC 7.2 RBC 3.26 L Hgb 10.0 L Hct 29.3 L MCV 89.9 MCH 30.7 MCHC 34.1 RDW Std Deviation 43.8 RDW Coeff of Jen 13.2 Plt Count 148 L MPV 12.8 H Immature Gran % (Auto) 0.600 Neut % (Auto) 76.4 H Lymph % (Auto) 9.5 L [place] % (Auto) 13.3 H Eos % (Auto) 0.1 Baso % (Auto) 0.1 Absolute Neuts (auto) 5.5 Absolute Lymphs (auto) 0.69 L Nucleated RBC % 0 Sodium 142 Potassium 3.9 Chloride 108 H Carbon Dioxide 31.0 Anion Gap 3 L BUN 10 Creatinine 0.49 L Estim Creat Clear Calc 45.20 Est GFR (MDRD) Af Amer 161 Est GFR (MDRD) Non-Af 133 BUN/Creatinine Ratio 20.5 H Glucose 129 H Calcium 8.1 L Total Bilirubin 0.40 AST 80 H ALT 49 Alkaline Phosphatase 76 Total Protein 5.7 L Albumin 2.0 L Globulin 3.7 Albumin/Globulin Ratio 0.5 L Radiography Diagnostic Testing: Clinical Impression(s) from Imaging Studies Tibia/Fibula X-Ray 06/22/21 14:24 IMPRESSION: Large wound to the posterior leg. No osteomyelitis. Electronically Signed: Crispin Gaviria MD at 15:10 EDT Reading Location ID and State: [facility] / [place] Tel , Service support , Discharge Plan Triage Chief Complaint: Lower Extremity Injury ED Provider: Shabbir Henao Dx/Rx/DC Orders Clinical Impression: Lower extremity pain, right, Fall, Hx of skin graft, Visit for wound check Instructions: ED Bandage Elastic Wrap, ED Fall with Uncertain Cause, ED Wound Check (No Infection) Prescriptions: No Action sertraline [Zoloft] 100 mg tablet 200 mg PO DAILY RF: 0 risperidone [Risperdal] 1 mg tablet 1 mg PO BID RF: 0 alprazolam 0.5 mg tablet 0.25 mg PO TID RF: 0 pantoprazole 40 mg tablet,delayed release (DR/EC) 40 mg PO DAILY RF: 0 multivitamin with minerals 1 EACH tablet 1 each PO DAILY RF: 0 rosuvastatin 10 mg tablet 10 mg PO QHS RF: 0 sennosides-docusate sodium [Stimulant Laxative Plus] 8.6-50 mg tablet 2 tab PO BID PRN PRN (Reason: Constipation) RF: 0 pregabalin 75 mg capsule 75 mg PO BID RF: 0 cephalexin 500 mg tablet 500 mg PO TID Qty: 15 RF: 0 metoprolol tartrate 25 mg tablet 25 mg PO BID Qty: 0 RF: 0 oxycodone-acetaminophen [Percocet] 5-325 mg tablet 1 tab PO Q4H PRN (Reason: pain (scale score 7-10)) 7 Days Qty: 40 RF: 0 diazepam [Valium] 5 mg tablet 5 mg PO BID PRN (Reason: muscle spasm) 7 Days Qty: 14 RF: 0 Primary Care Provider: Matt Hess Chi Referrals: Dada Gaviria MD [STAFF PHYSICIAN] - As soon as possible Matt Hess Chi, MD [Primary Care Provider] - Disposition Disposition: Home, Self Care
[2021-06-22 17:11] VITALS: BP 100/71; PULSE 81; RESP 18; O2SAT 95
== END 2021-06-22 17:12 | disposition home or self-care (01) ==
PROVIDERS: Emergency Provider Emergency Medicine; PCP Family Medicine Geriatric Medicine; Visit Provider Emergency Medicine
DX: M79.604 Pain in right leg (principal); F31.9 Bipolar disorder, unspecified; I48.91 Unspecified atrial fibrillation; Z87.891 Personal history of nicotine dependence; E78.5 Hyperlipidemia, unspecified; F41.9 Anxiety disorder, unspecified; G89.29 Other chronic pain; Z86.718 Personal history of other venous thrombosis and embolism; M19.90 Unspecified osteoarthritis, unspecified site; E55.9 Vitamin D deficiency, unspecified; Z79.899 Other long term (current) drug therapy; Z91.19 Patient's noncompliance with other medical treatment and regimen; Z94.5 Skin transplant status; W19.XXXA Unspecified fall, initial encounter; Y93.9 Activity, unspecified; Y92.9 Unspecified place or not applicable
CPT/HCPCS: 73590; 80053; 85025; 99285; A4216

== ENCOUNTER 2021-06-30 15:41 | Inpatient (IN) | payer MEDICARE, MEDICAID, SELFPAY ==
[2021-06-30 15:42] VITALS: BP 115/66; PULSE 100; RESP 18; TEMP 36.6; O2SAT 98; BMI 18.7
--- NOTE | 2021-06-30 16:03 | RAD_ITS ---
STUDY: X-RAY - RIGHT TIBIA AND FIBULA REASON FOR EXAM: Female, 70 years old. Open wound TECHNIQUE: 3 view(s) of the tibia and fibula were obtained. COMPARISON: June 22, 2021 FINDINGS: There is demineralization of the tibia. There is demineralization of the fibula. There is no demonstrated acute fracture. There is posterior soft tissue wound or defect. RAD/Tibia & Fibula 2 Views IMPRESSION: Demineralization of the osseous structures. Posterior soft tissue wound or defect. Electronically Signed: Homar Salazar MD at 17:33 EDT ,
--- NOTE | 2021-06-30 16:03 | EKG12_ITS ---
Test Reason : WOUND Blood Pressure : / mmHG Vent. Rate : 089 BPM Atrial Rate : 090 BPM P-R Int : 088 ms QRS Dur : 070 ms QT Int : 362 ms P-R-T Axes : 012 062 044 degrees QTc Int : 440 ms Sinus rhythm with short [place] Nonspecific ST abnormality Abnormal ECG Confirmed by SISSY OLVERA, FLIP ([id number]), assistant editor SRINIVAS ISRAEL ([id number]) on 07/04/2021 10:34:40 AM Referred By: GREGOR Confirmed By:FLIP SHEEHAN MD
[2021-06-30 16:15] VITALS: BP 108/70; PULSE 97; RESP 16; TEMP 36.6; O2SAT 97
--- NOTE | 2021-06-30 16:21 | ED.VIS.LOWEX ---
HPI History of Present Illness Chief Complaint: Wound Narrative Narrative: Patient presents with right lower extremity leg wound that she states is being treated by Dr. Gaviria in the wound center. She last finished antibiotics 10 days ago. She has had subjective fever and increased drainage from her right lower extremity. It is a large, open wound. She states that she comes from home because her home health aide called EMS because her wound is looking worse. She denies any nausea or vomiting. No other symptoms. PFSH PFS Medical History A-fib Abnormal chest CT Anxiety Back pain Benzodiazepine dependence Bipolar disorder Cellulitis of right leg Chronic pain Constipation Depression DVT (deep venous thrombosis) Emphysema lung Fatigue Former smoker History of stress test HLD (hyperlipidemia) halfway current use of anticoagulant Lung mass Osteoarthritis Skin necrosis Traumatic hematoma of right lower leg with infection Vitamin D deficiency Home Medications sertraline 100 mg tablet 200 mg PO DAILY tab 05/27/18 [History Last Taken 06/15/21] alprazolam 0.5 mg tablet 0.25 mg PO TID 06/08/20 [History Last Taken 06/15/21] pantoprazole 40 mg tablet,delayed release 40 mg PO DAILY 06/08/20 [History Last Taken 06/15/21] risperidone 1 mg tablet 1 mg PO BID 06/08/20 [History Last Taken 06/15/21] multivitamin with minerals 1 each PO DAILY 06/29/20 [History Last Taken 06/15/21] pregabalin 75 mg PO BID 06/15/21 [History Last Taken 06/15/21] rosuvastatin 10 mg PO QHS 06/15/21 [History Last Taken 06/14/21] sennosides-docusate sodium [Stimulant Laxative Plus] 2 tab PO BID PRN PRN 06/15/21 [History Last Taken 06/15/21] cephalexin 500 mg PO TID #15 tab 06/17/21 [Rx Last Taken Unknown] diazepam [Valium] 5 mg PO BID PRN 7 Days #14 tab 06/17/21 [Rx Last Taken Unknown] metoprolol tartrate 25 mg PO BID #0 tab 06/17/21 [Rx Last Taken 06/15/21] oxycodone-acetaminophen [Percocet] 1 tab PO Q4H PRN 7 Days #40 tab 06/17/21 [Rx Last Taken Unknown] oxycodone-acetaminophen 5 mg-325 mg tablet 1 tab PO Q6H PRN 7 Days #28 tab 06/27/21 [Rx Last Taken Unknown] Allergy/AdvReac Type Severity Reaction Status Date / Time bee venom protein (honey bee) Allergy Severe Anaphylaxis Verified 06/22/21 13:11 thiothixene AdvReac Unknown Unknown Verified 06/22/21 13:11 Family History Other CVA (cerebral vascular accident) Dementia Surgical History History of back surgery History of D&C History of tonsillectomy Social History Smoking Status: Former smoker second hand exposure: No alcohol intake: never substance use type: does not use caffeine: Yes ROS ROS ED ROS Narrative Constitutional: Subjective fever, no chills. HEENT: No sore throat. No neck pain. No loss of vision. No rhinorrhea. Cardiovascular: No chest pain. No palpitations. No pedal edema. Respiratory: No cough, no shortness of breath. Abdominal: No abdominal pain. No nausea. No vomiting. Genitourinary: No dysuria. No hematuria. Musculoskeletal: No myalgias. No arthralgias. Neurologic: No headaches. No dizziness. No lightheadedness. Skin: No rash. No change in color. Right lower extremity wound with reported increased drainage. Psychiatric: No depression. No anxiety. EXAM Physical Exam Narrative Exam Narrative: Afebrile. Vital signs noted. HEENT: Normocephalic. Atraumatic. PERRL, EOMI. Neck soft and supple. No point tenderness or step off. Cardiovascular: Regular rate and rhythm. No murmurs, rubs, or gallops appreciated. Respiratory: No tachypnea. Lungs clear to auscultation bilaterally. Gastrointestinal: Abdomen soft, nontender, with normoactive bowel sounds. No rebound or guarding. Neurological: Awake. Alert. Nonfocal, nonlateralizing. Skin: No rash. Normal color. No pallor. Large open wound with subcutaneous tissue exposed on posterior lower leg with some areas of fat necrosis. Musculoskeletal: No pedal edema. Full range of motion extremities. Const Vital Signs: 06/30/21 15:42 06/30/21 16:03 06/30/21 16:15 Temperature 97.8 F 97.9 F Temperature Source Temporal Oral Pulse Rate 100 97 Respiratory Rate 18 16 Blood Pressure 115/66 108/70 Blood Pressure Mean 82 82 Pulse Ox 98 97 Oxygen Delivery Method Room Air Room Air Room Air MDM MDM MDM Narrative Medical decision making narrative: Sepsis work-up was pursued. Additionally, I reviewed her EMR. I am familiar with the patient as I saw her a few weeks ago. She has not been using her wound VAC as she should. She has normal white count at 10.2, hemoglobin stable at 10.6, platelet count normal at 337. Coagulation studies are normal. Electrolyte panel is grossly unremarkable except for creatinine of 0.42. Glucose appropriately elevated at 98. Lactic acid is normal. X-ray of the right tibia and fibula interpreted by myself shows large wound deficit, but no evidence of fracture or other acute process. I discussed the patient with Dr. Gaviria. They have changed her dressings from wet-to-dry because of her inappropriate use of her wound VAC. Her daughter does not feel that she has been taking care of her right lower extremity. Patient is currently agreeable to long-term placement. She will be started on vancomycin and Zosyn. I will discuss the patient with the hospitalist for admission. I discussed the patient with Dr. Acevedo. She was given 50 mcg of fentanyl for analgesia. She is in stable condition. Lab Data Attestation: I reviewed the patient's lab results. Labs: Laboratory Results - last 24 hr 06/30/21 06/30/21 06/30/21 15:55 15:55 15:55 WBC 10.2 RBC 3.57 L Hgb 10.6 L Hct 32.4 L MCV 90.8 MCH 29.7 MCHC 32.7 RDW Std Deviation 44.2 H RDW Coeff of Jen 13.3 Plt Count 337 MPV 12.1 H Immature Gran % (Auto) 0.700 Neut % (Auto) 82.5 H Lymph % (Auto) 6.5 L [place] % (Auto) 9.5 Eos % (Auto) 0.6 Baso % (Auto) 0.2 Absolute Neuts (auto) 8.4 H Absolute Lymphs (auto) 0.66 L Nucleated RBC % 0 PT 14.8 INR 1.2 APTT 32.9 Sodium 141 Potassium 3.5 Chloride 105 Carbon Dioxide 27.0 Anion Gap 9 BUN 14 Creatinine 0.42 L Estim Creat Clear Calc 40.99 Est GFR (MDRD) Af Amer 189 Est GFR (MDRD) Non-Af 156 BUN/Creatinine Ratio 32.9 H Glucose 98 Lactic Acid Calcium 8.6 Total Bilirubin 0.50 AST 9 L ALT 25 Alkaline Phosphatase 94 Total Protein 6.0 L Albumin 2.0 L Globulin 4.0 Albumin/Globulin Ratio 0.5 L 06/30/21 15:55 WBC RBC Hgb Hct MCV MCH MCHC RDW Std Deviation RDW Coeff of Jen Plt Count MPV Immature Gran % (Auto) Neut % (Auto) Lymph % (Auto) [place] % (Auto) Eos % (Auto) Baso % (Auto) Absolute Neuts (auto) Absolute Lymphs (auto) Nucleated RBC % PT INR APTT Sodium Potassium Chloride Carbon Dioxide Anion Gap BUN Creatinine Estim Creat Clear Calc Est GFR (MDRD) Af Amer Est GFR (MDRD) Non-Af BUN/Creatinine Ratio Glucose Lactic Acid 0.9 Calcium Total Bilirubin AST ALT Alkaline Phosphatase Total Protein Albumin Globulin Albumin/Globulin Ratio Radiography Diagnostic Testing: Clinical Impression(s) from Imaging Studies Tibia/Fibula X-Ray 06/30/21 16:03 IMPRESSION: Demineralization of the osseous structures. Posterior soft tissue wound or defect. Electronically Signed: Homar Salazar MD at 17:33 EDT Reading Location ID and State: [facility] / [place] , Service support , Chest X-Ray 06/30/21 16:30 IMPRESSION: No focal infiltrate or edema. Electronically Signed: Homar Salazar MD at 17:36 EDT , Discharge Plan Dx/Rx/DC Orders Clinical Impression: Leg wound, right, Wound infection Disposition Disposition: [facility]
[2021-06-30 16:25] LABS: Absolute Lymphocyte Count 0.66 X10^3/uL (0.83-4.51); Absolute Neutrophil Count 8.4 X10^3/uL (2.0-7.7); Basophil# 0.02 X10^3/uL; Basophil% 0.2 % (0-1); Eosinophil# 0.06 X10^3/uL; Eosinophils% 0.6 % (0-5); Hematocrit 32.4 % (37-47); Hemoglobin 10.6 g/dL (12.0-15.0); Lymphocyte # 0.66 X10^3/ul (0.83-4.51); Lymphocyte % 6.5 % (19-41); Mean Corp Hgb Conc 32.7 g/dL (32-36); Mean Corpuscular Hgb 29.7 pg (27.0-32.0); Mean Corpuscular Volume 90.8 fL (81-99); Mean Platelet Vol. 12.1 fl (6.2-12.0); Monocyte# 0.97 X10^3/uL; Monocyte% 9.5 % (0-10); NRBC Flagged by Analyzer 0 % (0-5); Neutrophil # 8.41 X10^3/uL (2.7-7.7); Neutrophil % 82.5 % (47-70); Platelet Count 337 K/mm3 (150-450); RBC Distribution Width CV 13.3 % (11.6-14.6); RBC Distribution Width SD 44.2 fl (35.1-43.9); Red Blood Count 3.57 M/mm3 (4.2-5.4); White Blood Count 10.2 K/mm3 (4.4-11.0)
[2021-06-30 16:30] LABS: International Normalized Ratio 1.2; Prothrombin Time (Protime)PT. 14.8 SECONDS (11.7-14.9)
--- NOTE | 2021-06-30 16:30 | RAD_ITS ---
STUDY: X-RAY CHEST REASON FOR EXAM: Female, 70 years old. CAD TECHNIQUE: Single frontal view of the chest. COMPARISON: October 12, 2020 FINDINGS: The lungs are clear and expanded. There is no demonstrated pleural abnormality. Normal size heart. Normal mediastinum and aiyana. Normal visualized pulmonary arteries. Normal visualized aortic arch and descending thoracic aorta. There is demineralization of the osseous structures. There is thoracolumbar dextroscoliosis. Normal visualized ribs, clavicles, and shoulders. There is no demonstrated abnormality of the visualized soft tissue structures of the upper abdomen. RAD/Chest 1 View (Portable) IMPRESSION: No focal infiltrate or edema. Electronically Signed: Homar Salazar MD at 17:36 EDT Reading Location ID and State: [facility] / [place] , Service support ,
[2021-06-30 16:31] LABS: Partial Thromboplast Time 32.9 Seconds (24.1-36.2)
[2021-06-30 16:33] LABS: BUN 14 mg/dL (7-18); BUN/Creat Ratio 32.9 RATIO (10-20); Creatinine, Serum 0.42 mg/dL (0.55-1.02); EST Glomerular Filtration Rate 156 mL/min (>60); Est Glom Filt Rate - Afr Amer 189 mL/min (>60); Estimated Creatinine Clearance 40.99 ml/min; Glucose 98 mg/dL (74-106)
[2021-06-30 16:34] LABS: ALB/GLOB Ratio 0.5 RATIO (0.9-2.4); AST(SGOT) 9 U/L (15-37); Alanine Aminotransfer ALT/SGPT 25 U/L (13-56); Alkaline Phosphatase 94 U/L (45-117); Anion Gap 9 (5-15); Calcium,Total 8.6 mg/dL (8.5-10.1); Chloride 105 mmol/L (98-107); Potassium 3.5 mmol/L (3.5-5.1); Sodium Level 141 mmol/L (136-145)
[2021-06-30 16:35] LABS: Lactic Acid 0.9 mmol/L (0.4-1.9)
--- NOTE | 2021-06-30 17:07 | CM.ED ---
CLAUDE Note SW met with patient. Patient was advised that due to her condition and that she was discharged home last week patient will need a skilled level of care. Patient was in agreement with SNF. SW provided her with list of SNF in [facility] and reviewed/highlighted patient's in network providers.[facility] and second choice is [facility]. Patient gave verbal consent for this screenplay writer to speak to her daughter, Britany, who had called in to speak to medical staff. CLAUDE called Britany, per patient's consent. Britany said that she learned that patient is not doing well at home. Britany said that she is not exactly sure of the issues as she is getting it from different sources. Britany said that patient fell trying to stand up from a chair and bed and has been falling at home when using her walker. Britany said that the patient's neighbor called her and advised that patient was sent to the ED. Britany said that she was not aware of patient's recent stay in the hospital till after the fact . Britany said that her mom said that the Home Health Aide is working on setting up retirement placement. Britany said that patient would benefit from short term treatment for care of her wound and PT to become stronger. Britany said that patient is not doing well and not safe at home. Britany said that previously patient had been referred to [facility] but there was issues with the insurance authorizing it so [facility] did not accept patient. Britany said that if patient can't go for a skilled stay then could she go on a nursing home stay. CLAUDE asked what a nursing home stay is and Britany said it is non skilled with room and board. Britany said that if the insurance does not approve patient's stay she would like the name and number for the casemanager for insurance. CLAUDE advised Britany that she would need to speak to the acute social services designee for that information. Plan: Acute for placement Silvia ALVAREZ
[2021-06-30 18:56] LABS: Bacteria 0 SEEN /hpf (None Seen)
[2021-06-30 19:01] LABS: Color, Urine Yellow (Yellow); Glucose, Dipstick Normal (Normal); Leukocyte Esterase-Dipstick 100 /ul (Negative); Nitrite-Dipstick Negative (Negative); Occult Blood-Urine 25 /ul (Negative); Protein-Dipstick 30 mg/dl (Negative); Specific Gravity, Urine 1.025 (1.002-1.030); Urine Urobilinogen 4 mg/dl (Normal)
[2021-06-30 19:08] VITALS: BP 97/68; PULSE 84; RESP 16; TEMP 37.2; O2SAT 98
[2021-06-30] MEDS: fentaNYL 100 MCG/2 ML Ampul 50 MCG IV (19:17)
[2021-06-30 19:18] VITALS: BP 117/69; PULSE 105; RESP 16; TEMP 36.4; O2SAT 97
[2021-06-30 19:20] LABS: Urine Bilirubin Dipstick 1 mg/dL (Negative)
[2021-06-30 19:22] LABS: Ketone-Dipstick 150 mg/dl (Negative)
[2021-06-30 19:23] LABS: Red Blood Cells-Urine 0-5 SEEN /hpf (0-5); Squamous Epithelial Cells - UA 0-5 SEEN /hpf (5-10); Urine Clarity Sl Cldy (Clear); White Blood Cells 10-25 SEEN /hpf (0-5)
[2021-06-30 19:24] LABS: Amorphous Sediment 1+ URATE; Mucous, Urine 1+ /hpf (<or=2+)
[2021-06-30] MEDS: Piperacil/Tazobactam 3.375 GM Q8 PREMIX IV ×2 (19:41→21:32)
--- NOTE | 2021-06-30 19:43 | HP.PCM.HOS_ITS ---
HPI - General General Date of Admission: 06/30/21 Date of Service: 06/30/21 Chief Complaint: Right posterior leg wound from knee to ankle, chronic. Infected wound HPI Narrative TRACI MCCONNELL, is a 70 F came to ER for worsening of large wound from knee to ankle involving posterior medial and lateral of right leg. Prior to that patient on Xarelto for right leg DVT slammed the door in first week of June resulting into infected hematoma with slough that required hospital admission between 06/15/2021 to 06/17/2021. During that time plastic surgeon Dr. Gaviria was consulted and patient had incision and drainage with excisional debridement of infected hematoma with overlying skin necrosis on 06/16/2021. Patient had estimated blood loss of 4 titrate 50 mill and required treatments of PRBC transfusion at that time. Patient was treated with IV antibiotic Zosyn and discharged on Keflex with wound VAC with home health aide. As per patient and records she was last seen in wound center on 06/21/2021 but unclear about the recommendation in wound center and further management. Today, she came to the ED with much worsening of the right leg wound with slough, severe pain constant 10/10 intensity from right below knee including foot. She is unable to stand up or put weight on her right leg. There does not seem to be any relieving factor but aggravates with movement and touch. Patient has chills, diaphoresis sweating but denies nausea, vomiting, headache. She also has loss of appetite and loss of weight states he lost about 10 pounds in the last 1 month. She was last seen in ED on on 06/22 after she fell down again with severe pain in her right lower extremity without loss of consciousness or head injury. She had wound VAC but denies attached to the power supply in order to save electricity. In ED,Vitals shows heart rate 100/min, BP 150s/66 with no tachypnea or hypoxia. Had right tibia-fibula x-ray which reported demineralization of osseous structure with posterior soft tissue wound or defect. Chest x-ray no focal in filtrate or edema. Twelve-lead EKG individually reviewed normal sinus rhythm short AK interval at 89 bpm. QTc [address]-T changes. Patient has mild shortness of breath mainly on exertion which she relates the worsening of the wound. Patient denies chest pain or palpitation. [facility] Medical History A-fib Abnormal chest CT Anxiety Back pain Benzodiazepine dependence Bipolar disorder Cellulitis of right leg Chronic pain Constipation Depression DVT (deep venous thrombosis) Emphysema lung Fatigue Former smoker History of stress test HLD (hyperlipidemia) bed bug exterminator current use of anticoagulant Lung mass Osteoarthritis Skin necrosis Traumatic hematoma of right lower leg with infection Vitamin D deficiency Home Medications sertraline 100 mg tablet 200 mg PO DAILY tab 05/27/18 [History Last Taken 06/15/21] alprazolam 0.5 mg tablet 0.25 mg PO TID 06/08/20 [History Last Taken 06/15/21] pantoprazole 40 mg tablet,delayed release 40 mg PO DAILY 06/08/20 [History Last Taken 06/15/21] risperidone 1 mg tablet 1 mg PO BID 06/08/20 [History Last Taken 06/15/21] multivitamin with minerals 1 each PO DAILY 06/29/20 [History Last Taken 06/15/21] pregabalin 75 mg PO BID 06/15/21 [History Last Taken 06/15/21] rosuvastatin 10 mg PO QHS 06/15/21 [History Last Taken 06/14/21] sennosides-docusate sodium [Stimulant Laxative Plus] 2 tab PO BID PRN PRN 06/15/21 [History Last Taken 06/15/21] metoprolol tartrate 25 mg PO BID #0 tab 06/17/21 [Rx Last Taken 06/15/21] oxycodone-acetaminophen 5 mg-325 mg tablet 1 tab PO Q6H PRN 7 Days #28 tab 06/27/21 [Rx Last Taken Unknown] Allergy/AdvReac Type Severity Reaction Status Date / Time bee venom protein (honey bee) Allergy Severe Anaphylaxis Verified 06/22/21 13:11 thiothixene AdvReac Unknown Unknown Verified 06/22/21 13:11 Family History Other CVA (cerebral vascular accident) Dementia Surgical History History of back surgery History of D&C History of tonsillectomy Social History Smoking Status: Former smoker second hand exposure: No alcohol intake: never substance use type: does not use caffeine: Yes ROS ROS Narrative Constitutional: Reports fatigue and weakness. Chills and sweating. Loss of appetite and loss of weight HEENT: Reports systems reviewed and no addt'l complaints, except as documented Respiratory/Chest: Denies chest pain. Admission HPI Gastrointestinal: Denies coffee ground emesis, hematemesis or vomiting Genitourinary: Denies burning urination or new urinary tract symptoms Musculoskeletal: Severe pain in right leg below knee. Any range of motion over right lower extremity not possible because of pain. Neurologic: Denies seizure-like activity skin: As mentioned in HPI Endocrinology: Reports systems reviewed and no addt'l complaints, except as documented Hematologic/Lymphatic: Reports systems reviewed and no addt'l complaints, except as documented Rest 14 ROS are negative except as mentioned in HPI Vital Signs Vital Signs Vital Signs: 06/30/21 15:42 06/30/21 16:03 06/30/21 16:15 Temperature 97.8 F 97.9 F Temperature Source Temporal Oral Pulse Rate 100 97 Respiratory Rate 18 16 Blood Pressure 115/66 108/70 Blood Pressure Mean 82 82 Pulse Ox 98 97 Oxygen Delivery Method Room Air Room Air Room Air 06/30/21 19:08 06/30/21 19:18 Temperature 98.9 F 97.6 F L Temperature Source Oral Temporal Pulse Rate 84 105 H Respiratory Rate 16 16 Blood Pressure 97/68 117/69 Blood Pressure Mean 77 85 Pulse Ox 98 97 Oxygen Delivery Method Room Air Room Air Weight Weight: 109 lb 5.588 oz Body Mass Index (BMI) 18.7 Physical Exam Narrative General: Alert, Oriented x3, Cooperative looks pale. Severe protein calorie malnutrition, BMI 18.8 kg/m?. Loss of subcutaneous fat and moderate muscle atrophy of extremities, intervertebral and temporal facial region HEENT: Atraumatic, PERRLA, EOMI, Normocephalic Oral: No Gingival or Mucosal Lesions/ Ulcerations Neck: Supple, No JVD, Negative Carotid Bruits Lungs: Air entry diminished in bilateral lung bases. No crepitation/rhonchi Cardiovascular: Regular rate, Regular Rhythm, Normal S1, Normal S2, No murmurs Abdomen: Bowel Sounds Present, Soft, Non Tender, Non-Distended : No renal angle tenderness. No suprapubic tenderness. Extremities: No edema, Capillary Refill Less than 3 Seconds Skin: Large ulcer over right leg involving posterior medial to posterior lateral from knee to ankle. Slough with purulent exudate present. Musculoskeletal/back: Severe tenderness even on minimal touch present on right lower extremity especially below knee. ROM severely restricted predominantly in the right lower extremity. Mild tenderness in sacral region Neurological: Cranial nerves II-XII grossly intact, DTR 2+/4 and Symmetrical, Neuro grossly intact Psych/Mental Status: Flat affect. Looks sad Results Lab / Micro Data Result Diagrams: 06/30/21 15:55 06/30/21 15:55 Labs: Laboratory Results - last 24 hr 06/30/21 15:55: WBC 10.2, RBC 3.57 L, Hgb 10.6 L, Hct 32.4 L, MCV 90.8, MCH 29.7, MCHC 32.7, RDW Std Deviation 44.2 H, RDW Coeff of Jen 13.3, Plt Count 337, MPV 12.1 H, Immature Gran % (Auto) 0.700, Neut % (Auto) 82.5 H, Lymph % (Auto) 6.5 L, Warren % (Auto) 9.5, Eos % (Auto) 0.6, Baso % (Auto) 0.2, Absolute Neuts (a uto) 8.4 H, Absolute Lymphs (auto) 0.66 L, Nucleated RBC % 0 06/30/21 15:55: PT 14.8, INR 1.2, APTT 32.9 06/30/21 15:55: Sodium 141, Potassium 3.5, Chloride 105, Carbon Dioxide 27.0, Anion Gap 9, BUN 14, Creatinine 0.42 L, Estim Creat Clear Calc 40.99, Est GFR (MDRD) Af Amer 189, Est GFR (MDRD) Non-Af 156, BUN/Creatinine Ratio 32.9 H, Glucose 98, Calcium 8.6, Total Bilirubin 0.50, AST 9 L, ALT 25, Alkaline Phosphatase 94, Total Protein 6.0 L, Albumin 2.0 L, Globulin 4.0, Albumin/Globulin Ratio 0.5 L 06/30/21 15:55: Lactic Acid 0.9 06/30/21 18:45: Urine Color Yellow, Urine Clarity Sl Cldy, Urine pH 6.0, Ur Specific [place] 1.025, Urine Protein 30 H, Urine Glucose (UA) Normal, Urine Ketones 150 A*, Urine Occult Blood 25 H, Urine Nitrite Negative, Urine Bilirubin 1 H, Urine Urobilinogen 4 H, Ur Leukocyte Esterase 100 H, Urine RBC 0-5 SEEN, Urine WBC 10-25 SEEN, Ur Squamous Epith Cells 0-5 SEEN, Amorphous Sediment 1+ URATE, Urine Bacteria 0 SEEN, Urine Mucus 1+ Radiology Impression Tibia/Fibula X-Ray 06/30/21 16:03 IMPRESSION: Demineralization of the osseous structures. Posterior soft tissue wound or defect. Electronically Signed: Homar Salazar MD at 17:33 EDT Reading Location ID and State: [facility] / [place] , Service support , Chest X-Ray 06/30/21 16:30 IMPRESSION: No focal infiltrate or edema. Electronically Signed: Homar Salazar MD at 17:36 EDT Reading Location ID and State: [facility] / [place] , Service support , Assessment & Plan Assessment/Plan (1) Leg wound, right: QUALIFIERS: Encounter type: initial encounter Qualified Code(s): S81.801A - Unspecified open wound, right lower leg, initial encounter (2) Wound infection: PLAN: 1. Infected large right leg wound with slough and purulent exudate: Patient is not showing signs and symptoms of sepsis including hypotension, lactic acidosis, leukocytosis but there is large infection area. Patient is being admitted on MedSur floor. Dr. Gaviria is consulted from ED physician. Started on broad-spectrum IV antibiotic IV vancomycin and Zosyn. IV fluid half- normal saline at 100 mL/h. Serum magnesium, phosphorus, prealbumin, vitamin D ordered. Discussed with Dr. Gaviria and is planning to take her surgery probably bedside debridement tomorrow and would not restart Xarelto. I do not see Xarelto which I continued during last hospital stay. Lovenox 40 mg subcu daily x1 dose now. 2. Recent admission for traumatic hematoma of right calf with right lower extremity DVT with with high probability of severe atherosclerotic peripheral arterial disease, nonhealing ulcer: Patient on Xarelto. Will convert to Lovenox 1 mg/kg body weight which can be discontinued 12 hours prior to surgery. PT OT ordered. Patient also smoking a 58 years and there is diminished pulsation of right popliteal, her right PT and DP. Venous duplex of 05/26/2021 shows acute DVT of right CFV, profundofemoral, posterior tibial and peroneal veins. Lower extremity arterial duplex study ordered. On baby aspirin 3. Hypertension: on metoprolol. Hold for heart less than 60 or systolic blood pressure less than 100 mmHg. 4. Hyperlipidemia: on statin. 5. Depression and Bipolar disorder: on sertraline and xanax as well as risperda l 6. Anemia of chronic disease with recent acute blood loss anemia after surgery on 06/16: H&H 10.6/32.4, on baseline monitor CBC daily. Iron studies and ferritin ordered 7. Severe protein calorie malnutrition: Serum albumin is 2.0, globulin 4.0 with reversal of A/G ratio 0.5. Her previous prealbumin level 6.6 on 06/17. Patient has diffuse loss of subcutaneous fat and moderate to severe atrophy of muscles of extremity. 8. CKD stage IIIb: Estimated creatinine clearance is 40.99 mL/min at baseline. UA shows proteinuria, ketones, negative nitrite, LE 100. Ketones positive probably due to loss of appetite/poor nutrition. Patient does not have dysuria burning micturition. UTI ruled out. DVT prophylaxis: SCDs Living will/advanced directive/end of life care: Patient does not have living will or advanced directive. She wants to keep full code until further she decides. After discussion of benefits/risks procedures involved with full code, DNR CC arrest and DNR CC, the patient opted for full code for now. Patient does want artificial life support including intubation, tube feed, ventilator and/chest compression, central venous catheter, vasopressor and DC shock if needed Total time spent in [id number] encounter in discussion of advanced directive 16 minutes. Charges/Coding Visit Charges Inpatient E&M: 05926 Init Hosp L3 Procedures Hospitalists Procedures: 16070 Advncd Care Plan 30 Min
[2021-06-30 19:46] LABS: Magnesium 1.8 mg/dL (1.6-2.6)
[2021-06-30 20:30] VITALS: BMI 18.7
[2021-06-30 20:51] VITALS: BP 115/61; PULSE 108; RESP 20; TEMP 36.6; O2SAT 97
[2021-06-30 20:52] LABS: Iron 14 ug/dL (50-170); Iron Binding Capacity,Total 124 ug/dL (250-450); PERCENT IRON SATURATION 11.3 % (15.0-55.0)
[2021-06-30 20:57] LABS: CPK Total, Creatine Kinase 65 U/L (26-192)
--- NOTE | 2021-06-30 21:08 | CM.ED ---
CLADUE Buchanan SW faxed referral Packet to [facility]. Silvia ALVAREZ
[2021-06-30] MEDS: Potassium Chloride Oral Tablet 20 MEQ 40 MEQ PO (21:22)
[2021-06-30] MEDS: Atorvastatin Calcium 20 MG Tablet PO (21:22)
[2021-06-30 21:23] VITALS: PULSE 108
[2021-06-30] MEDS: RisperiDONE 1 MG Tablet PO (21:23)
[2021-06-30] MEDS: Metoprolol Tartrate 25 MG Tablet PO (21:23)
[2021-06-30] MEDS: 0.45% Normal Saline 1,000 ML 75 ML IV (21:27)
[2021-06-30] MEDS: Pregabalin 75 MG Capsule PO (21:27)
[2021-06-30] MEDS: Enoxaparin 40 MG/0.4 ML Syringe SC (21:27)
--- NOTE | 2021-06-30 21:35 | PCM.RX.CS ---
Consult Pharmacy has been consulted to manage selected antiobiotic: Vancomycin Type of Consult: New start Suspected Infection: Skin/Soft tissue Prior Doses of Antibiotics Received/Current Regimen: Medications Piperacillin Sod/Tazobactam Sod (Zosyn) 3.375 gm in 50 mls @ 12.5 mls/hr IV Q8 ANALY Last Admin: 06/30/21 21:32 Dose: 12.5 mls/hr Documented by: Discontinued Medications Piperacillin Sod/Tazobactam Sod (Zosyn) 3.375 gm in 50 mls @ 100 mls/hr IV X1 ONE Stop: 06/30/21 19:44 Last Admin: 06/30/21 20:16 Dose: Infused Documented by: Labs: Sodium 141 mmol/L (136-145) 06/30/21 15:55 Potassium 3.5 mmol/L (3.5-5.1) 06/30/21 15:55 Chloride 105 mmol/L (98-107) 06/30/21 15:55 Carbon Dioxide 27.0 mmol/L (21.0-32.0) 06/30/21 15:55 Anion Gap 9 (5-15) 06/30/21 15:55 BUN 14 mg/dL (7-18) 06/30/21 15:55 Creatinine 0.42 mg/dL (0.55-1.02) L 06/30/21 15:55 Est GFR (MDRD) Af Amer 189 mL/min (>60) 06/30/21 15:55 Est GFR (MDRD) Non-Af 156 mL/min (>60) 06/30/21 15:55 BUN/Creatinine Ratio 32.9 RATIO (10-20) H 06/30/21 15:55 Glucose 98 mg/dL (74-106) 06/30/21 15:55 Weight used for dosin.5 kg Estimated Creatinine Clearance: 51.13 Goal Trough: 15-20 mcg/mL Pharmacy Plan for Drug Dosing: Pharmacy Service will continue to monitor and adjust dosing as required. Medications Vancomycin HCl () 500 mg in 100 mls @ 100 mls/hr IV Q12H ANALY Discontinued Medications Vancomycin HCl 750 mg/ Sodium (Chloride) 265 mls @ 250 mls/hr IV X1 ONE Stop: 06/30/21 20:33 Last Admin: 06/30/21 20:15 Dose: 250 mls/hr Documented by: Follow-Up Labs: Trough Vancomycin Labs to be done on [date and time ordered]: 07/02 @ 1674
[2021-06-30 22:45] LABS: M R Staph aureus DNA By PCR Negative (Negative); Probe Check PASS; Specimen Processing Control PASS; Staph aureus DNA By PCR NEGATIVE (Negative)
[2021-06-30] MEDS: Acetaminophen 325 MG Tablet 650 MG PO (23:59)
[2021-06-30] MEDS: oxyCODONE 5 MG Tablet PO (23:59)
[2021-07-01] VITALS (14 sets, daily range): BP systolic 95–115; BP diastolic 52–72; PULSE 91–129; RESP 16–18; TEMP 36.5–36.8; O2SAT 94–98; BMI 18.6
[2021-07-01] MEDS: Piperacil/Tazobactam 3.375 GM Q8 PREMIX IV ×3 (05:01→23:06)
[2021-07-01] MEDS: HYDROmorphone 0.5 MG/0.5 ML SYRINGE IV (05:49)
[2021-07-01 06:45] LABS: Absolute Lymphocyte Count 0.59 X10^3/uL (0.83-4.51); Absolute Neutrophil Count 6.8 X10^3/uL (2.0-7.7); Basophil# 0.01 X10^3/uL; Basophil% 0.1 % (0-1); Eosinophil# 0.08 X10^3/uL; Eosinophils% 0.9 % (0-5); Hematocrit 26.1 % (37-47); Hemoglobin 8.4 g/dL (12.0-15.0); Lymphocyte # 0.59 X10^3/ul (0.83-4.51); Lymphocyte % 6.8 % (19-41); Mean Corp Hgb Conc 32.2 g/dL (32-36); Mean Corpuscular Hgb 28.2 pg (27.0-32.0); Mean Corpuscular Volume 87.6 fL (81-99); Mean Platelet Vol. 12.2 fl (6.2-12.0); Monocyte# 1.18 X10^3/uL; Monocyte% 13.5 % (0-10); NRBC Flagged by Analyzer 0 % (0-5); Neutrophil # 6.79 X10^3/uL (2.7-7.7); POSITIVE DIFFERENTIAL YES; Platelet Count 255 K/mm3 (150-450); RBC Distribution Width CV 13.3 % (11.6-14.6); RBC Distribution Width SD 42.5 fl (35.1-43.9); Red Blood Count 2.98 M/mm3 (4.2-5.4); White Blood Count 8.7 K/mm3 (4.4-11.0)
[2021-07-01 06:48] LABS: Differential Indicated SCAN CRITERIA MET
[2021-07-01 07:08] LABS: Anion Gap 5 (5-15); BUN 12 mg/dL (7-18); BUN/Creat Ratio 39.1 RATIO (10-20); Calcium,Total 7.4 mg/dL (8.5-10.1); Chloride 107 mmol/L (98-107); Creatinine, Serum 0.31 mg/dL (0.55-1.02); EST Glomerular Filtration Rate 227 mL/min (>60); Est Glom Filt Rate - Afr Amer 275 mL/min (>60); Estimated Creatinine Clearance 40.91 ml/min; Ferritin 226 ng/mL (8-252); Glucose 108 mg/dL (74-106); Phosphorus 2.3 mg/dL (2.5-4.9); Potassium 3.3 mmol/L (3.5-5.1); Prealbumin 5.3 mg/dL (20.0-40.0); Sodium Level 139 mmol/L (136-145)
--- NOTE | 2021-07-01 07:44 | WOUNDNOTE ---
wound photo: right posterior lower leg
--- NOTE | 2021-07-01 07:45 | WOUNDNOTE ---
wound photo: right posterior lower leg
[2021-07-01 07:46] LABS: Vitamin B12 1709 pg/mL (211-911); Vitamin D,25 Hydroxy 44.4 ng/mL
[2021-07-01] MEDS: Pantoprazole Sodium 40 MG Tablet PO (08:44)
[2021-07-01] MEDS: Vancomycin IV 500 MG/100 ML BAG 100 MG IV ×2 (08:44→21:18)
[2021-07-01] MEDS: Metoprolol Tartrate 25 MG Tablet PO ×2 (08:46→21:23)
--- NOTE | 2021-07-01 09:15 | CASEMGMT ---
Social Work Note SW received call from Laura at [facility] stating she had reached out to pt's Loc Yoon and updated her that pt was needed SNF level of care before pt can to [facility]. Oralia Bacon FUNCTIONAL ANALYST, RN CLINICAL REVIEW
--- NOTE | 2021-07-01 09:46 | CASEMGMT ---
Social Work Note SW reviewed chart. Pt is interested in SNF and preferred provider is [facility] and second choice is [facility]. Referral was faxed to [facility]. SW placed a call to Priscila at [facility] and left message regarding referral. SW waiting for call back. Plan: SNF pending acceptance and pre-cert Oralia Bacon SHINGLE INSPECTOR, INTERVENTIONAL RADIOLOGY TECHNOLOGIST
--- NOTE | 2021-07-01 10:30 | TISS_PTH ---
PATIENT: TRACI MCCONNELL LOC: MS3 U#:[id number] AGE/SX: 70/F ROOM: [facility] RE06/30/[address]: Dr. Mary Pennington DO : 1950 BED: 1 DIS: 07/05/2021 SPEC #: [id number] RECD: 07/01/21 13:35 STATUS: SRIRAM BOSWELL #: [id number] HYACINTH: 07/01/21 10:[address]: Dada Gaviria DEPT: SURGICAL PATHOLOGY RECD BY: Elin Bethea ENTERED: 07/04/21 07:58 SP TYPE: Tissue Bx NIDHI DR: DO Dr. Noble Nicholas MD Dr. Robert Leininger, MD Dr. Tai Chi Kwok, MD Tissues: TISSUE SURGICALLY REMOVED Procedures: Surgery Specimen Level IV HEADER OPERATION: Incision, drainage, necrotic infected hematoma posterior wound PRE-OP DIAGNOSIS: Necrotic infected hematoma posterior leg TISSUE SUBMITTED: Infected hematoma wound tissue right calf MICROSCOPIC DIAGNOSIS Infected hematoma wound tissue right calf: Pieces of skin with underlying tissue with acute and chronic inflammation, granulation tissue reaction and blood clots. ANJU:wayoln 07/05/2021 MICROSCOPIC DESCRIPTION Slides are reviewed. GROSS DESCRIPTION Received in fixative is one container labeled with the patient's name and designated infected hematoma wound tissue right calf. The specimen consists of multiple irregular fragments of skin with underlying tissue and blood clots that in aggregate measure 9.5 x 7 x 1.5 cm. No skin lesion is identified. Sections do not reveal any mass lesion. Rod Hanger sections are submitted in two cassettes. / ANJU:waylon 07/04/2021 TC:5 CPT: 42597
--- NOTE | 2021-07-01 10:53 | PN.SURG_ITS ---
Subjective Subjective Patient known to me. She had surgery on 06/16/21 where she underwent surgical preparation right posterior leg with incision and drainage and excisional debridement infected hematoma with overlying skin necrosis (315 cm2). She had sustained a traumatic hematoma with overlying skin necrosis. She was sent home with the VAC. She had trouble with the VAC and unplugged it. It became infected and she presented to the ED for evaluation. WBC was 8.6. She was started on Vancomycin IV and Zosyn IV. Initial preop wound culture showed Gram negative meg. I was asked to evaluate this patient for surgical options for treatment. Objective Data Objective Data Vital Signs: Vital Signs Temp Pulse Resp BP Pulse Ox 98.1 F 115 H 18 105/59 L 94 07/01/21 09:15 07/01/21 09:15 07/01/21 09:15 07/01/21 09:15 07/01/21 09:15 Oxygen Delivery Method Room Air Weight: 109 lb 2.061 oz Body Mass Index (BMI) 18.6 Intake & Output: Intake and Output for Last 24 Hours 06/29/21 06/30/21 07/01/21 23:59 23:59 23:59 Intake Total 315 / 315 600 / 600 Balance 315 / 315 600 / 600 Lab / Micro Data Attestation: I reviewed the patient's lab results. Result Diagrams: 07/03/21 08:25 07/03/21 08:25 Labs: Laboratory Results - last 24 hr 06/30/21 15:55: WBC 10.2, RBC 3.57 L, Hgb 10.6 L, Hct 32.4 L, MCV 90.8, MCH 29.7, MCHC 32.7, RDW Std Deviation 44.2 H, RDW Coeff of Jen 13.3, Plt Count 337, MPV 12.1 H, Immature Gran % (Auto) 0.700, Neut % (Auto) 82.5 H, Lymph % (Auto) 6.5 L, [place] % (Auto) 9.5, Eos % (Auto) 0.6, Baso % (Auto) 0.2, Absolute Neuts ( auto) 8.4 H, Absolute Lymphs (auto) 0.66 L, Nucleated RBC % 0 06/30/21 15:55: PT 14.8, INR 1.2, APTT 32.9 06/30/21 15:55: Sodium 141, Potassium 3.5, Chloride 105, Carbon Dioxide 27.0, Anion Gap 9, BUN 14, Creatinine 0.42 L, Estim Creat Clear Calc 40.99, Est GFR (MDRD) Af Amer 189, Est GFR (MDRD) Non-Af 156, BUN/Creatinine Ratio 32.9 H, Glucose 98, Calcium 8.6, Total Bilirubin 0.50, AST 9 L, ALT 25, Alkaline Phosphatase 94, Total Protein 6.0 L, Albumin 2.0 L, Globulin 4.0, Albumin/Globulin Ratio 0.5 L 06/30/21 15:55: Lactic Acid 0.9 06/30/21 15:55: Magnesium 1.8 06/30/21 15:55: Iron 14 L, TIBC 124 L, Iron Saturation 11.3 L 06/30/21 15:55: Total Creatine Kinase 65 06/30/21 18:45: Urine Color Yellow, Urine Clarity Sl Cldy, Urine pH 6.0, Ur Specific [place] 1.025, Urine Protein 30 H, Urine Glucose (UA) Normal, Urine Ketones 150 A*, Urine Occult Blood 25 H, Urine Nitrite Negative, Urine Bilirubin 1 H, Urine Urobilinogen 4 H, Ur Leukocyte Esterase 100 H, Urine RBC 0-5 SEEN, Urine WBC 10-25 SEEN, Ur Squamous Epith Cells 0-5 SEEN, Amorphous Sediment 1+ URATE, Urine Bacteria 0 SEEN, Urine Mucus 1+ 06/30/21 21:10: S.aureus Protein A PCR NEGATIVE, MRSA (PCR) Negative 07/01/21 06:10: Vitamin B12 1709 H, Vitamin D 25-Hydroxy 44.4 07/01/21 06:10: Sodium 139, Potassium 3.3 L, Chloride 107, Carbon Dioxide 27.0, Anion Gap 5, BUN 12, Creatinine 0.31 L, Estim Creat Clear Calc 40.91, Est GFR (MDRD) Af Amer 275, Est GFR (MDRD) Non-Af 227, BUN/Creatinine Ratio 39.1 H, Glucose 108 H, Calcium 7.4 L, Phosphorus 2.3 L, Ferritin 226, Prealbumin 5.3 L, Folate 18.30 07/01/21 06:10: WBC 8.7, RBC 2.98 L, Hgb 8.4 L, Hct 26.1 L, MCV 87.6, MCH 28.2, MCHC 32.2, RDW Std Deviation 42.5, RDW Coeff of Jen 13.3, Plt Count 255, MPV 12.2 H, Immature Gran % (Auto) 0.700, Neut % (Auto) 78.0 H, Lymph % (Auto) 6.8 L , [place] % (Auto) 13.5 H, Eos % (Auto) 0.9, Baso % (Auto) 0.1, Absolute Neuts (auto) 6.8, Absolute Lymphs (auto) 0.59 L, Nucleated RBC % 0 Micro: Microbiology 06/30/21 21:10 Wound - Leg, Right Wound Culture - Preliminary Gram negative meg 06/30/21 18:45 Urine Catheter - Catheter Urine Culture - Preliminary Gram negative meg Radiography Diagnostic Testing: Radiology Impression Tibia/Fibula X-Ray 06/30/21 16:03 IMPRESSION: Demineralization of the osseous structures. Posterior soft tissue wound or defect. Electronically Signed: Homar Salazar MD at 17:33 EDT Reading Location ID and State: [address] [place] [address] , Service support , Chest X-Ray 06/30/21 16:30 IMPRESSION: No focal infiltrate or edema. Electronically Signed: Homar Salazar MD at 17:36 EDT Reading Location ID and State: [facility] / [place] , Service support , Physical Exam Narrative General - Alert and Oriented HEENT - PERRL. EOMI. Throat is clear. Neck - Supple and nontender. No cervical adenopathy. Lungs - Clear to auscultation. Heart - Regular rate and rhythm. Abdomen - Soft and nondistended. Extremities - FROM. No axillary adenopathy. Radial pulses are palpable. No inguinal adenopathy. Dorsalis pedis pulses are palpable. On the right posterior leg is a large hematoma wound that measures 21 x 15 cm x 2 cm. There is an odor to the wound. Slimy exudate present. Skin necrosis is present There is some warmth to the area. The periwound area shows some redness and cellulitis. No purulent drainage noted. Neuro - CN II-XII grossly intact. Psych - Normal mood and affect. Assessment & Plan Assessment/Plan (1) Contusion of right lower leg, subsequent encounter: (2) Leg wound, right: QUALIFIERS: Encounter type: initial encounter Qualified Code(s): S81.801A - Unspecified open wound, right lower leg, initial encounter (3) Skin necrosis: (4) Cellulitis of right leg: (5) intermediate current use of anticoagulant: (6) Former smoker: PLAN: Because the VAC was not working as the patient unplugged it at bedtime, it subsequently became re-infected. She needs a return trip to the operating room where additional incision and drainage and excisional debridement including skin necrosis will be done for this re-infection. Tissue will be sent to Pathology for analysis to rule out carcinoma and to Microbiology for culture. A positive culture will necessitate antibiotic therapy. She was started on Vancomycin IV and Zosyn IV. Initial preop wound culture showed Gram negative meg. After discharge, i recommend evaluation by an ECF as the at home care was suboptimal. At some time in the future, can redebride the wound with delayed closure with skin grafting. Patient was informed of the risks and complications of the procedure including alternatives to surgery. These were discussed with the patient personally. Patient voices understanding and wishes to proceed. We discussed the current risks associated with COVID-19. While it is understood that there is a community spread of COVID-19, the risk of kanu COVID-19 while at [facility] ([facility]) is very low; however, the risk cannot be completely mitigated because of the community spread of the disease. We discussed in detail the risk of exposure to and/or potential harm posed by the COVID-19 virus with having a surgery/procedure at this time versus the risk of delaying the surgery/procedure. It is not possible to know either the risk of delaying the surgery or procedure or chance of getting an infection with perfect accuracy, but a joint decision was made to proceed at this time with the scheduled surgery/procedure as indicated on the consent form. Patient was notified that we will need to comply with any screening or testing [facility] wishes to perform or that surgery may be delayed for any positive results.
--- NOTE | 2021-07-01 10:57 | CASEMGMT ---
Pt screened with [facility] Palliative Care Screening Tool due to readmission, pt met criteria. No order received at this time.
--- NOTE | 2021-07-01 10:59 | CASEMGMT ---
RN CM Readmission Note Previous Admission: 06/15/21-06/17/21 Diagnosis: Traumatic hematoma of RLE DC Disposition: Home with [facility], wound vac and follow up at the [facility]. Current Admission Current diagnosis: R Leg Infected Wound, DVT Pt presented to ER from home due to nurse calling EMS as pt wound looked worse. Pt having I&D to wound currently. Pt receiving IV antibiotics. DC PLAN:DC to SNF
[2021-07-01] MEDS: Lidocaine 1%/Epi 1:200 (30ml) 30 ML AMPUL (11:43)
--- NOTE | 2021-07-01 11:53 | PCM.OPRPT ---
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 Painful infected hematoma wound right posterior leg with overlying skin necrosis and cellulitis. 2. Skin necrosis. 3. Cellulitis right leg. 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 5. Former smoker. Post-Operative Diagnosis: Same. Surgery/Procedure Performed:: Surgical preparation right posterior leg with incision and drainage and excisional debridement infected necrotic hematoma wound (360 cm2). Description of Surgical Findings:: TRACI MCCONNELL, is a 70 F who presented with a PMH as outlined who presents via the ED on 06/15/2021 with a complaint of a wound on her right calf as a result of a car door slamming on her RLE a few days prior to admission. She developed a large painful area of contusion on her right calf. THe skin started sloughing off on that area. She was diagnosed with a DVT in the RLE 2 weeks ago and has been on Xarelto. She denied any fever, chills, shortness of breath. She went to see her PCP who recommended that she go to the ED for evaluation because of concerns about infection from this traumatic hematoma right posterior leg. CBC showed Hgb of 10.6 and WBC of 8.6. Xray of the RLE tibia and fibula showed no acute fracture or dislocation and showed posterior soft tissue swelling. She was placed on IV antibiotics with Zosyn. I was asked to evaluate this patient for surgical options for treatment. Patient was informed of the risks and complications of the procedure including alternatives to surgery. These were discussed with the patient personally. Patient voices understanding and wishes to proceed. Size of defect right posterior leg - 24 x 15 x 2 cm. Surgeon: Dada Gaviria genetic engineer: None Type of Anesthesia: General Specimen's removed: Infected necrotic hematoma wound right posterior leg to Pathology and Microbiology. Drains: None. Estimated Blood Loss (mL): 50. Description of Procedure: Patient was taken to OR in supine position and was placed under general anesthesia. She was then placed in the prone position. The right leg was prepped and draped in the usual fashion. SCD was placed on the left leg for DVT prophylaxis. She was just recently started on Xarelto for a DVT. Perioperative antibiotics were given intravenously. I made an elliptical incision around the infected wound right posterior leg down into the subcutaneous tissue. No pus was seen. A lot of fat necrosis was seen. Some residual hematoma was seen and debrided. There was an odor associated with the fat necrosis. I also used a curette to excise and debride the infected granulation tissue with slimy exudate present. Debridement went down to the muscle. Some inflammatory exudate was noted and irrigated out with saline. Some active bleeding was seen and cauterized. Some of the soft tissue was sent to Pathology for analysis to rule out carcinoma and to Microbiology for culture. A positive culture may necessitate antibiotic modification. . The size of the defect right posterior leg is 24 x 15 x 2 cm or cm360 cm2. Hemostasis was obtained with electrocautery. The wounds were irrigated with saline. I then dressed the wounds with Mepitel nonadherent dressing followed by Kerlix gauze and Betadine. This is followed by another dry Kerlix gauze and followed by a compression shirlene wrap. Patient tolerated the procedure well and was sent to PACU in satisfactory condition. Patient will be sent upstairs for continued postop care. She will keep his right leg elevated during the initial postoperative period. Continue present antibiotics (Vancomycin and Zosyn). A positive operative culture may necessitate antibiotic modification. Will proceed with postoperative wound care with Dakin's dressing changes. She did not do well with the VAC as she unplugged it at night and it promptly became re-infected. Grafts/Implants Used: None. Complications None. Admit VTE Documentation VTE Present on Admission: No (Patient is already on Xarelto.) VTE Mechan Device Prophylaxis: SCD's VTE Pharm Prophylaxis ordered?: Yes Addendum Addendum: Surgery Charges CPT - 67425-52 ICD-10 - S81.801A, S80.11xD, I96, L03.115, Z79.01, Z87.891 48374 S81.801A, S80.11xD, I96, L03.115, Z79.01, Z87.891 64866 S81.801A, S80.11xD, I96, L03.115, Z79.01, Z87.891 14377 S81.801A, S80.11xD, I96, L03.115, Z79.01, Z87.891 49704 S80.11xD, S81.801A, I96, L03.115, Z79.01, Z87.891
[2021-07-01] MEDS: 0.9% Normal Saline 1,000 ML 15 ML IV (12:28)
[2021-07-01] MEDS: Aspirin E.C. 81 MG Tablet PO (14:20)
[2021-07-01] MEDS: Sertraline 100 MG Tablet 200 MG PO (14:21)
[2021-07-01] MEDS: RisperiDONE 1 MG Tablet PO ×2 (14:21→21:23)
[2021-07-01] MEDS: Acetaminophen 325 MG Tablet 650 MG PO ×2 (14:26→21:23)
[2021-07-01] MEDS: Pregabalin 75 MG Capsule PO ×2 (14:26→21:23)
[2021-07-01] MEDS: oxyCODONE 5 MG Tablet PO (14:26)
--- NOTE | 2021-07-01 15:23 | PCM.PN.HOSP ---
Subjective Subjective Patient seen and examined. She still complains of pain in her right lower extremity. Review of systems is otherwise negative. Objective Data Objective Data Vital Signs: Vital Signs Temp Pulse Resp BP Pulse Ox 98.0 F 129 H 18 109/67 95 07/01/21 13:17 07/01/21 13:17 07/01/21 13:17 07/01/21 13:17 07/01/21 13:17 Oxygen Delivery Method Room Air Weight: 109 lb 2.061 oz Body Mass Index (BMI) 18.6 Intake & Output: Intake and Output for Last 24 Hours 06/29/21 06/30/21 07/01/21 23:59 23:59 23:59 Intake Total 315 / 315 1600 / 1600 Balance 315 / 315 1600 / 1600 Lab / Micro Data Result Diagrams: 07/01/21 06:10 07/01/21 06:10 Labs: Laboratory Results - last 24 hr 06/30/21 15:55: WBC 10.2, RBC 3.57 L, Hgb 10.6 L, Hct 32.4 L, MCV 90.8, MCH 29.7, MCHC 32.7, RDW Std Deviation 44.2 H, RDW Coeff of Jen 13.3, Plt Count 337, MPV 12.1 H, Immature Gran % (Auto) 0.700, Neut % (Auto) 82.5 H, Lymph % (Auto) 6.5 L, [place] % (Auto) 9.5, Eos % (Auto) 0.6, Baso % (Auto) 0.2, Absolute Neuts (auto) 8.4 H, Absolute Lymphs (auto) 0.66 L, Nucleated RBC % 0 06/30/21 15:55: PT 14.8, INR 1.2, APTT 32.9 06/30/21 15:55: Sodium 141, Potassium 3.5, Chloride 105, Carbon Dioxide 27.0, Anion Gap 9, BUN 14, Creatinine 0.42 L, Estim Creat Clear Calc 40.99, Est GFR (MDRD) Af Amer 189, Est GFR (MDRD) Non-Af 156, BUN/Creatinine Ratio 32.9 H, Glucose 98, Calcium 8.6, Total Bilirubin 0.50, AST 9 L, ALT 25, Alkaline Phosphatase 94, Total Protein 6.0 L, Albumin 2.0 L, Globulin 4.0, Albumin/Globulin Ratio 0.5 L 06/30/21 15:55: Lactic Acid 0.9 06/30/21 15:55: Magnesium 1.8 06/30/21 15:55: Iron 14 L, TIBC 124 L, Iron Saturation 11.3 L 06/30/21 15:55: Total Creatine Kinase 65 06/30/21 18:45: Urine Color Yellow, Urine Clarity Sl Cldy, Urine pH 6.0, Ur Specific [place] 1.025, Urine Protein 30 H, Urine Glucose (UA) Normal, Urine Ketones 150 A*, Urine Occult Blood 25 H, Urine Nitrite Negative, Urine Bilirubin 1 H, Urine Urobilinogen 4 H, Ur Leukocyte Esterase 100 H, Urine RBC 0-5 SEEN, Urine WBC 10-25 SEEN, Ur Squamous Epith Cells 0-5 SEEN, Amorphous Sediment 1+ URATE, Urine Bacteria 0 SEEN, Urine Mucus 1+ 06/30/21 21:10: S.aureus Protein A PCR NEGATIVE, MRSA (PCR) Negative 07/01/21 06:10: Vitamin B12 1709 H, Vitamin D 25-Hydroxy 44.4 07/01/21 06:10: Sodium 139, Potassium 3.3 L, Chloride 107, Carbon Dioxide 27.0, Anion Gap 5, BUN 12, Creatinine 0.31 L, Estim Creat Clear Calc 40.91, Est GFR (MDRD) Af Amer 275, Est GFR (MDRD) Non-Af 227, BUN/Creatinine Ratio 39.1 H, Glucose 108 H, Calcium 7.4 L, Phosphorus 2.3 L, Ferritin 226, Prealbumin 5.3 L, Folate 18.30 07/01/21 06:10: WBC 8.7, RBC 2.98 L, Hgb 8.4 L, Hct 26.1 L, MCV 87.6, MCH 28.2, MCHC 32.2, RDW Std Deviation 42.5, RDW Coeff of Jen 13.3, Plt Count 255, MPV 12.2 H, Immature Gran % (Auto) 0.700, Neut % (Auto) 78.0 H, Lymph % (Auto) 6.8 L, [place] % (Auto) 13.5 H, Eos % (Auto) 0.9, Baso % (Auto) 0.1, Absolute Neuts (auto) 6.8, Absolute Lymphs (auto) 0.59 L, Nucleated RBC % 0 Micro: Microbiology 07/01/21 11:27 Tissue - Leg, Right Gram Stain - Final 06/30/21 21:10 Wound - Leg, Right Gram Stain - Final 06/30/21 21:10 Wound - Leg, Right Wound Culture - Preliminary Gram negative meg 06/30/21 18:45 Urine Catheter - Catheter Urine Culture - Preliminary Gram negative meg Radiography Diagnostic Testing: Radiology Impression Tibia/Fibula X-Ray 06/30/21 16:03 IMPRESSION: Demineralization of the osseous structures. Posterior soft tissue wound or defect. Electronically Signed: Homar Salazar MD at 17:33 EDT Reading Location ID and State: [facility] / [place] , Service support , Chest X-Ray 06/30/21 16:30 IMPRESSION: No focal infiltrate or edema. Electronically Signed: Homar Salazar MD at 17:36 EDT Reading Location ID and State: [facility] / [place] , Service support , Physical Exam Const alert, oriented x3 and no apparent distress Exam Limitations: no limitations HEENT head/scalp atraumatic and moist oral mucous membranes Head and Scalp: normocephalic Eyes PERRL, EOMs intact bilaterally and conjunctivae normal Neck no lymphadenopathy and supple Resp normal respiratory effort, no retractions, no use of accessory muscles and clear to auscultation bilaterally Cardio regular rate, regular rhythm, S1 normal heart sound, S2 normal heart sound and no murmurs GI normal to inspection, nondistended, normoactive bowel sounds, soft to palpation, non-tender and non-distended Extremity Extremity Narrative: RLE wrapped in bandage from ankle to knee Peripheral Pulses: Yes pulses 2+ throughout Skin Skin Narrative: as under extremity Neuro oriented x3, CN's II-XII intact bilaterally and moves all extremities Sensorium / Orientation: awake and alert Psych affect normal Assessment & Plan Assessment/Plan (1) Leg wound, right: QUALIFIERS: Encounter type: initial encounter Qualified Code(s): S81.801A - Unspecified open wound, right lower leg, initial encounter (2) Wound infection: PLAN: #RLE wound had traumatic infected hematoma of the RLE whilst on eliquis had I&D and excisional debridement on 06/16/2021; she was treated with IV antibiotics and discharged home on keflex admitted again with worsening pain of her RLE had not been attaching her wound vac at home because she wanted to conserve electric ity imaging showed demineralization of osseous strcute with posterior soft tissue wound or defect plastic surgery consulted #Hypokalemia: K is 3.3. Will replace and trend #RLE dVT was diagnosed wtih DVT of RLE in May 2021 now on therapeutic lovenox. xarelto on hold resume xarelto once she has had surgery lower extremity arterial duplex ordered; this was dc'd as vascular lab informed me they couldnt do a compressive study in light of her having DVT in the RLE. there isnt an acute need for this now as well #Hypertension: on metoprolol #Hyperlipidemia: on statin #ANemia of chronic disease: stable. #Severe protein calorie malnutrition BMI is 18 consult dietitian #Depression and bipolar disorder: on sertraline, xanax and risperdal DVT prophylaxis: currently on therapeutic lovenox due to the DVT of the RLE diagnosed in May 2021. Charges/Coding Visit Charges Inpatient E&M: 99333 Subs Hosp L3
--- NOTE | 2021-07-01 15:33 | CASEMGMT ---
Social Work Note CLAUDE received call from Priscila at [facility] stating they can accept pt and will submit for pre-cert. SW in to speak with pt. CLAUDE made aware that pt just came back to floor from procedure. CLAUDE introduced self and role at [facility]. CLAUDE informed pt that [facility] has accepted pt pending pre-cert. CLAUDE informed pt that this worker will call her daughter Britany to update and pt gave permission. CLAUDE placed a call to pt's daughter Britany and updated her that pt has been accepted to [facility] pending pre-cert. Britany states that pt's visit before her last visit, she tried to get a hold of billing department to review pt's bill and was told that a form needed to be filled out and they were going to mail the document to pt but since pt is at [facility] now she inquired how to get the form to pt now. CLAUDE informed Britany that this worker will need to find out that form as this worker is not sure. Britany states that if pt gets denied SNF, she will be calling pt's insurance to let them know that pt needs SNF. Britany asked about a case number or reference number. CLAUDE informed Britany that this worker doesn't have that information and will need to check with the prison. Britany states understanding. CLAUDE placed a call to [facility]. Pt would need to fill out POLO. CLAUDE requested [facility] send this worker that form. CLAUDE placed a call to Priscila at [facility] who states she does not have a case number or reference number. CLAUDE will call Britany back as time allows. Plan: [facility] pending pre-cert Oralia Bacon ASBESTOS COVERER, MANAGER QUALITY
--- NOTE | 2021-07-01 17:00 | CASEMGMT ---
Social Work Note CLAUDE placed a call to pt's daughter Britany and updated her that this worker requested POLO from [facility] per her request. CLAUDE also updated Britany that this worker checked with [facility] and they do not have a case number or reference number until pre-cert is obtained. CLAUDE placed a call to Priscila at [facility]. Priscila to call [facility] if pre-cert is obtained over the weekend. Priscila states that she is aware pt will need wound vac at discharge and states they have an extra one at the facility until they can order one. CLAUDE placed Green sheet, transport forms, COVID tool, on pt's chart in the event pre-cert is obtained. Pt will need COVID test on day of discharge. CLAUDE placed a call to Halina at [facility] and left message to disregard referral. Plan: [facility] pending pre-cert. Oralia Bacon CHICKEN DRESSER, OUTSOLE TACKER
[2021-07-01] MEDS: Atorvastatin Calcium 20 MG Tablet PO (21:23)
[2021-07-02] VITALS (8 sets, daily range): BP systolic 80–110; BP diastolic 46–70; PULSE 72–96; RESP 16–18; TEMP 36.6–36.8; O2SAT 94–100
[2021-07-02] MEDS: 0.9% Saline Lock 10 ML Syringe IV (03:49)
[2021-07-02] MEDS: Lactated Ringers 1,000 ML 999 ML IV (03:49)
[2021-07-02 04:04] LABS: Absolute Lymphocyte Count 0.73 X10^3/uL (0.83-4.51); Absolute Neutrophil Count 4.9 X10^3/uL (2.0-7.7); Basophil# 0.02 X10^3/uL; Basophil% 0.3 % (0-1); Eosinophil# 0.13 X10^3/uL; Hematocrit 26.7 % (37-47); Hemoglobin 8.7 g/dL (12.0-15.0); Lymphocyte # 0.73 X10^3/ul (0.83-4.51); Lymphocyte % 11.2 % (19-41); Mean Corp Hgb Conc 32.6 g/dL (32-36); Mean Corpuscular Hgb 28.6 pg (27.0-32.0); Mean Corpuscular Volume 87.8 fL (81-99); Mean Platelet Vol. 11.2 fl (6.2-12.0); Monocyte# 0.71 X10^3/uL; Monocyte% 10.9 % (0-10); NRBC Flagged by Analyzer 0 % (0-5); Neutrophil # 4.89 X10^3/uL (2.7-7.7); Neutrophil % 74.8 % (47-70); Platelet Count 247 K/mm3 (150-450); RBC Distribution Width CV 13.4 % (11.6-14.6); RBC Distribution Width SD 43.3 fl (35.1-43.9); Red Blood Count 3.04 M/mm3 (4.2-5.4); White Blood Count 6.5 K/mm3 (4.4-11.0)
[2021-07-02 04:17] LABS: Anion Gap 3 (5-15); BUN 10 mg/dL (7-18); BUN/Creat Ratio 23.8 RATIO (10-20); Calcium,Total 7.7 mg/dL (8.5-10.1); Chloride 110 mmol/L (98-107); Creatinine, Serum 0.42 mg/dL (0.55-1.02); EST Glomerular Filtration Rate 158 mL/min (>60); Est Glom Filt Rate - Afr Amer 191 mL/min (>60); Estimated Creatinine Clearance 40.91 ml/min; Glucose 118 mg/dL (74-106); Potassium 3.3 mmol/L (3.5-5.1); Sodium Level 144 mmol/L (136-145)
[2021-07-02] MEDS: Piperacil/Tazobactam 3.375 GM Q8 PREMIX IV ×3 (06:15→22:03)
[2021-07-02 08:01] LABS: Prealbumin 5.8 mg/dL (20.0-40.0)
[2021-07-02 08:08] LABS: Vancomycin, Trough Level 5.8 ug/mL (5.0-15.0)
[2021-07-02] MEDS: Vancomycin IV 500 MG/100 ML BAG 100 MG IV (08:30)
[2021-07-02] MEDS: Acetaminophen 325 MG Tablet 650 MG PO ×2 (08:31→14:48)
[2021-07-02] MEDS: oxyCODONE 5 MG Tablet PO ×3 (08:35→20:29)
[2021-07-02] MEDS: Sertraline 100 MG Tablet 200 MG PO (08:36)
[2021-07-02] MEDS: Aspirin E.C. 81 MG Tablet PO (08:36)
[2021-07-02] MEDS: Potassium Chloride Oral Tablet 20 MEQ 40 MEQ PO (08:36)
[2021-07-02] MEDS: Multivitamins,Ther W-Minerals Tablet 1 TABLET PO (08:37)
[2021-07-02] MEDS: Pantoprazole Sodium 40 MG Tablet PO (08:38)
[2021-07-02] MEDS: RisperiDONE 1 MG Tablet PO ×2 (08:38→22:01)
[2021-07-02] MEDS: Pregabalin 75 MG Capsule PO ×2 (08:44→22:01)
--- NOTE | 2021-07-02 10:21 | PCM.RX.CS ---
Consult Pharmacy has been consulted to manage selected antiobiotic: Vancomycin Type of Consult: Follow-up Prior Doses of Antibiotics Received/Current Regimen: Medications Vancomycin HCl () 500 mg in 100 mls @ 100 mls/hr IV Q12H ANALY Last Admin: 07/02/21 09:35 Dose: Infused Documented by: Labs: Sodium 144 mmol/L (136-145) 07/02/21 03:58 Potassium 3.3 mmol/L (3.5-5.1) L 07/02/21 03:58 Chloride 110 mmol/L (98-107) H 07/02/21 03:58 Carbon Dioxide 31.0 mmol/L (21.0-32.0) 07/02/21 03:58 Anion Gap 3 (5-15) L 07/02/21 03:58 BUN 10 mg/dL (7-18) 07/02/21 03:58 Creatinine 0.42 mg/dL (0.55-1.02) L 07/02/21 03:58 Est GFR (MDRD) Af Amer 191 mL/min (>60) 07/02/21 03:58 Est GFR (MDRD) Non-Af 158 mL/min (>60) 07/02/21 03:58 BUN/Creatinine Ratio 23.8 RATIO (10-20) H 07/02/21 03:58 Glucose 118 mg/dL (74-106) H 07/02/21 03:58 Vancomycin Trough 5.8 ug/mL (5.0-15.0) 07/02/21 07:20 Microbiology: Microbiology 07/01/21 11:27 Tissue - Leg, Right Gram Stain - Final 07/01/21 11:27 Tissue - Leg, Right Wound Culture - Preliminary Mixed Gram Pos & Gram Neg Org 06/30/21 21:10 Wound - Leg, Right Gram Stain - Final 06/30/21 21:10 Wound - Leg, Right Wound Culture - Preliminary Enterobacter cloacae complex 06/30/21 18:45 Urine Catheter - Catheter Urine Culture - Final Proteus penneri Goal Trough: 15-20 mcg/mL Pharmacy Plan for Drug Dosing: Trough below goal, increase to 1000mg IV q12h and recheck prior to 4th dose. Pharmacy Service will continue to monitor and adjust dosing as required. Follow-Up Labs: Trough Vancomycin - 07/04 @ 0530
--- NOTE | 2021-07-02 12:29 | PN.HOSP_ITS ---
Subjective Subjective Patient seen and examined. She said the pain in her leg was better controlled. She also complained of a sharp pain in her left flank which wasnt new. She denied any nausea, vomiting, fever or chills. REview of systems was otherwise negative. She is POD 1 for incision and drainage and debridement of infected necrotic hematoma wound of leg. Objective Data Objective Data Vital Signs: Vital Signs Temp Pulse Resp BP Pulse Ox 98.1 F 93 16 103/54 L 96 07/02/21 11:52 07/02/21 11:52 07/02/21 11:52 07/02/21 11:52 07/02/21 11:52 Oxygen Delivery Method Room Air Weight: 107 lb 5.842 oz Body Mass Index (BMI) 18.6 Intake & Output: Intake and Output for Last 24 Hours 06/30/21 07/01/21 07/02/21 23:59 23:59 23:59 Intake Total 315 / 315 2506 / 2506 1450 / 1450 Balance 315 / 315 2506 / 2506 1450 / 1450 Lab / Micro Data Result Diagrams: 07/02/21 03:58 07/02/21 03:58 Labs: Laboratory Results - last 24 hr 07/02/21 03:58: WBC 6.5, RBC 3.04 L, Hgb 8.7 L, Hct 26.7 L, MCV 87.8, MCH 28.6, MCHC 32.6, RDW Std Deviation 43.3, RDW Coeff of Jen 13.4, Plt Count 247, MPV 11.2, Immature Gran % (Auto) 0.800, Neut % (Auto) 74.8 H, Lymph % (Auto) 11.2 L, [place] % (Auto) 10.9 H, Eos % (Auto) 2.0, Baso % (Auto) 0.3, Absolute Neuts (auto) 4.9, Absolute Lymphs (auto) 0.73 L, Nucleated RBC % 0 07/02/21 03:58: Sodium 144, Potassium 3.3 L, Chloride 110 H, Carbon Dioxide 31.0, Anion Gap 3 L, BUN 10, Creatinine 0.42 L, Estim Creat Clear Calc 40.91, Est GFR (MDRD) Af Amer 191, Est GFR (MDRD) Non-Af 158, BUN/Creatinine Ratio 23.8 H, Glucose 118 H, Calcium 7.7 L 03/26/22 07:20: Vancomycin Trough 5.8 07/02/21 07:20: Prealbumin 5.8 L Micro: Microbiology 06/30/21 21:10 Wound - Leg, Right Gram Stain - Final 06/30/21 21:10 Wound - Leg, Right Wound Culture - Preliminary Enterobacter cloacae complex Gram positive meg 07/01/21 11:27 Tissue - Leg, Right Gram Stain - Final 07/01/21 11:27 Tissue - Leg, Right Wound Culture - Preliminary Mixed Gram Pos & Gram Neg Org 06/30/21 18:45 Urine Catheter - Catheter Urine Culture - Final Proteus penneri Physical Exam Const alert, oriented x3 and no apparent distress Exam Limitations: no limitations HEENT head/scalp atraumatic and moist oral mucous membranes Head and Scalp: normocephalic Eyes PERRL, EOMs intact bilaterally and conjunctivae normal Neck no lymphadenopathy and supple Resp normal respiratory effort, no retractions, no use of accessory muscles and clear to auscultation bilaterally Cardio regular rate, regular rhythm, S1 normal heart sound, S2 normal heart sound and no murmurs GI normal to inspection, nondistended, normoactive bowel sounds, soft to palpation, non-tender and non-distended GI Narrative: has mild tenderness with palpation of left lower ribcage, pain reproducible with palpation. Extremity Extremity Narrative: RLE wrapped in bandage from ankle to knee Skin Skin Narrative: as under extremity Neuro oriented x3, CN's II-XII intact bilaterally and moves all extremities Sensorium / Orientation: awake and alert Psych affect normal Assessment & Plan Assessment/Plan (1) Leg wound, right: QUALIFIERS: Encounter type: initial encounter Qualified Code(s): S81.801A - Unspecified open wound, right lower leg, initial encounter (2) Wound infection: PLAN: #RLE wound * had traumatic infected hematoma of the RLE whilst on eliquis * had I&D and excisional debridement on 06/16/2021; she was treated with IV antibiotics and discharged home on keflex * admitted again with worsening pain of her RLE * had not been attaching her wound vac at home because she wanted to conserve electricity * imaging showed demineralization of osseous structure with posterior soft tissue wound or defect * she is POD 1 of repeat incision and drainage as well as debridement of the infected right posterior leg hematoma wound * plastic surgery on board. * wound care on board * on IV zosyn and vancomcyin * wound cultures pending #Hypokalemia: K is still 3.3 today. Will replace and trend #RLE dVT * was diagnosed wtih DVT of RLE in May 2021 * now on therapeutic lovenox. xarelto on hold * resume xarelto once she has had surgery * lower extremity arterial duplex ordered; this was dc'd as vascular lab informed me they couldnt do a compressive study in light of her having DVT in the RLE. there isnt an acute need for this now as well * #Hypertension: on metoprolol #Hyperlipidemia: on statin #ANemia of chronic disease: stable. #Severe protein calorie malnutrition * BMI is 18 * consult dietitian * #Depression and bipolar disorder: on sertraline, xanax and risperdal DVT prophylaxis: currently on therapeutic lovenox due to the DVT of the RLE diagnosed in May 2021. Charges/Coding Visit Charges Inpatient E&M: 15635 Subs Hosp L2
[2021-07-02] MEDS: Enoxaparin 60 MG/0.6 ML Syringe 50 MG SC ×2 (13:49→22:01)
[2021-07-02] MEDS: Senna/Docusate Sodium 1 Tablet 2 TABLET PO (13:54)
--- NOTE | 2021-07-02 16:12 | PN.SURG_ITS ---
Subjective Subjective Postop #1 Patient complains of wound pain. Objective Data Objective Data Vital Signs: Vital Signs Temp Pulse Resp BP Pulse Ox 98.3 F 96 16 93/54 L 95 07/02/21 15:05 07/02/21 15:05 07/02/21 15:05 07/02/21 15:05 07/02/21 15:05 Oxygen Delivery Method Room Air Weight: 107 lb 5.842 oz Body Mass Index (BMI) 18.6 Intake & Output: Intake and Output for Last 24 Hours 06/30/21 07/01/21 07/02/21 23:59 23:59 23:59 Intake Total 315 / 315 2506 / 2506 1450 / 1450 Balance 315 / 315 2506 / 2506 1450 / 1450 Lab / Micro Data Attestation: I reviewed the patient's lab results. Result Diagrams: 07/05/21 06:30 07/05/21 06:30 Labs: Laboratory Results - last 24 hr 07/02/21 03:58: WBC 6.5, RBC 3.04 L, Hgb 8.7 L, Hct 26.7 L, MCV 87.8, MCH 28.6, MCHC 32.6, RDW Std Deviation 43.3, RDW Coeff of Jen 13.4, Plt Count 247, MPV 11.2, Immature Gran % (Auto) 0.800, Neut % (Auto) 74.8 H, Lymph % (Auto) 11.2 L, [place] % (Auto) 10.9 H, Eos % (Auto) 2.0, Baso % (Auto) 0.3, Absolute Neuts (auto) 4.9, Absolute Lymphs (auto) 0.73 L, Nucleated RBC % 0 07/02/21 03:58: Sodium 144, Potassium 3.3 L, Chloride 110 H, Carbon Dioxide 31.0, Anion Gap 3 L, BUN 10, Creatinine 0.42 L, Estim Creat Clear Calc 40.91, Est GFR (MDRD) Af Amer 191, Est GFR (MDRD) Non-Af 158, BUN/Creatinine Ratio 23.8 H, Glucose 118 H, Calcium 7.7 L 07/02/21 07:20: Vancomycin Trough 5.8 07/02/21 07:20: Prealbumin 5.8 L Micro: Microbiology 06/30/21 21:10 Wound - Leg, Right Gram Stain - Final 06/30/21 21:10 Wound - Leg, Right Wound Culture - Preliminary Enterobacter cloacae complex Gram positive meg 07/01/21 11:27 Tissue - Leg, Right Gram Stain - Final 07/01/21 11:27 Tissue - Leg, Right Wound Culture - Preliminary Mixed Gram Pos & Gram Neg Org 06/30/21 18:45 Urine Catheter - Catheter Urine Culture - Final Proteus penneri Physical Exam Narrative General - Alert and Oriented HEENT - PERRL. EOMI. Neck - Supple and nontender. Abdomen - Soft and nondistended. Extremities - FROM. No axillary adenopathy. Radial pulses are palpable. No inguinal adenopathy. Dorsalis pedis pulses are palpable. Large operative wound right posterior leg is stable. No active bleeding noted. Wound redressed with Dakin'ss dressing changes. Will not put the VAC back on because of the trouble the patient had with it. Neuro - CN II-XII grossly intact. Psych - Normal mood and affect. Assessment & Plan Assessment/Plan (1) Contusion of right lower leg, subsequent encounter: (2) Leg wound, right: QUALIFIERS: Encounter type: initial encounter Qualified Code(s): S81.801A - Unspecified open wound, right lower leg, initial encounter (3) Skin necrosis: (4) Cellulitis of right leg: (5) assisted current use of anticoagulant: (6) Former smoker: PLAN: Patient tolerated the dressing change reasonably well. Most of her pain came with positioning of the leg. Wound was stable. No active bleeding noted. The dressing change was with Dakin's. Will not put the VAC back on because of the trouble she had with it before. Operative culture shows Gram positive and Gram negative organisms. Preop culture showed Enterobacter cloacae and Gram positive meg. She is currently on Vancomycin and Zosyn. Her Prealbumin was 5.8. Encourage nutritional supplementation with protein to help the healing process. When she goes to the [facility], the facility may have its own wound care team. Patient can followup at the [facility] as needed. Once the wound stabilizes and starts to granulate in, she would then be a candidate for delayed closure with skin grafting. Will decide on that plan of action when she returns to the [facility].
[2021-07-02] MEDS: Vancomycin IV 1,000 MG/200 ML BAG 200 MG IV (17:58)
[2021-07-02] MEDS: DAKIN'S SOL HALF STRENGTH (=0.25%) 1 APPLIC TOPICAL (18:00)
[2021-07-02] MEDS: Atorvastatin Calcium 20 MG Tablet PO (22:00)
[2021-07-02] MEDS: Metoprolol Tartrate 25 MG Tablet PO (22:00)
[2021-07-03] MEDS: Acetaminophen 325 MG Tablet 650 MG PO ×3 (02:33→20:47)
[2021-07-03] MEDS: oxyCODONE 5 MG Tablet PO ×4 (02:34→20:48)
[2021-07-03 02:36] VITALS: BP 99/56; PULSE 80; RESP 18; TEMP 36.6; O2SAT 98
[2021-07-03] MEDS: Piperacil/Tazobactam 3.375 GM Q8 PREMIX IV ×3 (06:07→20:55)
[2021-07-03] MEDS: Vancomycin IV 1,000 MG/200 ML BAG 200 MG IV ×2 (06:07→17:41)
[2021-07-03 08:37] LABS: Absolute Lymphocyte Count 1.03 X10^3/uL (0.83-4.51); Absolute Neutrophil Count 3.6 X10^3/uL (2.0-7.7); Basophil# 0.03 X10^3/uL; Basophil% 0.5 % (0-1); Eosinophils% 3.6 % (0-5); Hematocrit 23.1 % (37-47); Hemoglobin 7.5 g/dL (12.0-15.0); Lymphocyte # 1.03 X10^3/ul (0.83-4.51); Lymphocyte % 18.3 % (19-41); Mean Corp Hgb Conc 32.5 g/dL (32-36); Mean Corpuscular Hgb 28.3 pg (27.0-32.0); Mean Corpuscular Volume 87.2 fL (81-99); Mean Platelet Vol. 11.3 fl (6.2-12.0); Monocyte# 0.67 X10^3/uL; Monocyte% 11.9 % (0-10); NRBC Flagged by Analyzer 0 % (0-5); Neutrophil # 3.61 X10^3/uL (2.7-7.7); Neutrophil % 64.1 % (47-70); Platelet Count 196 K/mm3 (150-450); RBC Distribution Width CV 13.7 % (11.6-14.6); RBC Distribution Width SD 43.2 fl (35.1-43.9); Red Blood Count 2.65 M/mm3 (4.2-5.4); White Blood Count 5.6 K/mm3 (4.4-11.0)
[2021-07-03 09:02] LABS: Anion Gap 2 (5-15); BUN 10 mg/dL (7-18); BUN/Creat Ratio 29.6 RATIO (10-20); Calcium,Total 7.9 mg/dL (8.5-10.1); Chloride 111 mmol/L (98-107); Creatinine, Serum 0.34 mg/dL (0.55-1.02); EST Glomerular Filtration Rate 203 mL/min (>60); Est Glom Filt Rate - Afr Amer 246 mL/min (>60); Estimated Creatinine Clearance 40.58 ml/min; Glucose 110 mg/dL (74-106); Potassium 3.8 mmol/L (3.5-5.1); Sodium Level 142 mmol/L (136-145)
[2021-07-03 09:05] VITALS: O2SAT 95
[2021-07-03] MEDS: RisperiDONE 1 MG Tablet PO ×2 (09:23→20:48)
[2021-07-03] MEDS: Pantoprazole Sodium 40 MG Tablet PO (09:23)
[2021-07-03] MEDS: Sertraline 100 MG Tablet 200 MG PO (09:23)
[2021-07-03] MEDS: Aspirin E.C. 81 MG Tablet PO (09:23)
[2021-07-03] MEDS: Multivitamins,Ther W-Minerals Tablet 1 TABLET PO (09:23)
[2021-07-03] MEDS: Enoxaparin 60 MG/0.6 ML Syringe 50 MG SC ×2 (09:24→20:55)
[2021-07-03] MEDS: Pregabalin 75 MG Capsule PO ×2 (09:33→20:49)
[2021-07-03 09:41] VITALS: BP 106/63; PULSE 99; RESP 16; TEMP 37; O2SAT 96
[2021-07-03] MEDS: DAKIN'S SOL HALF STRENGTH (=0.25%) 1 APPLIC TOPICAL (10:42)
--- NOTE | 2021-07-03 11:04 | PN.HOSP_ITS ---
Subjective Subjective Patient seen and examined. Her pain was well controlled. She had no active complaints today. Review of systems is otherwise negative. Objective Data Objective Data Vital Signs: Vital Signs Temp Pulse Resp BP Pulse Ox 98.6 F 99 16 106/63 96 07/03/21 09:41 07/03/21 09:41 07/03/21 09:41 07/03/21 09:41 07/03/21 09:41 Oxygen Delivery Method Room Air Weight: 108 lb 3.951 oz Body Mass Index (BMI) 18.6 Intake & Output: Intake and Output for Last 24 Hours 07/01/21 07/02/21 07/03/21 23:59 23:59 23:59 Intake Total 2506 / 2506 2050 / 2250 600 / 600 Balance 2506 / 2506 2050 / 2250 600 / 600 Lab / Micro Data Result Diagrams: 07/03/21 08:25 07/03/21 08:25 Labs: Laboratory Results - last 24 hr 07/03/21 08:25: WBC 5.6, RBC 2.65 L, Hgb 7.5 L, Hct 23.1 L, MCV 87.2, MCH 28.3, MCHC 32.5, RDW Std Deviation 43.2, RDW Coeff of Jen 13.7, Plt Count 196, MPV 11.3, Immature Gran % (Auto) 1.600 H, Neut % (Auto) 64.1, Lymph % (Auto) 18.3 L, [place] % (Auto) 11.9 H, Eos % (Auto) 3.6, Baso % (Auto) 0.5, Absolute Neuts (auto) 3.6, Absolute Lymphs (auto) 1.03, Nucleated RBC % 0 07/03/21 08:25: Sodium 142, Potassium 3.8, Chloride 111 H, Carbon Dioxide 29.0, Anion Gap 2 L, BUN 10, Creatinine 0.34 L, Estim Creat Clear Calc 40.58, Est GFR (MDRD) Af Amer 246, Est GFR (MDRD) Non-Af 203, BUN/Creatinine Ratio 29.6 H, Glucose 110 H, Calcium 7.9 L Micro: Microbiology 07/01/21 11:27 Tissue - Leg, Right Gram Stain - Final 07/01/21 11:27 Tissue - Leg, Right Wound Culture - Preliminary Streptococcus group C Gram negative meg Gram positive meg 06/30/21 16:30 Blood Culture (Wb) - Anticubital Right Blood Culture - Preliminary No growth in 48 hours. 06/30/21 15:55 Blood Culture (Wb) - Anticubital Left Blood Culture - Preliminary No growth in 48 hours. 06/30/21 21:10 Wound - Leg, Right Gram Stain - Final 06/30/21 21:10 Wound - Leg, Right Wound Culture - Preliminary Enterobacter cloacae complex Gram positive meg 06/30/21 18:45 Urine Catheter - Catheter Urine Culture - Final Proteus penneri Physical Exam Const alert, oriented x3 and no apparent distress Exam Limitations: no limitations HEENT head/scalp atraumatic and moist oral mucous membranes Head and Scalp: normocephalic Eyes PERRL, EOMs intact bilaterally and conjunctivae normal Neck no lymphadenopathy and supple Resp normal respiratory effort, no retractions, no use of accessory muscles and clear to auscultation bilaterally Cardio regular rate, regular rhythm, S1 normal heart sound, S2 normal heart sound and no murmurs GI normal to inspection, nondistended, normoactive bowel sounds, soft to palpation, non-tender and non-distended Extremity Extremity Narrative: RLE wrapped in bandage from ankle to knee Peripheral Pulses: Yes pulses 2+ throughout Skin Skin Narrative: as under extremity Neuro oriented x3, CN's II-XII intact bilaterally and moves all extremities Sensorium / Orientation: awake and alert Psych affect normal Assessment & Plan Assessment/Plan (1) Leg wound, right: QUALIFIERS: Encounter type: initial encounter Qualified Code(s): S81.801A - Unspecified open wound, right lower leg, initial encounter (2) Wound infection: PLAN: #RLE wound * had traumatic infected hematoma of the RLE whilst on eliquis * had I&D and excisional debridement on 06/16/2021; she was treated with IV antibiotics and discharged home on keflex * admitted again with worsening pain of her RLE * had not been attaching her wound vac at home because she wanted to conserve electricity * imaging showed demineralization of osseous structure with posterior soft tissue wound or defect * she is POD 2 of repeat incision and drainage as well as debridement of the infected right posterior leg hematoma wound * plastic surgery on board. * wound care on board * on IV zosyn and vancomcyin * wound cultures grew Enterobacter cloacae, Streptococcus group C and gram negative and gram positive rods. * consult ID. #Hypokalemia: K is 3.8 today. resolved. #RLE dVT * was diagnosed wtih DVT of RLE in May 2021 * now on therapeutic lovenox. xarelto on hold * resume xarelto once ok with surgery * #Hypertension: on metoprolol #Hyperlipidemia: on statin #ANemia of chronic disease: stable. #Severe protein calorie malnutrition * BMI is 18 * consult dietitian * #Depression and bipolar disorder: on sertraline, xanax and risperdal DVT prophylaxis: currently on therapeutic lovenox due to the DVT of the RLE diagnosed in May 2021. Charges/Coding Visit Charges Inpatient E&M: 59852 Subs Hosp L2
[2021-07-03 14:03] VITALS: BP 137/62; PULSE 110; RESP 16; TEMP 36.6; O2SAT 94
[2021-07-03] MEDS: Atorvastatin Calcium 20 MG Tablet PO (20:49)
[2021-07-03] MEDS: 0.9% Normal Saline 1,000 ML 15 ML IV (20:53)
[2021-07-03 21:00] VITALS: BP 103/64; PULSE 74; RESP 18; TEMP 37.1; O2SAT 96
[2021-07-04 03:00] VITALS: BP 101/54; PULSE 96; RESP 18; TEMP 36.6; O2SAT 97
[2021-07-04] MEDS: Vancomycin IV 1,000 MG/200 ML BAG 200 MG IV (06:14)
[2021-07-04] MEDS: Piperacil/Tazobactam 3.375 GM Q8 PREMIX IV ×3 (06:14→22:10)
[2021-07-04 06:59] LABS: Vancomycin, Trough Level 12.1 ug/mL (5.0-15.0)
--- NOTE | 2021-07-04 07:29 | PCM.RX.CS ---
Consult Type of Consult: Follow-up Suspected Infection: Skin/Soft tissue Labs: Sodium 142 mmol/L (136-145) 07/03/21 08:25 Potassium 3.8 mmol/L (3.5-5.1) 07/03/21 08:25 Chloride 111 mmol/L (98-107) H 07/03/21 08:25 Carbon Dioxide 29.0 mmol/L (21.0-32.0) 07/03/21 08:25 Anion Gap 2 (5-15) L 07/03/21 08:25 BUN 10 mg/dL (7-18) 07/03/21 08:25 Creatinine 0.34 mg/dL (0.55-1.02) L 07/03/21 08:25 Est GFR (MDRD) Af Amer 246 mL/min (>60) 07/03/21 08:25 Est GFR (MDRD) Non-Af 203 mL/min (>60) 07/03/21 08:25 BUN/Creatinine Ratio 29.6 RATIO (10-20) H 07/03/21 08:25 Glucose 110 mg/dL (74-106) H 07/03/21 08:25 Vancomycin Trough 12.1 ug/mL (5.0-15.0) 07/04/21 05:35 Microbiology: Microbiology 07/01/21 11:27 Tissue - Leg, Right Gram Stain - Final 07/01/21 11:27 Tissue - Leg, Right Wound Culture - Preliminary Streptococcus group C Gram negative meg Gram positive meg 06/30/21 16:30 Blood Culture (Wb) - Anticubital Right Blood Culture - Preliminary No growth in 48 hours. 06/30/21 15:55 Blood Culture (Wb) - Anticubital Left Blood Culture - Preliminary No growth in 48 hours. 06/30/21 21:10 Wound - Leg, Right Gram Stain - Final 06/30/21 21:10 Wound - Leg, Right Wound Culture - Preliminary Enterobacter cloacae complex Gram positive meg 06/30/21 18:45 Urine Catheter - Catheter Urine Culture - Final Proteus penneri Goal Trough: 15-20 mcg/mL Pharmacy Plan for Drug Dosing: VANCOMYCIN LEVEL RECEIVED Current Vancomycin Dose: 1000mg Q12H Number of Doses Received: 4 Vancomycin Level: 12.1 Hours Since Last Dose: 12 Renal Function: sCr 0.34 (07/03/21) Renal Function Trend: stable Vancomycin Plan/Comments: Increase Vancomycin dosing regimen to 1250mg Q12H due to SUBtherapeutic trough level Pending Level: Vancomycin trough @ 0530 07/06/21 Pharmacy Service will continue to monitor and adjust dosing as required. Labs to be done on [date and time ordered]: Vancomycin trough @ 0507/06/21
[2021-07-04 07:30] VITALS: BP 119/77; PULSE 100; RESP 16; TEMP 37; O2SAT 93
[2021-07-04] MEDS: Multivitamins,Ther W-Minerals Tablet 1 TABLET PO (08:09)
[2021-07-04] MEDS: Sertraline 100 MG Tablet 200 MG PO (08:09)
[2021-07-04] MEDS: Pregabalin 75 MG Capsule PO ×2 (08:09→20:28)
[2021-07-04] MEDS: Pantoprazole Sodium 40 MG Tablet PO (08:10)
[2021-07-04] MEDS: Aspirin E.C. 81 MG Tablet PO (08:10)
[2021-07-04] MEDS: Enoxaparin 60 MG/0.6 ML Syringe 50 MG SC ×2 (08:10→20:29)
[2021-07-04] MEDS: RisperiDONE 1 MG Tablet PO ×2 (08:10→20:29)
[2021-07-04] MEDS: HYDROmorphone 0.5 MG/0.5 ML SYRINGE IV ×3 (08:11→20:30)
[2021-07-04] MEDS: 0.9% Saline Lock 10 ML Syringe IV ×2 (08:11→14:09)
[2021-07-04 08:41] LABS: Absolute Lymphocyte Count 1.08 X10^3/uL (0.83-4.51); Absolute Neutrophil Count 3.6 X10^3/uL (2.0-7.7); Basophil# 0.03 X10^3/uL; Basophil% 0.5 % (0-1); Eosinophils% 3.5 % (0-5); Hematocrit 23.6 % (37-47); Hemoglobin 7.7 g/dL (12.0-15.0); Lymphocyte # 1.08 X10^3/ul (0.83-4.51); Lymphocyte % 18.9 % (19-41); Mean Corp Hgb Conc 32.6 g/dL (32-36); Mean Corpuscular Hgb 29.1 pg (27.0-32.0); Mean Corpuscular Volume 89.1 fL (81-99); Monocyte# 0.73 X10^3/uL; Monocyte% 12.8 % (0-10); NRBC Flagged by Analyzer 0 % (0-5); Neutrophil # 3.58 X10^3/uL (2.7-7.7); Neutrophil % 62.6 % (47-70); Platelet Count 230 K/mm3 (150-450); RBC Distribution Width CV 13.8 % (11.6-14.6); RBC Distribution Width SD 45.1 fl (35.1-43.9); Red Blood Count 2.65 M/mm3 (4.2-5.4); White Blood Count 5.7 K/mm3 (4.4-11.0)
--- NOTE | 2021-07-04 10:58 | CASEMGMT ---
Addendum entered by Oralia Bacon 07/04/21 12:28: CLAUDE placed a call to Priscila at [facility], pre-cert is still pending. Plan: [facility] pending pre-cert Original Note: Social Work Note CLAUDE faxed updated clinicals to [facility]. Plan: [facility] pending pre-cert. Oralia Bacon WINCH RUNNER, COLOR ROOM ATTENDANT
--- NOTE | 2021-07-04 13:03 | PCM.CONS.GEN ---
Assessment & Plan Assessment/Plan (1) Traumatic hematoma of right lower leg with infection: QUALIFIERS: Encounter type: initial encounter Qualified Code(s): S80.11XA - Contusion of right lower leg, initial encounter; L08.9 - Local infection of the skin and subcutaneous tissue, unspecified PLAN: Now s/p I&D by Dr. Gaviria 07/01/21. Wound cx with strep, enterobacter, and corynebacteria. Will stop vanc. Cont zosyn for now. Plan on 10 days levaquin 500mg daily at discharge. Will follow, thank you, d/w primary team HPI Consult Data Date of Consult: 07/04/21 HPI Narrative HPI Narrative: TRACI MCCONNELL, is a 70 F with recent DVT, developed hematoma, admitted here 06/15-06/17 and had I&D done. Discharged on keflex, but wound worsened with increased pain/redness/drainage. No fever, readmitted 06/30. Started on vanc/zosyn, taken to OR with Dr. Gaviria 07/01. Feeling better, interested in discharge. Fully boosted for covid. Full ROS performed and neg except as noted above. 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 Lung mass Osteoarthritis Skin necrosis Traumatic hematoma of right lower leg with infection Vitamin D deficiency Home Medications sertraline 100 mg tablet 200 mg PO DAILY tab 05/27/18 [History Last Taken 06/15/21] alprazolam 0.5 mg tablet 0.25 mg PO TID 06/08/20 [History Last Taken 06/15/21] pantoprazole 40 mg tablet,delayed release 40 mg PO DAILY 06/08/20 [History Last Taken 06/15/21] risperidone 1 mg tablet 1 mg PO BID 06/08/20 [History Last Taken 06/15/21] multivitamin with minerals 1 each PO DAILY 06/29/20 [History Last Taken 06/15/21] pregabalin 75 mg PO BID 06/15/21 [History Last Taken 06/15/21] rosuvastatin 10 mg PO QHS 06/15/21 [History Last Taken 06/14/21] sennosides-docusate sodium [Stimulant Laxative Plus] 2 tab PO BID PRN PRN 06/15/21 [History Last Taken 06/15/21] metoprolol tartrate 25 mg PO BID #0 tab 06/17/21 [Rx Last Taken 06/15/21] oxycodone-acetaminophen 5 mg-325 mg tablet 1 tab PO Q6H PRN 7 Days #28 tab 06/27/21 [Rx Last Taken Unknown] Allergy/AdvReac Type Severity Reaction Status Date / Time bee venom protein (honey bee) Allergy Severe Anaphylaxis Verified 06/22/21 13:11 thiothixene AdvReac Unknown Unknown Verified 06/22/21 13:11 Family History Other CVA (cerebral vascular accident) Dementia Surgical History History of back surgery History of D&C History of tonsillectomy Social History Smoking Status: Former smoker second hand exposure: No alcohol intake: never substance use type: does not use caffeine: Yes Physical Exam Const alert, oriented x3 and no apparent distress General Appearance: cooperative Exam Limitations: no limitations HEENT normocephalic and head/scalp atraumatic Eyes PERRL and EOMs intact bilaterally Neck supple and No nodes Resp normal air movement and clear to auscultation bilaterally Cardio regular rate and regular rhythm GI soft to palpation, non-tender and non-distended Extremity General Extremity: Negative for edema Skin Skin Narrative: reviewed photos Neuro CN's II-XII intact bilaterally Lab / Micro Data Result Diagrams: 07/04/21 05:35 07/03/21 08:25 Labs: Laboratory Results - last 24 hr 07/04/21 05:35: Vancomycin Trough 12.1 07/04/21 05:35: WBC 5.7, RBC 2.65 L, Hgb 7.7 L, Hct 23.6 L, MCV 89.1, MCH 29.1, MCHC 32.6, RDW Std Deviation 45.1 H, RDW Coeff of Jen 13.8, Plt Count 230, MPV 12.0, Immature Gran % (Auto) 1.700 H, Neut % (Auto) 62.6, Lymph % (Auto) 18.9 L, [place] % (Auto) 12.8 H, Eos % (Auto) 3.5, Baso % (Auto) 0.5, Absolute Neuts (auto) 3.6, Absolute Lymphs (auto) 1.08, Nucleated RBC % 0 Micro: Microbiology 07/01/21 11:27 Tissue - Leg, Right Gram Stain - Final 07/01/21 11:27 Tissue - Leg, Right Wound Culture - Final Streptococcus group C Enterobacter cloacae complex Corynebacterium striatum 07/01/21 11:27 Tissue - Leg, Right Anaerobic Culture - Preliminary Checking for anaerobes, further studies to follow. 06/30/21 21:10 Wound - Leg, Right Gram Stain - Final 06/30/21 21:10 Wound - Leg, Right Wound Culture - Final Enterobacter cloacae complex Gram positive meg Streptococcus group C 06/30/21 16:30 Blood Culture (Wb) - Anticubital Right Blood Culture - Preliminary No growth in 48 hours. 06/30/21 15:55 Blood Culture (Wb) - Anticubital Left Blood Culture - Preliminary No growth in 48 hours.
[2021-07-04 14:00] VITALS: BP 114/65; PULSE 100; RESP 14; TEMP 36.6; O2SAT 96
[2021-07-04] MEDS: DAKIN'S SOL HALF STRENGTH (=0.25%) 1 APPLIC TOPICAL (14:48)
--- NOTE | 2021-07-04 14:56 | WOUNDNOTE ---
wound photo: right posterior lower leg
--- NOTE | 2021-07-04 14:56 | WOUNDNOTE ---
wound photo: right posteromedial lower leg
--- NOTE | 2021-07-04 15:01 | WOUNDNOTE ---
Pt tolerated the Dakins moistened gauze dressing very well. pt awaiting precert to retirement so this nurse held off on VAC placement. pt did not tolerated the wound VAC well at home. states I cried every time they ripped that stuff off. It was awful. Pt states she tolerates this dressing so much better. sent message to [facility] asking if dressings can be changed to Dakins moistened gauze daily instead of the wound VAC for now.
--- NOTE | 2021-07-04 15:05 | PCM.PN.HOSP ---
Subjective Subjective Patient reports she is doing okay today. She is agreeable to placement and pre-CERT is pending for the [facility]. Patient denies any current needs at this time. Objective Data Objective Data Vital Signs: Vital Signs Temp Pulse Resp BP Pulse Ox 97.9 F 100 14 114/65 96 07/04/21 14:00 07/04/21 14:00 07/04/21 14:00 07/04/21 14:00 07/04/21 14:00 Oxygen Flow Rate (L/min) 97 Oxygen Delivery Method Room Air Weight: 70.2 kg Body Mass Index (BMI) 18.6 Intake & Output: Intake and Output for Last 24 Hours 07/02/21 07/03/21 07/04/21 23:59 23:59 23:59 Intake Total 0 / 2250 2496.25 / 2696.25 840.25 / 840.25 Output Total 600 / 600 Balance 2049 / 0 2496.25 / 2696.25 240.25 / 240.25 Lab / Micro Data Result Diagrams: 07/04/21 05:35 07/03/21 08:25 Labs: Laboratory Results - last 24 hr 07/04/21 05:35: Vancomycin Trough 12.1 07/04/21 05:35: WBC 5.7, RBC 2.65 L, Hgb 7.7 L, Hct 23.6 L, MCV 89.1, MCH 29.1, MCHC 32.6, RDW Std Deviation 45.1 H, RDW Coeff of Jen 13.8, Plt Count 230, MPV 12.0, Immature Gran % (Auto) 1.700 H, Neut % (Auto) 62.6, Lymph % (Auto) 18.9 L, [place] % (Auto) 12.8 H, Eos % (Auto) 3.5, Baso % (Auto) 0.5, Absolute Neuts (auto) 3.6, Absolute Lymphs (auto) 1.08, Nucleated RBC % 0 Micro: Microbiology 07/01/21 11:27 Tissue - Leg, Right Gram Stain - Final 07/01/21 11:27 Tissue - Leg, Right Wound Culture - Final Streptococcus group C Enterobacter cloacae complex Corynebacterium striatum 07/01/21 11:27 Tissue - Leg, Right Anaerobic Culture - Preliminary Checking for anaerobes, further studies to follow. 06/30/21 21:10 Wound - Leg, Right Gram Stain - Final 06/30/21 21:10 Wound - Leg, Right Wound Culture - Final Enterobacter cloacae complex Gram positive meg Streptococcus group C 06/30/21 16:30 Blood Culture (Wb) - Anticubital Right Blood Culture - Preliminary No growth in 48 hours. 06/30/21 15:55 Blood Culture (Wb) - Anticubital Left Blood Culture - Preliminary No growth in 48 hours. 06/30/21 18:45 Urine Catheter - Catheter Urine Culture - Final Proteus penneri Physical Exam Const alert, oriented x3, no apparent distress, average body habitus and healthy appearing Constitutional Narrative: Older white female sitting up in bed, watching television eating breakfast, appears comfortable nontoxic Nutritional Appearance: overweight HEENT head/scalp atraumatic and moist oral mucous membranes HEENT Narrative: mucous membranes are moist, Mallampati is 2 Head and Scalp: normocephalic Resp normal respiratory effort, no retractions, no use of accessory muscles and clear to auscultation bilaterally Auscultation: Negative for crackles, rales, rhonchi or wheezes Cardio regular rate, regular rhythm, S1 normal heart sound, S2 normal heart sound, no murmurs, no rub, no gallops, no clicks and no JVD GI normal to inspection, nondistended, normoactive bowel sounds, soft to palpation, non-tender and non-distended Extremity no clubbing, cyanosis or edema Extremity Narrative: Right lower extremity dressing in place-pictures reviewed and appears to have good granulation tissue without any signs of necrosis Peripheral Pulses: Yes pulses 2+ throughout Neuro oriented x3, CN's II-XII intact bilaterally, moves all extremities and no focal motor deficits Sensorium / Orientation: awake and alert Speech: speech normal Assessment & Plan Assessment/Plan (1) Contusion of right lower leg, subsequent encounter: PLAN: Right lower extremity traumatic infected hematoma -This occurred while patient was anticoagulated with Eliquis -I&D performed on 07/01/2021 -Patient was status post an I&D on 06/16/2021 and was discharged with Keflex--> not using her VAC as she wanted to conserve electricity -Plan is for wound VAC at discharge however this is questionable as patient did not tolerate these well -Cultures have grown Enterobacter/group B strep/corynebacterium -Continue Zosyn for now -Vancomycin discontinued -ID has evaluated the patient and the plan is for 10 days of Levaquin on discharge -Currently awaiting placement -We are trying to ascertain whether or not Dr. 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 -Doppler showed acute DVT in the right common femoral, profundofemoral, posterior tibial and peroneal veins -Patient has been anticoagulated since that point time -We really should restart oral anticoagulation once general surgery is okay with this -Continue therapeutic Lovenox for now -Globin is currently stable Acute on chronic normocytic anemia -Suspect slight drop related to traumatic hematoma although currently is stable -Baseline hemoglobin appears to be around 10 Hypokalemia -Resolved Hypertension -Continue home metoprolol Hyperlipidemia -Continue statin Severe protein malnutrition -Dietitian is following -Supplements as ordered Bipolar/depression -Continue sertraline -Continue Xanax -Continue Risperdal DVT prophylaxis -Continue therapeutic Lovenox and transition to Xarelto once okay with surgery CODE STATUS -Full code Charges/Coding Visit Charges Inpatient E&M: 95237 Subs Hosp L2
--- NOTE | 2021-07-04 16:15 | CASEMGMT ---
CM: Voicemail message received from Megan at [facility] stating pt receives waiver services including 5 hot meals and 5 frozen meals Sunday thru Sunday, also has an aide and life line. Pt's CM is Oralia, phone number [phone], fax [phone]. Rafael Bucio RN CM
--- NOTE | 2021-07-04 16:16 | CASEMGMT ---
Social Work Note SW updated that pt will not discharge on wound vac now. CLAUDE placed a call to Priscila at [facility] and left message updating her. Plan: [facility] pending pre-cert Oralia Bacon LOGGING CONTRACTOR, PHARMACY MANAGER
[2021-07-04] MEDS: Juven (unflavored) Packet 1 PACKET PO (16:40)
[2021-07-04] MEDS: Acetaminophen 325 MG Tablet 650 MG PO (16:43)
[2021-07-04] MEDS: oxyCODONE 5 MG Tablet PO (16:44)
--- NOTE | 2021-07-04 17:52 | PCA ---
THE TOOL LAPPER HAND RECEIVED A CALL FROM [id number] STATING THAT THE PT. CAN COME YUMIKO TOLD THE NURSE.
[2021-07-04 20:20] VITALS: BP 99/60; PULSE 94; RESP 18; TEMP 37; O2SAT 96
[2021-07-04] MEDS: Atorvastatin Calcium 20 MG Tablet PO (20:29)
[2021-07-05 02:56] VITALS: BP 121/72; PULSE 89; RESP 18; TEMP 36.7; O2SAT 93
[2021-07-05] MEDS: oxyCODONE 5 MG Tablet PO ×3 (03:07→19:20)
[2021-07-05] MEDS: Acetaminophen 325 MG Tablet 650 MG PO ×2 (03:07→14:51)
[2021-07-05] MEDS: Piperacil/Tazobactam 3.375 GM Q8 PREMIX IV (05:58)
[2021-07-05 07:15] LABS: Absolute Lymphocyte Count 0.92 X10^3/uL (0.83-4.51); Absolute Neutrophil Count 4.3 X10^3/uL (2.0-7.7); Basophil# 0.03 X10^3/uL; Basophil% 0.5 % (0-1); Eosinophil# 0.16 X10^3/uL; Eosinophils% 2.6 % (0-5); Hematocrit 23.2 % (37-47); Hemoglobin 7.4 g/dL (12.0-15.0); Lymphocyte # 0.92 X10^3/ul (0.83-4.51); Lymphocyte % 14.8 % (19-41); Mean Corp Hgb Conc 31.9 g/dL (32-36); Mean Corpuscular Hgb 28.2 pg (27.0-32.0); Mean Corpuscular Volume 88.5 fL (81-99); Monocyte% 12.8 % (0-10); NRBC Flagged by Analyzer 0 % (0-5); Neutrophil # 4.25 X10^3/uL (2.7-7.7); Neutrophil % 68.2 % (47-70); Platelet Count 275 K/mm3 (150-450); RBC Distribution Width CV 14.2 % (11.6-14.6); RBC Distribution Width SD 45.2 fl (35.1-43.9); Red Blood Count 2.62 M/mm3 (4.2-5.4); White Blood Count 6.2 K/mm3 (4.4-11.0)
[2021-07-05 07:32] LABS: Anion Gap 4 (5-15); BUN 16 mg/dL (7-18); Calcium,Total 8.5 mg/dL (8.5-10.1); Chloride 105 mmol/L (98-107); Creatinine, Serum 0.47 mg/dL (0.55-1.02); EST Glomerular Filtration Rate 139 mL/min (>60); Est Glom Filt Rate - Afr Amer 168 mL/min (>60); Estimated Creatinine Clearance 39.83 ml/min; Glucose 119 mg/dL (74-106); Potassium 3.7 mmol/L (3.5-5.1); Sodium Level 139 mmol/L (136-145)
[2021-07-05 07:35] VITALS: BP 106/60; PULSE 77; RESP 16; TEMP 37.6; O2SAT 98
[2021-07-05] MEDS: HYDROmorphone 0.5 MG/0.5 ML SYRINGE IV (08:20)
[2021-07-05] MEDS: 0.9% Saline Lock 10 ML Syringe IV (08:20)
[2021-07-05] MEDS: Multivitamins,Ther W-Minerals Tablet 1 TABLET PO (08:34)
[2021-07-05] MEDS: Aspirin E.C. 81 MG Tablet PO (08:34)
[2021-07-05] MEDS: Juven (unflavored) Packet 1 PACKET PO ×2 (08:35→17:09)
[2021-07-05] MEDS: Pantoprazole Sodium 40 MG Tablet PO (10:53)
[2021-07-05] MEDS: Pregabalin 75 MG Capsule PO (10:54)
[2021-07-05] MEDS: Sertraline 100 MG Tablet 200 MG PO (10:55)
[2021-07-05] MEDS: RisperiDONE 1 MG Tablet PO (10:57)
[2021-07-05] MEDS: Enoxaparin 60 MG/0.6 ML Syringe 50 MG SC (10:59)
--- NOTE | 2021-07-05 11:23 | PCM.TXEXTCAR ---
Diet 06/30/21 20:36 Diet: Cardiac - Heart Healthy Food consistency:: Regular Liquid Consistency:: Regular/Thin Type of Dietary Supplement:: Ensure Enlive Diet Comments: 4 oz ensure enlive tid w/ meals Routine Orders/Code Status Routine Lab Work: CBC (Every 3 days) and BMP (weekly) Code Status: Full Code Wound(s) RIGHT LOWER LEG: Wound Type: Open Surgical Wound Dressing Change: Dakins moistened gauze Therapies Weight Bearing: Weight bearing as tolerated Extremity Affected:: Right Lower Physical Therapy: Eval and Treat Occupational Therapy: Eval and Treat Problem/Diagnosis (1) Contusion of right lower leg, subsequent encounter: Status: Acute Comment: painful open infected hematoma wound right posterior leg Allergies/Procedures Done in Hospital Allergies bee venom protein (honey bee) Allergy (Severe, Verified 06/22/21 13:11) Anaphylaxis thiothixene Adverse Reaction (Unknown, Verified 06/22/21 13:11) Unknown Procedures: Wound Vac placement Type of Care/Length of Stay Estimated LOS: Convalescent Care Less Than 30 days Type of Care Needed: Skilled Rehab Potential: Good Prognosis: Good Additional Orders/Day of Discharge Day of Discharge: 07/05/21 Dietary and Speech Recommendations Dietitian Recommendations/Changes: Cardiac diet w/ ensure enlive at meals tid Jamal bid at [facility] to help w/ wound healing. Discharge Plan Admission Admit Date/Time: 06/30/21 19:00 Attending Provider: Mary Pennington Primary Care Provider: Matt Hess Chi Consulting Providers: Dada Gaviria ; Trung Weller Discharge Orders/Prescriptions Prescriptions: No Action sertraline [Zoloft] 100 mg tablet 200 mg PO DAILY RF: 0 risperidone [Risperdal] 1 mg tablet 1 mg PO BID RF: 0 alprazolam 0.5 mg tablet 0.25 mg PO TID RF: 0 pantoprazole 40 mg tablet,delayed release (DR/EC) 40 mg PO DAILY RF: 0 multivitamin with minerals 1 EACH tablet 1 each PO DAILY RF: 0 rosuvastatin 10 mg tablet 10 mg PO QHS RF: 0 sennosides-docusate sodium [Stimulant Laxative Plus] 8.6-50 mg tablet 2 tab PO BID PRN PRN (Reason: Constipation) RF: 0 pregabalin 75 mg capsule 75 mg PO BID RF: 0 metoprolol tartrate 25 mg tablet 25 mg PO BID Qty: 0 RF: 0 oxycodone-acetaminophen [Percocet] 5-325 mg tablet 1 tab PO Q6H PRN (Reason: pain (scale score 7-10)) 7 Days Qty: 28 RF: 0 Referrals / Follow Up: Matt Hess Chi, MD [Primary Care Provider] -
--- NOTE | 2021-07-05 11:27 | PCM.DC.SUM ---
Providers Date of Admission: 06/30/21 Date of Discharge: 07/05/21 Primary Care Physician: Dr. Matt Hess MD Consultations 06/30/21 20:35 Consult: Onc/Wound/telephone services sales representative Routine Comment: Reason for Consult:: RIGHT LEG infected hematoma wound Consult: Plastic Surgery Routine Consulting Provider: Dada Gaviria Reason for Consult: right leg infected/necrotic wound EMERGENT Consult: No Notified: Yes Date Notified: 06/30/21 Time Notified: 19:10 Method of Notification: Verbal Comments:: Dr. Henao discussed with Dr. Gaviria 07/03/21 11:03 Consult: Infectious Disease Routine Consulting Provider: Trung Weller Reason for Consult: infected leg hematoma EMERGENT Consult: No Notified: Yes Date Notified: 07/04/21 Time Notified: 11:04 Method of Notification: Answering Service Reason For Visit: RIGHT LEG INFECTED WOUND / DVT Diagnosis Discharge Diagnosis (1) Contusion of right lower leg, subsequent encounter: Status: Acute Code(s): S80.11XD - Contusion of right lower leg, subsequent encounter Medications at Discharge Home Medications sertraline 100 mg tablet 200 mg PO DAILY tab 05/27/18 alprazolam 0.5 mg tablet 0.25 mg PO TID 06/08/20 pantoprazole 40 mg tablet,delayed release 40 mg PO DAILY 06/08/20 risperidone 1 mg tablet 1 mg PO BID 06/08/20 multivitamin with minerals 1 each PO DAILY 06/29/20 pregabalin 75 mg PO BID 06/15/21 rosuvastatin 10 mg PO QHS 06/15/21 sennosides-docusate sodium [Stimulant Laxative Plus] 2 tab PO BID PRN PRN 06/15/21 metoprolol tartrate 25 mg PO BID #0 tab 06/17/21 oxycodone-acetaminophen 5 mg-325 mg tablet 1 tab PO Q6H PRN 7 Days #28 tab 06/27/21 levofloxacin 500 mg PO DAILY #10 tab 07/05/21 oxycodone 5 mg PO Q4H PRN PRN 1 Days #6 tab 07/05/21 rivaroxaban [Xarelto] 20 mg PO DAILY #30 tab 07/05/21 Hospital Course Operations - (Incision and drainage with excisional debridement of infected necrotic hematoma right lower extremity) Summary of Care Provided Minutes Spent on Discharge: 38 Hospital Course: Mrs. Dick is a 70-year-old white female who presented to emergency department [facility] on 06/30/2021 secondary to the worsening of a large wound on the posterior aspect of her right leg from her knee to her ankle. The patient had evidently been on Xarelto for a right lower extremity DVT that extended into the femoral veins and had been diagnosed in May 2021. During the first week of June she slammed her leg into a door that resulted in an infected hematoma. She was hospitalized from 06/15/2021 to 06/17/2021 at which time plastic surgery performed an I&D with excisional debridement of the infected hematoma and overlying skin necrosis. The patient did require a unit of packed red blood cells at that time. She was treated with IV antibiotics during her hospitalization and then discharged on Keflex with a wound VAC at home with a home health aide. Prior to presenting to the emergency department she was last seen at the wound center on 06/21/2021. On presentation the right leg wound was worsening with slough and severe pain and she was unable to stand or walk on her leg. Symptoms were aggravated with movement and touch. She complained of chills and diaphoresis but no nausea vomiting or headache. She had a wound VAC at home but had not been using it secondary to trying to conserve on electricity. In the emergency department on admission her vital signs were overall unremarkable. A right lower extremity tib-fib x-ray showed demineralization of the osseous structure with posterior soft tissue wound or defect. The rest of her lab work was overall unimpressive. She was admitted to the medical floor placed on antibiotics and plastic surgery was consulted. She was taken the OR on 07/01/2021 at which time a surgical I&D and excision normal debridement of infected necrotic hematoma was performed. Given her recent lower extremity DVT that was extensive she was maintained on anticoagulation with interruption only for surgery via Lovenox. She tolerated this procedure well. Her hemoglobin did drop some as it appeared to be 10.6 prior to procedure and stabilized in the mid 7 range prior to discharge. She did not require any blood transfusions during this hospital course. Wound cultures grew group C strep, Enterobacter cloacae, and Corynebacterium. She was evaluated by infectious disease and they recommended a 10-day course of Levaquin at discharge with 500 mg daily. Given the extensiveness of her wound and her continued wound care requirements as well as decreased mobility it was felt that she would be most appropriate for discharge to [facility] facility which she agreed to. She was discharged to the [facility] in [place] on 07/05/2021 in stable condition. I did discuss the case with Dr. Gaviria's nurse practitioner and she felt that it was appropriate to restart her Xarelto upon discharge and monitor her for any bleeding. She is to follow-up with her primary care physician in [address] Gaviria's office in 2 weeks. Discharge diagnoses: Right lower extremity infected traumatic hematoma History of DVT right lower extremity Acute on chronic normocytic anemia Hypokalemia-resolved Hypertension Hyperlipidemia Severe malnutrition Bipolar disorder Depression Physical Exam Const alert, oriented x3, no apparent distress, average body habitus and healthy appearing Constitutional Narrative: Older white female sitting up in bed, watching television and on computer, appears comfortable and nontoxic General Appearance: cooperative, comfortable, well kempt and well developed Exam Limitations: no limitations Nutritional Appearance: overweight HEENT normocephalic, head/scalp atraumatic, hearing grossly normal bilaterally and moist oral mucous membranes HEENT Narrative: Dentition is fair for age, Mallampati is 2 Eyes PERRL and EOMs intact bilaterally Eyes Narrative: Pale conjunctiva bilaterally, no scleral icterus Neck no lymphadenopathy, supple and no JVD Neck Narrative: Trachea midline, no thyroid enlargement Resp normal respiratory effort, no retractions, no use of accessory muscles and clear to auscultation bilaterally Resp Narrative: Slightly diminished diffusely Auscultation: Negative for crackles, rales, rhonchi or wheezes Cardio regular rate, regular rhythm, S1 normal heart sound, S2 normal heart sound, no murmurs, no rub, no gallops, no clicks and no JVD GI normal to inspection, nondistended, normoactive bowel sounds, soft to palpation, non-tender and non-distended Extremity no clubbing, cyanosis or edema Extremity Narrative: Right lower extremity dressing in place-pictures reviewed and appears to have good granulation tissue without any signs of necrosis Skin Skin Narrative: as under extremity, skin is pale Neuro oriented x3, CN's II-XII intact bilaterally, moves all extremities and no focal motor deficits Neuro Narrative: Generalized weakness Sensorium / Orientation: awake and alert Speech: speech normal Psych affect normal Weight / BMI Weight Weight: 48.2 kg Body Mass Index (BMI) 18.6 ABG / Lab / Microbiology Data Result Diagrams: 07/05/21 06:30 07/05/21 06:30 Laboratory: Laboratory Results - last 24 hr 07/05/21 06:30: WBC 6.2, RBC 2.62 L, Hgb 7.4 L, Hct 23.2 L, MCV 88.5, MCH 28.2, MCHC 31.9 L, RDW Std Deviation 45.2 H, RDW Coeff of Jen 14.2, Plt Count 275, MPV 12.0, Immature Gran % (Auto) 1.100 H, Neut % (Auto) 68.2, Lymph % (Auto) 14.8 L, Sevier % (Auto) 12.8 H, Eos % (Auto) 2.6, Baso % (Auto) 0.5, Absolute Neuts (auto) 4.3, Absolute Lymphs (auto) 0.92, Nucleated RBC % 0 07/05/21 06:30: Sodium 139, Potassium 3.7, Chloride 105, Carbon Dioxide 30.0, Anion Gap 4 L, BUN 16, Creatinine 0.47 L, Estim Creat Clear Calc 39.83, Est GFR (MDRD) Af Amer 168, Est GFR (MDRD) Non-Af 139, BUN/Creatinine Ratio 34.0 H, Glucose 119 H, Calcium 8.5 Microbiology: Microbiology 07/01/21 11:27 Tissue - Leg, Right Gram Stain - Final 07/01/21 11:27 Tissue - Leg, Right Wound Culture - Final Streptococcus group C Enterobacter cloacae complex Corynebacterium striatum 07/01/21 11:27 Tissue - Leg, Right Anaerobic Culture - Preliminary Checking for anaerobes, further studies to follow. 06/30/21 21:10 Wound - Leg, Right Gram Stain - Final 06/30/21 21:10 Wound - Leg, Right Wound Culture - Final Enterobacter cloacae complex Gram positive meg Streptococcus group C 06/30/21 16:30 Blood Culture (Wb) - Anticubital Right Blood Culture - Preliminary No growth in 48 hours. 06/30/21 15:55 Blood Culture (Wb) - Anticubital Left Blood Culture - Preliminary No growth in 48 hours. 06/30/21 18:45 Urine Catheter - Catheter Urine Culture - Final Proteus penneri D/C Instructions Discharge Diet: Low fat / Low cholesterol Meaningful Use Info Meaningful Use Diagnoses (Choose all that apply): None applicable Discharge Plan Admission Admit Date/Time: 06/30/21 19:00 Primary Reason for Your Visit: R Infected leg wound Attending Provider: Mary Pennington Primary Care Provider: Matt Hess Chi Consulting Providers: Dada Gaviria ; Trung Weller Discharge Orders/Prescriptions Prescriptions: New Xarelto 20 mg tablet 20 mg PO DAILY Qty: 30 RF: 0 levofloxacin 500 mg tablet 500 mg PO DAILY Qty: 10 RF: 0 oxycodone 5 mg Tablet 5 mg PO Q4H PRN PRN (Reason: Pain Score 4-5) 1 Days Qty: 6 RF: 0 Continued sertraline [Zoloft] 100 mg tablet 200 mg PO DAILY RF: 0 risperidone [Risperdal] 1 mg tablet 1 mg PO BID RF: 0 alprazolam 0.5 mg tablet 0.25 mg PO TID RF: 0 pantoprazole 40 mg tablet,delayed release (DR/EC) 40 mg PO DAILY RF: 0 multivitamin with minerals 1 EACH tablet 1 each PO DAILY RF: 0 rosuvastatin 10 mg tablet 10 mg PO QHS RF: 0 sennosides-docusate sodium [Stimulant Laxative Plus] 8.6-50 mg tablet 2 tab PO BID PRN PRN (Reason: Constipation) RF: 0 pregabalin 75 mg capsule 75 mg PO BID RF: 0 metoprolol tartrate 25 mg tablet 25 mg PO BID Qty: 0 RF: 0 oxycodone-acetaminophen [Percocet] 5-325 mg tablet 1 tab PO Q6H PRN (Reason: pain (scale score 7-10)) 7 Days Qty: 28 RF: 0 Referrals / Follow Up: Dada Gaviria MD [STAFF PHYSICIAN] - Within 2 Weeks Matt Hess Chi, MD [Primary Care Provider] - Within 1 Month Disposition Disposition (needs filled in before D/C Order can be placed): Long Term Facility Charges/Coding Visit Charges Inpatient E&M: 18879 SNF Disch >30 Min
[2021-07-05 13:34] VITALS: BP 107/55; PULSE 95; RESP 16; TEMP 37.1; O2SAT 98
--- NOTE | 2021-07-05 17:30 | CASEMGMT ---
Social Work Note Pt to discharge to [facility] today. CLAUDE completed [facility] in [place]. CLAUDE faxed completed discharge paperwork to [facility] including transfer to extended care facility, signed medication list, any scripts, COVID test/tool, and HENS. Original in SNF folder and copy on pt's chart. CLAUDE updated that pt's brother had stated he could transport pt. CLAUDE then received a call from pt's daughter Britany. Britany states she is aware pt will discharge to [facility] today. Britany states she is also aware that her uncle, pt's brother, was going to transport pt. Britany states that pt's brother had told her that he was going to take pt home first to gather some belongings and then take pt to [facility]. CLAUDE informed Britany that that is not possible due to insurance reasons. CLAUDE informed Britany that pt needs to directly discharge to [facility], cannot go home first. CLAUDE informed Britany that pt's brother can transport pt directly to [facility] and then can go to pt's home to gather items and then can take items back to [facility]. Britany states she will call pt and update her of this. Britany asked about [facility] arranging transportation. CLAUDE informed Britany that transportation can be arranged and explained private pay costs for transportation. Britany states understanding. Britany states she has plans to move pt out to be closer to her. CLAUDE then received a message from Britany stating she spoke with pt and since pt's brother cannot take pt home first and then [facility], pt would like transportation arranged via wheelchair van. CLAUDE updated RN. CLAUDE accessed trip assist and arranged transportation via wheelchair van for 7:30pm. RN updated. CLAUDE in to speak with pt. CLAUDE introduced self and role at [facility]. CLAUDE updated pt that she will discharge to [facility] today at 7:30pm. Pt states understanding. CLAUDE informed pt that this worker will call her daughter Britany to update, pt states understanding. CLAUDE placed a call to pt's daughter Britany and updated her on transportation time. CLAUDE placed a call to Priscila at [facility] and updated her on transportation time. Plan: [facility] skilled today with Physician's transporting pt via wheelchair van at 7:30pm Oralia HERNANDEZ, KELLEE
--- NOTE | 2021-07-05 19:41 | NURSING ---
THIS NURSE ATTEMPTED TO CALL REPORT TO THE AVEN[facility]. MSG WAS LEFT W/COLLECTIONS AGENT, BECAUSE WHEN NURSE DOES NOT ANSWER THE CALL GOES BACK TO THE COLLECTIONS AGENT, NURSE IS TO CALL BACK TO [phone]. SHE IS AWARE THAT THIS NURSE IS NOW LEAVING AND TO ASK FOR HEIDI BensonAND HERACLIO FOR REPORT ON ANOTHER PT OF SABA Alston, RNS GOING TO SAME FACILITY
--- NOTE | 2021-07-05 19:54 | NURSING ---
NURSE FROM THE AVENUE CALLED BACK AND REPORT WAS GIVEN.
[2021-07-05 20:12] VITALS: BP 114/72; PULSE 93; RESP 18; TEMP 37.2; O2SAT 96
== END 2021-07-05 20:42 | DRG 571 ==
LOC: ED 19:07 → MS3 19:27
PROVIDERS: Student in an Organized Health Care Education/Training Program; Surgery; Admitting Provider Internal Medicine; Emergency Provider Emergency Medicine; PCP Family Medicine Geriatric Medicine; Visit Provider Internal Medicine
DX: L03.115 Cellulitis of right lower limb (principal); I96 Gangrene, not elsewhere classified; L97.919 Non-pressure chronic ulcer of unspecified part of right lower leg with unspecified severity; Z68.1 Body mass index [BMI] 19.9 or less, adult; D63.8 Anemia in other chronic diseases classified elsewhere; S80.11XA Contusion of right lower leg, initial encounter; D64.9 Anemia, unspecified; I48.91 Unspecified atrial fibrillation; F31.9 Bipolar disorder, unspecified; I73.9 Peripheral vascular disease, unspecified; N18.32 Chronic kidney disease, stage 3b; E55.9 Vitamin D deficiency, unspecified; E78.5 Hyperlipidemia, unspecified; F41.9 Anxiety disorder, unspecified; I12.9 Hypertensive chronic kidney disease with stage 1 through stage 4 chronic kidney disease, or unspecified chronic kidney disease; E87.6 Hypokalemia; G89.29 Other chronic pain; Z86.718 Personal history of other venous thrombosis and embolism; Z79.01 Long term (current) use of anticoagulants; Z79.899 Other long term (current) drug therapy; Z87.891 Personal history of nicotine dependence; Z91.19 Patient's noncompliance with other medical treatment and regimen
CPT/HCPCS: 36415; 71045; 73590; 80048; 80053; 80202; 81001; 82306; 82550; 82607; 82728; 82746; 83540; 83550; 83605; 83735; 84100; 84134; 85025; 85610; 85730; 87015; 87040; 87070; 87075; 87077; 87086; 87088; 87102; 87116; 87176; 87186; 87205; 87206; 87426; 87640; 88305; 93005; 97110; 97161; 97166; 97530; 97535; 99251; 99285; J7030; J7050; J7120; A4216; G0463

== ENCOUNTER 2021-07-16 13:51 | Emergency (ER) | payer MEDICARE, MEDICAID, SELFPAY ==
[2021-07-16 13:52] VITALS: BP 88/48; PULSE 72; RESP 14; TEMP 36.8; O2SAT 92; BMI 18.1
[2021-07-16 14:00] VITALS: O2SAT 96
--- NOTE | 2021-07-16 14:19 | RAD_ITS ---
EXAM: XR LEFT RIBS AND AP CHEST, 3 OR MORE VIEWS CLINICAL INDICATION: Pain TECHNIQUE: Frontal and oblique views of the left ribs and frontal view of the chest. This report was created using [employer] report generation technology. COMPARISON: None. FINDINGS: LUNGS AND PLEURAL SPACES: Hyperexpanded. No consolidation or edema. No pneumothorax. No effusion. HEART: Unremarkable. Cardiac silhouette not enlarged. MEDIASTINUM: Central airways and mediastinal contour are unremarkable. BONES/JOINTS: Diffuse osteopenia. No evidence of displaced rib fractures. SOFT TISSUES: Nipple shadows overlie the lung bases. RAD/Ribs Uni Min 3V w/PA Chest IMPRESSION: No acute findings in the chest or left ribs. Electronically Signed: Guilherme Plunkett MD (Brooks) at 15:11 EDT Reading Location ID and State: [facility] / [place] , Service support ,
--- NOTE | 2021-07-16 14:19 | CT_ITS ---
EXAM: CT LUMBAR SPINE WITHOUT INTRAVENOUS CONTRAST CLINICAL INDICATION: CHRONIC LBP RADIATING TO RT LEG, FELL 3-4 WEEK AGO, LT RIB PAIN, PREV LB SURG, EMPHYSEMA, HTN TECHNIQUE: Helically acquired images were obtained of the lumbar spine without intravenous contrast. 2D reformats were reviewed. This CT exam was performed using one or more of the following dose reduction techniques: automated exposure control, adjustment of the mA and/or kV according to patient size, and/or use of iterative reconstruction technique. This report was created using [employer] report orangutrans technology. COMPARISON: MRI 01/22/2021 FINDINGS: VERTEBRAE: Mild chronic compression deformity of L2 is stable. Stable compression deformity of T12. Slight anterior spondylolisthesis of upper lumbar levels. Facet arthropathy of bilateral L5-S1. No discrete lytic or blastic abnormality. DISCS/SPINAL CANAL/NEURAL FORAMINA: Bilateral foraminal narrowing at the lower lumbar levels. No critical canal stenosis. VASCULATURE: Atherosclerosis of the abdominal aorta. LYMPH NODES: Unremarkable. No retroperitoneal adenopathy. CT/Spine Lumbar without Contrast IMPRESSION: No acute compression fracture. Stable appearance since January 2021. Electronically Signed: Guilherme Plunkett MD (Brooks) at 15:28 EDT Reading Location ID and State: [facility] / [place] , Service support ,
--- NOTE | 2021-07-16 14:22 | EX.ED.DYSGE1 ---
HPI History of Present Illness Chief Complaint: Other, Pain/Inj Narrative Narrative: Patient presents from the [facility] with chronic right lower extremity leg pain and infection. She also has chronic low back pain. She states she fell 4 to 5 weeks ago and has left anterior rib pain. She had x-rays at the [facility] performed which showed no evidence of fracture. She takes oxycodone, and has chronically low blood pressure. She states that the oxycodone is an adequate in treating her chronic pain. She already takes benzodiazepines. She wanted to be evaluated for her left anterior rib pain, low back pain, and chronic leg pain, but more so her left rib pain. She denies any fevers or chills. No shortness of breath. No dysuria. The pain in her low back is on both sides and worse with bending forward. She denies any loss of bowel or bladder, no saddle anesthesia, no red flag signs for cauda equina. The pain on her left anterior ribs is worse also when bending forward or twisting. 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 Lung mass Osteoarthritis Skin necrosis Traumatic hematoma of right lower leg with infection Vitamin D deficiency Home Medications sertraline 100 mg tablet 200 mg PO DAILY tab 05/27/18 [History Last Taken 06/15/21] alprazolam 0.5 mg tablet 0.25 mg PO TID 06/08/20 [History Last Taken 06/15/21] pantoprazole 40 mg tablet,delayed release 40 mg PO DAILY 06/08/20 [History Last Taken 06/15/21] risperidone 1 mg tablet 1 mg PO BID 06/08/20 [History Last Taken 06/15/21] multivitamin with minerals 1 each PO DAILY 06/29/20 [History Last Taken 06/15/21] pregabalin 75 mg PO BID 06/15/21 [History Last Taken 06/15/21] rosuvastatin 10 mg PO QHS 06/15/21 [History Last Taken 06/14/21] sennosides-docusate sodium [Stimulant Laxative Plus] 2 tab PO BID PRN PRN 06/15/21 [History Last Taken 06/15/21] metoprolol tartrate 25 mg PO BID #0 tab 06/17/21 [Rx Last Taken 06/15/21] levofloxacin 500 mg PO DAILY #10 tab 07/05/21 [Rx Last Taken Unknown] oxycodone 5 mg PO Q4H PRN PRN 1 Days #6 tab 07/05/21 [Rx Last Taken Unknown] rivaroxaban [Xarelto] 20 mg PO DAILY #30 tab 07/05/21 [Rx Last Taken Unknown] atorvastatin 20 mg PO QHS 07/16/21 [History Last Taken Unknown] Allergy/AdvReac Type Severity Reaction Status Date / Time bee venom protein (honey bee) Allergy Severe Anaphylaxis Verified 07/16/21 13:57 thiothixene AdvReac Unknown Unknown Verified 07/16/21 13:57 Family History Other CVA (cerebral vascular accident) Dementia Surgical History History of back surgery History of D&C History of tonsillectomy Social History Smoking Status: Former smoker second hand exposure: No alcohol intake: never substance use type: does not use caffeine: Yes ROS ROS ED ROS Narrative Constitutional: No fever, no chills. HEENT: No sore throat. No neck pain. No loss of vision. No rhinorrhea. Cardiovascular: No chest pain. No palpitations. No pedal edema. Respiratory: No cough, no shortness of breath. Abdominal: No abdominal pain. No nausea. No vomiting. Genitourinary: No dysuria. No hematuria. Musculoskeletal: Chronic right lower extremity/calf pain where she has chronic wound. No arthralgias. Chronic low back pain. Left anterior rib pain for the last 4 to 5 weeks after fall. Neurologic: No headaches. No dizziness. No lightheadedness. Skin: No rash. No change in color. Psychiatric: No depression. No anxiety. EXAM Physical Exam Narrative Exam Narrative: Afebrile. Vital signs noted. Blood pressure 88/48, but chronically low. HEENT: Normocephalic. Atraumatic. PERRL, EOMI. Neck soft and supple. No point tenderness or step off. Cardiovascular: Regular rate and rhythm. No murmurs, rubs, or gallops appreciated. Mild tenderness to palpation left anterior ribs. Area of her spleen is soft and nontender. No crepitance. Respiratory: No tachypnea. Lungs clear to auscultation bilaterally. Gastrointestinal: Abdomen soft, nontender, with normoactive bowel sounds. No rebound or guarding. Neurological: Awake. Alert. Nonfocal, nonlateralizing. Skin: No rash. Normal color. No pallor. Musculoskeletal: No pedal edema. Full range of motion extremities. Mild tenderness to palpation diffusely paraspinal musculature low back. No vertebral point tenderness or bony step-off. Const Vital Signs: 07/16/21 13:52 07/16/21 13:58 07/16/21 14:00 Temperature 98.2 F Temperature Source Oral Pulse Rate 72 Respiratory Rate 14 Respiratory Effort Normal Non-Labored Respiratory Pattern Normal Blood Pressure 88/48 L Blood Pressure Mean 61 Pulse Ox 92 96 Oxygen Delivery Method Room Air Room Air 07/16/21 15:24 Temperature Temperature Source Pulse Rate 67 Respiratory Rate 14 Respiratory Effort Respiratory Pattern Blood Pressure 97/60 Blood Pressure Mean 72 Pulse Ox 94 Oxygen Delivery Method Room Air MDM MDM MDM Narrative Medical decision making narrative: Patient will be given a lidocaine patch. I will obtain a CT image of her low back along with repeat rib x-rays to see if there are any signs of healing from her fall. I have familiar with the patient as I have seen her chronic leg wound multiple times in the emergency department. The last time she was admitted for admission to the [facility]. She states that she was on the long term facility side until my insurance ran out and she has now in assisted living. Rib x-rays show no healing fractures and no acute fracture, no pneumothorax. This was confirmed by radiology. CT of the lumbar spine shows no acute compression fracture and a stable appearance since January 2021. At this point in time, I feel she can be discharged to follow-up with possible pain management referral. She will discuss with whoever is writing her oxycodone perhaps an increase in this medication. They can also use [id number] lidocaine patches as needed. I feel she be discharged safely home with follow-up. Return instructions were reviewed. Disposition is discharged back to the [facility] in stable condition. Radiography Diagnostic Testing: Clinical Impression(s) from Imaging Studies Lumbar Spine CT 07/16/21 14:19 IMPRESSION: No acute compression fracture. Stable appearance since January 2021. Electronically Signed: Guilherme Plunkett MD (Brooks) at 15:28 EDT , Ribs w/Chest X-Ray 07/16/21 14:19 IMPRESSION: No acute findings in the chest or left ribs. Electronically Signed: Guilherme Plunkett MD (Brooks) at 15:11 EDT , Discharge Plan Triage Chief Complaint: Other, Pain/Inj ED Provider: Shabbir Henao Dx/Rx/DC Orders Clinical Impression: Chronic pain, Contusion of rib on left side, Low back pain Instructions: Chronic Pain Therapies Mind Body, ED Chronic Pain, ED Contusion, Rib Prescriptions: No Action sertraline [Zoloft] 100 mg tablet 200 mg PO DAILY RF: 0 risperidone [Risperdal] 1 mg tablet 1 mg PO BID RF: 0 alprazolam 0.5 mg tablet 0.25 mg PO TID RF: 0 pantoprazole 40 mg tablet,delayed release (DR/EC) 40 mg PO DAILY RF: 0 multivitamin with minerals 1 EACH tablet 1 each PO DAILY RF: 0 rosuvastatin 10 mg tablet 10 mg PO QHS RF: 0 sennosides-docusate sodium [Stimulant Laxative Plus] 8.6-50 mg tablet 2 tab PO BID PRN PRN (Reason: Constipation) RF: 0 pregabalin 75 mg capsule 75 mg PO BID RF: 0 metoprolol tartrate 25 mg tablet 25 mg PO BID Qty: 0 RF: 0 Xarelto 20 mg tablet 20 mg PO DAILY Qty: 30 RF: 0 levofloxacin 500 mg tablet 500 mg PO DAILY Qty: 10 RF: 0 oxycodone 5 mg Tablet 5 mg PO Q4H PRN PRN (Reason: Pain Score 4-5) 1 Days Qty: 6 RF: 0 atorvastatin 20 mg Tablet 20 mg PO QHS RF: 0 Primary Care Provider: Matt Hess Chi Referrals: Matt Hess Chi, MD [Primary Care Provider] - 3-5 Days Activity Restrictions/Additional Instructions: Discuss with your doctor the possibility of pain management, or even increasing your current medication. Use lidocaine patches 4% as needed additionally for analgesia. Repeat x-rays of your ribs today showed no evidence of new or old fracture. Disposition Disposition: Assisted Living Discharge Location: [facility] [place]
[2021-07-16] MEDS: Lidocaine 5% Patch 1 PATCH TOPICAL (14:25)
[2021-07-16 15:24] VITALS: BP 97/60; PULSE 67; RESP 14; O2SAT 94
--- NOTE | 2021-07-16 15:50 | ED.RN ---
ATTEMPTED TO CALL REPORTS AT THIS TIME. ON HOLD FOR EIGHT MINUTES. WILL ATTEMPT TO CALL BACK AT A LATER TIME.
== END 2021-07-16 16:32 | disposition home or self-care (01) ==
PROVIDERS: Emergency Provider Emergency Medicine; PCP Family Medicine Geriatric Medicine; Visit Provider Emergency Medicine
DX: S20.212A Contusion of left front wall of thorax, initial encounter (principal); F31.9 Bipolar disorder, unspecified; M79.661 Pain in right lower leg; F41.9 Anxiety disorder, unspecified; G89.29 Other chronic pain; Z86.718 Personal history of other venous thrombosis and embolism; E78.5 Hyperlipidemia, unspecified; M19.90 Unspecified osteoarthritis, unspecified site; Z79.01 Long term (current) use of anticoagulants; Z79.899 Other long term (current) drug therapy; M54.50 Low back pain, unspecified; Y93.9 Activity, unspecified; W19.XXXA Unspecified fall, initial encounter; Y92.9 Unspecified place or not applicable
CPT/HCPCS: 71101; 72131; 99285

== ENCOUNTER 2021-08-01 14:30 | Outpatient (RCR) | payer MEDICARE, MEDICAID, SELFPAY ==
[2021-07-25 13:35] VITALS: BP 105/67; PULSE 74; RESP 18; TEMP 36.1; BMI 18.9
--- NOTE | 2021-07-25 15:05 | HP.PCM_ITS ---
History of Present Illness Date of Service: 07/25/21 Chief Complaint: Surgical ulcer right posterior leg History of Wound: Patient is 70 year old female who was diagnosed with DVT in 05/[address] Xarelto. She was admitted 06/15/21 for a traumatic hematoma. Surgery 06/16/21 - Surgical preparation right posterior leg with incision and drainage and excisional debridement infected hematoma with overlying skin necrosis (315 cm2). Operative cultures on 06/16/21 showed no growth. She was treated with IV Zosyn while hospitalized and discharged on Cephalexin upon discharge. She also received 2 units PRBC Discharged home 06/17/21 with a wound VAC. Readmitted on 06/30/21 after not taking care of her self and turning her wound VAC off and having severe pain with standing and walking. Surgery 07/01/21 - Surgical preparation right posterior leg with incision and drainage and excisional debridement infected necrotic hematoma wound (360 cm2). Operative cultures 07/01/21 positive for Streptococcus group C, Enterobacter cloacae complex, Corynebacterium striatum and Anaerobic cocci. Was treated with IV Vancomycin and Zosyn. Upon transfer to [facility] she started on Levaquin for 10 days. She was discharged to the [facility] on 07/05/21. Today is her first visit to the Wound Center. She never made any of her previous appointments. Wound care - Wash wound with soap and water. Dakin's 0.25 % moistened gauze cover with ABD or super absorbers daily. BLAYNE wrap for compression. Today she denies any fever, chills, nausea or vomiting. She states she has a good appetite. She states they are supposed to discharge her tomorrow from the [facility] and they are trying to get her home health to help with her dressing changes. Progress of Wound: Right posterior leg ulcer is beefy pink. There is increased biofilm and hypergranulation tissue that was easily removed with debridement. 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 Lung mass Osteoarthritis Skin necrosis Traumatic hematoma of right lower leg with infection Vitamin D deficiency Home Medications sertraline 100 mg tablet 200 mg PO DAILY tab 05/27/18 [History Last Taken 06/15/21] alprazolam 0.5 mg tablet 0.25 mg PO TID 06/08/20 [History Last Taken 06/15/21] pantoprazole 40 mg tablet,delayed release 40 mg PO DAILY 06/08/20 [History Last Taken 06/15/21] risperidone 1 mg tablet 1 mg PO BID 06/08/20 [History Last Taken 06/15/21] multivitamin with minerals 1 each PO DAILY 06/29/20 [History Last Taken 06/15/21] pregabalin 75 mg PO BID 06/15/21 [History Last Taken 06/15/21] rosuvastatin 10 mg PO QHS 06/15/21 [History Last Taken 06/14/21] sennosides-docusate sodium [Stimulant Laxative Plus] 2 tab PO BID PRN PRN 06/15/21 [History Last Taken 06/15/21] metoprolol tartrate 25 mg PO BID #0 tab 06/17/21 [Rx Last Taken 06/15/21] levofloxacin 500 mg PO DAILY #10 tab 07/05/21 [Rx Last Taken Unknown] oxycodone 5 mg PO Q4H PRN PRN 1 Days #6 tab 07/05/21 [Rx Last Taken Unknown] rivaroxaban [Xarelto] 20 mg PO DAILY #30 tab 07/05/21 [Rx Last Taken Unknown] atorvastatin 20 mg PO QHS 07/16/21 [History Last Taken Unknown] Allergy/AdvReac Type Severity Reaction Status Date / Time bee venom protein (honey bee) Allergy Severe Anaphylaxis Verified 07/16/21 13:57 thiothixene AdvReac Unknown Unknown Verified 07/16/21 13:57 Family History Other CVA (cerebral vascular accident) Dementia Surgical History History of back surgery History of D&C History of tonsillectomy Social History Smoking Status: Former smoker second hand exposure: No alcohol intake: never substance use type: does not use caffeine: Yes ROS Constitutional Constitutional: Denies chills, fever(s) or frequent falls Eyes Eyes: Reports none ENT HEENT: Reports none Cardiovascular Cardiovascular: Reports none Respiratory/Chest Respiratory/Chest: Reports none Gastrointestinal Gastrointestinal: Reports none Musculoskeletal Musculoskeletal: Reports none Integumentary Integumentary: Reports wounds Neurologic Neurologic: Reports none Psychiatric Psychiatric: Reports as per HPI Hematologic/Lymphatic Hematologic/Lymphatic: Reports as per HPI Vital Signs Vital Signs Vital Signs: 07/25/21 13:35 Temperature 97 F L Temperature Source Temporal Pulse Rate 74 Respiratory Rate 18 Blood Pressure 105/67 Blood Pressure Mean 79 Blood Pressure Source Monitor Weight Weight: 110 lb 8.136 oz Body Mass Index (BMI) 18.9 Physical Exam Const alert, oriented x3 and no apparent distress General Appearance: cooperative and well kempt HEENT normocephalic Eyes PERRL Resp normal respiratory effort Cardio regular rate Peripheral Pulses: dorsalis pedis pulses present right 1+ Extremity normal capillary refill Skin Wound Narrative: Wound to right posterior leg that is beefy pink with hypergranulation. Neuro oriented x3 and CN's II-XII intact bilaterally Psych cooperative and affect normal Debridement Note Debridement Note Wound debrided: posterior leg wound Laterality: Right Type of Debridement: Excisional debridement Anesthesia Used: 4% Lidocaine Solution and 5% Lidocaine Gel Depth: Down to and including healthy tissue and in the subcutaneous layer Instrument Used: 7mm curette Tissue Removed: Non viable tissue and slough Severity: Fat Layer Exposed Amount of bleeding with debridement: Mild Bleeding Controlled with: Pressure and Compression and gauze Patient tolerated procedure: Patient tolerated procedure well Post-Debridement Measurements and Additional Note: Post-Debridement Measurements/Treatment - Nurse 1 - General Ulcer Assessment Start: 07/25/21 13:08 Freq: Status: Active Protocol: SUYAPA Activity Type Activity Date Activity User E-Sign Co-Sign Detail Recorded Client Recorded Date Recorded By Document 07/25/21 13:35 DL [id number] 07/25/21 13:52 DL 07/25/21 13:35 - Today's Visit Information Type of service Initial Visit Arrival Mode Ambulatory,Cane Transfer Assistance None Patient Identification Verified (Name & Yes ) Patient Requires Transmission-Based No Precautions Height and Weight Height 5 ft 4 in Weight 110 lb 8.136 oz Weight in Pounds 110.5 lbs Body Mass Index (BMI) 18.9 BMI Classification Normal BSA - Zeynep 1.52 Vital Signs Temperature (97.8 F-99.1 F) 97 F L Temperature Source Temporal Pulse Rate (60-100) 74 Pulse Location Monitor Respiratory Rate (12-18) 18 Respiratory rate source Observation Blood Pressure (90/60-120/80) 105/67 Blood Pressure Mean 79 Source Monitor History Since Last Visit- (Skip if this is Patient's initial visit) Left Footwear Slipper Right Footwear Slipper Pain Scale: 0-10 Numeric Is Patient Pain Free? Yes Communication Assessment Preferred language Israeli Able to Read Yes Able to Write Yes Right Hearing Abillity Normal Left Hearing Abillity Normal Visual Assistive Devices Glasses Teaching Assessment Preferences Verbal,Written, Demonstration Readiness To Learn Good Willingness to Engage in Self Management Med Activies Readiness to Engage in Self Management Med Activities Anxiety Level Calm Cooperation Cooperative Perception Coherent Interest in Health Problem Asks Questions Education Importance Acknowledges Need Does Patient Smoke tobacco or other No substances Smoking Status Former smoker Is Patient Diabetic No Functional Assessment Recent Decline in Ability to Perform Denies Any Declines List Device(s) with Patient cane Culture/Temple/Rubber Mill Tender Cultural/Temple Needs that may affect No Treatment Plan Would you allow our hospital electronic console display operator to No meet you for the purpose of spiritual/ emotional support? Rubber Mill Tender to contact place of episcopalian No Teaching: Wound Center Dressing Your Wound -Person Taught Patient Discharge Instructions -Person Taught Patient *Welcome to the Wound Center -Person Taught Patient WC - Nurse 1 - General Ulcer Measurement Start: 07/25/21 13:08 Freq: Status: Active Protocol: Activity Type Activity Date Activity User E-Sign Co-Sign Detail Recorded Client Recorded Date Recorded By Document 07/25/21 13:35 DL [id number] 07/25/21 13:52 DL 07/25/21 13:35 Wound Center Nurse 1 #1 R Med LE -Current Size (cm) - Length 22.5 -Current Size (cm) - Width 18.5 -Current Size (cm) - Depth 0.7 -Total Square Cm 416.25 -Photo Taken Yes -Exudate Amt Large -Exudate Type Serosanguineous -Wound Margin Distinct, Outline Attached -Granulation Amt Medium (34-66%) -Granulation Quality Red -Necrosis Amt Medium (34-66%) -Necrotic Tissue Type Adherent Slough -Structure Exposed N/A -Texture (Desiree-wound Skin Appearance) Localized Edema ,Scarring -Moisture (Desiree-wound Skin Appearance) No Abnormality -Color (Desiree-wound Skin Appearance) Hemosiderin Staining -Temperature (Desiree-wound Skin No Abnormality Appearance) (Pt Warm) -Tenderness on Palpation (Desiree-wound No Skin Appearance) -Ulcer Cleansing Soap and Water -Foul Odor after Cleansing No -Anesthetic Used 4% Lidocaine Solution Right Calf (cm) 33.2 Right Ankle (cm) 19.5 MIRAZ - Nurse 2 - General Ulcer CM Notes Start: 07/25/21 13:08 Freq: Status: Active Protocol: Activity Type Activity Date Activity User E-Sign Co-Sign Detail Recorded Client Recorded Date Recorded By Document 07/25/21 14:22 FERDINAND [id number] 07/25/21 14:27 FERDINAND 07/25/21 14:22 Wound Center Nurse 2 #1 R Med LE -Time 14:22 -Correct Patient Yes -Correct Side, Site, Position Yes -Correct Procedure Yes -Procedure Performed Yes -Type of Procedure Debridement -Clinical Debridement Subcutaneous -Tissue Removed Subcutaneous -Post Debridement (cm) - Length 21.0 -Post Debridement (cm) - Width 18.0 -Post Debridement (cm) - Depth 0.4 -Total Square (Post) (cm) 378.00 -Area of Debridement (cm) - Length 21.0 -Area of Debridement (cm) - Width 18.0 -Total Square (Area) (cm) 378.00 -Tunneling No -Undermining/Tunneling No -Circular Undermining No -Wound/Ulcer Outcome Not Healed -Ulcer Cleansing Rinsed/ Irrigated with Saline -Foul Odor after Cleansing No -Bioengineered Tissue No -Bleeding Controlled with Pressure -Treatment Response Procedure Tolerated Well -Offloading No -Debridement - Subq, 1st 20sq cm Yes -Debridement, SubQ, ea addt'l 20sq cm 11 or part thereof Pain Scale: 0-10 Numeric Is Patient Pain Free? Yes MIRZA - Nurse 3 - General Ulcer D/C NN Start: 07/25/21 13:08 Freq: Status: Active Protocol: Activity Type Activity Date Activity User E-Sign Co-Sign Detail Recorded Client Recorded Date Recorded By Document 07/25/21 14:34 [facility] [id number] 07/25/21 14:42 [facility] 07/25/21 14:34 Wound Care Nurse 3 #1 R Med LE -Ulcer Cleansing Rinsed/ Irrigated with Saline -Foul Odor after Cleansing No -Primary Dressing Applied Optilok 6.5x10, Optilok 8x12, Other -Other Dressing moist to dry drsg per kr client delivery manager -Primary Dressing Covered/Secured with Dry Gauze & Roll Gauze, Secured with Tape -Optilok 6.5x10 1 -Optilok 8x12 1 Right -Compression Wrap Blayne Wrap Treatment Response Procedure Tolerated Well Pain Scale: 0-10 Numeric Is Patient Pain Free? 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 She had a subcutaneous debridement which she tolerated well. She has an increase in biofilm most likely from not washing with soap and water. Wound care - Right posterior leg wound Dakins 0.25% moistened gauze covered with super absorbers/ABDs daily. The wound and desiree wound is to be washed with soap and water daily at the time of the dressing change. She may get in the shower and wash it with soap and water. BLAYNE wrap for compression. She is supposed to be discharged tomorrow home from the [facility]. She states they are setting up home health for her. She states she is going to be moving to [place] in a month to be near her daughter. Will have her follow up one week. She is to call and come in sooner if develops any issues or concerns.
[2021-08-01 14:23] VITALS: BP 97/63; PULSE 75; RESP 16; TEMP 36.8; BMI 18.9
--- NOTE | 2021-08-01 15:31 | PN.PCM_ITS ---
History of Present Illness Date of Service: 08/01/21 Chief Complaint: Surgical ulcer right posterior leg History of Wound: Patient is 70 year old female who was diagnosed with DVT in 05/[address] Xarelto. She was admitted 06/15/21 for a traumatic hematoma. Surgery 06/16/21 - Surgical preparation right posterior leg with incision and drainage and excisional debridement infected hematoma with overlying skin necrosis (315 cm2). Operative cultures on 06/16/21 showed no growth. She was treated with IV Zosyn while hospitalized and discharged on Cephalexin upon discharge. She also received 2 units PRBC Discharged home 06/17/21 with a wound VAC. Readmitted on 06/30/21 after not taking care of her self and turning her wound VAC off and having severe pain with standing and walking. Surgery 07/01/21 - Surgical preparation right posterior leg with incision and drainage and excisional debridement infected necrotic hematoma wound (360 cm2). Operative cultures 07/01/21 positive for Streptococcus group C, Enterobacter cloacae complex, Corynebacterium striatum and Anaerobic cocci. Was treated with IV Vancomycin and Zosyn. Upon transfer to [facility] she started on Levaquin for 10 days. She was discharged to the [facility] on 07/05/21. Wound care - Wash wound with soap and water. Dakin's 0.25 % moistened gauze cover with ABD or super absorbers daily. BLAYNE wrap for compression. Today she denies any fever, chills, nausea or vomiting. She states she has a good appetite. She states they are supposed to discharge her tomorrow from the [facility] and they are trying to get her home health to help with her dressing changes. Progress of Wound: Right posterior leg ulcer is beefy pink. She is having some discomfort with her wound. She states that she will be moving to [facility] in the middle of August to be closer to her daughter. Objective Data Objective Data Vital Signs: Vital Signs Temp Pulse Resp BP 98.3 F 75 16 97/63 08/01/21 14:23 08/01/21 14:23 08/01/21 14:23 08/01/21 14:23 Weight: 110 lb 8.136 oz Body Mass Index (BMI) 18.9 Charges/Coding Procedures Integumentary 111xxx-113xx: [id number] Global Visit Physical Exam Const alert General Appearance: cooperative HEENT normocephalic Resp normal respiratory effort Cardio regular rate Extremity normal capillary refill General Extremity: edema Skin Wound Narrative: Right posterior leg wound is beefy pink. There is no hypergranulation tissue this week. There is less biofilm present today compared to last week. Neuro CN's II-XII intact bilaterally Psych Mood & Affect: flat affect Debridement Note Debridement Note Wound debrided: Posterior leg Laterality: Right Type of Debridement: Excisional debridement Anesthesia Used: 4% Lidocaine Solution and 5% Lidocaine Gel Depth: Down to and including healthy tissue and in the subcutaneous layer Percentage of wound debrided: 100 Instrument Used: 7mm curette Tissue Removed: Nonviable tissue and slough Severity: Fat Layer Exposed Patient tolerated procedure: Patient tolerated procedure well Post-Debridement Measurements and Additional Note: Post-Debridement Kayleen surements/Treatment WC - Nurse 1 - General Ulcer Assessment Start: 07/25/21 13:08 Freq: Status: Active Protocol: SUYAPA Activity Type Activity Date Activity User E-Sign Co-Sign Detail Recorded Client Recorded Date Recorded By Document 07/25/21 13:35 DL [id number] 07/25/21 13:52 DL Document 08/01/21 14:23 DL [id number] 08/01/21 14:34 DL 07/25/21 08/01/21 13:35 14:23 - Today's Visit Information Type of service Initial Visit Follow-up Visit (Physician/ACID B[facility] MIXER ) Arrival Mode Ambulatory,Cane Ambulatory,Cane Transfer Assistance None None Patient Identification Verified (Name & Yes Yes ) Patient Requires Transmission-Based No No Precautions Height and Weight Height 5 ft 4 in Weight 110 lb 8.136 oz Weight in Pounds 110.5 lbs Body Mass Index (BMI) 18.9 18.9 BMI Classification Normal Normal BSA - Zeynep 1.52 Vital Signs Temperature (97.8 F-99.1 F) 97 F L 98.3 F Temperature Source Temporal Temporal Pulse Rate (60-100) 74 75 Pulse Location Monitor Monitor Respiratory Rate (12-18) 18 16 Respiratory rate source Observation Observation Blood Pressure (90/60-120/80) 105/67 97/63 Blood Pressure Mean (mm Hg) 79 74 Source Monitor Monitor Have you changed medications since your No last visit? Any new allergies or adverse reactions No Had a fall/change in ADL's that may No increase risk of falls Have you been in the hospital since your No last visit? Has dressing in place as prescribed Yes Has compression in place as prescribed Yes Has offloadiing in place as prescribed N/A Experienced any changes in pain level or No management History Since Last Visit- (Skip if this is Patient's initial visit) Left Footwear Slipper Right Footwear Slipper Pain Scale: 0-10 Numeric Is Patient Pain Free? Yes Yes Communication Assessment Preferred language Macedonian Able to Read Yes Able to Write Yes Right Hearing Abillity Normal Left Hearing Abillity Normal Visual Assistive Devices Glasses Teaching Assessment Preferences Verbal,Written, Demonstration Readiness To Learn Good Willingness to Engage in Self Management Med Activies Readiness to Engage in Self Management Med Activities Anxiety Level Calm Cooperation Cooperative Perception Coherent Interest in Health Problem Asks Questions Education Importance Acknowledges Need Does Patient Smoke tobacco or other No substances Smoking Status Former smoker Is Patient Diabetic No Functional Assessment Recent Decline in Ability to Perform Denies Any Declines List Device(s) with Patient cane Culture/Methodist/Hazmat Cdl Driver Cultural/Methodist Needs that may affect No Treatment Plan Would you allow our hospital control room supervisor to No meet you for the purpose of spiritual/ emotional support? Hazmat Cdl Driver to contact place of zoroastrian No Teaching: Wound Center Dressing Your Wound -Person Taught Patient Discharge Instructions -Person Taught Patient *Welcome to the Wound Center -Person Taught Patient WC - Nurse 1 - General Ulcer Measurement Start: 07/25/21 13:08 Freq: Status: Active Protocol: Activity Type Activity Date Activity User E-Sign Co-Sign Detail Recorded Client Recorded Date Recorded By Document 07/25/21 13:35 DL [id number] 07/25/21 13:52 DL Document 08/01/21 14:23 DL [id number] 08/01/21 14:34 DL 07/25/21 08/01/21 13:35 14:23 Wound Center Nurse 1 #1 R Med LE -Current Size (cm) - Length 22.5 19 -Current Size (cm) - Width 18.5 17.2 -Current Size (cm) - Depth 0.7 0.4 -Total Square Cm 416.25 326.8 -Photo Taken Yes No -Exudate Amt Large Large -Exudate Type Serosanguineous Serosanguineous -Wound Margin Distinct, Distinct, Outline Outline Attached Attached -Granulation Amt Medium (34-66%) Medium (34-66%) -Granulation Quality Red Red -Necrosis Amt Medium (34-66%) Medium (34-66%) -Necrotic Tissue Type Adherent Slough Adherent Slough -Structure Exposed N/A N/A -Texture (Desiree-wound Skin Appearance) Localized Edema Localized Edema ,Scarring ,Scarring -Moisture (Desiree-wound Skin Appearance) No Abnormality Dry/Scaly -Color (Desiree-wound Skin Appearance) Hemosiderin Hemosiderin Staining Staining,Rubor -Temperature (Desiree-wound Skin No Abnormality Appearance) (Pt Warm) -Tenderness on Palpation (Desiree-wound No Yes Skin Appearance) -Ulcer Cleansing Soap and Water Soap and Water -Foul Odor after Cleansing No No -Anesthetic Used 4% Lidocaine 4% Lidocaine Solution Solution Right Calf (cm) 33.2 34.5 Right Ankle (cm) 19.5 20.3 WC - Nurse 2 - General Ulcer CM Notes Start: 07/25/21 13:08 Freq: Status: Active Protocol: Activity Type Activity Date Activity User E-Sign Co-Sign Detail Recorded Client Recorded Date Recorded By Document 07/25/21 14:22 [id number] 07/25/21 14:27 Document 08/01/21 14:57 [id number] 08/01/21 15:04 07/25/21 08/01/21 14:22 14:57 Wound Center Nurse 2 #1 R Med LE -Time 14:22 14:59 -Correct Patient Yes Yes -Correct Side, Site, Position Yes Yes -Correct Procedure Yes Yes -Procedure Performed Yes Yes -Type of Procedure Debridement Debridement -Clinical Debridement Subcutaneous Subcutaneous -Tissue Removed Subcutaneous Subcutaneous -Post Debridement (cm) - Length 21.0 19.5 -Post Debridement (cm) - Width 18.0 17.2 -Post Debridement (cm) - Depth 0.4 0.4 -Total Square (Post) (cm) 378.00 335.40 -Area of Debridement (cm) - Length 21.0 19.5 -Area of Debridement (cm) - Width 18.0 17.2 -Total Square (Area) (cm) 378.00 335.40 -Tunneling No No -Undermining/Tunneling No No -Circular Undermining No No -Wound/Ulcer Outcome Not Healed Not Healed -Ulcer Cleansing Rinsed/ Rinsed/ Irrigated with Irrigated with Saline Saline -Foul Odor after Cleansing No No -Bioengineered Tissue No No -Bleeding Controlled with Pressure Pressure -Treatment Response Procedure Procedure Tolerated Well Tolerated Well -Offloading No No -Debridement - Subq, 1st 20sq cm Yes Yes -Debridement, SubQ, ea addt'l 20sq cm 11 11 or part thereof Pain Scale: 0-10 Numeric Is Patient Pain Free? Yes Yes - Nurse 3 - General Ulcer D/C NN Start: 07/25/21 13:08 Freq: Status: Active Protocol: Activity Type Activity Date Activity User E-Sign Co-Sign Detail Recorded Client Recorded Date Recorded By Document 07/25/21 14:34 [facility] [id number] 07/25/21 14:42 [facility] Document 08/01/21 15:12 [id number] 08/01/21 15:13 KR 07/25/21 08/01/21 14:34 15:12 Wound Care Nurse 3 #1 R Med LE -Ulcer Cleansing Rinsed/ Rinsed/ Irrigated with Irrigated with Saline Saline -Foul Odor after Cleansing No -Primary Dressing Applied Optilok 6.5x10, Optilok 8x12, Other -Other Dressing moist to dry wet to dry and drsg per kr row boss hoeing ABD pads -Primary Dressing Covered/Secured with Dry Gauze & Dry Gauze, Roll Gauze, Secured with Secured with Tape Tape -Optilok 6.5x10 1 -Optilok 8x12 1 Right -Compression Wrap Blayne Wrap Blayne Wrap Treatment Response Procedure Tolerated Well Pain Scale: 0-10 Numeric Is Patient Pain Free? Yes Yes - Visit Discharge Discharge Condition Stable Stable Ambulatory Status Ambulatory,Cane Ambulatory,Cane Transportation Private Auto Private Auto Facility Type [facility] Assessment/Plan Assessment/Plan (1) Leg wound, right: CODE(S): S81.801A - Unspecified open wound, right lower leg, initial encounter QUALIFIERS: Encounter type: initial encounter Qualified Code(s): S81.801A - Unspecified open wound, right lower leg, initial encounter (2) History of incision and drainage: CODE(S): Z98.890 - Other specified postprocedural states (3) Other acute postprocedural pain: CODE(S): G89.18 - Other acute postprocedural pain (4) Contusion of right lower leg, subsequent encounter: CODE(S): S80.11XD - Contusion of right lower leg, subsequent encounter (5) Traumatic hematoma of right lower leg with infection: CODE(S): S80.11XA - Contusion of right lower leg, initial encounter; L08.9 - Local infection of the skin and subcutaneous tissue, unspecified QUALIFIERS: Encounter type: initial encounter Qualified Code(s): S80.11XA - Contusion of right lower leg, initial encounter; L08.9 - Local infection of the skin and subcutaneous tissue, unspecified (6) 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 She had a subcutaneous debridement which she tolerated well. Wound care - Right posterior leg wound Dakins 0.25% moistened gauze covered with super absorbers/ABDs ideally daily, but at least every other day. The wound and desiree wound is to be washed with soap and water daily at the time of the dressing change. She may get in the shower and wash it with soap and water. BLAYNE wrap for compression. She was discharged on 07/26/[address] [facility]. Since then she has been doing her dressing change with the assistance of her brother. She does not have home health. She is not changing the dressing daily. She is supposed to be moving in a couple weeks to [place], [place] to live closer to her daughter. Renew Percocet (21 tabs). PDMP reviewed. Will have her follow up one week. She is to call and come in sooner if develops any issues or concerns.
== END 2021-08-06 23:59 | disposition home or self-care (01) ==
LOC: WC 14:30
PROVIDERS: PCP Family Medicine Geriatric Medicine; Visit Provider Nurse Practitioner Family
DX: L97.812 Non-pressure chronic ulcer of other part of right lower leg with fat layer exposed (principal); J43.9 Emphysema, unspecified; F31.9 Bipolar disorder, unspecified; S80.11XS Contusion of right lower leg, sequela; X58.XXXS Exposure to other specified factors, sequela; L08.9 Local infection of the skin and subcutaneous tissue, unspecified; E78.5 Hyperlipidemia, unspecified; Z79.01 Long term (current) use of anticoagulants; Z79.899 Other long term (current) drug therapy; Z87.891 Personal history of nicotine dependence
CPT/HCPCS: 11042; 11045; 99213; G0463

== ENCOUNTER → 2021-08-03 | Outpatient (CLI) | payer MEDICARE, MEDICAID, SELFPAY ==
--- NOTE | 2021-08-03 10:36 | RAD_ITS ---
STUDY: X-RAY - RIGHT HAND REASON FOR EXAM: Female, 70 years old. Hand weakness. TECHNIQUE: 3 view(s) of the hand. COMPARISON: None. FINDINGS: Osteopenia. Mild diffuse osteoarthritic changes. The soft tissue structures are unremarkable. RAD/Hand Min 3 Views IMPRESSION: Osteopenia with diffuse osteoarthritic changes. No acute abnormality, chondrocalcinosis, erosive changes or periostitis. Electronically Signed: Ozzy Ortiz MD at 13:34 EDT ,
--- NOTE | 2021-08-03 10:38 | VDLE_ITS ---
Reason For Study: Edema RIGHT GSV is normal. CFV is compressible, spontaneous, phasic, competent and demonstrates normal augmentation. FV is compressible, spontaneous, phasic, competent and demonstrates normal augmentation. POP V is compressible, spontaneous, phasic, competent and demonstrates normal augmentation. T/P Trunk is compressible. Right Profunda vein is compressible. Unable to visualized calf veins due to open wounds and bandages. Procedure This is a venous duplex using B-mode, color flow and spectral Doppler. Exam performed in department. Compared to 05/25/21. A preliminary report was called and/or faxed to [facility]. VL/Venous Duplex US, Unilateral Interpretation Summary Deep veins of the right lower extremity are patent and compressible segmentally . There is no evidence of right lower extremity deep vein thrombosis. Valvular competence bertin ears intact within the proximal deep venous system on the right . The right great saphenous vein a ppears patent and compressible segmentally. The deep veins of the right calf could not be visuali zed due to the presence of wounds and bandages. Ordering Physician: Matt Hess Referring Physician: Matt Hess Chi Performed By: Oralia Gonzalez RVT
== END | disposition home or self-care (01) ==
PROVIDERS: PCP Family Medicine Geriatric Medicine; Referring Provider Family Medicine Geriatric Medicine; Visit Provider Family Medicine Geriatric Medicine
DX: R60.0 Localized edema (principal); R29.898 Other symptoms and signs involving the musculoskeletal system; E78.5 Hyperlipidemia, unspecified; R53.83 Other fatigue
CPT/HCPCS: 36415; 73130; 80053; 80061; 84443; 85025; 93971

== ENCOUNTER → 2021-08-03 | Outpatient (CLI) | payer MEDICARE, MEDICAID, SELFPAY ==
[2021-08-03 12:00] LABS: Absolute Lymphocyte Count 1.12 X10^3/uL (0.83-4.51); Absolute Neutrophil Count 8.3 X10^3/uL (2.0-7.7); Basophil# 0.03 X10^3/uL; Basophil% 0.3 % (0-1); Eosinophil# 0.15 X10^3/uL; Eosinophils% 1.4 % (0-5); Hematocrit 30.2 % (37-47); Hemoglobin 9.1 g/dL (12.0-15.0); Lymphocyte # 1.12 X10^3/ul (0.83-4.51); Lymphocyte % 10.5 % (19-41); Mean Corp Hgb Conc 30.1 g/dL (32-36); Mean Corpuscular Hgb 25.9 pg (27.0-32.0); Mean Platelet Vol. 13.7 fl (6.2-12.0); Monocyte# 1.01 X10^3/uL; Monocyte% 9.5 % (0-10); NRBC Flagged by Analyzer 0 % (0-5); Neutrophil # 8.31 X10^3/uL (2.7-7.7); Neutrophil % 77.8 % (47-70); POSITIVE COUNT YES; RBC Distribution Width CV 15.2 % (11.6-14.6); RBC Distribution Width SD 47.9 fl (35.1-43.9); Red Blood Count 3.51 M/mm3 (4.2-5.4); White Blood Count 10.7 K/mm3 (4.4-11.0)
[2021-08-03 12:23] LABS: ALB/GLOB Ratio 0.5 RATIO (0.9-2.4); AST(SGOT) 10 U/L (15-37); Alanine Aminotransfer ALT/SGPT 14 U/L (13-56); Alkaline Phosphatase 81 U/L (45-117); Anion Gap 6 (5-15); BUN 12 mg/dL (7-18); BUN/Creat Ratio 23.2 RATIO (10-20); Chloride 107 mmol/L (98-107); Cholesterol 96 mg/dL (200); Creatinine, Serum 0.52 mg/dL (0.55-1.02); EST Glomerular Filtration Rate 125 mL/min (>60); Est Glom Filt Rate - Afr Amer 151 mL/min (>60); Globulin 3.9 g/dL (2.2-4.2); Glucose 104 mg/dL (74-106); High Density Lipoprotein 52 mg/dL; Potassium 4.2 mmol/L (3.5-5.1); Protein, Total 5.9 g/dL (6.4-8.2); Sodium Level 142 mmol/L (136-145); Thyroid Stim Hormone (TSH) 0.68 uIU/mL (0.358-3.74); Triglycerides 82 mg/dL; Very Low Density Lipoprotein 16 mg/dL (5-40)
[2021-08-03 12:38] LABS: Differential Indicated SCAN CRITERIA MET
[2021-08-03 12:39] LABS: Platelet Estimate ADEQUATE (ADEQ)
== END | disposition home or self-care (01) ==
LOC: POLAB3 10:35
PROVIDERS: PCP Family Medicine Geriatric Medicine; Visit Provider Family Medicine Geriatric Medicine
DX: E78.5 Hyperlipidemia, unspecified (principal); R53.83 Other fatigue
CPT/HCPCS: 36415; 80053; 80061; 84443; 85025

== ENCOUNTER 2021-08-08 13:43 | Outpatient (RCR) | payer MEDICARE, MEDICAID, SELFPAY ==
[2021-08-07 00:07] VITALS: BP 97/63; PULSE 75; RESP 16; TEMP 36.8; BMI 18.9
[2021-08-08 13:43] VITALS: BP 110/68; PULSE 91; TEMP 35.9; BMI 18.9
--- NOTE | 2021-08-08 14:27 | PN.PCM_ITS ---
History of Present Illness Date of Service: 08/08/21 Chief Complaint: Surgical ulcer right posterior leg History of Wound: Patient is 70 year old female who was diagnosed with DVT in 05/[address] Xarelto. She was admitted 06/15/21 for a traumatic hematoma. Surgery 06/16/21 - Surgical preparation right posterior leg with incision and drainage and excisional debridement infected hematoma with overlying skin necrosis (315 cm2). Operative cultures on 06/16/21 showed no growth. She was treated with IV Zosyn while hospitalized and discharged on Cephalexin upon discharge. She also received 2 units PRBC Discharged home 06/17/21 with a wound VAC. Readmitted on 06/30/21 after not taking care of her self and turning her wound VAC off and having severe pain with standing and walking. Surgery 07/01/21 - Surgical preparation right posterior leg with incision and drainage and excisional debridement infected necrotic hematoma wound (360 cm2). Operative cultures 07/01/21 positive for Streptococcus group C, Enterobacter cloacae complex, Corynebacterium striatum and Anaerobic cocci. Was treated with IV Vancomycin and Zosyn. Upon transfer to [facility] she started on Levaquin for 10 days. She was discharged to the [facility] on 07/05/21. Wound care - Wash wound with soap and water. Dakin's 0.25 % moistened gauze cover with ABD or super absorbers, wrapped with kerlix ideally daily. IF she doesn't have help with her dressing change, she is able to change it every other day. BLAYNE wrap for compression. Today she denies any fever, chills, nausea or vomiting. She states she has a good appetite. She states they are supposed to discharge her tomorrow from the [facility] and they are trying to get her home health to help with her dressing changes. Progress of Wound: Right posterior leg ulcer is pink. There is some hypergranulation around the some of the edges of the ulcer. She continues to have a significant amount of drainage. She is not changing her dressing every day. She states that home health is only allowed to come once per week. She h as her brother come over to help with change her dressing every other day. Discussed increasing dressing change to daily to see if this helps with the amount of drainage that she is experiencing. Her desiree wound is stable, with no excoriation present. Objective Data Objective Data Vital Signs: Vital Signs Temp Pulse Resp BP 96.6 F L 91 16 110/68 08/08/21 13:43 08/08/21 13:43 08/07/21 00:07 08/08/21 13:43 Weight: 110 lb 8.136 oz Body Mass Index (BMI) 18.9 Charges/Coding Procedures Integumentary 111xxx-113xx: [id number] Global Visit Physical Exam Const alert and oriented x3 General Appearance: cooperative HEENT normocephalic Head and Scalp: atraumatic Resp normal respiratory effort Cardio regular rate Extremity normal capillary refill Skin Wound Narrative: Right posterior leg ulcer is beefy pink with some hypergranulation along some of the edges of the ulcer. No odor present. She states she is having a moderate amount of drainage for the ulcer. Neuro CN's II-XII intact bilaterally Psych Appearance: well kempt Debridement Note Debridement Note Wound debrided: posterior leg ulcer Laterality: Right Wound Grade/Stage: Stage IV Type of Debridement: Excisional debridement Anesthesia Used: 4% Lidocaine Solution and 5% Lidocaine Gel Depth: Down to and including healthy tissue and in the subcutaneous layer Percentage of wound debrided: 100 Instrument Used: 7mm curette Tissue Removed: Non viable tissue and slough Severity: Fat Layer Exposed Amount of bleeding with debridement: Mild Bleeding Controlled with: Pressure and Compression and gauze Patient tolerated procedure: Patient tolerated procedure well Post-Debridement Measurements and Additional Note: Post-Debridement Measurements/Treatment WC - Nurse 1 - General Ulcer Assessment Start: 08/08/21 13:43 Freq: Status: Active Protocol: SUYAPA Activity Type Activity Date Activity User E-Sign Co-Sign Detail Recorded Client Recorded Date Recorded By Document 08/08/21 13:43 INA [id number] 08/08/21 13:44 INA 08/08/21 13:43 - Today's Visit Information Type of service Follow-up Visit (Physician/PERSONAL COMPANION ) Arrival Mode Ambulatory,Cane Patient Identification Verified (Name & Yes ) Height and Weight Body Mass Index (BMI) 18.9 BMI Classification Normal Vital Signs Temperature (97.8 F-99.1 F) 96.6 F L Temperature Source Temporal Pulse Rate (60-100) 91 Pulse Location Monitor Blood Pressure (90/60-120/80) 110/68 Blood Pressure Mean (mm Hg) 82 Source Monitor Position Sitting Blood Pressure Location Left Arm History Since Last Visit- (Skip if this is Patient's initial visit) Have you changed medications since your No last visit? Any new allergies or adverse reactions No Had a fall/change in ADL's that may No increase risk of falls Signs or symptoms of abuse and/or No neglect since last visit Have you been in the hospital since your No last visit? Has dressing in place as prescribed Yes Has compression in place as prescribed Yes Has offloadiing in place as prescribed N/A Experienced any changes in pain level or No management Left Footwear Regular Shoe Right Footwear Regular Shoe Pain Scale: 0-10 Numeric Is Patient Pain Free? Yes WC - Nurse 1 - General Ulcer Measurement Start: 08/08/21 13:43 Freq: Status: Active Protocol: Activity Type Activity Date Activity User E-Sign Co-Sign Detail Recorded Client Recorded Date Recorded By Document 08/08/21 13:43 INA [id number] 08/08/21 13:44 INA 08/08/21 13:43 Wound Center Nurse 1 #1 R Med LE -Current Size (cm) - Length 21.5 -Current Size (cm) - Width 15 -Current Size (cm) - Depth 0.2 -Total Square Cm 322.5 -Exudate Amt Large -Exudate Type Serosanguineous -Wound Margin Distinct, Outline Attached -Granulation Amt Large (67-100%) -Granulation Quality Red -Necrosis Amt Medium (34-66%) -Necrotic Tissue Type Adherent Slough -Texture (Desiree-wound Skin Appearance) Assessed, Scarring -Moisture (Desiree-wound Skin Appearance) Assessed, Maceration -Color (Desiree-wound Skin Appearance) No Abnormality, Assessed -Temperature (Desiree-wound Skin No Abnormality Appearance) (Pt Warm) -Tenderness on Palpation (Desiree-wound No Skin Appearance) -Ulcer Cleansing Soap and Water -Foul Odor after Cleansing No -Anesthetic Used 4% Lidocaine Solution,5% Lidocaine Gel WC - Nurse 2 - General Ulcer CM Notes Start: 08/08/21 13:43 Freq: Status: Active Protocol: Activity Type Activity Date Activity User E-Sign Co-Sign Detail Recorded Client Recorded Date Recorded By Document 08/08/21 13:51 FERDINAND [id number] 08/08/21 13:58 FERDINAND 08/08/21 13:51 Wound Center Nurse 2 -Time 13:52 -Correct Patient Yes -Correct Side, Site, Position Yes -Correct Procedure Yes -Procedure Performed Yes -Type of Procedure Debridement -Clinical Debridement Subcutaneous -Tissue Removed Subcutaneous -Post Debridement (cm) - Length 21.5 -Post Debridement (cm) - Width 19.0 -Post Debridement (cm) - Depth 0.3 -Total Square (Post) (cm) 408.50 -Area of Debridement (cm) - Length 21.5 -Area of Debridement (cm) - Width 19.0 -Total Square (Area) (cm) 408.50 -Tunneling No -Undermining/Tunneling No -Circular Undermining No -Wound/Ulcer Outcome Not Healed -Ulcer Cleansing Rinsed/ Irrigated with Saline -Foul Odor after Cleansing No -Bioengineered Tissue No -Bleeding Controlled with Pressure -Treatment Response Procedure Tolerated Well -Offloading No -Debridement - Subq, 1st 20sq cm Yes -Debridement, SubQ, ea addt'l 20sq cm 11 or part thereof Pain Scale: 0-10 Numeric Is Patient Pain Free? Yes - Nurse 3 - General Ulcer D/C NN Start: 08/08/21 13:43 Freq: Status: Active Protocol: Activity Type Activity Date Activity User E-Sign Co-Sign Detail Recorded Client Recorded Date Recorded By Document 08/08/21 14:08 INA [id number] 08/08/21 14:08 INA 08/08/21 14:08 Wound Care Nurse 3 #1 R Med LE -Ulcer Cleansing Rinsed/ Irrigated with Saline -Other Dressing wet to dry -Primary Dressing Covered/Secured with Dry Gauze,Dry Gauze & Roll Gauze,Secured with Tape Right -Compression Wrap Blayne Wrap Pain Scale: 0-10 Numeric Is Patient Pain Free? Yes - Visit Discharge Discharge Condition Stable Ambulatory Status Ambulatory,Cane Transportation Private Auto Assessment/Plan Assessment/Plan (1) Ulcer of right lower extremity with fat layer exposed: CODE(S): L97.912 - Non-pressure chronic ulcer of unspecified part of right lower leg with fat layer exposed (2) Traumatic hematoma of right lower leg with infection: CODE(S): S80.11XA - Contusion of right lower leg, initial encounter; L08.9 - Local infection of the skin and subcutaneous tissue, unspecified QUALIFIERS: Encounter type: initial encounter Qualified Code(s): S80.11XA - Contusion of right lower leg, initial encounter; L08.9 - Local infection of the skin and subcutaneous tissue, unspecified (3) long term care phlebotomist current use of anticoagulant: CODE(S): Z79.01 - long term care phlebotomist (current) use of anticoagulants (4) History of incision and drainage: CODE(S): Z98.890 - Other specified postprocedural states (5) Other acute postprocedural pain: CODE(S): G89.18 - Other acute postprocedural pain PLAN: Patient was evaluated at the wound center today. She had a subcutaneous debridement which she tolerated well. Wound care - Right posterior leg wound Dakins 0.25% moistened gauze covered with super absorbers/ABDs wrapped with kerlix ideally daily, but at least every other day. The wound and desiree wound is to be washed with soap and water daily at the time of the dressing change. She may get in the shower and wash it with soap and water. BLAYNE wrap for compression. She was discharged on 07/26/21 from [facility]. She has been doing her dressing change with the assistance of her brother. She has home health, but they will only come to assist with the dressing change once per week. She is not changing the dressing daily. She is supposed to be moving in a couple weeks to [place], [place] to live closer to her daughter. Renew Percocet (14 tabs). PDMP reviewed. Discussed that she needs to start to wean herself off of her pain meds. Will have her follow up one week. She is to call and come in sooner if develops any issues or concerns.
== END 2021-09-06 23:59 | disposition home or self-care (01) ==
LOC: WC 13:43
PROVIDERS: PCP Family Medicine Geriatric Medicine; Visit Provider Nurse Practitioner Family
DX: L97.812 Non-pressure chronic ulcer of other part of right lower leg with fat layer exposed (principal); S80.11XS Contusion of right lower leg, sequela; G89.18 Other acute postprocedural pain; L08.9 Local infection of the skin and subcutaneous tissue, unspecified; Z79.01 Long term (current) use of anticoagulants; Z79.899 Other long term (current) drug therapy; Z86.718 Personal history of other venous thrombosis and embolism; Z98.890 Other specified postprocedural states
CPT/HCPCS: 11042; 11045